=== PATIENT | male | born 1960 | race Caucasian/White ===

== ENCOUNTER 2022-07-09 00:37 | Inpatient (IN) | payer BC, SELFPAY ==
[2022-07-09] VITALS (37 sets, daily range): BP systolic 112–191; BP diastolic 55–90; PULSE 69–96; RESP 12–20; TEMP 36.4–37.2; O2SAT 97–100; BMI 28.5; BMI 27.2
--- NOTE | 2022-07-09 00:38 | CT_ITS ---
EXAM: CTA Head and Neck W/ Contrast Injection (and W/O Contrast Images if performed) HISTORY: Neuro deficit, acute, stroke suspected TECHNIQUE: CTA Head and Neck W/ Contrast Injection (and W/O Contrast Images if performed) Postcontrast axial images were obtained of the brain and neck. NASCET criteria using the distal ICAs for comparison were used for evaluation of stenoses. 3D reconstructions were reviewed. A radiation dose optimization technique was used for this scan. COMPARISON: None. LIMITATIONS: None. CAROTID ARTERIES: Severe 3 mm stenosis in the cavernous segment of the right internal carotid artery due to noncalcified plaque. ANTERIOR CEREBRAL ARTERIES: Hypoplastic right a 1 segment. MIDDLE CEREBRAL ARTERIES: Normal. POSTERIOR CEREBRAL ARTERIES: Normal. BASILAR ARTERY: Normal. VERTEBRAL ARTERIES: Severe focal stenosis in the proximal left V4 segment due to calcified and noncalcified plaque. VENOUS STRUCTURES: Normal. OTHER: None. AORTIC ARCH: Normal. CAROTID ARTERIES: Mild calcifications without flow-limiting stenosis. VERTEBRAL ARTERIES: Normal. OTHER ARTERIES: Normal. VENOUS STRUCTURES: Normal. BONES/SOFT TISSUES: Degenerative changes visualized spine. No acute osseous abnormality. Nonspecific straightening of the normal cervical lordosis.. OTHER: Calcified granuloma in the right upper lobe. CT/STROKE CTA Head AND Neck W/Con IMPRESSION: 1. Severe focal stenosis in the right internal carotid artery. 2. Severe stenosis in the proximal left V4 segment. 3. Hypoplastic right A1 segment. Findings discussed with Dr. Daniel Craft via phone at 10:13 PM PST on 07/08/2022. N.B. : The above Results were Read Back by Archie Garcia MD to Dr. Daniel Craft DO, and understanding confirmed on 07/09/2022 01:14:16 (ET). Electronically Signed: Archie Garcia MD at 1:15 EST ,
--- NOTE | 2022-07-09 00:38 | CT_ITS ---
EXAM: CT brain without contrast HISTORY: Neuro deficit, acute, stroke suspected TECHNIQUE: CT Head Stroke Protocol W/O Contrast Injection A radiation dose optimization technique was used for this scan. COMPARISON: None. LIMITATIONS: None. BRAIN: Normal flower/white matter differentiation. VENTRICLES: No hydrocephalus. Bilateral periventricular hypoattenuation, nonspecific however likely represents chronic microvascular ischemic changes. EXTRA-AXIAL SPACES: No hemorrhages, fluid collections, or masses. CALVARIUM/SKULL BASE: Normal. FACE/SINUSES: Visualized portions normal. SOFT TISSUES: Normal. OTHER: Vascular calcifications. CT/STROKE Brain/Head without Cont IMPRESSION: No intracranial hemorrhage or acute territorial infarction. Senescent changes. Findings discussed with Dr. Daniel Craft via phone at 9:56 PM PST on 07/08/2022. N.B. : The above Results were Read Back by Archie Garcia MD to Dr. Daniel Craft, DO, and understanding confirmed on 07/09/2022 00:57:59 (ET). Electronically Signed: Archie Garcia MD at 1:00 EST ,
[2022-07-09 01:02] LABS: Absolute Lymphocyte Count 1.95 X10^3/uL (0.83-4.51); Basophil# 0.05 X10^3/uL; Basophil% 0.7 % (0-1); Eosinophil# 0.19 X10^3/uL; Eosinophils% 2.8 % (0-5); Hematocrit 46.9 % (40-54); Lymphocyte # 1.95 X10^3/ul (0.83-4.51); Lymphocyte % 29.2 % (19-41); Mean Corpuscular Hgb 29.6 pg (27.0-32.0); Mean Corpuscular Volume 92.7 fL (80-94); Mean Platelet Vol. 10.4 fl (6.2-12.0); Monocyte# 0.44 X10^3/uL; Monocyte% 6.6 % (0-10); NRBC Flagged by Analyzer 0 % (0-5); Neutrophil # 4.02 X10^3/uL (2.7-7.7); Neutrophil % 60.4 % (47-70); Platelet Count 254 K/mm3 (150-450); RBC Distribution Width SD 44.2 fl (35.1-43.9); Red Blood Count 5.06 M/mm3 (4.6-6.2); White Blood Count 6.7 K/mm3 (4.4-11.0)
[2022-07-09] MEDS: 0.9% Normal Saline 1,000 ML 100 ML IV ×2 (01:13→06:32)
[2022-07-09 01:15] LABS: Anion Gap 9 (5-15); BUN 18 mg/dL (7-18); BUN/Creat Ratio 17.8 RATIO (10-20); Calcium,Total 8.8 mg/dL (8.5-10.1); Chloride 106 mmol/L (98-107); Creatinine, Serum 1.01 mg/dL (0.70-1.30); EST Glomerular Filtration Rate 80 mL/min (>60); Est Glom Filt Rate - Afr Amer 96 mL/min (>60); Glucose 304 mg/dL (74-106); Potassium 3.8 mmol/L (3.5-5.1); Sodium Level 137 mmol/L (136-145)
[2022-07-09 01:16] LABS: Prothrombin Time (Protime)PT. 13.1 SECONDS (11.7-14.9)
--- NOTE | 2022-07-09 01:25 | PCM.HP.STD ---
HPI - General General Date of Admission: 07/09/22 Date of Service: 07/09/22 Chief Complaint: L sided weakness, facial droop, slurred speech. HPI Narrative The patient is a 62 y/o M w/ PMHx: Former cigarette tobacco usage-->Chew tobacco ongoing, Former EtOH abuse, HTN, Diabetes mellitus type II, Overweight, Hx R eye unclear type of bleeding in unclear location s/p serial injections w/ last performed 06/25/22 with confirmed resolution with planned upcoming Surgery for scarring per their description who presents to the [facility] ED on 07/09/22 with history of currently visiting sleeping in a hotel with his spouse with onset just after LKW 00:00 left sided weakness with slurred speech, L sided facial droop prompting immediate EMS call and transition to the ED. Patient reports taking a baby aspirin daily. In the ED initial NIH stroke scale 15 with most recent repeat prior to admission 12. Patient is from out of town and was visiting his eldest son who lives in [place] with on evening prior to his presentation his granddaughter's 12th birthday green party. Work-up in the ED included T97.5, heart rate 96, BP 186/83, respiratory rate 20, 99% on room air, CT of the head with no acute intracranial hemorrhage or acute territorial infarction with senescent changes, CTA head and neck with severe focal stenosis in the right ICA, severe stenosis in the proximal left V4 segment, hypoplastic right A1 segment CBC with WC 6.7, hemoglobin 15, platelet 254 without marked shift, unremarkable coags, BMP with glucose 304 otherwise not marked appearing, EKG with sinus rhythm with no acute evidence of ischemia. In the ED patient administered tenecteplase. In the ED stroke alert called and neurology evaluated the patient with recommendation of tenecteplase administration with post tPA recommendations of every 15 minute vital signs/neurochecks/bleeding checks with comment to refer to tPA order set. [facility] Medical History (Updated 07/09/22 @ 03:[address] Anna Ledesma MD) Chewing tobacco use Former cigarette smoker History of alcohol abuse History of vitreous hemorrhage of right eye Hypertension Insulin dependent diabetes mellitus Overweight Home Medications aspirin 81 mg tablet 81 mg PO DAILY 07/09/22 [History Last Taken Unknown] empagliflozin 25 mg tablet (Jardiance) 25 mg PO DAILY 07/09/22 [History Last Taken Unknown] insulin detemir U-100 100 unit/mL (3 mL) subcutaneous pen (Levemir FlexPen) 35 unit subcut BID 07/09/22 [History Last Taken Unknown] lisinopril 40 mg tablet 20 mg PO DAILY 07/09/22 [History Last Taken Unknown] Allergy/AdvReac Type Severity Reaction Status Date / Time No Known Allergies Allergy Verified 07/09/22 00:56 Family History (Updated 07/09/22 @ 03:[address] Anna Ledesma MD) Mother Brain tumor Dx age 43. Father Heart disease Hypertension CAD (coronary artery disease) Diabetes Brother CVA (cerebral vascular accident) CVA in his 60s. Surgical History Hx of appendectomy Social History (Updated 07/09/22 @ 03:[address] Anna Ledesma MD) household members: spouse Smoking Status: Former smoker quit date: 04/30/00 pack-years: 38 Smokeless tobacco user: chewing tobacco and other alcohol intake: current alcohol intake frequency: holidays/special occasions only details: Hx heavy EtOH abuse (64 ounces beer/day) but stopped heavy intake 2 yrs ago substance use type: does not use ROS ROS Narrative Admission Review of Systems: CONSTITUTIONAL: No weight loss, fever, chills, + weakness or fatigue. HEENT: + L facial droop. Eyes: No visual loss, blurred vision, double vision or yellow sclerae. Ears, Nose, Throat: No hearing loss, sneezing, congestion, runny nose or sore throat. SKIN: No rash or itching, lesions, wounds. CARDIOVASCULAR: No chest pain, chest pressure or chest discomfort, palpitations, edema, orthopnea, syncopal events. RESPIRATORY: No shortness of breath, cough or sputum, wheezing, hemoptysis. GASTROINTESTINAL: No anorexia, nausea, vomiting or diarrhea, abdominal pain, melena, BRBPR. GENITOURINARY: No dysuria, frequency, urgency or retention. NEUROLOGICAL: + Left-sided hemiplegia, facial droop, 3, mild left-sided sensation alteration, no headache, dizziness, syncope, change in bowel or bladder control, seizure. MUSCULOSKELETAL: No muscle, back pain, joint pain or stiffness. HEMATOLOGIC: No anemia, bleeding or bruising. LYMPHATICS: No enlarged nodes. No history of splenectomy. PSYCHIATRIC: No history of depression or anxiety. ENDOCRINOLOGIC: No reports of sweating, cold or heat intolerance. No polyuria or polydipsia. ALLERGIES: No history of asthma, hives, eczema or rhinitis. Vital Signs Vital Signs Vital Signs: 07/09/22 00:43 07/09/22 01:03 07/09/22 00:37 Temperature 97.5 F L Temperature Source Temporal Pulse Rate 96 94 Respiratory Rate 20 H Blood Pressure 186/83 H 191/84 H Blood Pressure Mean 117 119 Blood Pressure Source Blood Pressure Position Blood Pressure Location Pulse Ox 99 97 Oxygen Delivery Method Room Air Room Air Room Air 07/09/22 01:09 07/09/22 00:56 07/09/22 01:11 Temperature Temperature Source Pulse Rate 92 90 Respiratory Rate 18 16 Blood Pressure 178/84 H 166/85 H 170/88 H Blood Pressure Mean 112 115 Blood Pressure Source Monitor Monitor Blood Pressure Position Semi-Fowlers Semi-Fowlers Blood Pressure Location Right Arm Right Arm Pulse Ox 99 98 Oxygen Delivery Method Room Air Room Air 07/09/22 01:26 07/09/22 01:41 07/09/22 01:51 Temperature 98.3 F Temperature Source Oral Pulse Rate 86 85 84 Respiratory Rate 16 15 14 Blood Pressure 160/74 H 172/73 H 172/73 H Blood Pressure Mean 102 106 106 Blood Pressure Source Monitor Monitor Blood Pressure Position Semi-Fowlers Semi-Fowlers Blood Pressure Location Right Arm Right Arm Pulse Ox 99 98 98 Oxygen Delivery Method Room Air Room Air Room Air 07/09/22 01:59 Temperature Temperature Source Pulse Rate 86 Respiratory Rate 17 Blood Pressure 165/70 H Blood Pressure Mean 101 Blood Pressure Source Monitor Blood Pressure Position Semi-Fowlers Blood Pressure Location Right Arm Pulse Ox 97 Oxygen Delivery Method Room Air Weight Weight: 181 lb 14.102 oz Body Mass Index (BMI) 28.5 Physical Exam Narrative Physical Examination: General: Awake, alert, oriented x 3 and cooperative, seated upright in the ED bed, fatigued, ongoing mild dysarthria secondary to left-sided facial droop. Skin: Normal color, normal turgor, no icterus, no cyanosis. HEENT: AT/NC, EOMI, PERRLA, mildly dry MM, left-sided facial droop evident, no carotid bruits or JVD noted. Lungs: CTA bilaterally, moderate effort, mild decrease BL bases, no rales, ronchi or wheezing. Heart: Currently regular rate and rhythm; no gallop, rub audible. Abdomen: Soft, overweight, NTTP, ND, normal BS, no HSM. Extremities: No cyanosis, clubbing, or edema. Neurological: Patient awake, alert, oriented as noted, cognitive function intact; pupils equally reactive to light and accommodation, cranial nerves grossly normal except left-sided facial deficit with mild sensation alteration, left eye shah of vision improved from initial complaints with initial complete hemianopia and are currently intact, left-sided complete hemiplegia present, left-sided mild sensation alteration, mild persistent dysarthria, able to perform right upper and lower extremity finger-nose and [id number], equivocal Babinski. Psychiatric: Affect appears fatigued, no acute evidence of depressive or anxiety feelings. Results Lab / Micro Data Result Diagrams: 07/09/22 00:55 03 00:55 Labs: Laboratory Results - last 24 hr 07/09/22 00:55: WBC 6.7, RBC 5.06, Hgb 15.0, Hct 46.9, MCV 92.7, MCH 29.6, MCHC 32.0, RDW Std Deviation 44.2 H, RDW Coeff of Machelle 13.0, Plt Count 254, MPV 10.4, Immature Gran % (Auto) 0.300, Neut % (Auto) 60.4, Lymph % (Auto) 29.2, Steele % (Auto) 6.6, Eos % (Auto) 2.8, Baso % (Auto) 0.7, Absolute Neuts (auto) 4.0, Absolute Lymphs (auto) 1.95, Nucleated RBC % 0 07/09/22 00:55: PT 13.1, INR 1.0, APTT 25.0 07/09/22 00:55: Sodium 137, Potassium 3.8, Chloride 106, Carbon Dioxide 22.0, Anion Gap 9, BUN 18, Creatinine 1.01, Estim Creat Clear Calc 70.90, Est GFR (MDRD) Af Amer 96, Est GFR (MDRD) Non-Af 80, BUN/Creatinine Ratio 17.8, Glucose 304 H, Calcium 8.8 07/09/22 00:55: Magnesium 2.[address] 07/09/22 00:38 IMPRESSION: No intracranial hemorrhage or acute territorial infarction. Senescent changes. Findings discussed with Dr. Daniel Craft via phone at 9:56 PM PST on 07/08/2022. N.B. : The above Results were Read Back by Archie Garcia MD to Dr. Daniel Craft DO, and understanding confirmed on 07/09/2022 00:57:59 (ET). Electronically Signed: Archie Garcia MD at 1:00 EST , ADDENDUM: 07/09/22 0107 IMPRESSION: No intracranial hemorrhage or acute territorial infarction. Senescent changes. Findings discussed with Dr. Daniel Craft via phone at 9:56 PM PST on 07/08/2022. N.B. : The above Results were Read Back by Archie Garcia MD to Dr. Daniel Craft DO, and understanding confirmed on 07/09/2022 00:57:59 (ET). Electronically Signed: Archie Garcia MD at 1:00 EST Reading Location ID and State: [id number] / [employer] , Service support , Head/Neck CTA 07/09/22 00:38 IMPRESSION: 1. Severe focal stenosis in the right internal carotid artery. 2. Severe stenosis in the proximal left V4 segment. 3. Hypoplastic right A1 segment. Findings discussed with Dr. Daniel Craft via phone at 10:13 PM PST on 07/08/2022. N.B. : The above Results were Read Back by Archie Garcia MD to Dr. Daniel Craft DO, and understanding confirmed on 07/09/2022 01:14:16 (ET). Electronically Signed: Archie Garcia MD at 1:15 EST Reading Location ID and State: [id number] / [employer] , Service support , ADDENDUM: 07/09/22 0122 IMPRESSION: 1. Severe focal stenosis in the right internal carotid artery. 2. Severe stenosis in the proximal left V4 segment. 3. Hypoplastic right A1 segment. Findings discussed with Dr. Daniel Craft via phone at 10:13 PM PST on 07/08/2022. N.B. : The above Results were Read Back by Archie Garcia MD to Dr. Daniel Craft , DO, and understanding confirmed on 07/09/2022 01:14:16 (ET). Electronically Signed: Archie Garcia MD at 1:15 EST , Assessment & Plan Assessment/Plan (1) Acute cerebrovascular accident (CVA): PLAN: Plan The patient is a 62 y/o M w/ PMHx: Former cigarette tobacco usage-->Chew tobacco ongoing, Former EtOH abuse, HTN, Diabetes mellitus type II, Overweight, Hx R eye unclear type of bleeding in unclear location s/p serial injections w/ last performed 06/25/22 with confirmed resolution with planned upcoming Surgery for scarring per their description who presents to the [facility] ED on 07/09/22 with history of currently visiting sleeping in a hotel with his spouse with onset just after LKW 00:00 left sided weakness with slurred speech, L sided facial droop prompting immediate EMS call and transition to the ED. #1. Left-sided hemiplegia, facial droop, facial droop with slurred speech secondary to acute stroke status post tenecteplase administration with noted severe focal stenosis right ICA, severe stenosis proximal left V4 segment, hypoplastic right A1 segment: Will admit to the ICU status post tenecteplase administration, continue chief deputy clerk/bailiff consultation, plan repeat CT head in 24 hours following tenecteplase administration and if no acute evidence of bleeding reinitiate antiplatelet therapy immediately, will request neurology consultation, will obtain MRI Brain, ECHO, PT/OT/Speech/Nutrition evaluation per protocol. Will allow permissive HTN with parent agents per stroke protocol, add high-dose statin w/ AM FLP, fall precautions, TSH/Mag/FLP/HgbA1c pending, will obtain carotid ultrasound and request vascular surgery evaluation to assure aggressive intervention follow-up. #2. Diabetes mellitus type II: Hold oral home regimen, continue home insulin regimen, ADA diet if cleared for oral intake, accu checks w/ ISS once patient is appropriately out status post tenecteplase administration, nutrition consulted for education and teaching. #3. Hypertension: Given presentation maintain on permissive hypertension with as needed agents per stroke protocol. #4. History of right eye bleeding, unclear specific type status post injections: Patient has noted with serial injections specifically ongoing over the last 3 months with last injection 06/25/2022 with resolution confirmed per ophthalmology per their report, planned upcoming future surgery secondary to what is described as potentially scar tissue causing a small thin line across his field of vision. #5. Overweight: Weight loss and lifestyle changes encouraged. #6. Former cigarette tobacco usage transition to chew tobacco: Strongly encouraged cessation of tobacco products, cessation counseling, NR if necessary. #7. Former heavy alcohol abuse: Patient with at least 64 ounces of beer daily however he stopped drinking heavily approximately 2 years prior to current presentation, now will have single drink on rare occasion, discussed benefits of transitioning to complete sobriety. #8. DVT prophylaxis: SCDs. #9. CODE status: Patient HCPOA and living will are not in place. Discussed CODE status at length including difference between FULL code, DNR-CCA and DNR-CC status. Following discussions about the differences in these status, requested Full Code status at this time. Advanced Care Planning Face to Face Time: 16 minutes. Admission Evaluation Time spent evaluating chart, patient history, patient evaluation, care planning and discussion with specialists: 75 minutes. Charges/Coding Visit Charges Inpatient E&M: 22080 Init Hosp L3 Procedures Hospitalists Procedures: 76454 Advncd Care Plan 30 Min
--- NOTE | 2022-07-09 01:42 | EX.ED.DYSGE1 ---
HPI History of Present Illness Chief Complaint: Stroke Alert Narrative Narrative: Patient is a 62-year-old male with past medical history of insulin-dependent diabetes and hypertension. This evening he and his for sitting around talking and all of a sudden he began to slur his speech and had a facial droop. recognized this as signs of possible stroke and called EMS. Patient states that he was feeling normal up to the sudden onset of symptoms. He denies any chest pain shortness of breath or palpitations. He denies any recent surgery or trauma or history of blood thinner use. However with left-sided weakness and facial droop and concern for acute stroke he was brought in for evaluation. EMS states when they arrived patient was awake and alert with the deficits seen upon arrival. They state that his last known well was midnight. They report blood sugar upon arrival was slightly elevated at 254 consistent with history of diabetes [facility] Medical History (Updated 07/09/22 @ 01:[address] Daniel Craft, DO) Diabetes Hypertension Home Medications aspirin 81 mg tablet 81 mg PO DAILY 07/09/22 [History Last Taken Unknown] empagliflozin 25 mg tablet (Jardiance) 25 mg PO DAILY 07/09/22 [History Last Taken Unknown] insulin detemir U-100 100 unit/mL (3 mL) subcutaneous pen (Levemir FlexPen) 35 unit subcut BID 07/09/22 [History Last Taken Unknown] lisinopril 40 mg tablet 20 mg PO DAILY 07/09/22 [History Last Taken Unknown] Allergy/AdvReac Type Severity Reaction Status Date / Time No Known Allergies Allergy Verified 07/09/22 00:56 Surgical History (Updated 07/09/22 @ 00:58 by Geovanna Coleman) Hx of appendectomy Social History Smoking Status: Never smoker [facility] ED Constitutional Constitutional ED: Denies chills or fever(s) Eyes Eyes: Reports change in vision ENT ENT ED: Denies sore throat Cardiovascular Cardiovascular: Denies chest pain, palpitations or racing heartbeat Respiratory/Chest Respiratory/Chest: Denies cough or dyspnea Gastrointestinal Gastrointestinal: Denies abdominal pain, diarrhea, nausea or vomiting Genitourinary Genitourinary ED: Denies dysuria Musculoskeletal Musculoskeletal: Denies myalgias Integumentary Denies rash Neurologic Neurologic: Reports paresthesias and weakness; Denies headache(s) Hematologic/Lymphatic Hematologic/Lymphatic: Denies easy bleeding or easy bruising EXAM Physical Exam Const Vital Signs: 07/09/22 00:43 07/09/22 01:03 07/09/22 00:37 Temperature 97.5 F L Temperature Source Temporal Pulse Rate 96 94 Respiratory Rate 20 H Blood Pressure 186/83 H 191/84 H Blood Pressure Mean 117 119 Blood Pressure Source Blood Pressure Position Blood Pressure Location Pulse Ox 99 97 Oxygen Delivery Method Room Air Room Air Room Air 07/09/22 01:09 07/09/22 00:56 07/09/22 01:11 Temperature Temperature Source Pulse Rate 92 90 Respiratory Rate 18 16 Blood Pressure 178/84 H 166/85 H 170/88 H Blood Pressure Mean 112 115 Blood Pressure Source Monitor Monitor Blood Pressure Position Semi-Fowlers Semi-Fowlers Blood Pressure Location Right Arm Right Arm Pulse Ox 99 98 Oxygen Delivery Method Room Air Room Air 07/09/22 01:26 Temperature Temperature Source Pulse Rate 86 Respiratory Rate 16 Blood Pressure 160/74 H Blood Pressure Mean 102 Blood Pressure Source Monitor Blood Pressure Position Semi-Fowlers Blood Pressure Location Right Arm Pulse Ox 99 Oxygen Delivery Method Room Air Positive well nourished and well developed General Appearance ED: well developed HEENT Reports moist mucous membranes Eyes PERRL and EOMs intact bilaterally Neck supple and no JVD Chest Wall palpation of chest normal Resp normal respiratory effort and clear to auscultation bilaterally Cardio regular rate and regular rhythm Rate: other Other Details: Radial pulses are plus 2 out of 4 bilaterally are equal and symmetric GI normal to inspection, nondistended, normoactive bowel sounds, non-tender, non-distended and no masses GI Narrative: No voluntary guarding or rigidity no pulsatile mass Auscultation: normoactive bowel sounds Palpation: soft Extremity normal to inspection Extremity Narrative: No bony deformity or joint effusion noted Neuro oriented x3 Neuro Narrative: Patient is awake and alert but received an NIH stroke scale score of 15. He received this because he scores 2 points for complete hemianopia, 3 points for complete facial paralysis, 4 points for no movement of the left arm and 4 points for no movement of the left leg, he receives 1 point for mild sensory deprivation in the left side of body and 1 point for mild dysarthria Sensorium / Orientation: alert Psych mental status grossly normal Skin no rashes or lesions noted MDM MDM MDM Narrative Medical decision making narrative: Patient presented to the ER approximately 30 minutes after his last known well. His physical exam is consistent with an acute stroke as he received an NIH stroke scale score of 15. A stroke alert was activated and patient was taken to radiology for CT and CTA. The CT revealed no hemorrhagic changes and the CTA revealed stenosis of the right ICA and the left V4 segment. The telemetry neurologist also evaluated the patient and they agree that based on his large NIH stroke scale score and the fact he falls within the tenecteplase window that the medication be given. The contraindications were discussed as well as possible side effects and both patient and family still agreed to receive the medication. The neurologist states that based on the stenosis noted on the CTA that it would still be prudent to keep the patient at this facility as they would not stent either the V4 segment or the ICA emergently. Secondary to this medicine was contacted and does agree to accept the patient to the ICU for further care of his acute stroke History & Record Review Discussion w/independent historian: EMS personnel, Patient and Family Lab Data Attestation: I reviewed the patient's lab results. Labs: Laboratory Results - last 24 hr 07/09/22 07/09/22 07/09/22 00:55 00:55 00:55 WBC 6.7 RBC 5.06 Hgb 15.0 Hct 46.9 MCV 92.7 MCH 29.6 MCHC 32.0 RDW Std Deviation 44.2 H RDW Coeff of Machelle 13.0 Plt Count 254 MPV 10.4 Immature Gran % (Auto) 0.300 Neut % (Auto) 60.4 Lymph % (Auto) 29.2 Branch % (Auto) 6.6 Eos % (Auto) 2.8 Baso % (Auto) 0.7 Absolute Neuts (auto) 4.0 Absolute Lymphs (auto) 1.95 Nucleated RBC % 0 PT 13.1 INR 1.0 APTT 25.0 Sodium 137 Potassium 3.8 Chloride 106 Carbon Dioxide 22.0 Anion Gap 9 BUN 18 Creatinine 1.01 Estim Creat Clear Calc 70.90 Est GFR (MDRD) Af Amer 96 Est GFR (MDRD) Non-Af 80 BUN/Creatinine Ratio 17.8 Glucose 304 H Calcium 8.8 Radiography Diagnostic Testing: Clinical Impression(s) from Imaging Studies Brain CT 07/09/22 00:38 IMPRESSION: No intracranial hemorrhage or acute territorial infarction. Senescent changes. Findings discussed with Dr. Daniel Craft via phone at 9:56 PM PST on 07/08/2022. N.B. : The above Results were Read Back by Archie Garcia MD to Dr. Daniel Craft DO, and understanding confirmed on 07/09/2022 00:57:59 (ET). Electronically Signed: Archie Garcia MD at 1:00 EST , ADDENDUM: 07/09/22 0107 IMPRESSION: No intracranial hemorrhage or acute territorial infarction. Senescent changes. Findings discussed with Dr. Daniel Craft via phone at 9:56 PM PST on 07/08/2022. N.B. : The above Results were Read Back by Archie Garcia MD to Dr. Daniel Craft DO, and understanding confirmed on 07/09/2022 00:57:59 (ET). Electronically Signed: Archie Garcia MD at 1:00 EST , Head/Neck CTA 07/09/22 00:38 IMPRESSION: 1. Severe focal stenosis in the right internal carotid artery. 2. Severe stenosis in the proximal left V4 segment. 3. Hypoplastic right A1 segment. Findings discussed with Dr. Daniel Craft via phone at 10:13 PM PST on 07/08/2022. N.B. : The above Results were Read Back by Archie Garcia MD to Dr. Daniel Craft DO, and understanding confirmed on 07/09/2022 01:14:16 (ET). Electronically Signed: Archie Garcia MD at 1:15 EST , ADDENDUM: 07/09/22 0122 IMPRESSION: 1. Severe focal stenosis in the right internal carotid artery. 2. Severe stenosis in the proximal left V4 segment. 3. Hypoplastic right A1 segment. Findings discussed with Dr. Daniel Craft via phone at 10:13 PM PST on 07/08/2022. N.B. : The above Results were Read Back by Archie Garcia MD to Dr. Daniel Craft , DO, and understanding confirmed on 07/09/2022 01:14:16 (ET). Electronically Signed: Archie Garcia MD at 1:15 EST , Management Discussion w/another healthcare provider: Hospitalist, Material Flow Engineer and Radiologist Critical Care Time Critical Care Time: Yes Critical care time (excluding procedures): - (Please note critical care time of 31 minutes) Discharge Plan Triage Chief Complaint: Stroke Alert ED Provider: Daniel Craft Dx/Rx/DC Orders Clinical Impression: Acute cerebrovascular accident (CVA), Insulin dependent diabetes mellitus, Hypertension Prescriptions: No Action aspirin 81 mg Tablet 81 mg PO DAILY lisinopril 40 mg Tablet 20 mg PO DAILY Levemir FlexPen 100 unit/mL (3 mL) Insulin Pen 35 unit SUBCUT BID Jardiance 25 mg Tablet 25 mg PO DAILY Primary Care Provider: Care Physician,No Primary Referrals: Care Physician,No Primary [Primary Care Provider] - Disposition Disposition: Acute Care [facility]
--- NOTE | 2022-07-09 01:55 | ECHOD_ITS ---
Reason For Study: TIA/DVA Procedure This was a 2D Doppler, Color Flow transthoracic echocardiogram. The study was technically difficult. Exam performed supine, as patient still under sedation for MRI. Exam performed portable in ICU/CCU. Left Ventricle Normal LV size. Left ventricular systolic function is normal. The estimated ejection fraction is 60 %. Stage 1 diastolic dysfunction. No regional wall motion abnormalities noted. Right Ventricle Normal RV size. Normal systolic function. Atria Normal left atrium. Normal right atrium. Bubble contrast study negative for right to left interatrial shunt. Mitral Valve Normal mitral valve. Tricuspid Valve Normal tricuspid valve. Mild tricuspid valve insufficiency. Pulmonary artery systolic pressure is 34 mmHg. Aortic Valve Normal aortic valve. Trisinus/trileaflet aortic valve. Pulmonic Valve Normal pulmonic valve. Great Vessels Normal aortic root. The pulmonary artery is normal size. Normal inferior vena cava. Pericardium/Pleural No pericardial effusion. Medication Performed a rapid injection of agitated mix of 9 cc saline and 1cc air to assess for atrial septal defect. MMode/2D Measurements & Calculations LVIDd: 4.4 cm IVSd: 1.0 cm Ao root diam: 3.4 cm LVIDs: 2.7 cm LVPWd: 0.99 cm RVDd: 3.1 cm FS: 39.5 % LAV(MOD-bp): 46.4 ml LA A4 area: 18.1 cm2 LA dimension(2D): 3.5 cm LAV(MOD-bp) Indexed: 24.3 ml/m2 LAV(MOD-sp2): 45.1 ml LAV(MOD-sp4): 45.6 ml RA A4 area: 12.8 cm2 Time Measurements MV dec time: 0.24 sec Doppler Measurements & Calculations MV E max abilio: 95.8 cm/sec Lat Peak E' Abilio: 10.6 cm/sec Med Peak E' Abilio: 8.9 cm/sec MV A max abilio: 119.8 cm/sec E/E' lat: 9.0 E/E' med: 10.7 MV E/A: 0.80 MV dec slope: 418.6 cm/sec2 Ao V2 max: 157.3 cm/sec LV V1 max: 118.1 cm/sec Ao max P.9 mmHg LV V1 max P.6 mmHg Ao V2 mean: 101.5 cm/sec LV V1 mean P.8 mmHg Ao mean P.8 mmHg LV V1 mean: 79.6 cm/sec Ao V2 VTI: 34.0 cm LV V1 VTI: 24.4 cm AV (velocity ratio): 0.72 PA V2 max: 113.9 cm/sec TR max abilio: 276.0 cm/sec TR max P.5 mmHg ECHO/Echo Complete Interpretation Summary Normal LV size. Left ventricular systolic function is normal. The estimated ejection fraction is 60 %. Stage 1 diastolic dysfunction. Pulmonary artery systolic pressure is 34 mmHg. Bubble contrast study negative for right to left interatrial shunt. Ordering Physician: Anna Ledesma Referring Physician: RICARDO PCP Performed By: Cathie Jay RDCS, RVT
--- NOTE | 2022-07-09 01:55 | CDU_ITS ---
Reason For Study: CVA Rt. Velocities/BP Lt. Velocities/BP Prox CCA 71.8/11.3 cm/sec. Prox CCA 130.2/17.0 cm/sec. Mid CCA 69.6/14.6 cm/sec. Mid CCA 101.0/20.6 cm/sec. Dist CCA 59.7/12.4 cm/sec. Dist CCA 101.0/24.3 cm/sec. Prox ICA 59.7/8.0 cm/sec. Prox ICA 88.2/15.2 cm/sec. Mid ICA 76.2/20.1 cm/sec. Mid ICA 83.8/20.6 cm/sec. Dist ICA 75.4/18.8 cm/sec. Dist ICA 117.4/24.3 cm/sec. Rt. ICA/CCA = 1.1. Lt. ICA/CCA = 1.2. Prox ECA 321.4/43.1 cm/sec. Prox ECA 148.5/13.3 cm/sec. Rt. Vert. 82.8/21.2 cm/sec. Lt. Vert. 50.0/10.7 cm/sec. Right Extracranial There is homogeneous, smooth atherosclerotic plaque noted in the right common carotid artery. There is heterogeneous, irregular atherosclerotic plaque noted in the right internal carotid artery. The atherosclerotic plaque causes acoustic shadowing. There is heterogeneous, smooth atherosclerotic plaque noted in the right external carotid artery. Antegrade flow is noted in the right vertebral artery. Left Extracranial There is homogeneous, smooth atherosclerotic plaque noted in the left common carotid artery. There is heterogeneous, irregular atherosclerotic plaque noted in the left internal carotid artery. There is heterogeneous, irregular atherosclerotic plaque noted in the left external carotid artery. Antegrade flow is noted in the left vertebral artery. Procedure Carotid Duplex 56819. This is a Carotid Duplex examination using B-mode, color flow and specral Doppler. The exam was diagnostic. The study was technically difficult. Exam performed portable in ICU/CCU. VL/Carotid Duplex Ultrasound Interpretation Summary Mild (<50%) stenosis right extracranial internal carotid. Mild (<50%) stenosis left extracranial internal carotid. Patent and antegrade vertebrals bilaterally. Ordering Physician: Anna Ledesma Referring Physician: N/Maricarmen Performed By: Isaac Rodriguez RVT
--- NOTE | 2022-07-09 05:48 | EX.PCM.CONCC ---
Assessment & Plan Assessment/Plan (1) Acute cerebrovascular accident (CVA): PLAN: Plan RECOMMENDATIONS: 1. Continue routine ICU monitoring per tenecteplase protocol. 2. Follow-up head imaging 24 hours post tenecteplase administration. 3. PT/OT evaluations once cleared from head imaging. 4. Continue basal sliding scale insulin coverage. 5. Vascular surgery follow-up. IMPRESSIONS: 1. Acute CVA status post tenecteplase The patient continues to have dysarthric speech, left-sided facial droop and left hemiplegia. Severe focal stenosis of the right ICA was identified. The patient will undergo follow-up head imaging at 24 hours post tenecteplase administration. Once cleared on follow-up head imaging, PT/OT evaluations can be obtained. Recommend follow-up neurology consultation along with echocardiogram. The patient would likely benefit from vascular surgery follow-up as well. 2. History of diabetes mellitus/hypertension/smokeless tobacco dependency Care, management, recovery and prognosis. Continue basal and sliding scale insulin coverage. This note was generated with [employer] dictation software. It may contain incorrect words, spelling, and punctuation that were not noted in checking the note before signing. HPI Consult Data Date of Consult: 07/09/22 HPI Narrative Reason for Consultation: CVA status post tenecteplase HPI Narrative: The patient is a 62-year-old male, with a history as outlined below, who presented to the emergency department via EMS on July 09 with dysarthria, left-sided weakness and facial droop. The patient does have a history of diabetes mellitus, smokeless tobacco dependency and hypertension. On presentation to the emergency department, the patient was noted to be hypertensive with a blood pressure of 191/84 mmHg. Initial laboratory evaluation revealed no evidence of a leukocytosis. Coagulation profile was within normal limits. Chemistry profile was unrevealing. CT head revealed no acute intracranial abnormality. CTA head and neck demonstrated severe focal stenosis of the right internal carotid artery along with severe stenosis in the proximal left V4 segment. The patient was seen in consultation by neurology and felt to be a candidate for tenecteplase. Post tenecteplase, the patient was admitted to the medical intensive care unit per protocol. [facility] Medical History (Updated 07/09/22 @ 03:[address] Anna Ledesma MD) Chewing tobacco use Former cigarette smoker History of alcohol abuse History of vitreous hemorrhage of right eye Hypertension Insulin dependent diabetes mellitus Overweight Home Medications aspirin 81 mg tablet 81 mg PO DAILY 07/09/22 [History Last Taken Unknown] empagliflozin 25 mg tablet (Jardiance) 25 mg PO DAILY 07/09/22 [History Last Taken Unknown] insulin detemir U-100 100 unit/mL (3 mL) subcutaneous pen (Levemir FlexPen) 35 unit subcut BID 07/09/22 [History Last Taken Unknown] lisinopril 40 mg tablet 20 mg PO DAILY 07/09/22 [History Last Taken Unknown] Allergy/AdvReac Type Severity Reaction Status Date / Time No Known Allergies Allergy Verified 07/09/22 00:56 Family History (Updated 07/09/22 @ 03:[address] Anna Ledesma MD) Mother Brain tumor Dx age 43. Father Heart disease Hypertension CAD (coronary artery disease) Diabetes Brother CVA (cerebral vascular accident) CVA in his 60s. Surgical History Hx of appendectomy Social History (Updated 07/09/22 @ 03:[address] Anna Ledesma MD) household members: spouse Smoking Status: Former smoker quit date: 04/30/00 pack-years: 38 Smokeless tobacco user: chewing tobacco and other alcohol intake: current alcohol intake frequency: holidays/special occasions only details: Hx heavy EtOH abuse (64 ounces beer/day) but stopped heavy intake 2 yrs ago substance use type: does not use ROS ROS Narrative 10 systems reviewed with pertinent positives as noted in the HPI above. Physical Exam Const alert and no apparent distress Constitutional Narrative: is present at the bedside. General Appearance: cooperative HEENT normocephalic and head/scalp atraumatic Eyes PERRL, EOMs intact bilaterally and conjunctivae normal Neck supple General: trachea midline Chest inspection of chest normal Resp normal respiratory effort Auscultation: Negative for rales, rhonchi or wheezes Cardio regular rate and regular rhythm GI normal to inspection, nondistended, normoactive bowel sounds Extremity no clubbing, cyanosis or edema Skin no rashes or lesions noted Neuro Neuro Narrative: Dysarthric speech persists along with left facial droop and dense left-sided hemiplegia. Psych cooperative and affect normal Lab / Micro Data Result Diagrams: 07/09/22 06:10 07/09/22 00:55 Labs: Laboratory Results - last 24 hr 07/09/22 00:55: WBC 6.7, RBC 5.06, Hgb 15.0, Hct 46.9, MCV 92.7, MCH 29.6, MCHC 32.0, RDW Std Deviation 44.2 H, RDW Coeff of Machelle 13.0, Plt Count 254, MPV 10.4, Immature Gran % (Auto) 0.300, Neut % (Auto) 60.4, Lymph % (Auto) 29.2, Garrett % (Auto) 6.6, Eos % (Auto) 2.8, Baso % (Auto) 0.7, Absolute Neuts (auto) 4.0, Absolute Lymphs (auto) 1.95, Nucleated RBC % 0 07/09/22 00:55: PT 13.1, INR 1.0, APTT 25.0 07/09/22 00:55: Sodium 137, Potassium 3.8, Chloride 106, Carbon Dioxide 22.0, Anion Gap 9, BUN 18, Creatinine 1.01, Estim Creat Clear Calc 70.90, Est GFR (MDRD) Af Amer 96, Est GFR (MDRD) Non-Af 80, BUN/Creatinine Ratio 17.8, Glucose 304 H, Calcium 8.8 07/09/22 00:55: Magnesium 2.[address] 07/09/22 00:38 IMPRESSION: No intracranial hemorrhage or acute territorial infarction. Senescent changes. Findings discussed with Dr. Daniel Craft via phone at 9:56 PM PST on 07/08/2022. N.B. : The above Results were Read Back by Archie Garcia MD to Dr. Daniel Craft DO, and understanding confirmed on 07/09/2022 00:57:59 (ET). Electronically Signed: Archie Garcia MD at 1:00 EST , ADDENDUM: 07/09/22106 IMPRESSION: No intracranial hemorrhage or acute territorial infarction. Senescent changes. Findings discussed with Dr. Daniel Craft via phone at 9:56 PM PST on 07/08/2022. N.B. : The above Results were Read Back by Archie Garcia MD to Dr. Daniel Craft DO, and understanding confirmed on 07/09/2022 00:57:59 (ET). Electronically Signed: Archie Garcia MD at 1:00 EST , Head/Neck CTA 07/09/22 00:38 IMPRESSION: 1. Severe focal stenosis in the right internal carotid artery. 2. Severe stenosis in the proximal left V4 segment. 3. Hypoplastic right A1 segment. Findings discussed with Dr. Daniel Craft via phone at 10:13 PM PST on 07/08/2022. N.B. : The above Results were Read Back by Archie Garcia MD to Dr. Daniel Craft DO, and understanding confirmed on 07/09/2022 01:14:16 (ET). Electronically Signed: Archie Garcia MD at 1:15 EST , ADDENDUM: 07/09/22 0122 IMPRESSION: 1. Severe focal stenosis in the right internal carotid artery. 2. Severe stenosis in the proximal left V4 segment. 3. Hypoplastic right A1 segment. Findings discussed with Dr. Daniel Craft via phone at 10:13 PM PST on 07/08/2022. N.B. : The above Results were Read Back by Archie Garcia MD to Dr. Daniel Craft DO, and understanding confirmed on 07/09/2022 01:14:16 (ET). Electronically Signed: Archie Garcia MD at 1:15 EST , Charges/Coding Visit Charges Inpatient E&M: 24924 Init Hosp L3
--- NOTE | 2022-07-09 05:54 | TELEMED_ITS ---
[facility] Telemed has confirmed receipt of a request for visit. This document confirms receipt of the order initiating the consult. To find the results of the consultation, please view the patient's reports for the scanned Telemed Consult.
[2022-07-09 06:19] LABS: Absolute Lymphocyte Count 1.64 X10^3/uL (0.83-4.51); Absolute Neutrophil Count 5.9 X10^3/uL (2.0-7.7); Basophil# 0.05 X10^3/uL; Basophil% 0.6 % (0-1); Eosinophil# 0.15 X10^3/uL; Eosinophils% 1.8 % (0-5); Hematocrit 45.5 % (40-54); Hemoglobin 14.8 g/dL (13.0-16.5); Lymphocyte # 1.64 X10^3/ul (0.83-4.51); Lymphocyte % 19.8 % (19-41); Mean Corp Hgb Conc 32.5 g/dL (32-36); Mean Corpuscular Hgb 29.7 pg (27.0-32.0); Mean Corpuscular Volume 91.2 fL (80-94); Mean Platelet Vol. 10.2 fl (6.2-12.0); NRBC Flagged by Analyzer 0 % (0-5); Neutrophil # 5.93 X10^3/uL (2.7-7.7); Neutrophil % 71.4 % (47-70); Platelet Count 284 K/mm3 (150-450); RBC Distribution Width SD 43.7 fl (35.1-43.9); Red Blood Count 4.99 M/mm3 (4.6-6.2); White Blood Count 8.3 K/mm3 (4.4-11.0)
[2022-07-09 06:40] LABS: ALB/GLOB Ratio 1.2 RATIO (0.9-2.4); AST(SGOT) 11 U/L (15-37); Alanine Aminotransfer ALT/SGPT 22 U/L (16-61); Albumin, Serum 3.3 g/dL (3.2-5.0); Alkaline Phosphatase 86 U/L (45-117); Anion Gap 7 (5-15); BUN 13 mg/dL (7-18); BUN/Creat Ratio 17.2 RATIO (10-20); Calcium,Total 8.1 mg/dL (8.5-10.1); Chloride 112 mmol/L (98-107); Creatinine, Serum 0.76 mg/dL (0.70-1.30); EST Glomerular Filtration Rate 111 mL/min (>60); Est Glom Filt Rate - Afr Amer 134 mL/min (>60); Estimated Creatinine Clearance 94.22 ml/min; Globulin 2.8 g/dL (2.2-4.2); Glucose 159 mg/dL (74-106); Potassium 3.7 mmol/L (3.5-5.1); Protein, Total 6.1 g/dL (6.4-8.2); Sodium Level 142 mmol/L (136-145); Thyroid Stim Hormone (TSH) 1.86 uIU/mL (0.358-3.74)
--- NOTE | 2022-07-09 07:23 | PCM.HOSP.N ---
Hospitalist Note Patient is a 62-year-old gentleman with multiple comorbidities including diabetes mellitus type 2, essential hypertension who is apparently visiting from [place] developed L sided weakness, facial droop, slurred speech. Presented to the emergency department and assessment of acute CVA was made patient did receive tenecteplase and subsequently admitted to the intensive care unit for subsequent care Patient has been seen and examined. Still has significant left-sided deficit. Initial imaging studies as well as repeat imaging studies reviewed. Initial assessment including history and physical diagnostic data consultation notes reviewed will follow
[2022-07-09 07:32] LABS: Hemoglobin A1c 8.8 % (3.8-5.6)
--- NOTE | 2022-07-09 07:39 | CT_ITS ---
INDICATION: increasing NIH -- teneceteplase given EXAMINATION: CT BRAIN - CT Head or Brain W/O Contrast Injection TECHNIQUE: Multiple axial images were obtained of the head without intravenous contrast. A radiation dose optimization technique was used for this scan. IV Contrast dosage and agent: None. COMPARISON: July 09, 2022 FINDINGS: BRAIN PARENCHYMA: No intra- or extra-axial hemorrhage. No evidence of acute infarct. No intracranial mass or mass effect. There is preservation of the flower/white matter interface. Posterior fossa structures are unremarkable. CSF SPACES: Appropriate for age. No hydrocephalus. Basal cisterns are patent. CALVARIUM, SKULL BASE, PARANASAL SINUSES AND MASTOID AIR CELLS: Clear. No discrete lytic or blastic abnormalities. ORBITS: Both globes, extraocular muscles, optic nerves and retrobulbar fat appear unremarkable. CT/Brain/Head without Contrast IMPRESSION: No acute intracranial process. Electronically Signed: Clarice Yang MD at 8:08 EDT ,
--- NOTE | 2022-07-09 08:32 | RAD_ITS ---
INDICATION: Neuro deficit, acute, stroke suspected EXAMINATION/TECHNIQUE: X-RAY - XR Chest 1 View COMPARISON: None. FINDINGS: LINES/DEVICES: None. LUNGS: No consolidation, edema or effusion. No pneumothorax. MEDIASTINUM AND CARDIOVASCULAR STRUCTURES: Cardiac silhouette not enlarged. Central airways and mediastinal contour are unremarkable. BONES AND SOFT TISSUES: Unremarkable. RAD/Chest 1 View IMPRESSION: No radiographic evidence of acute cardiopulmonary disease. Electronically Signed: Clarice Yang MD at 8:56 EDT ,
[2022-07-09 08:56] LABS: Bedside Glucose 108 mg/dL (74-106)
[2022-07-09] MEDS: 0.9% Saline Lock 10 ML Syringe IV (09:35)
[2022-07-09 10:20] LABS: Bedside Glucose 115 mg/dL (74-106)
--- NOTE | 2022-07-09 10:31 | CON.PCM.SX_ITS ---
Assessment & Plan Assessment/Plan (1) Right cavernous carotid stenosis: PLAN: -stroke with worsening NIH, no improvement after tenecteplase -cervical/surgically treated portion of carotid without stenosis -cavernous portion not typically treated given high risks, but would recommend input from Neurointerventional at some point HPI Consult Data Date of Consult: 07/09/22 HPI Narrative HPI Narrative: HUGH VALENCIA, is a 62 M who presents with garbled speech, left facial droop, left hemiparesis beginning just after midnight last night. No prior similar events or history of TIA/CVA. Was given tenecteplase and admitted to ICU. CTA head/neck revealed right ICA high grade stenosis in the cavernous portion with no significant cervical ICA stenosis. His NIH scores have been gradually getting worse since admission with no abrupt changes. Has had recent right eye issues with intraocular hemorrhage/edema treated with injections; resolved but with need for eventual surgery. Majority of history from who is an ED nurse in [facility]; they were here visiting family. [facility] Medical History Chewing tobacco use Former cigarette smoker History of alcohol abuse History of vitreous hemorrhage of right eye Hypertension Insulin dependent diabetes mellitus Overweight Home Medications aspirin 81 mg tablet 81 mg PO DAILY 07/09/22 [History Last Taken Unknown] empagliflozin 25 mg tablet (Jardiance) 25 mg PO DAILY 07/09/22 [History Last Taken Unknown] insulin detemir U-100 100 unit/mL (3 mL) subcutaneous pen (Levemir FlexPen) 35 unit subcut BID 07/09/22 [History Last Taken Unknown] lisinopril 40 mg tablet 20 mg PO DAILY 07/09/22 [History Last Taken Unknown] Allergy/AdvReac Type Severity Reaction Status Date / Time No Known Allergies Allergy Verified 07/09/22 00:56 Family History Mother Brain tumor Dx age 43. Father Heart disease Hypertension CAD (coronary artery disease) Diabetes Brother CVA (cerebral vascular accident) CVA in his 60s. Surgical History Hx of appendectomy Social History household members: spouse Smoking Status: Former smoker quit date: 04/30/00 pack-years: 38 Smokeless tobacco user: chewing tobacco and other alcohol intake: current alcohol intake frequency: holidays/special occasions only details: Hx heavy EtOH abuse (64 ounces beer/day) but stopped heavy intake 2 yrs ago substance use type: does not use ROS Review of Systems ROS Unobtainable: due to mental status Physical Exam Const alert, oriented x3, no apparent distress and healthy appearing General Appearance: cooperative; Negative for combative or lethargic Orientation / Consciousness: awake Exam Limitations: no limitations HEENT Head and Scalp: normocephalic and atraumatic Eyes General Eye: normal appearance of both eyes Neck General: trachea midline Resp normal respiratory effort Effort and Inspection: Negative for labored, stridor or audible wheezes Cardio regular rate and regular rhythm Peripheral Pulses: brachial pulses present and radial pulses present Extremity normal capillary refill and no clubbing, cyanosis or edema Skin no rashes or lesions noted and no wounds Neuro oriented x3 Neuro Narrative: Left facial droop LUE/LLE flaccid paralysis throughout with diminished sensation Speech: Negative for speech normal Psych thought process normal, cooperative, affect normal and activity/motor behavior normal; Negative for speech normal Lab / Micro Data Result Diagrams: 07/09/22 06:10 07/09/22 06:10 Labs: Laboratory Results - last 24 hr 07/09/22 00:55: WBC 6.7, RBC 5.06, Hgb 15.0, Hct 46.9, MCV 92.7, MCH 29.6, MCHC 32.0, RDW Std Deviation 44.2 H, RDW Coeff of Machelle 13.0, Plt Count 254, MPV 10.4, Immature Gran % (Auto) 0.300, Neut % (Auto) 60.4, Lymph % (Auto) 29.2, [place] % (Auto) 6.6, Eos % (Auto) 2.8, Baso % (Auto) 0.7, Absolute Neuts (auto) 4.0, Absolute Lymphs (auto) 1.95, Nucleated RBC % 0 07/09/22 00:55: PT 13.1, INR 1.0, APTT 25.0 07/09/22 00:55: Sodium 137, Potassium 3.8, Chloride 106, Carbon Dioxide 22.0, Anion Gap 9, BUN 18, Creatinine 1.01, Estim Creat Clear Calc 70.90, Est GFR (MDRD) Af Amer 96, Est GFR (MDRD) Non-Af 80, BUN/Creatinine Ratio 17.8, Glucose 304 H, Calcium 8.8 07/09/22 00:55: Magnesium 2.0 07/09/22 06:10: WBC 8.3, RBC 4.99, Hgb 14.8, Hct 45.5, MCV 91.2, MCH 29.7, MCHC 32.5, RDW Std Deviation 43.7, RDW Coeff of Machelle 13.0, Plt Count 284, MPV 10.2, Immature Gran % (Auto) 0.400, Neut % (Auto) 71.4 H, Lymph % (Auto) 19.8, [place] % (Auto) 6.0, Eos % (Auto) 1.8, Baso % (Auto) 0.6, Absolute Neuts (auto) 5.9, Absolute Lymphs (auto) 1.64, Nucleated RBC % 0 07/09/22 06:10: Sodium 142, Potassium 3.7, Chloride 112 H, Carbon Dioxide 23.0, Anion Gap 7, BUN 13, Creatinine 0.76, Estim Creat Clear Calc 94.22, Est GFR (MDRD) Af Amer 134, Est GFR (MDRD) Non-Af 111, BUN/Creatinine Ratio 17.2, Glucose 159 H, Calcium 8.1 L, Total Bilirubin 0.30, AST 11 L, ALT 22, Alkaline Phosphatase 86, Total Protein 6.1 L, Albumin 3.3, Globulin 2.8, Albumin/Globulin Ratio 1.2, TSH 1.86 07/09/22 06:10: Hemoglobin A1c 8.8 H 07/09/22 08:35: POC Glucose 108 H 07/09/22 10:02: POC Glucose 115 H Radiology Impression Brain CT 07/09/22 00:38 IMPRESSION: No intracranial hemorrhage or acute territorial infarction. Senescent changes. Findings discussed with Dr. Daniel Craft via phone at 9:56 PM PST on 07/08/2022. N.B. : The above Results were Read Back by Archie Garcia MD to Dr. Daniel Craft DO, and understanding confirmed on 07/09/2022 00:57:59 (ET). Electronically Signed: Archie Garcia MD at 1:00 EST , ADDENDUM: 07/09/22 0107 IMPRESSION: No intracranial hemorrhage or acute territorial infarction. Senescent changes. Findings discussed with Dr. Daniel Craft via phone at 9:56 PM PST on 07/08/2022. N.B. : The above Results were Read Back by Archie Garcia MD to Dr. Daniel Craft DO, and understanding confirmed on 07/09/2022 00:57:59 (ET). Electronically Signed: Archie Garcia MD at 1:00 EST , Head/Neck CTA 07/09/22 00:38 IMPRESSION: 1. Severe focal stenosis in the right internal carotid artery. 2. Severe stenosis in the proximal left V4 segment. 3. Hypoplastic right A1 segment. Findings discussed with Dr. Daniel Craft via phone at 10:13 PM PST on 07/08/2022. N.B. : The above Results were Read Back by Archie Garcia MD to Dr. Daniel Craft DO, and understanding confirmed on 07/09/2022 01:14:16 (ET). Electronically Signed: Archie Garcia MD at 1:15 EST , ADDENDUM: 07/09/22 0122 IMPRESSION: 1. Severe focal stenosis in the right internal carotid artery. 2. Severe stenosis in the proximal left V4 segment. 3. Hypoplastic right A1 segment. Findings discussed with Dr. Daniel Craft via phone at 10:13 PM PST on 07/08/2022. N.B. : The above Results were Read Back by Archie Garcia MD to Dr. Daniel Craft DO, and understanding confirmed on 07/09/2022 01:14:16 (ET). Electronically Signed: Archie Garcia MD at 1:15 EST , Brain CT 07/09/22 07:39 IMPRESSION: No acute intracranial process. Electronically Signed: Clarice Yang MD at 8:08 EDT , Chest X-Ray 07/09/22 08:32 IMPRESSION: No radiographic evidence of acute cardiopulmonary disease. Electronically Signed: Clarice Yang MD at 8:56 EDT , Charges/Coding Visit Charges Inpatient E&M: 36651 Init Hosp L2
[2022-07-09 16:40] LABS: Bedside Glucose 74 mg/dL (74-106)
[2022-07-09] MEDS: KCL 20MEQ in D5.45NS 20 MEQ/1,000 ML IV.SOLN. 100 MEQ IV (18:17)
[2022-07-09 23:35] LABS: Bedside Glucose 127 mg/dL (74-106)
[2022-07-10] VITALS (17 sets, daily range): BP systolic 126–155; BP diastolic 59–74; PULSE 72–91; RESP 12–25; TEMP 36.4–37; O2SAT 97–99; BMI 27.2; BMI 27.4
--- NOTE | 2022-07-10 01:23 | MRI_ITS ---
HISTORY: CVA -- MRI 24 hours after IV thrombolytic administration. TECHNIQUE: Multiplanar and multisequence MR images of the brain were obtained without contrast. 284 images. COMPARISON: CT earlier same day. FINDINGS: BRAIN PARENCHYMA: Moderate zone of restricted diffusion in the right periventricular region and basal ganglia with corresponding edema. Chronic small vessel ischemic gliosis noted. No acute intracranial hemorrhage identified. CSF SPACES: Mild mass effect with partial effacement of the right lateral ventricle. Otherwise mild generalized volume loss.No extra-axial fluid collection. VASCULAR SYSTEM: Major intracranial flow voids are maintained. PARANASAL SINUSES AND MASTOID AIR CELLS: No significant air fluid levels. ORBITS: Symmetric contents. MRI/Brain without Contrast IMPRESSION: Acute infarct in the right basal ganglia, corresponding to the CT findings. Chronic involutional and white matter changes. Electronically Signed: Audra Marquez MD at 10:32 EDT ,
--- NOTE | 2022-07-10 01:24 | CT_ITS ---
EXAM: CT HEAD WITHOUT INTRAVENOUS CONTRAST CLINICAL INDICATION: s/p TPA evaluation CT TECHNIQUE: Multiple axial images were obtained of the head without intravenous contrast. This CT exam was performed using one or more of the following dose reduction techniques: automated exposure control, adjustment of the mA and/or kV according to patient size, and/or use of iterative reconstruction technique. This report was created using thesixtyone report generation technology. RADIATION DOSE: CTDIvol = 44.99 mGy, DLP = 846.73 mGy-cm COMPARISON: July 09, 2022 at 7:53 AM FINDINGS: BRAIN AND EXTRA-AXIAL SPACES: There is a well-circumscribed zone of low-attenuation in the right caudate body and adjacent internal capsule and basal ganglia consistent with acute ischemic infarct of roughly 4.3 cm x 2 cm. Mild chronic-appearing deep periventricular white matter changes. No intracranial hemorrhage. No intracranial mass or mass effect. Posterior fossa structures are unremarkable. No hydrocephalus. Basal cisterns are patent. BONES/JOINTS: Unremarkable. No discrete lytic or blastic abnormalities. SINUSES: Unremarkable as visualized. Clear. MASTOID AIR CELLS: Unremarkable. Clear. ORBITS: Visualized globes, extraocular muscles, optic nerves and retrobulbar fat appear unremarkable. CT/STROKE Brain/Head without Cont IMPRESSION: Late-acute ischemic infarct in the right deep structures now clearly visible. No hemorrhage or midline shift. Electronically Signed: Corry Yadav MD at 2:55 EDT ,
[2022-07-10 05:41] LABS: Cholesterol 136 mg/dL (200); High Density Lipoprotein 34 mg/dL; Triglycerides 104 mg/dL; Very Low Density Lipoprotein 21 mg/dL (5-40)
--- NOTE | 2022-07-10 07:04 | PN.HOSP_ITS ---
Reason for Visit Reason for Visit: Diagnoses Cerebral infarction, unspecified (07/09/22) Occlusion and stenosis of right carotid artery (07/09/22) Subjective Subjective still with left sided weakness, though he said it is slightly better today. Objective Data Objective Data Vital Signs: Vital Signs Temp Pulse Resp BP Pulse Ox O2 Del Method 37.0 C 76 18 142/70 H 99 Room Air 07/10/22 04:02 07/10/22 06:06 07/10/22 06:06 07/10/22 06:06 07/10/22 06:06 07/10/22 06:06 Oxygen Delivery Method Room Air Weight: 79.3 kg Body Mass Index (BMI) 27.4 Intake & Output: Intake and Output for Last 24 Hours 07/08/22 07/09/22 07/10/22 22:59 23:59 23:59 Intake Total Output Total 750 / 750 Balance -750 / -750 Lab / Micro Data Result Diagrams: 07/09/22 06:10 07/09/22 06:10 Labs: Laboratory Results - last 24 hr 07/09/22 06:10: Hemoglobin A1c 8.8 H 07/09/22 08:35: POC Glucose 108 H 07/09/22 10:02: POC Glucose 115 H 07/09/22 16:23: POC Glucose 74 07/09/22 23:17: POC Glucose 127 H 07/10/22 05:08: Triglycerides 104, Cholesterol 136, LDL Cholesterol 81, VLDL Cholesterol 21, HDL Cholesterol 34 L Radiography Diagnostic Testing: Radiology Impression Brain CT 07/09/22 07:39 IMPRESSION: No acute intracranial process. Electronically Signed: Clarice Yang MD at 8:08 EDT , Chest X-Ray 07/09/22 08:32 IMPRESSION: No radiographic evidence of acute cardiopulmonary disease. Electronically Signed: Clarice Yang MD at 8:56 EDT , Brain CT 07/10/22 01:24 IMPRESSION: Late-acute ischemic infarct in the right deep structures now clearly visible. No hemorrhage or midline shift. Electronically Signed: Corry Yadav MD at 2:55 EDT , Physical Exam Narrative - Physical Exam General: Alert, Oriented x3, Cooperative HEENT: Atraumatic, eyes deviated right. no icterus, left facial droop Oral: Moist Mucosa, No Gingival or Mucosal Lesions/ Ulcerations Neck: Supple, No JVD, Negative Carotid Bruits Lungs: Clear to auscultation, Normal air movement Cardiovascular: Regular rate, Normal S1, Normal S2, No murmurs Abdomen: Bowel Sounds Present, Soft, Non Tender, Non-Distended, No Hepato- splenomegaly Extremities: No clubbing, No cyanosis, No edema, Capillary Refill Less than 3 Seconds Skin: No rashes, No breakdown Musculoskeletal: No Tenderness to Palpation of Joints or Extremities Neurological: MS 5/5 on right 0/5 on left, though is able to move his fingers and wrist and plantar flex his toes. Psych/Mental Status: Normal Affect, Appropriate Assessment & Plan Assessment/Plan (1) Acute cerebrovascular accident (CVA): PLAN: Left-sided hemiplegia, facial droop, facial droop with slurred speech secondary to acute stroke status post tenecteplase administration with noted severe focal stenosis right ICA, severe stenosis proximal left V4 segment, hypop lastic right A1 segment: Will admit to the ICU status post tenecteplase administration, continue in tensivist consultation, plan repeat CT head in 24 hours following tenecteplase administration and if no acute evidence of bleeding reinitiate antiplatelet therapy MRI Brain, ECHO, PT/OT/Speech/Nutrition evaluation per protocol. Will allow permissive HTN with parent agents per stroke protocol, add high-dose statin w/ AM FLP, fall precautions, TSH/Mag/FLP/HgbA1c pending, will obtain carotid ultrasound and request vascular surgery evaluation to assure aggressive intervention follow-up. Head CT this am shows late-acte ischemic infarct in the right deep structures. No hemorrhage or midline shift. Seen by neurology on the . Reconsult. DC D5W ASA 300 rectal until able to take PO (2) Right cavernous carotid stenosis: PLAN: Seen by vascular surgery: cavernous portion not typically treated given high risks, but would recommend input from Neurointerventional at some point (3) Dysphagia: PLAN: s/p CVA ST Cannot rule out need for PEG PLAN: Plan The patient is a 62 y/o M w/ PMHx: Former cigarette tobacco usage-->Chew tobacco ongoing, Former EtOH abuse, HTN, Diabetes mellitus type II, Overweight, Hx R eye unclear type of bleeding in unclear location s/p serial injections w/ last perfo rmed 06/25/22 with confirmed resolution with planned upcoming Surgery for scarring per their description who presents to the [facility] ED on 07/09/22 with history of currently visiting sleeping in a hotel with his spouse with onset just after LKW 00:00 left sided weakness with slurred speech, L sided facial droop prompting immediate EMS call and transition to the ED. Chronic conditions: * Diabetes mellitus type II: Hold oral home regimen, continue home insulin regimen, ADA diet if cleared for oral intake, accu checks w/ ISS once patient is appropriately out status post tenecteplase administration, nutrition consulted for education and teaching. * Hypertension: Given presentation maintain on permissive hypertension with as needed agents per stroke protocol. * History of right eye bleeding, unclear specific type status post injections: Patient has noted with serial injections specifically ongoing over the last 3 months with last injection 06/25/2022 with resolution confirmed per ophthalmology per their report, planned upcoming future surgery secondary to what is described as potentially scar tissue causing a small thin line across his field of vision. * overweight: Weight loss and lifestyle changes encouraged. * Former cigarette tobacco usage transition to chew tobacco: Strongly encouraged cessation of tobacco products, cessation counseling, NR if necessary. * Former heavy alcohol abuse: Patient with at least 64 ounces of beer daily however he stopped drinking heavily approximately 2 years prior to current presentation, now will have single drink on rare occasion, discussed benefits of transitioning to complete sobriety. DVT prophylaxis: SCDs. CODE status: Patient HCPOA and living will are not in place. Discussed CODE status at length including difference between FULL code, DNR-CCA and DNR-CC status. Following discussions about the differences in these status, requested Full Code status at this time. Advanced Care Planning Face to Face Time: 16 minutes. Disposition: to rehab when medically stable. Transfer to PCU. Charges/Coding Visit Charges Inpatient E&M: 72583 [facility] Hosp L3
--- NOTE | 2022-07-10 07:10 | PN.CC_ITS ---
Assessment & Plan Assessment/Plan (1) Acute cerebrovascular accident (CVA): PLAN: Plan RECOMMENDATIONS: 1. Proceed with MRI as scheduled 2. ST/PT/OT evaluations 3. Continue aggressive blood sugar management 4. Potential neuro intervention as an outpatient 5. Okay to leave the intensive care unit from my perspective. We will sign off from a critical care perspective IMPRESSIONS: 1. Acute CVA status post tenecteplase The patient continues to have dysarthric speech, left-sided facial droop and left hemiplegia. Severe focal stenosis of the right ICA was identified. Follow-up CT does show an evolving stroke, but MRI has been scheduled for confirmation. Patient will need to be evaluated by ST/PT/OT later today. Recommend follow-up neurology consultation along with echocardiogram. Vascular surgery is recommending neuro interventional evaluation as an outpatient. Okay to leave the intensive care unit from my perspective 2. History of diabetes mellitus/hypertension/smokeless tobacco dependency Care, management, recovery and prognosis. Continue basal and sliding scale insulin coverage. This note was generated with [employer] dictation software. It may contain incorrect words, spelling, and punctuation that were not noted in checking the note before signing. Subjective Subjective Patient did well overnight. Patient's NIH has not significantly changed and remains at 15. Patient is asking for water, but otherwise has no complaints. Patient did have a CT scan overnight that did not show any hemorrhagic complications, but does have an evolving internal capsule lesion. MRI is scheduled for this morning. Patient has not required any significant intervention for blood pressure issues. Objective Data Objective Data Vital Signs: Vital Signs Temp Pulse Resp BP Pulse Ox O2 Del Method 37.0 C 76 18 142/70 H 99 Room Air 07/10/22 04:02 07/10/22 06:06 07/10/22 06:06 07/10/22 06:06 07/10/22 06:06 07/10/22 06:06 Oxygen Delivery Method Room Air Weight: 79.3 kg Body Mass Index (BMI) 27.4 Intake & Output: Intake and Output for Last 24 Hours 07/08/22 07/09/22 07/10/22 22:59 23:59 23:59 Intake Total Output Total 750 / 750 Balance -750 / -750 Lab / Micro Data Attestation: I reviewed the patient's lab results. Result Diagrams: 07/09/22 06:10 07/09/22 06:10 Labs: Laboratory Results - last 24 hr 07/09/22 06:10: Hemoglobin A1c 8.8 H 07/09/22 08:35: POC Glucose 108 H 07/09/22 10:02: POC Glucose 115 H 07/09/22 16:23: POC Glucose 74 07/09/22 23:17: POC Glucose 127 H 07/10/22 05:08: Triglycerides 104, Cholesterol 136, LDL Cholesterol 81, VLDL Cholesterol 21, HDL Cholesterol 34 L Radiography Diagnostic Testing: Radiology Impression Brain CT 07/09/22 07:39 IMPRESSION: No acute intracranial process. Electronically Signed: Clarice Yang MD at 8:08 EDT , Chest X-Ray 07/09/22 08:32 IMPRESSION: No radiographic evidence of acute cardiopulmonary disease. Electronically Signed: Clarice Yang MD at 8:56 EDT , Brain CT 07/10/22 01:24 IMPRESSION: Late-acute ischemic infarct in the right deep structures now clearly visible. No hemorrhage or midline shift. Electronically Signed: Corry Yadav MD at 2:55 EDT , Physical Exam Const alert and no apparent distress General Appearance: cooperative and well developed HEENT normocephalic and head/scalp atraumatic HEENT Narrative: Left ptosis noted Eyes PERRL, EOMs intact bilaterally and conjunctivae normal Neck supple General: trachea midline Chest inspection of chest normal Resp normal respiratory effort and no use of accessory muscles Effort and Inspection: Negative for tachypneic Auscultation: Negative for rales, rhonchi or wheezes Cardio regular rate, regular rhythm, S1 normal heart sound, S2 normal heart sound, no murmurs, no rub and no gallops GI normal to inspection, nondistended, normoactive bowel sounds Extremity no clubbing, cyanosis or edema Skin no rashes or lesions noted Neuro Neuro Narrative: Dysarthric speech persists along with left facial droop and dense left-sided hemiplegia. Psych cooperative and affect normal Charges/Coding Visit Charges Inpatient E&M: 64316 Subs Hosp L2
[2022-07-10] MEDS: KCL 20MEQ in D5.45NS 20 MEQ/1,000 ML IV.SOLN. 100 MEQ IV (07:19)
[2022-07-10 08:50] LABS: Bedside Glucose 150 mg/dL (74-106)
[2022-07-10 13:00] LABS: Bedside Glucose 116 mg/dL (74-106)
--- NOTE | 2022-07-10 14:04 | SP.MBSS_ITS ---
Modified Barium Swallow - Patient Information Study Date: 07/10/22 Study Time: 13:00 Direct Billable Minutes: 76 Total Minutes procedure & reportin Diagnosis: CVA (I63.9), Dysphagia (R13.10) Referring Physician: Bernard Quezada Reason for Referral: Objectively assess swallow function, assess risk for aspiration, and determine recommendations for least restrictive diet textures and compensatory strategies to improve safety of swallow. Medical History: Ayaan Jasmine is a 62 year old male with a history of tobacco usage-->Chew tobacco ongoing, Former EtOH abuse, HTN, and Diabetes mellitus type II. Patient presented to the [facility] ED on 07/09/22 with left sided weakness with slurred speech, L sided facial droop prompting immediate EMS call and transition to the ED. In the ED initial NIH stroke scale 15 with most recent repeat prior to admission 12. Work-up in the ED included CT of the head with no acute intracranial hemorrhage or acute territorial infarction with senescent changes, CTA head and neck with severe focal stenosis in the right ICA, severe stenosis in the proximal left V4 segment, EKG with sinus rhythm with no acute evidence of ischemia, and chest x-ray with no radiographic evidence of acute cardiopulmonary disease. In the ED patient administered tenecteplase. In the ED stroke alert called and neurology evaluated the patient with recommendation of tenecteplase administration with post tPA recommendations of every 15 minute vital signs/neurochecks/bleeding checks with comment to refer to tPA order set. Patient referred to speech as part of a CVA work-up. Brain MRI revealed infarct in R basal ganglia. During BSE with SAND CASTER APPRENTICE and SAND CASTER APPRENTICE student, patient presented with coughing following several thin liquid trials, pocketing with regular textured cookie. Pt was recommended NPO with ice chips and plans for MBSS prior to diet advancement. Current Diet Ordered: NPO with ice chips Dentition: Missing Teeth Respiratory Status: Oxygenating on Room Air - Penetration-Aspiration Scale Penetration-Aspiration Scale: OBJECTIVE ASSESSMENT OF SWALLOW FUNCTION (QUANTITATIVE ? PER TRIAL): PENETRATION / ASPIRATION SCALE (WHITLEY): 1 = does not enter airway 2 = enters airway/above vocal folds/ejected 3 = enters airway/above vocal folds/not ejected 4 = enters airway/contacts vocal folds/ejected 5 = enters airway/contacts vocal folds/not ejected 6 = enters airway/below vocal folds/ejected 7 = enters airway/below vocal folds/not ejected despite effort 8 = enters airway/below vocal folds/no effort VIDEOFLOROSCOPIC SCALE SCORE (WHITLEY): Grade I = aspiration of material that has penetrated into the laryngeal vestibule, intact cough reflex Grade II = aspiration < 10 % of the bolus, intact cough reflex Grade III = aspiration of < 10 % of the bolus, reduced cough reflex or aspiration of > 10 % of the bolus, intact cough reflex Grade IV = aspiration of > 10 % of the bolus, reduced cough reflex - Penetration-Aspiration Scale Score Thin Liquid via teaspoon Result: 3= enters airways/above vocal folds/not ejected Thin Liquid via teaspoon Trial 2 Result: 3= enters airways/above vocal folds/not ejected Thin Liquid via sequential sips from cup Result: 3= enters airways/above vocal folds/not ejected - SAND CASTER APPRENTICE student cued pt for one single sip, pt proceeded with two small sips [place] Thick Liquid via small single sip from cup Result: 1= does not enter airway Pudding via teaspoon with esophageal screen Result: 1= does not enter airway 1/2 Cookie Result: 1= does not enter airway - SAND CASTER APPRENTICE student manually cleared pocketing in L buccal cavity Thin Liquid via sequential sips from straw Result: 3= enters airways/above vocal folds/not ejected Thin Liquid via small single sip from cup Left head turn Result: 1= does not enter airway Thin Liquid via small single sip from cup Left head turn Trial 2 Result: 3= enters airways/above vocal folds/not ejected [place] Thick Liquid via small single sip from cup Trial 2 Result: 2= enter airway/above vocal folds/ejected Thin Liquid via small single sip from cup Effortful swallow Result: 3= enters airways/above vocal folds/not ejected - Oral Phase Labial Seal: Escape progressing to mid-chin Tongue Control During Bolus Hold: Posterior escape of greater than half of bolus Bolus Preparation/Mastication: Disorganized chewing/mashing with solid pieces of bolus unchewed Bolus Transport/Lingual Motion: Repetitive/disorganized tongue motion - little tongue motion for A-P transport Oral Residue: Majority of bolus remaining - Pharyngeal Phase Initiation of Pharyngeal Swallow: Bolus head in pyriforms Soft Palate Elevation: Trace column of contrast/air between soft palate and pharyngeal wall Laryngeal Elevation: Partial superior movement thyroid cart/partial apprx aryt- epig petiole Anterior Hyoid Excursion: Partial anterior movement Epiglottic Movement: Complete inversion Laryngeal Vestibule Closure at Height of Swallow: Incomplete; narrow column of air/contrast in laryngeal vestibule Pharyngeal Stripping Wave: Present - diminished Pharyngoesophageal Segment Opening: Parital distension and partial duration; parital obstruction of flow Tongue Base Retraction: Narrow column of contrast between tongue base & post. pharyngeal wall Pharyngeal Residue: Collection of residue within or on pharyngeal structures - Esophageal Phase Esophageal Clearance: Complete clearance - Treatment Strategies Effects of treatment strategies attemped:: L head rotation = somewhat effective. Effortful swallow = little to no impact. Cough and re-swallow = not effective. Decreased bolus size = somewhat effective. - Diagnosis/Impression Diagnosis: Moderate oropharyngeal phase dysphagia (R13.12) Impression: The oral phase is primarily marked by... -Decreased bolus control with >1/2 of the bolus spilling posteriorly to the pyriforms prior to swallow onset observed with thin and nectar thick liquids especially. -Minimal tongue motion for A-P transport, disorganized tongue motion. Deficits in A-P transport most notable with cookie. SAND CASTER APPRENTICE student manually cleared majority of cookie trial from L buccal with spoon. -Moderate-max oral residues - most notable with cookie and large sequential straw sips. The pharyngeal phase is primarily marked by... -Mildly decreased airway closure during the swallow due to partial anterior hyoid excursion and decreased laryngeal elevation. -Mildly decreased tongue base retraction, mildly decreased UES opening/duration, and mildly pharyngeal stripping wave with resulting mild-moderate pharyngeal residues after the swallow. -No aspiration observed during the swallow. Consistent laryngeal penetration of thin liquids (despite use of strategies) above the vocal folds, which did not reliably eject placing patient at increased risk for aspiration. Cued cough was not effective at clearing penetrated contrast from the laryngeal vestibule. Trace laryngeal penetration of nectar thick liquids via cup that did fully eject during the swallow. - Recommendations Diet: Puree Textures, [place] Jara-thick Liquids Compensatory Strategies: Small Bites, Small Sips, No Straws, Slow Rate, Feed only when alert, Alternate bites/solids and sips/liquids, Sitting upright, Remain sitting upright for 30 minutes after PO intake Supervision: 1:1 Close Supervision Recommend Repeat Modified Barium Swallow: TBD Need for Skilled Speech Therapy Services: Yes Comment: Will recommend the patient for continued speech therapy to address moderate deficits in oropharyngeal swallow function. Will recommend the patient for oropharyngeal strengthening to improve lingual control and coordination, laryngeal elevation, and hyoid excursion (lingual resistance exercises, lingual coordination exercises, CTAR, effortful breath hold and swallow). The patient would benefit from thorough education regarding diet recommendations and recommended compensatory strategies. Would consider the patient for diet advancement of solid textures as deemed clinically appropriate by treating SAND CASTER APPRENTICE. Would also recommend trials of thin liquids via small cup sips (consider use of L head rotation) with SAND CASTER APPRENTICE to consider advancement of liquids at bedside. Education Completed: 1. Described result of evaluation., 2. Pt understands evaluation & agrees with goals and treatment plan., 7. Pt requires further education on strategies & risks. - Status Active ST Patient: Active - Contact Information [facility] Speech Therapy:: Ashanti Sanford M.A. CCC-SAND CASTER APPRENTICE Speech-Language Pathologist [facility] [address] [place] [address] [phone] 07/10/22 14:14
--- NOTE | 2022-07-10 15:20 | CASEMGMT ---
RN?CM?DROP SHIPMENT CLERK?CM?to room to meet with patient and for initial transition planning/care coordination?assessment.?RN?CM?introduced self and role at [facility].? They voice understanding and consent to?assessment?at this time.? Pt in bed w/HOB elevated. @ bedside and assisting pt w/dinner. Pt is awake/alert. The following information mostly obtained from pt's . Care providers, pharmacy, and demographics verified/updated at this time. PCP: Dr Washburn @ [facility] in [place], [place] (PH: [phone]) Specialists: management professionals Preferred Pharmacy: [facility] Retail Insurance: [place] Prescription Benefit:?Yes Living Will/HPOA:?Pt does not currently have LW/HCPOA LNOK: , Cristy. 3 sons Living Arrangements: Lives w/, son, and [id number]. Pt independent @ baseline. He is retired, but still works. Transportation:?Pt and both drive. DME: Has a functioning glucometer w/supplies. Uses no DME to ambulate. HHC/SNF: No hx of either. requesting for pt to go to [facility] RU @ discharge. VM left for SOM Burrows. ATILIO/SOM to follow for any further discharge planning/needs.? voices no further concerns/needs at this time.? PLAN:??[facility] ANGELIQUE MCGARRY?RN?CM
[2022-07-10 19:41] LABS: Bedside Glucose 199 mg/dL (74-106)
[2022-07-10] MEDS: Insulin Lispro 100 UNIT/ML INSULN.PEN SC (21:54)
[2022-07-10 22:10] LABS: Bedside Glucose 206 mg/dL (74-106)
[2022-07-11 00:28] VITALS: BMI 27.4
[2022-07-11 05:00] VITALS: BP 136/63; PULSE 70; RESP 14; TEMP 36.5; O2SAT 96
[2022-07-11 05:08] LABS: Absolute Neutrophil Count 4.7 X10^3/uL (2.0-7.7); Basophil# 0.04 X10^3/uL; Basophil% 0.6 % (0-1); Eosinophil# 0.16 X10^3/uL; Eosinophils% 2.3 % (0-5); Hematocrit 45.5 % (40-54); Hemoglobin 14.5 g/dL (13.0-16.5); Lymphocyte % 20.2 % (19-41); Mean Corp Hgb Conc 31.9 g/dL (32-36); Mean Corpuscular Hgb 29.5 pg (27.0-32.0); Mean Corpuscular Volume 92.5 fL (80-94); Mean Platelet Vol. 10.3 fl (6.2-12.0); Monocyte# 0.54 X10^3/uL; Monocyte% 7.8 % (0-10); NRBC Flagged by Analyzer 0 % (0-5); Neutrophil # 4.74 X10^3/uL (2.7-7.7); Neutrophil % 68.4 % (47-70); Platelet Count 250 K/mm3 (150-450); RBC Distribution Width SD 43.7 fl (35.1-43.9); Red Blood Count 4.92 M/mm3 (4.6-6.2); White Blood Count 6.9 K/mm3 (4.4-11.0)
[2022-07-11 05:14] VITALS: BMI 27.3
[2022-07-11 05:33] LABS: AST(SGOT) 13 U/L (15-37); Alanine Aminotransfer ALT/SGPT 20 U/L (16-61); Albumin, Serum 3.2 g/dL (3.2-5.0); Alkaline Phosphatase 99 U/L (45-117); Anion Gap 10 (5-15); BUN 13 mg/dL (7-18); BUN/Creat Ratio 17.7 RATIO (10-20); Calcium,Total 8.9 mg/dL (8.5-10.1); Chloride 109 mmol/L (98-107); Creatinine, Serum 0.74 mg/dL (0.70-1.30); EST Glomerular Filtration Rate 115 mL/min (>60); Est Glom Filt Rate - Afr Amer 139 mL/min (>60); Estimated Creatinine Clearance 96.77 ml/min; Globulin 3.3 g/dL (2.2-4.2); Glucose 185 mg/dL (74-106); Potassium 4.2 mmol/L (3.5-5.1); Protein, Total 6.5 g/dL (6.4-8.2); Sodium Level 141 mmol/L (136-145)
--- NOTE | 2022-07-11 07:11 | PN.HOSP_ITS ---
Reason for Visit Reason for Visit: Diagnoses Cerebral infarction, unspecified (07/09/22) Occlusion and stenosis of right carotid artery (07/09/22) Dysphagia, unspecified (07/09/22) Subjective Subjective Still with profound deficit on his left. Objective Data Objective Data Vital Signs: Vital Signs Temp Pulse Resp BP Pulse Ox O2 Del Method 36.5 C L 70 14 136/63 H 96 Room Air 07/11/22 05:00 07/11/22 05:00 07/11/22 05:00 07/11/22 05:00 07/11/22 05:00 07/11/22 05:00 Oxygen Delivery Method Room Air Weight: 79.1 kg Body Mass Index (BMI) 27.3 Intake & Output: Intake and Output for Last 24 Hours 07/09/22 07/10/22 07/11/22 23:59 23:59 23:59 Intake Total 1800.00 / 1800.00 Output Total 1925 / 2250 325 / 325 Balance -125.00 / -450.00 -325 / -325 Lab / Micro Data Result Diagrams: 07/11/22 05:00 07/11/22 05:00 Labs: Laboratory Results - last 24 hr 07/10/22 08:18: POC Glucose 150 H 07/10/22 12:41: POC Glucose 116 H 07/10/22 17:55: POC Glucose 199 H 07/10/22 21:47: POC Glucose 206 H 07/11/22 05:00: WBC 6.9, RBC 4.92, Hgb 14.5, Hct 45.5, MCV 92.5, MCH 29.5, MCHC 31.9 L, RDW Std Deviation 43.7, RDW Coeff of Machelle 13.0, Plt Count 250, MPV 10.3, Immature Gran % (Auto) 0.700, Neut % (Auto) 68.4, Lymph % (Auto) 20.2, Fannin % (Auto) 7.8, Eos % (Auto) 2.3, Baso % (Auto) 0.6, Absolute Neuts (auto) 4.7, Absolute Lymphs (auto) 1.40, Nucleated RBC % 0 07/11/22 05:00: Sodium 141, Potassium 4.2, Chloride 109 H, Carbon Dioxide 22.0, Anion Gap 10, BUN 13, Creatinine 0.74, Estim Creat Clear Calc 96.77, Est GFR (MDRD) Af Amer 139, Est GFR (MDRD) Non-Af 115, BUN/Creatinine Ratio 17.7, Glucose 185 H, Calcium 8.9, Total Bilirubin 0.70, AST 13 L, ALT 20, Alkaline Phosphatase 99, Total Protein 6.5, Albumin 3.2, Globulin 3.3, Albumin/Globulin Ratio 1.0 Radiography Diagnostic Testing: Radiology Impression Carotid Duplex 07/09/22 01:55 Interpretation Summary Mild (<50%) stenosis right extracranial internal carotid. Mild (<50%) stenosis left extracranial internal carotid. Patent and antegrade vertebrals bilaterally. Ordering Physician: Anna Ledesma Referring Physician: N/A Performed By: Isaac Rodriguez, RVT Echocardiogram 07/09/22 01:55 Interpretation Summary Normal LV size. Left ventricular systolic function is normal. The estimated ejection fraction is 60 %. Stage 1 diastolic dysfunction. Pulmonary artery systolic pressure is 34 mmHg. Bubble contrast study negative for right to left interatrial shunt. Ordering Physician: Anna Ledesma Referring Physician: NO PCP Performed By: Cathie Jay RDCS, RVT Brain MRI 07/10/22 01:23 IMPRESSION: Acute infarct in the right basal ganglia, corresponding to the CT findings. Chronic involutional and white matter changes. Electronically Signed: Audra Marquez MD at 10:32 EDT , Physical Exam Const alert and no apparent distress Eyes EOMs intact bilaterally Eyes Narrative: Now able to look left laterally. Resp normal respiratory effort, no retractions, no use of accessory muscles and clear to auscultation bilaterally Cardio regular rate, regular rhythm, S1 normal heart sound and S2 normal heart sound GI normal to inspection, nondistended, normoactive bowel sounds, soft to palpation, non-tender and non-distended Extremity normal to inspection Neuro no sensory deficits noted Neuro Narrative: Profound left-sided weakness. Able to move his toes but that is about the extent of movement. Psych affect normal Assessment & Plan Assessment/Plan (1) Acute cerebrovascular accident (CVA): PLAN: Left-sided hemiplegia, facial droop, facial droop with slurred speech secondary to acute stroke status post tenecteplase administration with noted severe focal stenosis right ICA, severe stenosis proximal left V4 segment, hy poplastic right A1 segment: Seen by neurology on the and reevaluated on . Data: * MRI brain: acute infarct right BG. * echo: EF 60%, PASP 34mmHg. No interatrial shunt * carotid duplex mild bilateral stenosis. Treatement: * change ASA to oral * HIS Follow up: * neurology * event monitor (2) Right cavernous carotid stenosis: PLAN: Seen by vascular surgery: cavernous portion not typically treated given high risks, but would recommend input from Neurointerventional at some point (3) Dysphagia: PLAN: s/p CVA ST had MBS: direct supervision when fully alert. small sips. PLAN: Plan The patient is a 62 y/o M w/ PMHx: Former cigarette tobacco usage-->Chew tobacco ongoing, Former EtOH abuse, HTN, Diabetes mellitus type II, Overweight, Hx R eye unclear type of bleeding in unclear location s/p serial injections w/ last performed 06/25/22 with confirmed resolution with planned upcoming Surgery for scarring per their description who presents to the [facility] ED on 07/09/22 with history of currently visiting sleeping in a hotel with his spouse with onset just after LKW 00:00 left sided weakness with slurred speech, L sided facial droop prompting immediate EMS call and transition to the ED. Chronic conditions: * Diabetes mellitus type II: Hold oral home regimen, continue home insulin regimen, ADA diet if cleared for oral intake, accu checks w/ ISS once patient is appropriately out status post tenecteplase administration, nutrition consulted for education and teaching. * Hypertension: Given presentation maintain on permissive hypertension with as needed agents per stroke protocol. * History of right eye bleeding, unclear specific type status post injections: Patient has noted with serial injections specifically ongoing over the last 3 months with last injection 06/25/2022 with resolution confirmed per ophthalmology per their report, planned upcoming future surgery secondary to what is described as potentially scar tissue causing a small thin line across his field of vision. * overweight: Weight loss and lifestyle changes encouraged. * Former cigarette tobacco usage transition to chew tobacco: Strongly encouraged cessation of tobacco products, cessation counseling, NR if necessary. * Former heavy alcohol abuse: Patient with at least 64 ounces of beer daily however he stopped drinking heavily approximately 2 years prior to current presentation, now will have single drink on rare occasion, discussed benefits of transitioning to complete sobriety. DVT prophylaxis: SCDs. CODE status: Patient HCPOA and living will are not in place. Discussed CODE status at length including difference between FULL code, DNR-CCA and DNR-CC status. Following discussions about the differences in these status, requested Full Code status at this time. Advanced Care Planning Face to Face Time: 16 minutes. Disposition: medically stable for rehab. Charges/Coding Visit Charges Inpatient E&M: 82942 Subs Hosp L2
[2022-07-11] MEDS: Aspirin 81 MG TAB.CHEW PO (08:16)
[2022-07-11] MEDS: Insulin Lispro 100 UNIT/ML INSULN.PEN SC ×3 (08:16→16:28)
[2022-07-11 08:25] VITALS: BP 137/62; PULSE 77; RESP 16; TEMP 36.3; O2SAT 97
[2022-07-11 08:51] LABS: Bedside Glucose 175 mg/dL (74-106)
--- NOTE | 2022-07-11 08:53 | CASEMGMT ---
Social Work Reviewed RN CM notes, patient requesting Inpatient Rehab unit at [facility] Telephone call to Inpatient Rehab [facility] admissions, Fransisca. No answer. Voicemail left on confidential voicemail with referral information. This director social requested return phone call on if patient is able to be accepted. PLAN: Inpatient Rehab Unit, [facility] - pending acceptance. Social Work to continue to follow. Bry BLAKE, SHRUTHI
[2022-07-11 09:30] VITALS: O2SAT 97
--- NOTE | 2022-07-11 09:48 | CASEMGMT ---
Social Work Telephone call from Inpatient Rehab Unit admissions, Fransisca. Fransisca states to have an open bed and will plan to have Dr. Brooks review and get back to social work specialist on if patient is formally accepted. Social Work to continue to follow. Bry BLAKE, SHRUTHI
--- NOTE | 2022-07-11 09:53 | CASEMGMT ---
Social Work This geriatric social work professor met with patient and patient spouse, Cristy in room. Introduced self and geriatric social work professor role. This geriatric social work professor communicating to have made referral to the Inpatient Rehab Unit at [facility], Cristy and patient confirm this as the plan. This geriatric social work professor going over acceptances process for the Inpatient Rehab Unit as well as insurance pre-cert process with no guarantee that insurance will approve, Cristy and patient voice understanding. Patient currently eating breakfast, social work to follow up on PHQ-9 assessment. This geriatric social work professor reached out to Dr. Quezada, Dr. Quezada reports that patient is medically cleared and pre-cert can be started whenever patient is accepted to the Rehab Unit. Message sent to Fransisca in admissions on Rehab Unit via Back[employer] communicating that pre-cert can be started as soon as patient is formally accepted. PLAN: Inpatient Rehab Unit, pending medical manager accepting and pre-cert being obtained. Social Work to continue to follow. Bry BLAKE, SHRUTHI
--- NOTE | 2022-07-11 10:43 | CASEMGMT ---
Social Work See attached PHQ-9 assessment for complete details. Patient with 7/27 score (Mild Depression). Patient tearful at times during assessment, this social media executive normalizing patient emotions and tearful responses after having a stroke. Patient pleasant to speak with and able to engage in conversation. Patient is retired but was working prior to stroke. Patient lives in [place] and is in [place] visit family. Patient has stroke the morning that patient and patient spouse where planning to return to [place]. Active support provided for both patient and patient spouse. Social Work to continue to follow as needed. Bry Kim MSW, SHRUTHI
[2022-07-11] MEDS: Insulin Glargine-YFGN 100 UNIT/ML Pen 35 UNIT SC (12:09)
[2022-07-11 12:30] LABS: Bedside Glucose 248 mg/dL (74-106)
--- NOTE | 2022-07-11 13:08 | CASEMGMT ---
Social Work Telephone call from Inpatient Rehab Unit, Fransisca. Fransisca reports that patient has been accepted by Dr. Brooks. Fransisca plans to start pre-cert soon. This dialysis social worker updated patient and patient family on above information. Medical team updated as well. PLAN: Inpatient Rehab Unit, pending pre-cert. Bry BLAKE, SHRUTHI
[2022-07-11 14:14] VITALS: BP 178/73; PULSE 82; RESP 16; TEMP 36.3; O2SAT 95
[2022-07-11 15:01] VITALS: O2SAT 94
[2022-07-11 15:05] VITALS: BMI 27.3
[2022-07-11 16:50] LABS: Bedside Glucose 195 mg/dL (74-106)
[2022-07-11] MEDS: Acetaminophen 325 MG Tablet 650 MG PO (18:57)
--- NOTE | 2022-07-11 19:07 | CT_ITS ---
INDICATION: Confusion. EXAMINATION: CT Head or Brain W/O Contrast Injection TECHNIQUE: Multiple axial images were obtained of the head without intravenous contrast. A radiation dose optimization technique was used for this scan. IV Contrast dosage and agent: None. COMPARISON: July [address] brain exams. FINDINGS: Again seen is cytotoxic edema, more conspicuous on the current exam, with loss of flower-white matter differentiation involving the right caudate head, basal ganglia and internal capsule, without evidence of hemorrhagic transformation. Mild local mass effect upon the frontal horn of the lateral ventricle. No midline shift. No hydrocephalus. Basal cisterns remain patent. No new infarct or new findings. Remainder unchanged. CT/Brain/Head without Contrast IMPRESSION: Evolving acute to subacute infarct without hemorrhagic transformation. Electronically Signed: Boris Huber MD at 19:47 EDT ,
[2022-07-11 20:15] VITALS: BP 117/55; PULSE 72; RESP 15; TEMP 37.1; O2SAT 96
[2022-07-11] MEDS: Atorvastatin Calcium 80 MG Tablet PO (21:25)
[2022-07-11 23:11] LABS: Bedside Glucose 137 mg/dL (74-106)
[2022-07-12 02:00] VITALS: BP 111/63; PULSE 66; RESP 12; TEMP 36.3; O2SAT 95
[2022-07-12 04:47] VITALS: BMI 27.3
--- NOTE | 2022-07-12 07:00 | PN.HOSP_ITS ---
Reason for Visit Reason for Visit: Diagnoses Cerebral infarction, unspecified (07/09/22) Occlusion and stenosis of right carotid artery (07/09/22) Dysphagia, unspecified (07/09/22) Subjective Subjective Last night, was complaining of headache. Is also noted that the patient was more confused. Per the patient's spouse, headaches were atypical for this patient. Headache now resolved Objective Data Objective Data Vital Signs: Vital Signs Temp Pulse Resp BP Pulse Ox O2 Del Method 36.3 C L 66 12 111/63 95 Room Air 07/12/22 02:00 07/12/22 02:00 07/12/22 02:00 07/12/22 02:00 07/12/22 02:00 07/12/22 02:00 Oxygen Delivery Method Room Air Weight: 79.1 kg Body Mass Index (BMI) 27.3 Intake & Output: Intake and Output for Last 24 Hours 07/10/22 07/11/22 07/12/22 23:59 23:59 23:59 Intake Total 1800.00 / 1800.00 420 / 470 50 / 50 Output Total 1925 / 2250 1125 / 1325 200 / 200 Balance -125.00 / -450.00 -705 / -855 -150 / -150 Lab / Micro Data Result Diagrams: 07/11/22 05:00 07/11/22 05:00 Labs: Laboratory Results - last 24 hr 07/11/22 08:14: POC Glucose 175 H 07/11/22 12:08: POC Glucose 248 H 07/11/22 16:26: POC Glucose 195 H 07/11/22 22:48: POC Glucose 137 H Radiography Diagnostic Testing: Radiology Impression Brain CT 07/11/22 19:07 IMPRESSION: Evolving acute to subacute infarct without hemorrhagic transformation. Electronically Signed: Boris Huber MD at 19:47 EDT , Physical Exam Const alert and no apparent distress HEENT head/scalp atraumatic and moist oral mucous membranes HEENT Narrative: Left facial droop Eyes EOMs intact bilaterally Resp normal respiratory effort, no retractions, no use of accessory muscles and clear to auscultation bilaterally Cardio regular rate, regular rhythm, S1 normal heart sound and S2 normal heart sound GI normal to inspection, nondistended, normoactive bowel sounds, soft to palpation and non-tender Extremity normal to inspection Neuro no sensory deficits noted Neuro Narrative: Able to slightly wiggle his left toes. Strength is 0 out of 5 in left upper and left lower extremities. Assessment & Plan Assessment/Plan (1) Acute cerebrovascular accident (CVA): PLAN: Left-sided hemiplegia, facial droop, facial droop with slurred speech secondary to acute stroke status post tenecteplase administration with noted severe focal stenosis right ICA, severe stenosis proximal left V4 segment, hypoplastic right A1 segment: Seen by neurology on the and reevaluated on . Data: * MRI brain: acute infarct right BG. * echo: EF 60%, PASP 34mmHg. No interatrial shunt * carotid duplex mild bilateral stenosis. * Repeat head CT on the showed cytotoxic edema, more conspicuous on the current exam, with loss of flower-white matter differentiation involving the right caudate head, basal ganglia and internal capsule, without evidence of hemorrhagic transformation. Mild local mass effect upon the frontal horn of the lateral ventricles. No midline shift, no hydrocephalus. No new stroke Treatement: * change ASA to oral * HIS Follow up: * neurology * event monitor (2) Right cavernous carotid stenosis: PLAN: Seen by vascular surgery: cavernous portion not typically treated given high risks, but would recommend input from Neurointerventional at some point (3) Dysphagia: PLAN: s/p CVA ST had MBS: direct supervision when fully alert. small sips. PLAN: Plan The patient is a 62 y/o M w/ PMHx: Former cigarette tobacco usage-->Chew tobacco ongoing, Former EtOH abuse, HTN, Diabetes mellitus type II, Overweight, Hx R eye unclear type of bleeding in unclear location s/p serial injections w/ last performed 06/25/22 with confirmed resolution with planned upcoming Surgery for scarring per their description who presents to the [facility] ED on 07/09/22 with history of currently visiting sleeping in a hotel with his spouse with onset just after LKW 00:00 left sided weakness with slurred speech, L sided facial droop prompting immediate EMS call and transition to the ED. Chronic conditions: * Diabetes mellitus type II: Hold oral home regimen, continue home insulin regimen, ADA diet if cleared for oral intake, accu checks w/ ISS once patient is appropriately out status post tenecteplase administration, nutrition consulted for education and teaching. * Hypertension: Given presentation maintain on permissive hypertension with as needed agents per stroke protocol. * History of right eye bleeding, unclear specific type status post injections: Patient has noted with serial injections specifically ongoing over the last 3 months with last injection 06/25/2022 with resolution confirmed per ophthalmology per their report, planned upcoming future surgery secondary to what is described as potentially scar tissue causing a small thin line across his field of vision. * overweight: Weight loss and lifestyle changes encouraged. * Former cigarette tobacco usage transition to chew tobacco: Strongly encouraged cessation of tobacco products, cessation counseling, NR if necessary. * Former heavy alcohol abuse: Patient with at least 64 ounces of beer daily however he stopped drinking heavily approximately 2 years prior to current presentation, now will have single drink on rare occasion, discussed benefits of transitioning to complete sobriety. DVT prophylaxis: SCDs. CODE status: Patient HCPOA and living will are not in place. Discussed CODE status at length including difference between FULL code, DNR-CCA and DNR-CC status. Following discussions about the differences in these status, requested Full Code status at this time. Advanced Care Planning Face to Face Time: 16 min utes. Disposition: to acute rehab today.
[2022-07-12 07:30] LABS: Bedside Glucose 136 mg/dL (74-106)
--- NOTE | 2022-07-12 07:37 | CASEMGMT ---
Patient has been approved for [facility] Inpatient Rehab Unit. Lisa BOGGS
[2022-07-12 08:00] VITALS: BP 139/69; PULSE 77; RESP 13; TEMP 36.2; O2SAT 96
[2022-07-12] MEDS: Insulin Glargine-YFGN 100 UNIT/ML Pen 35 UNIT SC (09:25)
[2022-07-12] MEDS: Aspirin 81 MG TAB.CHEW PO (09:25)
--- NOTE | 2022-07-12 10:18 | CASEMGMT ---
SOM notified physician, RN, patient, and his that patient was approved and patient will go to Inpatient Rehab today. Patient's asked for living will for patient and a release of records. SW provided a release of records, patient signed and his filled out the information for patient's doctor in [place]. SW called medical records and asked if SW needs to send the form to medical records or leave in his chart. SW was informed to leave it in patient's chart as nothing can be done with it until patient is discharged. SW placed the form in patient's chart. SW then spoke with patient and his about the Healthcare Living Will. SW let them know SW only has the [place] document. They wanted to complete documents anyway just in case something happened while patient is in [place]. SW explained document to patient and he was in agreement. SW completed document with patient. Copies were made and original given to patient and copy placed in patient's chart. Plan: d/c to [facility] Inpatient Rehab Unit. Lisa BOGGS
--- NOTE | 2022-07-12 10:49 | PCM.DC ---
Discharge Instructions Diet Discharge Diet: 2000 Calorie Control Diet and - (Soft and bite sized. [place] thickened liquids.Direct Supervision, Food/drink only when fully alert, No straws, Small sips) Activity Discharge Activity: Return to Normal Activity and Use Walker Follow Up Care Test Results: Test results from this visit will be discussed in further detail at your follow-up appointment, if applicable. Discharge Plan Admission Admit Date/Time: 07/09/22 01:20 Primary Reason for Your Visit: Stroke Attending Provider: Bernard Quezada Primary Care Provider: [facility] ,Out of Consulting Providers: Anna Ledesma ; Piter Blakely ; Bernard Rg Discharge Orders/Prescriptions Prescriptions: New atorvastatin 80 mg Tablet 80 mg PO QHS Qty: 0 0RF insulin glargine-yfgn 100 unit/mL (3 mL) Insulin Pen 35 unit subcut DAILY Qty: 0 0RF insulin lispro [Humalog KwikPen Insulin] 100 unit/mL Insulin Pen See Protocol subcut ACHS Qty: 0 0RF Protocol: 3. Sliding Scale Insulin Med Dosing Condition: 150-189 mg/dl = 1 unit Condition: 190-229 mg/dl = 2 units Condition: 230-269 mg/dl = 3 units Condition: 270-309 mg/dl = 4 units Condition: 310-349 mg/dl = 5 units Condition: 350-399 mg/dl = 6 units Condition: 400-449 mg/dl = 7 units Condition: Greater than 449 call physician Protocol Text: - Use for Total Daily Dose of Insulin 37-55 units - Obsese, infected, or steroid patients MEDIUM DOSING ALGORITHIM sennosides-docusate sodium [Stool Softener-Stimulant Laxat] 8.6-50 mg Tablet 2 tab PO BID PRN PRN (Reason: Constipation) Qty: 0 0RF nicotine 21 mg/24 hr Patch 24 Hour 21 mg transdermal DAILY Qty: 0 0RF Continued aspirin 81 mg Tablet 81 mg PO DAILY lisinopril 40 mg Tablet 20 mg PO DAILY Jardiance 25 mg Tablet 25 mg PO DAILY Discontinued Levemir FlexPen 100 unit/mL (3 mL) Insulin Pen 35 unit SUBCUT BID Referrals / Follow Up: [facility] [Provider Group] - Within 1 Month Care Physician,No Primary [Non-Staff] - [facility] Doctor,Out of [Primary Care Provider] - Disposition Disposition (needs filled in before D/C Order can be placed): [facility]
--- NOTE | 2022-07-12 10:57 | PCM.DC.SUM ---
Providers Date of Admission: 07/09/22 Primary Care Physician: Out of Town Doctor Consultations 07/09/22 01:55 Consult: Vascular Surgery Routine Consulting Provider: Bernard Rg Reason for Consult: CVA s/p tenecteplase, R severe carotid stenosis EMERGENT Consult: No MD Notified: Yes Date Notified: 07/09/22 Time Notified: 01:29 Method of Notification: Text Reason For Visit: CVA S/P TENECTEPLASE Diagnosis Discharge Diagnosis (1) Acute cerebrovascular accident (CVA): Status: Acute Code(s): I63.9 - Cerebral infarction, unspecified Plan: Left-sided hemiplegia, facial droop, facial droop with slurred speech secondary to acute stroke status post tenecteplase administration with noted severe focal stenosis right ICA, severe stenosis proximal left V4 segment, hypoplastic right A1 segment: Seen by neurology on the and reevaluated on . Data: MRI brain: acute infarct right BG. echo: EF 60%, PASP 34mmHg. No interatrial shunt carotid duplex mild bilateral stenosis. Repeat head CT on the showed cytotoxic edema, more conspicuous on the current exam, with loss of flower-white matter differentiation involving the right caudate head, basal ganglia and internal capsule, without evidence of hemorrhagic transformation. Mild local mass effect upon the frontal horn of the lateral ventricles. No midline shift, no hydrocephalus. No new stroke Treatement: change ASA to oral HIS Follow up: neurology event monitor (2) Right cavernous carotid stenosis: Status: Acute Code(s): I65.21 - Occlusion and stenosis of right carotid artery Plan: Seen by vascular surgery: cavernous portion not typically treated given high risks, but would recommend input from Neurointerventional at some point (3) Dysphagia: Status: Acute Code(s): R13.10 - Dysphagia, unspecified Plan: s/p CVA ST had MBS: direct supervision when fully alert. small sips. Plan The patient is a 62 y/o M w/ PMHx: Former cigarette tobacco usage-->Chew tobacco ongoing, Former EtOH abuse, HTN, Diabetes mellitus type II, Overweight, Hx R eye unclear type of bleeding in unclear location s/p serial injections w/ last performed 06/25/22 with confirmed resolution with planned upcoming Surgery for scarring per their description who presents to the [facility] ED on 07/09/22 with history of currently visiting sleeping in a hotel with his spouse with onset just after LKW 00:00 left sided weakness with slurred speech, L sided facial droop prompting immediate EMS call and transition to the ED. Chronic conditions: Diabetes mellitus type II: Hold oral home regimen, continue home insulin regimen, ADA diet if cleared for oral intake, accu checks w/ ISS once patient is appropriately out status post tenecteplase administration, nutrition consulted for education and teaching. Hypertension: Given presentation maintain on permissive hypertension with as needed agents per stroke protocol. History of right eye bleeding, unclear specific type status post injections: Patient has noted with serial injections specifically ongoing over the last 3 months with last injection 06/25/2022 with resolution confirmed per ophthalmology per their report, planned upcoming future surgery secondary to what is described as potentially scar tissue causing a small thin line across his field of vision. overweight: Weight loss and lifestyle changes encouraged. Former cigarette tobacco usage transition to chew tobacco: Strongly encouraged cessation of tobacco products, cessation counseling, NR if necessary. Former heavy alcohol abuse: Patient with at least 64 ounces of beer daily however he stopped drinking heavily approximately 2 years prior to current presentation, now will have single drink on rare occasion, discussed benefits of transitioning to complete sobriety. DVT prophylaxis: SCDs. CODE status: Patient HCPOA and living will are not in place. Discussed CODE status at length including difference between FULL code, DNR-CCA and DNR-CC status. Following discussions about the differences in these status, requested Full Code status at this time. Advanced Care Planning Face to Face Time: 16 minutes. Disposition: to acute rehab today. Medications at Discharge Home Medications aspirin 81 mg tablet 81 mg PO DAILY 07/09/22 empagliflozin 25 mg tablet (Jardiance) 25 mg PO DAILY 07/09/22 lisinopril 40 mg tablet 20 mg PO DAILY 07/09/22 atorvastatin 80 mg tablet 80 mg PO QHS #0 tabs 07/12/22 insulin glargine-yfgn 100 unit/mL (3 mL) subcutaneous pen 35 unit (0.35 mL) subcut DAILY #0 mL 07/12/22 insulin lispro 100 unit/mL subcutaneous pen (Humalog KwikPen (U-100) Insulin) See Protocol subcut ACHS #0 mL 07/12/22 nicotine 21 mg/24 hr daily transdermal patch 21 mg transdermal DAILY #0 ea 07/12/22 sennosides 8.6 mg-docusate sodium 50 mg tablet (Stool Softener-Stimulant Laxative) 2 tab PO BID PRN PRN Constipation #0 tabs 07/12/22 Hospital Course Operations None Procedures 2-D Echocardiogram Summary of Care Provided Minutes Spent on Discharge: 32 Hospital Course: Presented on the with cute onset of slurred speech, left facial droop and left-sided hemiparesis.. Patient underwent a CTA and was noted that patient had a severe focal stenosis of the right internal carotid and severe stenosis of the proximal left V4 segment. Teleneurology was notified and did not feel it was necessary to transfer the patient for the carotid stenosis. Subsequently, patient did have an ultrasound that showed less than 50% stenosis of the right extracranial internal carotid artery. Patient was seen by Dr. Rg of vascular surgery and commented that patient had right cavernous carotid stenosis that was typically not treated but recommended patient follow-up with neuro interventional list as outpatient. Patient did receive tenecteplase in the emergency room. Despite this, patient's symptoms did not improve other than his slurred speech did improve. Patient did have some left hemianopsia but that did improve as well but still with profound left-sided hemiparesis. Patient was seen by neurology and just recommended continue with aspirin and outpatient Holter monitor. Patient is also been started on atorvastatin. Plan is for the patient be discharged to acute rehab in stable condition. Complicating his picture is the patient is from [place] and was just staying here temporarily. This will complicate his eventual disposition back to home. Ideally, the patient would be more functional prior to initiating return home or a facility back in [place]. Case management to further assist in this matters. Weight / BMI Weight Weight: 79.1 kg Body Mass Index (BMI) 27.3 ABG / Lab / Microbiology Data Result Diagrams: 07/11/22 05:00 07/11/22 05:00 Laboratory: Laboratory Results - last 24 hr 07/11/22 12:08: POC Glucose 248 H 07/11/22 16:26: POC Glucose 195 H 07/11/22 22:48: POC Glucose 137 H 07/12/22 07:08: POC Glucose 136 H Radiography Diagnostic Testing: Radiology Impression Brain CT 07/11/22 19:07 IMPRESSION: Evolving acute to subacute infarct without hemorrhagic transformation. Electronically Signed: Boris Huber MD at 19:47 EDT , D/C Instructions Discharge Diet: 2000 Calorie Control Diet and - (Soft and bite sized. [place] thickened liquids.Direct Supervision, Food/drink only when fully alert, No straws, Small sips) Meaningful Use Info Meaningful Use Diagnoses (Choose all that apply): Ischemic CVA CVA Therapy Assessed for PT,OT and/or ST?: Yes Ischemic Stroke Antithrombotic order at d/c?: Yes Dx of Atrial fib/flutter?: No Anticoagulant at discharge?: No Reason anticoagulant not ordered: Treatment not Indicated Statins at discharge?: Yes Primary Dx Acute Ischemic CVA?: Yes IV thrombolytic ordered during stay?: Yes Discharge Plan Admission Admit Date/Time: 07/09/22 01:20 Primary Reason for Your Visit: Stroke Attending Provider: Bernard Quezada Primary Care Provider: [facility] Doctor,Out of Consulting Providers: Anna Ledesma ; Piter Blakely ; Bernard Rg Discharge Orders/Prescriptions Prescriptions: New atorvastatin 80 mg Tablet 80 mg PO QHS Qty: 0 0RF insulin glargine-yfgn 100 unit/mL (3 mL) Insulin Pen 35 unit subcut DAILY Qty: 0 0RF insulin lispro [Humalog KwikPen Insulin] 100 unit/mL Insulin Pen See Protocol subcut ACHS Qty: 0 0RF Protocol: 3. Sliding Scale Insulin Med Dosing Condition: 150-189 mg/dl = 1 unit Condition: 190-229 mg/dl = 2 units Condition: 230-269 mg/dl = 3 units Condition: 270-309 mg/dl = 4 units Condition: 310-349 mg/dl = 5 units Condition: 350-399 mg/dl = 6 units Condition: 400-449 mg/dl = 7 units Condition: Greater than 449 call physician Protocol Text: - Use for Total Daily Dose of Insulin 37-55 units - Obsese, infected, or steroid patients MEDIUM DOSING ALGORITHIM sennosides-docusate sodium [Stool Softener-Stimulant Laxat] 8.6-50 mg Tablet 2 tab PO BID PRN PRN (Reason: Constipation) Qty: 0 0RF nicotine 21 mg/24 hr Patch 24 Hour 21 mg transdermal DAILY Qty: 0 0RF Continued aspirin 81 mg Tablet 81 mg PO DAILY lisinopril 40 mg Tablet 20 mg PO DAILY Jardiance 25 mg Tablet 25 mg PO DAILY Discontinued Levemir FlexPen 100 unit/mL (3 mL) Insulin Pen 35 unit SUBCUT BID Other Ambulatory Orders: 30 Day Event Recorder Preventi (Urgent) Timeframe: 1 Day Facility: [facility] - Location: Cardiovascular Services Ordered By: Dr. Bernard Quezada Referrals / Follow Up: [facility] [Provider Group] - Within 1 Month Care Physician,No Primary [Non-Staff] - [facility] Doctor,Out of [Primary Care Provider] - Disposition Disposition (needs filled in before D/C Order can be placed): Acute Care Hospital [facility] Charges/Coding Visit Charges Inpatient E&M: 72886 Disch Hosp >30min
--- NOTE | 2022-07-12 11:58 | NURSING ---
Report given to inpatient rehabilitation program coordinator
[2022-07-12 12:20] LABS: Bedside Glucose 170 mg/dL (74-106)
== END 2022-07-12 12:10 | DRG 62 ==
LOC: ED 01:45 → ICU 03:34
PROVIDERS: Internal Medicine; Admitting Provider Family Medicine; Emergency Provider Emergency Medicine
DX: I63.511 Cerebral infarction due to unspecified occlusion or stenosis of right middle cerebral artery (principal); G81.04 Flaccid hemiplegia affecting left nondominant side; Z79.4 Long term (current) use of insulin; E11.65 Type 2 diabetes mellitus with hyperglycemia; I10 Essential (primary) hypertension; H53.47 Heteronymous bilateral field defects; I65.23 Occlusion and stenosis of bilateral carotid arteries; F17.220 Nicotine dependence, chewing tobacco, uncomplicated; F10.11 Alcohol abuse, in remission; R13.19 Other dysphagia; R47.1 Dysarthria and anarthria; R29.715 NIHSS score 15; R47.81 Slurred speech; R29.810 Facial weakness; E66.3 Overweight; Z68.28 Body mass index [BMI] 28.0-28.9, adult; Z79.82 Long term (current) use of aspirin; Z79.899 Other long term (current) drug therapy
CPT/HCPCS: 51702; 70450; 70496; 70498; 70551; 71045; 74230; 80048; 80053; 80061; 82962; 83036; 83735; 84443; 85025; 85610; 85730; 92523; 92526; 92610; 92611; 93005; 93306; 93880; 94668; 94762; 97110; 97112; 97162; 97167; 97530; 97535; 99252; 99285; J3101; J7030; Q9967; A4216; G0463

== ENCOUNTER 2022-07-12 12:30 | Inpatient (IN) | payer BC, SELFPAY ==
[2022-07-12 13:41] VITALS: BP 138/72; PULSE 78; RESP 18; TEMP 37.1; O2SAT 98
[2022-07-12 14:14] VITALS: BMI 27.3
[2022-07-12 14:15] VITALS: BMI 27.3
[2022-07-12 16:40] VITALS: BMI 27.3
[2022-07-12 16:48] VITALS: O2SAT 97
[2022-07-12 16:56] LABS: Bedside Glucose 196 mg/dL (74-106)
[2022-07-12] MEDS: Insulin Lispro 100 UNIT/ML INSULN.PEN SC ×2 (17:39→21:32)
[2022-07-12 20:00] VITALS: BP 131/71; PULSE 74; RESP 18; TEMP 36.8; O2SAT 96
[2022-07-12] MEDS: Atorvastatin Calcium 80 MG Tablet PO (21:32)
[2022-07-12] MEDS: Senna/Docusate Sodium 1 Tablet 2 TABLET PO (21:32)
[2022-07-12 22:20] LABS: Bedside Glucose 221 mg/dL (74-106)
--- NOTE | 2022-07-13 02:56 | NURSING ---
Pt attempted x2 to void, unable to. Bladder scanned for 490ml, straight cathed per order using sterile technique 550ml clear taylor urine returned. Pt tolerated well, expressed relief.
[2022-07-13 05:51] LABS: Absolute Lymphocyte Count 1.79 X10^3/uL (0.83-4.51); Absolute Neutrophil Count 3.8 X10^3/uL (2.0-7.7); Basophil# 0.05 X10^3/uL; Basophil% 0.8 % (0-1); Eosinophil# 0.18 X10^3/uL; Eosinophils% 2.9 % (0-5); Hematocrit 46.7 % (40-54); Hemoglobin 15.1 g/dL (13.0-16.5); Lymphocyte # 1.79 X10^3/ul (0.83-4.51); Lymphocyte % 28.5 % (19-41); Mean Corp Hgb Conc 32.3 g/dL (32-36); Mean Corpuscular Hgb 29.5 pg (27.0-32.0); Mean Corpuscular Volume 91.2 fL (80-94); Mean Platelet Vol. 10.2 fl (6.2-12.0); Monocyte% 7.9 % (0-10); NRBC Flagged by Analyzer 0 % (0-5); Neutrophil # 3.75 X10^3/uL (2.7-7.7); Neutrophil % 59.6 % (47-70); Platelet Count 281 K/mm3 (150-450); RBC Distribution Width CV 12.7 % (11.6-14.6); RBC Distribution Width SD 42.3 fl (35.1-43.9); Red Blood Count 5.12 M/mm3 (4.6-6.2); White Blood Count 6.3 K/mm3 (4.4-11.0)
[2022-07-13 06:22] LABS: ALB/GLOB Ratio 0.9 RATIO (0.9-2.4); AST(SGOT) 16 U/L (15-37); Alanine Aminotransfer ALT/SGPT 23 U/L (16-61); Albumin, Serum 3.1 g/dL (3.2-5.0); Alkaline Phosphatase 91 U/L (45-117); Anion Gap 8 (5-15); BUN 16 mg/dL (7-18); Calcium,Total 8.7 mg/dL (8.5-10.1); Chloride 107 mmol/L (98-107); Creatinine, Serum 0.84 mg/dL (0.70-1.30); EST Glomerular Filtration Rate 98 mL/min (>60); Est Glom Filt Rate - Afr Amer 119 mL/min (>60); Estimated Creatinine Clearance 85.25 ml/min; Globulin 3.4 g/dL (2.2-4.2); Glucose 146 mg/dL (74-106); Magnesium 1.9 mg/dL (1.6-2.6); Phosphorus 3.6 mg/dL (2.5-4.9); Potassium 3.6 mmol/L (3.5-5.1); Protein, Total 6.5 g/dL (6.4-8.2); Sodium Level 141 mmol/L (136-145)
[2022-07-13 07:01] LABS: Bedside Glucose 155 mg/dL (74-106)
[2022-07-13] MEDS: Insulin Lispro 100 UNIT/ML INSULN.PEN SC (08:18)
[2022-07-13] MEDS: Insulin Glargine-YFGN 100 UNIT/ML Pen 35 UNIT SC (08:18)
[2022-07-13] MEDS: Senna/Docusate Sodium 1 Tablet 2 TABLET PO ×2 (08:19→22:02)
[2022-07-13] MEDS: Lisinopril 20 MG Tablet PO (08:19)
[2022-07-13] MEDS: Empagliflozin 25 MG Tablet PO (08:19)
[2022-07-13 09:17] VITALS: BP 123/72; PULSE 68; RESP 16; TEMP 36.5; O2SAT 96
[2022-07-13 09:18] VITALS: BMI 27.3
--- NOTE | 2022-07-13 10:33 | EX.PCM.HP.RE ---
HPI - General General Date of Admission: 07/12/22 Date of Service: 07/13/22 Chief Complaint: Debility due to stroke. HPI Narrative HUGH VALENCIA, is a 62 YO M with a PMH of DM II, depression, tobacco dependence in remission (quit April 2000, but, he is on a nicotine patch? ), alcohol abuse in remission (drinks only on holidays and special occasions for the past 2 years), HTN, Diabetic retinopathy with vitreous hemorrhage (resolved) and current use of chewing tobacco who presented to the ED at [facility] on 07/09/22 with left-sided weakness, facial droop and slurred speech. NIH SS score was 15 at presentation to the emergency department. Stat noncontrast CT brain showed senescent changes only. CTA of the head and neck showed severe focal stenosis in the right internal carotid artery, severe stenosis in the proximal left V4 segment and a hypoplastic right A1 segment. [facility] teleneurology was consulted and recommended TNK which was given in the emergency department. Patient was then transferred to the intensive care unit for monitoring. An echocardiogram was obtained and showed normal left ventricular function with an ejection fraction of 60%. He had stage I diastolic dysfunction and the pulmonary artery pressure was mildly increased at 34. The bubble contrast study was negative for right to left shunt. Hemiplegia increased following TNK and he became lethargic. Noncontrast CT brain obtained 24 hours after TNKase administration showed late?acute ischemic infarct in the right deep structures to be clearly visible. There was no hemorrhage or midline shift. Vascular surgery was consulted for R carotid stenosis in a pt with no improvement following TNK. He had no significant stenosis in the cervical portion of the R ICA, only stenosis in the cavernous portion of the artery and this is not typically treated surgically due to high risk of complications. Carotid duplex showed less than 50% stenosis in the cervical portion of the left and right internal carotid arteries. Teleneurology consult was obtained on 07/10/22. NIH score was 12 at the time of the neurology consult. A cerebral MRI and continued aspirin 81 mg daily was recommended. Hugh was seen by PT/OT/ST and acute inpt rehab was recommended at [facility]. He was transferred to the acute inpt rehab unit at [facility] on 07/12/22 for 3 hours of therapy daily to restore function at or near to his prior level of function. HGBA1C was 8.8. Total cholesterol is 136 with triglycerides of 104. The LDL was 81 and the HDL is low at 34. TSH was normal. Hugh tells me that he was diagnosed with diabetes mellitus in 2000 and that his blood sugars have not been well controlled over the years. He denies a history of diabetic retinopathy. He also denies a history of macular degeneration. 1. Is the patient currently on an ANTITHROMBOTIC medication: Yes ANTICOAGULANT no 2. Does the patient have known AF/AFLUTTER: No 3. Is the patient on a STATIN: Yes 4. Is the patient on VTE PROPHYLAXIS: Yes. PHARMACOLOGIC intervention type: No He has a history of vitreous hemorrhage and anticoagulants are contraindicated. MECHANICAL intervention type: SCDs and JARET hose 5. GLYCEMIC control medications: Jardiance, glargine insulin and a sliding scale. 6. Stroke BLOOD PRESSURE goals: Less than 130/80 7. Stroke IVF/NUTRITION: None at this time. 8. TEMPERATURE control: Acetaminophen as needed 9. Does the patient need THERAPY: Yes Afebrile VSS -blood pressure is within goal. Maintaining appropriate oxygen saturation on RA Oral intake -intake at breakfast was 50 to 74%. PVR X 1 is 200. Blood sugar record was reviewed. Blood sugar at at bedtime was 221 and the fasting this morning is 155. He received glargine and 2 units of lispro at bedtime. Discussed with nursing - no problems that need addressed. Slept well last night. He had a bladder scan this morning because he had not urinated and it was 490 so he was straight cath'd Reviewed the PT/OT/ST notes Medication list reviewed. Has been on Lexapro in the past for depression but has not taken this medication in 2 to 3 years. All lab from this morning was personally reviewed. Sodium is 141 and the potassium is 3.6. BUN is 16 with a creatinine of 0.84. Phosphorus and magnesium are normal. LFTs are within normal limits. CBC is unremarkable. [facility] Medical History (Updated 07/14/22 @ 13:[address] Joelle Brooks DO) BPH (benign prostatic hyperplasia) Chewing tobacco use Diabetes mellitus, type 2 Former cigarette smoker History of alcohol abuse History of depression History of vitreous hemorrhage of right eye Hypertension Overweight Home Medications aspirin 81 mg tablet 81 mg PO DAILY Check with primary doctor 07/09/22 [History Last Taken Unknown] empagliflozin 25 mg tablet (Jardiance) 25 mg PO DAILY Check with primary doctor 07/09/22 [History Last Taken Unknown] lisinopril 40 mg tablet 20 mg PO DAILY Check with primary doctor 07/09/22 [History Last Taken Unknown] atorvastatin 80 mg tablet 80 mg PO QHS cholesterol 07/12/22 [History Last Taken Unknown] insulin glargine-yfgn 100 unit/mL (3 mL) subcutaneous pen 35 unit subcut DAILY DM 07/12/22 [History Last Taken 07/12/22 10:00] insulin lispro 100 unit/mL subcutaneous pen (Humalog KwikPen (U-100) Insulin) See Protocol subcut ACHS DM 07/12/22 [History Last Taken Unknown] nicotine 21 mg/24 hr daily transdermal patch 21 mg transdermal DAILY Check with primary doctor 07/12/22 [History Last Taken Unknown] Allergy/AdvReac Type Severity Reaction Status Date / Time No Known Allergies Allergy Verified 07/09/22 00:56 Family History (Updated 07/13/22 @ 15:[address] Joelle Brooks DO) Mother Brain tumor Dx age 43. Father Heart disease Hypertension CAD (coronary artery disease) Diabetes Brother CVA (cerebral vascular accident) CVA in his 60s. Brother CAD (coronary artery disease) Surgical History (Updated 07/13/22 @ 15:[address] Joelle Brooks DO) History of bladder repair surgery Hx of appendectomy Social History (Updated 07/13/22 @ 15:[address] Joelle Brooks DO) adopted: No household members: spouse housing: house number of children: 4 current occupational status: employed current occupation: Drills holes into [employer] sexually active: Yes do you think of yourself as: straight/heterosexual current gender identity: male Smoking Status: Former smoker quit date: 04/30/00 pack-years: 38 Smokeless tobacco user: chewing tobacco counseling given: provider counseling and counseling >3 minutes alcohol intake: current alcohol intake frequency: holidays/special occasions only details: Hx heavy EtOH abuse (64 ounces beer/day) but stopped heavy intake 2 yrs ago substance use type: does not use Addt'l Information Additional Findings: Had a stress test many years ago that was negative. He has had a sleep study in the past and was told he does not have sleep apnea Was on Lexapro for depression in the past but, has not been taking for the past 2-3 years. Feeling depressed now and has been tearful. ROS Constitutional Constitutional: Reports fatigue and weakness; Denies anorexia, change in weight, chills, fever(s) or night sweats Eyes Eyes: Denies blurry vision, change in vision, discharge from eye(s), double vision, eye pain, itchy eyes or loss of vision ENT HEENT: Reports dysphagia; Denies abnormal hearing, headache(s), hearing loss, nasal congestion or sore throat Cardiovascular Cardiovascular: Reports edema and other Details: He walks at work most of the day and at the end of the day he has some distal LE swelling that resolves overnight with elevation of his legs in bed. ; Denies chest pain, dyspnea on exertion, lightheadedness, orthopnea, palpitations, paroxysmal nocturnal dyspnea or syncope Respiratory/Chest Respiratory/Chest: Denies cough, dyspnea, shortness of breath at rest, shortness of breath with exertion or wheezing Gastrointestinal Gastrointestinal: Denies abdominal pain, constipation, diarrhea, dyspepsia, hematemesis, hematochezia, nausea or vomiting Genitourinary Genitourinary: Reports nocturia, urinary frequency, urinary hesitancy and other Details: Also has dribbling. Does not remember ever having a PSA ; Denies dysuria, hematuria, urinary incontinence or urinary urgency Musculoskeletal Musculoskeletal: Denies back pain, joint pain, joint swelling or neck pain Integumentary Integumentary: Reports dry skin; Denies jaundice, pruritus, rash or wounds Neurologic Neurologic: Reports abnormal gait, focal weakness, paresthesias, sensory deficit and other Details: Dysarthria, no aphasia, weakness on the left side ; Denies confusion, disequilibrium, dizziness, headache(s), seizures or tremor(s) Psychiatric Psychiatric: Reports depression; Denies anxiety, homicidal ideation or suicidal ideation Endocrine Endocrinology: Denies change in body appearance, polydipsia or polyuria Hematologic/Lymphatic Hematologic/Lymphatic: Denies easy bleeding, easy bruising or lymphadenopathy Allergic/Immunologic Allergic/Immunologic: Denies rhinitis, eczemia or asthma Vital Signs Vital Signs Vital Signs: 07/12/22 13:41 07/12/22 16:48 07/12/22 20:00 Temperature 98.7 F 98.2 F Temperature Source Oral Temporal Pulse Rate 78 74 Respiratory Rate 18 18 Respiratory Effort Respiratory Depth Respiratory Pattern Blood Pressure 138/72 H 131/71 H Blood Pressure Mean 94 91 Blood Pressure Source Monitor Monitor Blood Pressure Position Semi-Fowlers Semi-Fowlers Blood Pressure Location Right Arm Right Arm Pulse Ox 98 97 96 Oxygen Delivery Method Room Air Room Air Room Air 07/12/22 20:00 07/13/22 09:17 Temperature 97.7 F L Temperature Source Temporal Pulse Rate 68 Respiratory Rate 16 Respiratory Effort Normal Non-Labored Respiratory Depth Normal Respiratory Pattern Normal Blood Pressure 123/72 H Blood Pressure Mean 89 Blood Pressure Source Monitor Blood Pressure Position Semi-Fowlers Blood Pressure Location Right Arm Pulse Ox 96 96 Oxygen Delivery Method Room Air Room Air Weight Weight: 174 lb 6.17 oz Body Mass Index (BMI) 27.3 Indicators for Scoring Admitted with or Primary Diagnosis of CVA/Stroke: Yes Hx of CVA/Stroke: Yes Modified [place] Score MRS Score at time of Evaluation: 5-Severe disability NIHSS NIHSS 1a. Level of Consciousness: Alert; keenly responsive 1b. LOC Questions: Answers BOTH questions correctly. 1c. LOC Commands: Performs both tasks correctly. 2. Best Gaze: Normal 3. Visual: No visual loss 4. Facial Palsy: Partial paralysis (total or near-total paralysis of lower face) 5a. Left Arm: No movement 5b. Right Arm: No drift; arm holds 90 (or 45) degrees for full 10 seconds 6a. Left Leg: No effort against gravity; leg falls to bed immediately (able to wiggle his toes) 6b. Right Leg: No drift; leg holds 30-degree position for full 5 seconds 7. Limb Ataxia: Absent 8. Sensory: [id number] sensory loss; (Left face, left arm. Intact sensation to the LLE. ) 9. Best Language: No aphasia; normal 10. Dysarthria: [id number] dysarthria; 11. Extinction and Inattention: No abnormality Total: 11 Stroke Questions Stroke Team Activated: No (He is now in a acute rehab unit. ) Physical Exam Const alert, oriented x3 and no apparent distress Constitutional Narrative: Flat affect. Tearful at times. Appropriate. Looks tired. General Appearance: cooperative and well developed Orientation / Consciousness: Negative for confused HEENT normocephalic and head/scalp atraumatic HEENT Narrative: Tongue protrudes to the L Mouth: dry mucous membranes Eyes Eyes Narrative: Both pupils are responsive to light, Both pupils are round but, the R pupil is a little smaller than the L. EOMI. no scleral icterus, no discharge from the eyes, no mattering of the eyelids. Neck supple and no carotid bruits Neck Narrative: Brisk carotid upstroke with good pulse volume General: trachea midline; Negative for lymphadenopathy Resp normal respiratory effort, normal air movement and clear to auscultation bilaterally Effort and Inspection: Negative for tachypneic or labored Cardio regular rate, regular rhythm, S1 normal heart sound, S2 normal heart sound, no murmurs, no rub and no gallops GI normal to inspection, nondistended, normoactive bowel sounds, soft to palpation and non-tender GI Narrative: No hepatosplenomegaly, no masses, no suprapubic tenderness and no guarding with palpation Extremity no calf tenderness Extremity Narrative: Pulses are 2-3+ throughout General Extremity: Negative for cyanosis or edema Skin no wounds and no jaundice General Skin Exam: Negative for no breakdown Rashes: no rashes Neuro Neuro Narrative: Marked left facial droop with decreased sensation in all branches of the left facial nerve. No visual loss. Extraocular muscles are intact. Left upper extremity is flaccid. He cannot raise his left leg but he is able to wiggle his toes and he did feel a sharp sensation to pinprick in the left lower extremity. Has sensation in the Left face and LUE but, it is dull to pinprick. No ataxia and no neglect. Coordination / Balance: [id number]-[id number] test normal and dbcb-qy-[id number] test normal Speech: speech abnormal Details: Positive for slurred; Negative for complete aphasia Psych thought process normal, cooperative and denies suicidal ideation Appearance: appropriate Mood & Affect: depressed and flat affect Results Lab / Micro Data Result Diagrams: 07/13/22 05:35 07/13/22 05:35 Labs: Laboratory Results - last 24 hr 07/12/22 16:34: POC Glucose 196 H 07/12/22 21:31: POC Glucose 221 H 07/13/22 05:35: WBC 6.3, RBC 5.12, Hgb 15.1, Hct 46.7, MCV 91.2, MCH 29.5, MCHC 32.3, RDW Std Deviation 42.3, RDW Coeff of Machelle 12.7, Plt Count 281, MPV 10.2, Immature Gran % (Auto) 0.300, Neut % (Auto) 59.6, Lymph % (Auto) 28.5, Patrick % (Auto) 7.9, Eos % (Auto) 2.9, Baso % (Auto) 0.8, Absolute Neuts (auto) 3.8, Absolute Lymphs (auto) 1.79, Nucleated RBC % 0 07/13/22 05:35: Sodium 141, Potassium 3.6, Chloride 107, Carbon Dioxide 26.0, Anion Gap 8, BUN 16, Creatinine 0.84, Estim Creat Clear Calc 85.25, Est GFR (MDRD) Af Amer 119, Est GFR (MDRD) Non-Af 98, BUN/Creatinine Ratio 19.0, Glucose 146 H, Calcium 8.7, Phosphorus 3.6, Magnesium 1.9, Total Bilirubin 0.60, AST 16, ALT 23, Alkaline Phosphatase 91, Total Protein 6.5, Albumin 3.1 L, Globulin 3.4, Albumin/Globulin Ratio 0.9 07/13/22 06:38: POC Glucose 155 H Assessment & Plan Assessment/Plan (1) Debility: (2) Acute cerebrovascular accident (CVA): (3) Right cavernous carotid stenosis: (4) Dysphagia: (5) Dysarthria: (6) Hemiplegia affecting left nondominant side: (7) Urine retention: (8) BPH (benign prostatic hyperplasia): (9) Diabetes mellitus, type 2: (10) Dyslipidemia associated with type 2 diabetes mellitus: (11) Hypertension: (12) History of depression: PLAN: Has been on Lexapro in the past for depression but has not taken it in the past 2 to 3 years. (13) Nicotine dependence: PLAN: Chewing tobacco. Continue NicoDerm patch PLAN: Plan PLAN PT for gait stability OT for ADL's ST for evaluation Analgesics as needed Bowel protocol Fall precautions Assess for Anxiety/Depression GI prophylaxis -not necessary at this time. Patient has no history of peptic ulcer disease and denies nausea/vomiting/epigastric pain. His hemoglobin is within normal limits. DVT prophylaxis with SCDs and JARET hose. Follow up with PCP and neurology following DC from Rehab - Will be returning home to [facility] lab including CMP, CBC, Mag and Phos were personally reviewed. 1. Add Flomax to the current drug regimen for suspected BPH. 2. If he continues to retain may need to insert a Beavers for a few days until the Flomax kicks in and then do a voiding trial. 3. Start sertraline 100 mg p.o. daily for recurrent depression 4. Continue sliding scale insulin and glargine for the present time. 1. Is the patient currently on an ANTITHROMBOTIC medication: Yes ANTICOAGULANT no, not indicated 2. Does the patient have known AF/AFLUTTER: No 3. Is the patient on a STATIN: Yes, atorvastatin 80 mg nightly 4. Is the patient on VTE PROPHYLAXIS: . PHARMACOLOGIC intervention type: No. pharmacologic prophylaxis is being held due to the large size of the stroke. Will start on Sunday because it will have been 1 week since the stroke. MECHANICAL intervention type: JARET arguello and Costa. 5. GLYCEMIC control medications: All blood sugars less than 180 and hemoglobin A1c going forward less than 7 6. Stroke BLOOD PRESSURE goals: Blood pressure less than 130/80 7. Stroke IVF/NUTRITION: IV fluids as needed to maintain hydration 8. TEMPERATURE control: As needed Tylenol for fever greater than 100 ?F. STROKE TREATMENT GOALS: a. BP < 130/80 b. LDL < 70 c. HGBA1C < 7% d. No smoking and no other nicotine products e. Take all ordered medication f. Lose weight BMI < 25 9. Does the patient need THERAPY: Yes Charges/Coding Visit Charges Inpatient E&M: 80057 Init Hosp L3
--- NOTE | 2022-07-13 11:23 | REHABEVAL_ITS ---
Admission Information Primary Diagnosis:: Debility post ischemic CVA. Status Changes from Prescreening?: No changes Identified Actual Problem List:: Pain, ALteration in Cmfrt, Cognitve Impr/Memory Loss, Depression, Alteration in Sleep, Mobility Impaired, Self Care Deficit, Diabetes, Hyperglycemia, Fluid Change-Dehydration and Alteration-Leisure Activ. Potential Problem List:: DVT, Bleeding, Infection, UTI, Aspiration, Falls, Skin Integrity and Depression Risk of Complications DVT: JARET Hose and Sequential Compression Device Bleeding: Monitor Lab Values, Nursing to Teach Precautions for anti-coagulation therapy., Wound, if applicable, to be assessed every shift. and Stroke patients assessed for lethargy or change in status. Infection: Clinical Staff to Monitor for S/S of infection: and S/S of infection include fever, redness, warmth, etc. Urinary Tract Infection: Monitor for frequency, burning, discomfort, or incontinence. and Nursing will obtain urine sample for urinalysis and C&S when ordered. Aspiration: Clinical staff will monitor for coughing, drooling, congestion., Speech will evaluate swallowing and dsyphasia. and Nursing will monitor patient swallowing during meals. Falls: Patient will be evaluated for Fall Precautions and Patient will be placed on Fall Precautions as indicated per protocol. Skin Breakdown: Nursing will assess skin daily using assessment tool. and Nursing will place on Skin Breakdown Precautions as indicated. Pain: Clinical staff will assess patient's pain level per protocol., Medications will be given, if needed, and the pain level reassessed. and Other methods: Massage, distraction, decrease stimulus, etc. used PRN. Plan of Care Patient requires physician specializing in physical medicine and rehab oversight to provide close medical supervision of rehab issues including: Pain Management, Sleep Problems, Bowel and Bladder, Medical and co-morbidity Management, DVT prophylaxis, Rehabilitation Leadership and Coordination of treatment team Patient needs Physical Therapy: For a minimum of 1 hour and At least 5 out of 7 days Patient needs Physical Therapy to improve:: Mobility, Strengthening, Transfers, Stretching, ROM, Endurance, Stairs, Gait and Balance Patient needs Occupational Therapy: For a minimum of 1 hour and At least 5 out of 7 days Patient needs Occupational Therapy to improve ADL's incl.: Eating, Grooming, Bathing, Dressing, Toileting, Toilet transfers, Community Reintegration, Higher functioning activities, Household tasks, Adaptive Equipment, Splinting and Other activities as determined Patient requires speech therapy: For a minimum of 1 hour and At least 5 out of 7 days Patient requires speech therapy for: Swallowing, Cognition, Language Skills and Compensatory Strategies Patient requires 24/ Rehabilitation Nursing for: Pain Issues, Identifying and preventing risk factors, Monitoring and reporting current medical conditions, Assisting with ambulation, transfer, and all ADL's, Teaching patients about disease process and medications, Family teaching, Providing safe environment, Bowel and Bladder Issues, Skin integrity and Medication Management Patient needs Senior Grant Writer/ Case Management for: Discharge Planning, Arranging Home Equipment or Services and Family Interventions Patient needs Dietary and Nutrition Services for: Adequate Nutrition, Nutritional Supplements and Nutritional Education Goals Patient will remain: free from falls Patient will perform bed mobility at: MOD I level of assist. Patient will complete transfers from bed to chair at: - (Min assist) Patient will ambulate: 100 feet (With least restrictive device at contact-guard assist on various surfaces) Patient will complete upper body dressing at: - (Minimal assistance) Patient will complete lower body dressing at: - (Min assist with adaptive equipment as needed) Patient will complete toileting at: - (Min assist) Patient will perform bathing at: - (Minimal assistance) Patient will complete grooming at: MOD I level of assist. Patient will complete home management skills at: MOD I level of assist. Patient will achieve: - (2 steps with 1 handrail at contact-guard assist to allow access to his home entrance.) Patient will have pain level of: of 3 or less Patient's skin will: remain intact Patient will receive: adequate nutrition. Discharge Planning Pt Prognosis for Sig. Practical Improv. w/in Reasonable Time: Good Estimated Length of stay (days): 28 Anticipated D/C Destination: Home w/ family or friends (Lives in [place] with his . ) Was Preadmission Assessment Accurate?: Yes
[2022-07-13 12:10] LABS: Bedside Glucose 141 mg/dL (74-106)
[2022-07-13 16:01] LABS: PSA,Total - Annual Screen 0.37 ng/mL (0.00-4.00)
[2022-07-13] MEDS: Tamsulosin HCl 0.4 MG Capsule PO (16:44)
[2022-07-13 17:15] LABS: Bedside Glucose 108 mg/dL (74-106)
[2022-07-13 17:36] VITALS: O2SAT 93
[2022-07-13 20:00] VITALS: BP 140/65; PULSE 88; RESP 18; TEMP 36.8; O2SAT 97
[2022-07-13 21:45] VITALS: O2SAT 97
[2022-07-13] MEDS: Atorvastatin Calcium 80 MG Tablet PO (22:02)
[2022-07-13 22:35] LABS: Bedside Glucose 132 mg/dL (74-106)
--- NOTE | 2022-07-14 03:21 | NURSING ---
Pt attempted to void, was unable to, bladder scanned for 525ml, this would be straight cath #4, bradshaw placed using sterile technique, with clear taylor urine returned. Pt tolerated well.
[2022-07-14 06:55] LABS: Bedside Glucose 123 mg/dL (74-106)
[2022-07-14 07:06] VITALS: BP 118/66; PULSE 72; RESP 18; TEMP 36.4; O2SAT 97
[2022-07-14 07:18] VITALS: O2SAT 97
[2022-07-14] MEDS: Insulin Glargine-YFGN 100 UNIT/ML Pen 35 UNIT SC (07:57)
[2022-07-14] MEDS: Empagliflozin 25 MG Tablet PO (07:57)
[2022-07-14] MEDS: Lisinopril 20 MG Tablet PO (07:58)
[2022-07-14] MEDS: Senna/Docusate Sodium 1 Tablet 2 TABLET PO ×2 (07:58→21:40)
[2022-07-14 09:28] VITALS: BMI 27.3
[2022-07-14] MEDS: Sertraline 100 MG Tablet PO (10:41)
[2022-07-14] MEDS: Insulin Lispro 100 UNIT/ML INSULN.PEN SC ×2 (12:22→17:22)
[2022-07-14 12:31] LABS: Bedside Glucose 158 mg/dL (74-106)
--- NOTE | 2022-07-14 13:55 | PCM.PROGNOTE ---
Subjective Subjective Afebrile VSS Maintaining appropriate oxygen saturation on RA Oral intake is erratic. He had 50 to 74% of his breakfast this morning but then refused lunch. Discussed with nursing -he continues to retain urine. Flomax was started yesterday. Beavers catheter was inserted this morning. Reviewed the PT/OT/ST notes Medication list reviewed. Blood sugar record was reviewed. Blood sugars for the past 24 hours have all been less than 160 with no hypoglycemia. He tells me that he is depressed. He denies AL and also denies lightheadedness, chest pain, shortness of breath, cough, nausea/vomiting/abdominal pain, dysuria, calf pain and swelling of his legs today. PSA yesterday was normal at 0.37. Objective Data Objective Data Vital Signs: Vital Signs Temp Pulse Resp BP Pulse Ox O2 Del Method 97.5 F L 72 18 118/66 97 Room Air 07/14/22 07:06 07/14/22 07:06 07/14/22 07:06 07/14/22 07:06 07/14/22 07:18 07/14/22 07:18 Oxygen Delivery Method Room Air Weight: 174 lb 6.17 oz Body Mass Index (BMI) 27.3 Intake & Output: Intake and Output for Last 24 Hours 07/12/22 07/13/22 07/14/22 23:59 23:59 23:59 Intake Total 420 / 420 420 / 420 Output Total 400 / 400 1495 / 1495 1070 / 1070 Balance -400 / -400 -1075 / -1075 -650 / -650 Lab / Micro Data Result Diagrams: 07/13/22 05:35 07/13/22 05:35 Labs: Laboratory Results - last 24 hr 07/13/22 05:35: PSA Screen 0.37 07/13/22 16:41: POC Glucose 108 H 07/13/22 21:50: POC Glucose 132 H 07/14/22 06:33: POC Glucose 123 H 07/14/22 12:07: POC Glucose 158 H Physical Exam Const Constitutional Narrative: Flat affect, cooperative, pleasant. Orientation / Consciousness: Negative for confused or lethargic HEENT Mouth: dry mucous membranes Resp clear to auscultation bilaterally Effort and Inspection: Negative for tachypneic or labored Auscultation: diminished lung sounds Cardio regular rate, regular rhythm, no murmurs, no rub and no gallops GI normal to inspection, nondistended, normoactive bowel sounds, soft to palpation and non-tender Extremity no calf tenderness General Extremity: Negative for edema Skin no wounds General Skin Exam: Negative for no breakdown Rashes: no rashes Assessment & Plan Assessment/Plan (1) Debility: (2) Acute cerebrovascular accident (CVA): (3) Right cavernous carotid stenosis: (4) Dysphagia: (5) Dysarthria: (6) Hemiplegia affecting left nondominant side: (7) Urine retention: (8) BPH (benign prostatic hyperplasia): (9) Diabetes mellitus, type 2: (10) Dyslipidemia associated with type 2 diabetes mellitus: (11) Hypertension: (12) History of depression: PLAN: Has been on Lexapro in the past for depression but has not taken it in the past 2 to 3 years. (13) Nicotine dependence: PLAN: Chewing tobacco. Continue NicoDerm patch PLAN: Plan 1. Continue therapy 2. Continue to monitor blood sugars AC at at bedtime. Do not cover the at bedtime sugar. 3. Encouraged him to increase his fluid intake. Output is exceeding input, possibly secondary to postobstructive diuresis since the Beavers was inserted. 4. Send a UA today.
[2022-07-14] MEDS: 0.9% Saline Lock 10 ML Syringe IV ×2 (15:03→21:45)
[2022-07-14] MEDS: Acetaminophen 325 MG Tablet 650 MG PO (16:12)
[2022-07-14] MEDS: Tamsulosin HCl 0.4 MG Capsule PO (17:24)
[2022-07-14 17:40] LABS: Bedside Glucose 170 mg/dL (74-106)
[2022-07-14 17:41] LABS: Bacteria 0 SEEN /hpf (None Seen); Mucous, Urine 0 SEEN /hpf (<or=2+); Red Blood Cells-Urine 0 SEEN /hpf (0-5); Squamous Epithelial Cells - UA 0 SEEN /hpf (0-5)
[2022-07-14 17:52] LABS: Color, Urine Yellow (Yellow); Glucose, Dipstick 1000 mg/dl (Normal); Leukocyte Esterase-Dipstick 500 /ul (Negative); Nitrite-Dipstick Negative (Negative); Occult Blood-Urine 50 /ul (Negative); Protein-Dipstick 15 mg/dl (Negative); Urine Bilirubin Dipstick Negative (Negative); Urine Clarity Clear (Clear); Urine Urobilinogen Normal (Normal)
[2022-07-14 18:39] LABS: Ketone-Dipstick 150 mg/dl (Negative); White Blood Cells 5-10 SEEN /hpf (0-5)
[2022-07-14 19:33] VITALS: BP 145/72; PULSE 88; RESP 15; TEMP 36.9; O2SAT 95
[2022-07-14 21:20] VITALS: O2SAT 95
[2022-07-14] MEDS: Atorvastatin Calcium 80 MG Tablet PO (21:39)
[2022-07-14] MEDS: Mirtazapine 15 MG Tablet PO (21:40)
[2022-07-14 22:10] LABS: Bedside Glucose 130 mg/dL (74-106)
[2022-07-15 06:31] LABS: Bedside Glucose 96 mg/dL (74-106)
[2022-07-15 08:10] VITALS: BP 133/57; PULSE 82; RESP 16; TEMP 36.4; O2SAT 94
[2022-07-15] MEDS: Aspirin 81 MG TAB.CHEW PO (08:23)
[2022-07-15] MEDS: Lisinopril 20 MG Tablet PO (08:23)
[2022-07-15] MEDS: Empagliflozin 25 MG Tablet PO (08:23)
[2022-07-15] MEDS: Senna/Docusate Sodium 1 Tablet 2 TABLET PO (08:23)
[2022-07-15] MEDS: Insulin Glargine-YFGN 100 UNIT/ML Pen 35 UNIT SC (08:30)
--- NOTE | 2022-07-15 10:08 | PCM.PN.BLA ---
Progress Note Afebrile VSS Maintaining appropriate oxygen saturation on RA Oral intake is variable. Urine output is still exceeding fluid intake. Blood sugar record was reviewed. Blood sugars are under good control with no hypoglycemia. We will continue sliding insulin scale 3 times daily AC. Discussed with nursing - no problems mentioned. Reviewed the PT/OT/ST notes Medication list reviewed. Ayaan denies nausea, lightheadedness, cephalgia, suprapubic pain, calf pain, abdominal pain. UA yesterday came back with 5-10 white blood cells but was nitrite negative and had no bacteria. Preliminary culture result today is no growth. He had high ketones in his urine and the acetone was small. He has had no blood sugars greater than 200 in the past 2 days. Discussed with nursing. Urine appears very concentrated. Lab ordered from today was personally reviewed. Serum bicarb is low at 20 and the BUN/CREAT ratio is elevated at 29. Impressions: 1. S/P CVA - Will continue therapy 2. Metabolic acidosis. Etiology? dehydration? due to SGLT2i? Will hydrate and recheck the BMP in the AM. Visit Charges Inpatient E&M: 29220 Subs Hosp L1
[2022-07-15 10:16] LABS: Absolute Lymphocyte Count 1.23 X10^3/uL (0.83-4.51); Absolute Neutrophil Count 6.6 X10^3/uL (2.0-7.7); Basophil# 0.04 X10^3/uL; Basophil% 0.5 % (0-1); Eosinophil# 0.06 X10^3/uL; Eosinophils% 0.7 % (0-5); Hematocrit 50.1 % (40-54); Hemoglobin 15.8 g/dL (13.0-16.5); Lymphocyte # 1.23 X10^3/ul (0.83-4.51); Lymphocyte % 14.7 % (19-41); Mean Corp Hgb Conc 31.5 g/dL (32-36); Mean Corpuscular Hgb 29.2 pg (27.0-32.0); Mean Corpuscular Volume 92.4 fL (80-94); Mean Platelet Vol. 10.4 fl (6.2-12.0); Monocyte# 0.44 X10^3/uL; Monocyte% 5.3 % (0-10); NRBC Flagged by Analyzer 0 % (0-5); Neutrophil # 6.58 X10^3/uL (2.7-7.7); Neutrophil % 78.4 % (47-70); Platelet Count 295 K/mm3 (150-450); RBC Distribution Width CV 12.8 % (11.6-14.6); RBC Distribution Width SD 43.1 fl (35.1-43.9); Red Blood Count 5.42 M/mm3 (4.6-6.2); White Blood Count 8.4 K/mm3 (4.4-11.0)
[2022-07-15 10:31] LABS: Anion Gap 13 (5-15); BUN 25 mg/dL (7-18); BUN/Creat Ratio 29.4 RATIO (10-20); Calcium,Total 8.8 mg/dL (8.5-10.1); Chloride 106 mmol/L (98-107); Creatinine, Serum 0.85 mg/dL (0.70-1.30); EST Glomerular Filtration Rate 97 mL/min (>60); Est Glom Filt Rate - Afr Amer 118 mL/min (>60); Estimated Creatinine Clearance 84.25 ml/min; Glucose 129 mg/dL (74-106); Potassium 4.7 mmol/L (3.5-5.1); Sodium Level 139 mmol/L (136-145)
[2022-07-15 11:09] VITALS: BMI 27.3
[2022-07-15 11:35] LABS: Bedside Glucose 109 mg/dL (74-106)
[2022-07-15] MEDS: 0.9% Saline Lock 10 ML Syringe IV (13:24)
[2022-07-15] MEDS: 0.9% Normal Saline 1,000 ML 500 ML IV (14:16)
[2022-07-15] MEDS: 0.9% Normal Saline 1,000 ML 100 ML IV (16:24)
[2022-07-15 16:41] LABS: Bedside Glucose 120 mg/dL (74-106)
[2022-07-15] MEDS: Tamsulosin HCl 0.4 MG Capsule PO (17:07)
[2022-07-15] MEDS: Mirtazapine 15 MG Tablet PO (20:48)
[2022-07-15] MEDS: Atorvastatin Calcium 80 MG Tablet PO (20:48)
[2022-07-15 21:00] VITALS: BMI 27.3
[2022-07-15 21:25] LABS: Bedside Glucose 131 mg/dL (74-106)
[2022-07-15 21:31] VITALS: BP 128/53; PULSE 86; RESP 16; TEMP 36.6; O2SAT 97
[2022-07-15] MEDS: Menthol/Lanolin/Calamine/Znox 113 GM Tube 1 APPLIC TOPICAL (22:04)
[2022-07-16] MEDS: 0.9% Normal Saline 1,000 ML 100 ML IV ×3 (02:17→21:34)
[2022-07-16 06:45] LABS: Bedside Glucose 71 mg/dL (74-106)
[2022-07-16 07:16] LABS: Anion Gap 9 (5-15); BUN 21 mg/dL (7-18); BUN/Creat Ratio 28.3 RATIO (10-20); Calcium,Total 8.6 mg/dL (8.5-10.1); Chloride 111 mmol/L (98-107); Creatinine, Serum 0.74 mg/dL (0.70-1.30); EST Glomerular Filtration Rate 114 mL/min (>60); Est Glom Filt Rate - Afr Amer 138 mL/min (>60); Estimated Creatinine Clearance 96.77 ml/min; Glucose 85 mg/dL (74-106); Potassium 3.9 mmol/L (3.5-5.1); Sodium Level 143 mmol/L (136-145)
[2022-07-16 07:59] VITALS: BP 139/69; PULSE 80; RESP 14; TEMP 36.7; O2SAT 98
[2022-07-16] MEDS: Aspirin 81 MG TAB.CHEW PO (08:22)
[2022-07-16] MEDS: Insulin Glargine-YFGN 100 UNIT/ML Pen 35 UNIT SC (08:22)
[2022-07-16] MEDS: Lisinopril 20 MG Tablet PO (08:22)
[2022-07-16] MEDS: Empagliflozin 25 MG Tablet PO (08:23)
[2022-07-16] MEDS: Menthol/Lanolin/Calamine/Znox 113 GM Tube 1 APPLIC TOPICAL ×2 (08:24→20:30)
[2022-07-16 08:41] LABS: Bedside Glucose 162 mg/dL (74-106)
[2022-07-16 11:50] LABS: Bedside Glucose 98 mg/dL (74-106)
--- NOTE | 2022-07-16 14:00 | NURSING ---
Patient more alert today. and patient aware of overnight pulse ox test ordered. Patient is cooperative/alert during therapy or activity with staff but upon wakening from nap he is groggy and sleepy. x2 assist for transfer. Left UE and LE remains flaccid. Alert and oriented x3 but needs cues and reorientation because he can be confused at times but easily reoriented.
[2022-07-16 16:16] VITALS: BMI 27.3
[2022-07-16 16:36] LABS: Bedside Glucose 107 mg/dL (74-106)
[2022-07-16] MEDS: Tamsulosin HCl 0.4 MG Capsule PO (17:08)
[2022-07-16 19:20] VITALS: BP 141/69; PULSE 82; RESP 16; TEMP 36.6; O2SAT 96
[2022-07-16 19:51] VITALS: PULSE 83; O2SAT 96
[2022-07-16] MEDS: Atorvastatin Calcium 80 MG Tablet PO (20:30)
[2022-07-16] MEDS: Mirtazapine 15 MG Tablet PO (20:30)
[2022-07-16 21:30] VITALS: BMI 27.3
[2022-07-16 21:40] LABS: Bedside Glucose 75 mg/dL (74-106)
[2022-07-17 06:31] LABS: Bedside Glucose 61 mg/dL (74-106)
[2022-07-17 06:31] LABS: Bedside Glucose 68 mg/dL (74-106)
[2022-07-17 06:56] LABS: Bedside Glucose 153 mg/dL (74-106)
[2022-07-17 07:28] VITALS: BP 146/62; PULSE 89; RESP 14; TEMP 36.8; O2SAT 95
[2022-07-17] MEDS: 0.9% Normal Saline 1,000 ML 100 ML IV ×2 (08:47→20:25)
[2022-07-17] MEDS: Lisinopril 20 MG Tablet PO (08:49)
[2022-07-17] MEDS: Empagliflozin 25 MG Tablet PO (08:49)
[2022-07-17] MEDS: Menthol/Lanolin/Calamine/Znox 113 GM Tube 1 APPLIC TOPICAL ×2 (08:49→20:50)
[2022-07-17] MEDS: Aspirin 81 MG TAB.CHEW PO (08:49)
[2022-07-17] MEDS: Insulin Glargine-YFGN 100 UNIT/ML Pen 35 UNIT SC (08:53)
[2022-07-17 09:20] LABS: Bedside Glucose 149 mg/dL (74-106)
[2022-07-17 10:37] LABS: Anion Gap 6 (5-15); BUN 14 mg/dL (7-18); BUN/Creat Ratio 19.2 RATIO (10-20); Calcium,Total 8.5 mg/dL (8.5-10.1); Chloride 111 mmol/L (98-107); Creatinine, Serum 0.73 mg/dL (0.70-1.30); EST Glomerular Filtration Rate 115 mL/min (>60); Est Glom Filt Rate - Afr Amer 140 mL/min (>60); Estimated Creatinine Clearance 98.09 ml/min; Glucose 132 mg/dL (74-106); Potassium 4.1 mmol/L (3.5-5.1); Sodium Level 139 mmol/L (136-145)
--- NOTE | 2022-07-17 11:48 | PCM.PROGNOTE ---
Subjective Subjective Ayaan was seen on team rounds today. His Cristy was present in the room. Afebrile VSS Maintaining appropriate oxygen saturation on RA Oral intake is improving. He is now taking 50 to 74% of the majority of his meals. He does not like to eat lunch so he often refuses. He took 1640 PO yesterday for the first time so fluid intake is improving also. The blood sugar record was reviewed. Fasting blood sugar was low this AM in the 60's and his lunch blood sugar is 88. Has not received any SSI for the past 3 days. He is currently taking 35 units of glargine at 10 AM daily and 25 mg of Jardiance. The metabolic acidosis may be due ketoacidosis due to Jardiance. Discussed with nursing - no problems that need addressed Reviewed the PT/OT/ST notes Medication list reviewed. IV fluids were started yesterday for an increase in BUN and also for mild metabolic acidosis. He admits to feeling very depressed. He is often tearful. Not interacting very much with staff. Denies chest pain, shortness of breath, cough, palpitations, lightheadedness, nausea/vomiting/abdominal pain, suprapubic pain and calf tenderness. Tearful on rounds. Objective Data Objective Data Vital Signs: Vital Signs Temp Pulse Resp BP Pulse Ox O2 Del Method O2 Flow Rate 98.2 F 89 14 146/62 H 95 Room Air 0 07/17/22 07:28 07/17/22 07:28 07/17/22 07:28 07/17/22 07:28 07/17/22 07:28 07/17/22 07:28 07/16/22 19:51 FiO2 21 07/16/22 19:51 Oxygen Flow Rate (L/min) 0 Oxygen Delivery Method Room Air Weight: 174 lb 6.17 oz Body Mass Index (BMI) 27.3 Intake & Output: Intake and Output for Last 24 Hours 07/15/22 07/16/22 07/17/22 23:59 23:59 23:59 Intake Total 2039 / 2039 4556.66 / 4556.66 1480 / 1480 Output Total 2150 / 2150 2175 / 2175 500 / 500 Balance -110 / -110 2381.66 / 2381.66 980 / 980 Lab / Micro Data Result Diagrams: 07/15/22 10:09 07/21/22 05:31 Labs: Laboratory Results - last 24 hr 07/16/22 11:30: POC Glucose 98 07/16/22 16:08: POC Glucose 107 H 07/16/22 21:18: POC Glucose 75 07/17/22 05:50: POC Glucose 61 L 07/17/22 06:12: POC Glucose 68 L 07/17/22 06:34: POC Glucose 153 H 07/17/22 08:47: POC Glucose 149 H 07/17/22 10:10: Sodium 139, Potassium 4.1, Chloride 111 H, Carbon Dioxide 22.0, Anion Gap 6, BUN 14, Creatinine 0.73, Estim Creat Clear Calc 98.09, Est GFR (MDRD) Af Amer 140, Est GFR (MDRD) Non-Af 115, BUN/Creatinine Ratio 19.2, Glucose 132 H, Calcium 8.5, Albumin 3.0 L Micro: Microbiology 07/14/22 17:34 Urine Catheter - Beavers Urine Culture - Final Culture exhibits no growth. Physical Exam Const alert Constitutional Narrative: Doesn't talk much. He is cooperating with therapy. HEENT HEENT Narrative: marked facial droop Mouth: dry mucous membranes Resp clear to auscultation bilaterally Effort and Inspection: Negative for tachypneic or labored Cardio Cardio Narrative: irreg irreg with no gallop and no rub. Denies palpitations and lightheadedness. GI normal to inspection, nondistended, normoactive bowel sounds, soft to palpation and non-tender GI Narrative: No guarding with palpation Extremity no calf tenderness General Extremity: Negative for edema Skin General Skin Exam: no breakdown Rashes: no rashes Neuro Neuro Narrative: Flaccid on the left side. Marked facial droop and dysarthria. No aphasia. Psych Appearance: appropriate Mood & Affect: depressed and flat affect Thought Content: No suicidality Assessment & Plan Assessment/Plan (1) Debility: (2) Acute cerebrovascular accident (CVA): (3) Right cavernous carotid stenosis: (4) Dysphagia: (5) Dysarthria: (6) Hemiplegia affecting left nondominant side: (7) Urine retention: (8) BPH (benign prostatic hyperplasia): (9) Diabetes mellitus, type 2: (10) Dyslipidemia associated with type 2 diabetes mellitus: (11) Hypertension: (12) History of depression: (13) Nicotine dependence: (14) Ketoacidosis: PLAN: Plan 1. Continue therapy 2. He already received 25 mg of Jardiance today so we will continue IV fluids. Serum bicarb is 22 today and it was 23 yesterday. We will decrease the dose of Jardiance to 10 mg daily, discussed with endocrinology. He did not have an elevated AG and was not tachypneic but, the acetone was increased. 3. continue IV fluids today and recheck a BMP Sunday. 4. He is still quite tearful and depressed. Will increase Remeron to 30 mg p.o. nightly. He has had no adverse effects. 5. I reviewed the overnight trending pulse ox and he had 1 desaturation event where the pulse ox was 83% for a minute and a half. This occurred at 5:24 in the AM. Will discuss with pulmonary medicine whether he should have a formal sleep study. Charges/Coding Visit Charges Inpatient E&M: 72295 Subs Hosp L2
[2022-07-17 11:50] LABS: Bedside Glucose 88 mg/dL (74-106)
--- NOTE | 2022-07-17 12:50 | CASEMGMT ---
Social Work IDT met with patient and for Team meeting. Discussed patient's progress in PT/OT/ST/SN. Educated to [facility] insurance with [employer] 07/19 and continued stay is not guaranteed with each review. Pt's goal is to return home. Pt lives in [place] with . and pt are in town visiting family. Pt plans to return directly to son's home in [place], then home to [place]. Pt was Loren prior and recommending continued stay until closer to [place]. Offered family therapy training. Briefly educated to skilled SNF stay prior to home. Monitoring mood. Offered ongoing support with mood. Will ReTeam weekly. SW to continue to follow for DC planning and emotional support. Ida Haynes, RELAY TELEGRAPHER INSOLE TAPE STITCHER [employer]
[2022-07-17 15:52] VITALS: BMI 27.3
[2022-07-17 16:56] LABS: Bedside Glucose 92 mg/dL (74-106)
[2022-07-17] MEDS: Tamsulosin HCl 0.4 MG Capsule PO (18:46)
[2022-07-17 19:22] VITALS: BP 159/72; PULSE 72; RESP 16; TEMP 36.6; O2SAT 97
[2022-07-17] MEDS: Atorvastatin Calcium 80 MG Tablet PO (20:49)
[2022-07-17] MEDS: Mirtazapine 15 MG Tablet PO (20:50)
[2022-07-17 21:56] LABS: Bedside Glucose 140 mg/dL (74-106)
--- NOTE | 2022-07-18 03:08 | NURSING ---
Reviewed and agree with Fredrick CRAFT, documentation and assessment charting.
[2022-07-18] MEDS: 0.9% Normal Saline 1,000 ML 100 ML IV ×2 (06:57→18:59)
[2022-07-18 07:05] LABS: Bedside Glucose 79 mg/dL (74-106)
[2022-07-18] MEDS: Empagliflozin 25 MG Tablet PO (08:09)
[2022-07-18] MEDS: Lisinopril 20 MG Tablet PO (08:10)
[2022-07-18] MEDS: Insulin Glargine-YFGN 100 UNIT/ML Pen 35 UNIT SC (08:10)
[2022-07-18] MEDS: Menthol/Lanolin/Calamine/Znox 113 GM Tube 1 APPLIC TOPICAL ×2 (08:10→21:53)
[2022-07-18] MEDS: Aspirin 81 MG TAB.CHEW PO (08:10)
[2022-07-18 09:04] VITALS: BP 119/61; PULSE 67; RESP 16; TEMP 36.2; O2SAT 96
[2022-07-18 09:08] VITALS: BMI 27.3
--- NOTE | 2022-07-18 09:30 | PN_ITS ---
Subjective Subjective Afebrile VSS-heart rate is well controlled. Systolic blood pressure was elevated yesterday but the blood pressure this morning is well within goal. Maintaining appropriate oxygen saturation on RA Oral intake is better but, not erratic still. The blood sugar record was reviewed. Blood sugars are well controlled and there was no hypoglycemia in the past 24 hours however the fasting blood sugar today was lower at 79. He is to receive a decreased dose of glargine and a decreased dose of Jardiance today. Discussed with nursing - no problems that need addressed Reviewed the PT/OT/ST notes Medication list reviewed. Denies shortness of breath, palpitations, chest pain, lightheadedness, abdominal pain, nausea/vomiting, suprapubic pain and calf pain. Objective Data Objective Data Vital Signs: Vital Signs Temp Pulse Resp BP Pulse Ox O2 Del Method O2 Flow Rate 97.2 F L 67 16 119/61 96 Room Air 0 07/18/22 09:04 07/18/22 09:04 07/18/22 09:04 07/18/22 09:04 07/18/22 09:04 07/18/22 09:04 07/16/22 19:51 FiO2 07/16/22 19:51 Oxygen Flow Rate (L/min) 0 Oxygen Delivery Method Room Air Weight: 174 lb 6.17 oz Body Mass Index (BMI) 27.3 Intake & Output: Intake and Output for Last 24 Hours 07/16/22 07/17/22 07/18/22 23:59 23:59 23:59 Intake Total 4556.66 / 4556.66 3535 / 3535 1200 / 1200 Output Total 2175 / 2175 3050 / 3050 450 / 450 Balance 2381.66 / 2381.66 485 / 485 750 / 750 Lab / Micro Data Result Diagrams: 07/15/22 10:09 07/21/22 05:31 Labs: Laboratory Results - last 24 hr 07/17/22 10:10: Sodium 139, Potassium 4.1, Chloride 111 H, Carbon Dioxide 22.0, Anion Gap 6, BUN 14, Creatinine 0.73, Estim Creat Clear Calc 98.09, Est GFR (MDRD) Af Amer 140, Est GFR (MDRD) Non-Af 115, BUN/Creatinine Ratio 19.2, Gluco se 132 H, Calcium 8.5, Albumin 3.0 L 07/17/22 11:22: POC Glucose 88 07/17/22 16:28: POC Glucose 92 07/17/22 20:57: POC Glucose 140 H 07/18/22 06:45: POC Glucose 79 Micro: Microbiology 07/14/22 17:34 Urine Catheter - Beavers Urine Culture - Final Culture exhibits no growth. Physical Exam Const alert Constitutional Narrative: Affect is still very flat and he is tearful at times. General Appearance: cooperative HEENT moist oral mucous membranes Neck supple Resp clear to auscultation bilaterally Effort and Inspection: Negative for tachypneic Cardio no gallops Cardio Narrative: Remains in atrial fibrillation with adequate rate control. Denies palpitations. GI normal to inspection, nondistended, normoactive bowel sounds, soft to palpation and non-tender GI Narrative: No guarding with palpation Extremity no calf tenderness Extremity Narrative: Left upper extremity is in a sling now and remains flaccid. General Extremity: Negative for edema Skin General Skin Exam: no breakdown Rashes: no rashes Assessment & Plan Assessment/Plan (1) Debility: (2) Acute cerebrovascular accident (CVA): (3) Right cavernous carotid stenosis: (4) Dysphagia: (5) Dysarthria: (6) Hemiplegia affecting left nondominant side: (7) Urine retention: (8) BPH (benign prostatic hyperplasia): (9) Diabetes mellitus, type 2: (10) Dyslipidemia associated with type 2 diabetes mellitus: (11) Hypertension: (12) History of depression: (13) Nicotine dependence: (14) Ketoacidosis: PLAN: Plan 1. Continue therapy 2. Recheck a BMP on Sunday. DC IVF's. 3. Remeron has been increased to 30 mg nightly for depression related to the stroke 4. Voiding trial today Charges/Coding Visit Charges Inpatient E&M: 04223 Subs Hosp L2
[2022-07-18 12:20] LABS: Bedside Glucose 90 mg/dL (74-106)
[2022-07-18 16:21] LABS: Bedside Glucose 103 mg/dL (74-106)
--- NOTE | 2022-07-18 16:24 | CASEMGMT ---
Social Work Completed HCPOA with pt, who named , Cristy, as POA. Original and copy provided to . Copy placed on chart with LW. inquired about SNF list. SW provided printed list with in-network and desired area with quality and resource data to through [facility] Guide. [facility]. SW to make referrals via [facility]. Ida Haynes, IMAGER CAT SCAN TECHNOLOGIST
[2022-07-18] MEDS: Tamsulosin HCl 0.4 MG Capsule PO (17:12)
[2022-07-18 19:32] VITALS: BP 151/67; PULSE 77; RESP 16; TEMP 36.9; O2SAT 99
[2022-07-18] MEDS: Mirtazapine 30 MG Tablet PO (21:53)
[2022-07-18] MEDS: Atorvastatin Calcium 80 MG Tablet PO (21:53)
[2022-07-18 22:20] LABS: Bedside Glucose 192 mg/dL (74-106)
[2022-07-19] MEDS: 0.9% Normal Saline 1,000 ML 100 ML IV (04:50)
[2022-07-19 06:41] LABS: Bedside Glucose 104 mg/dL (74-106)
[2022-07-19 06:46] VITALS: BMI 26.4
[2022-07-19 07:29] VITALS: BP 140/68; PULSE 69; RESP 16; TEMP 36.1; O2SAT 98
[2022-07-19] MEDS: Insulin Glargine-YFGN 100 UNIT/ML Pen 35 UNIT SC (09:04)
[2022-07-19] MEDS: Empagliflozin 25 MG Tablet PO (10:03)
[2022-07-19] MEDS: Lisinopril 20 MG Tablet PO (10:03)
[2022-07-19] MEDS: Aspirin 81 MG TAB.CHEW PO (10:03)
[2022-07-19] MEDS: Menthol/Lanolin/Calamine/Znox 113 GM Tube 1 APPLIC TOPICAL ×2 (10:08→21:08)
[2022-07-19 12:05] LABS: Bedside Glucose 146 mg/dL (74-106)
[2022-07-19 13:37] VITALS: BMI 26.4
[2022-07-19] MEDS: Tamsulosin HCl 0.4 MG Capsule PO (15:55)
[2022-07-19] MEDS: Insulin Lispro 100 UNIT/ML INSULN.PEN SC (15:59)
[2022-07-19 16:26] LABS: Bedside Glucose 175 mg/dL (74-106)
[2022-07-19 19:14] VITALS: BP 139/72; PULSE 78; RESP 17; TEMP 36.6; O2SAT 98
[2022-07-19] MEDS: Mirtazapine 30 MG Tablet PO (21:08)
[2022-07-19] MEDS: Atorvastatin Calcium 80 MG Tablet PO (21:08)
[2022-07-19] MEDS: 0.9% Saline Lock 10 ML Syringe IV (21:09)
[2022-07-19 21:30] LABS: Bedside Glucose 172 mg/dL (74-106)
[2022-07-19 22:00] VITALS: O2SAT 99
[2022-07-20 06:45] LABS: Bedside Glucose 98 mg/dL (74-106)
[2022-07-20 07:24] VITALS: BP 122/67; PULSE 72; RESP 15; TEMP 36.1; O2SAT 98
[2022-07-20] MEDS: Aspirin 81 MG TAB.CHEW PO (07:31)
[2022-07-20] MEDS: Insulin Glargine-YFGN 100 UNIT/ML Pen 35 UNIT SC (10:28)
[2022-07-20] MEDS: Empagliflozin 25 MG Tablet PO (10:28)
[2022-07-20] MEDS: Lisinopril 20 MG Tablet PO (10:29)
[2022-07-20] MEDS: Finasteride 5 MG Tablet PO (10:29)
[2022-07-20] MEDS: Menthol/Lanolin/Calamine/Znox 113 GM Tube 1 APPLIC TOPICAL ×2 (10:37→22:00)
[2022-07-20 11:20] LABS: Bedside Glucose 157 mg/dL (74-106)
--- NOTE | 2022-07-20 11:54 | PN_ITS ---
Subjective Subjective Afebrile VSS-blood pressure is coming under better control and his blood pressure this morning was 122/67. Maintaining appropriate oxygen saturation on RA Oral intake is improving. Beavers was reinserted yesterday for urine retention and he was started on Proscar 5 mg in addition to the Flomax. Discussed with nursing - no problems that need addressed. Sleeping well. Reviewed the PT/OT/ST notes Medication list reviewed. Proscar was added to his drug regimen yesterday for urine retention. IV fluids were discontinued yesterday. Ayaan denies lightheadedness, vertigo, CP, SOB at rest, SOB with exertion, cough, nausea, vomiting, abd pain, diarrhea, constipation, dysuria, calf pain and ankle swelling. He has some soreness at the insertion site of the Beavers. The urine in the Beavers bag and tubing is clear with no hematuria. Objective Data Objective Data Vital Signs: Vital Signs Temp Pulse Resp BP Pulse Ox O2 Del Method O2 Flow Rate 96.9 F L 72 15 122/67 H 98 Room Air 0 07/20/22 07:24 07/20/22 07:24 07/20/22 07:24 07/20/22 07:24 07/20/22 07:24 07/20/22 07:24 07/16/22 19:51 FiO2 21 07/16/22 19:51 Oxygen Flow Rate (L/min) 0 Oxygen Delivery Method Room Air Weight: 168 lb 6.931 oz Body Mass Index (BMI) 26.4 Intake & Output: Intake and Output for Last 24 Hours 07/18/22 07/19/22 07/20/22 23:59 23:59 23:59 Intake Total 3065 / 3065 2785.00 / 2785.00 240 / 240 Output Total 2350 / 2350 2910 / 3860 1700 / 1700 Balance 715 / 715 -125.00 / -1075.00 -1460 / -1460 Lab / Micro Data Result Diagrams: 07/15/22 10:09 07/21/22 05:31 Labs: Laboratory Results - last 24 hr 07/19/22 11:42: POC Glucose 146 H 07/19/22 15:58: POC Glucose 175 H 07/19/22 20:58: POC Glucose 172 H 07/20/22 06:20: POC Glucose 98 07/20/22 10:58: POC Glucose 157 H Micro: Microbiology 07/14/22 17:34 Urine Catheter - Beavers Urine Culture - Final Culture exhibits no growth. Physical Exam Const alert Constitutional Narrative: Flat affect. Now occasionally smiling though. Never refuses therapy. General Appearance: cooperative Orientation / Consciousness: Negative for confused or lethargic HEENT normocephalic, head/scalp atraumatic and moist oral mucous membranes Eyes Eyes Narrative: Both pupils are responsive to light, Both pupils are round but, the R pupil is a little smaller than the L. EOMI. no scleral icterus, no discharge from the eyes, no mattering of the eyelids. Neck supple and no carotid bruits Neck Narrative: Brisk carotid upstroke with good pulse volume General: trachea midline; Negative for lymphadenopathy Resp clear to auscultation bilaterally Effort and Inspection: Negative for tachypneic or labored Auscultation: diminished lung sounds Cardio no gallops Cardio Narrative: Irreg irreg - the pulse on the overnight trending pulse ox shows no significant tachycardia and no bradycardia. GI normal to inspection, nondistended, normoactive bowel sounds, soft to palpation and non-tender GI Narrative: No guarding with palpation Extremity no calf tenderness Extremity Narrative: Left upper extremity is in a sling now and remains flaccid. General Extremity: Negative for edema Skin no wounds and no jaundice General Skin Exam: no breakdown Rashes: no rashes Neuro Neuro Narrative: Modified [place] score is still 5 but he is making progress. Still with left-sided neglect and left upper extremity remains flaccid. The left lower extremity is very weak. Requiring only minimal assistance to go from sitting to standing now but still max assist with stand pivot. Bed mobility is improving..... He is able to roll to his left side using the bed rail but requires assistance with rolling right. He is max assist of 1 to stand and pivot from the wheelchair to the bed and from the bed to the wheelchair using a hemiwalker. Coordination / Balance: [id number] test normal and [id number] test normal Speech: speech abnormal Details: Positive for slurred; Negative for complete aphasia Psych thought process normal, cooperative and denies suicidal ideation Appearance: appropriate Mood & Affect: depressed and flat affect Thought Content: No suicidality Assessment & Plan Assessment/Plan (1) Debility: (2) Acute cerebrovascular accident (CVA): (3) Right cavernous carotid stenosis: (4) Dysphagia: (5) Dysarthria: (6) Hemiplegia affecting left nondominant side: (7) Urine retention: (8) BPH (benign prostatic hyperplasia): (9) Diabetes mellitus, type 2: (10) Dyslipidemia associated with type 2 diabetes mellitus: (11) Hypertension: (12) History of depression: (13) Nicotine dependence: (14) Ketoacidosis: PLAN: Plan 1. Continue therapy 2. Repeat BMP in the a.m. 3. With the increase in the Remeron his appetite is increasing and the blood sugars during the day yesterday while all less than 180 are higher than they have been. 4. Jardiance decreased to 10 mg daily. 5. Proscar added to the drug regimen yesterday. Will repeat a voiding trial in 4-5 days. 6. Appetite is better and he is sleeping through the night.......continue the Remeron at 30 mg daily. 7. Decrease Nicoderm to 14 mg in 1 week. Charges/Coding Visit Charges Inpatient E&M: 74721 Subs Hosp L2
[2022-07-20] MEDS: Insulin Lispro 100 UNIT/ML INSULN.PEN SC (11:59)
[2022-07-20 13:37] VITALS: BMI 26.4
[2022-07-20] MEDS: Tamsulosin HCl 0.4 MG Capsule PO (16:48)
[2022-07-20 16:50] LABS: Bedside Glucose 194 mg/dL (74-106)
[2022-07-20 19:45] VITALS: BP 137/71; PULSE 84; RESP 18; TEMP 36.9; O2SAT 94
[2022-07-20 21:35] VITALS: PULSE 84; RESP 18; O2SAT 94; BMI 26.4
[2022-07-20 21:35] LABS: Bedside Glucose 232 mg/dL (74-106)
[2022-07-20] MEDS: Mirtazapine 30 MG Tablet PO (21:43)
[2022-07-20] MEDS: Senna/Docusate Sodium 1 Tablet 2 TABLET PO (21:43)
[2022-07-20] MEDS: Atorvastatin Calcium 80 MG Tablet PO (21:43)
[2022-07-20] MEDS: Miconazole Nitrate Cream 1 APPLIC TOPICAL (21:58)
[2022-07-20] MEDS: Clotrimazole 10 MG Troche MUCOUS MEM (21:59)
--- NOTE | 2022-07-21 02:04 | NURSING ---
Reviewed and agree with Lary CRAFT, documentation and assessment charting
[2022-07-21] MEDS: Acetaminophen 325 MG Tablet 650 MG PO (05:14)
[2022-07-21] MEDS: Clotrimazole 10 MG Troche MUCOUS MEM ×5 (05:15→21:08)
[2022-07-21] MEDS: 0.9% Saline Lock 10 ML Syringe IV ×2 (05:17→14:53)
[2022-07-21 06:17] LABS: Anion Gap 7 (5-15); BUN 15 mg/dL (7-18); BUN/Creat Ratio 18.4 RATIO (10-20); Calcium,Total 9.1 mg/dL (8.5-10.1); Chloride 108 mmol/L (98-107); Creatinine, Serum 0.82 mg/dL (0.70-1.30); EST Glomerular Filtration Rate 102 mL/min (>60); Est Glom Filt Rate - Afr Amer 123 mL/min (>60); Estimated Creatinine Clearance 87.33 ml/min; Glucose 119 mg/dL (74-106); Potassium 3.8 mmol/L (3.5-5.1); Sodium Level 142 mmol/L (136-145)
[2022-07-21] MEDS: Magnesium Hydroxide 30 ML UDC PO (06:35)
[2022-07-21 07:05] LABS: Bedside Glucose 140 mg/dL (74-106)
[2022-07-21 07:31] VITALS: BP 121/70; PULSE 83; RESP 16; TEMP 36.4; O2SAT 100
[2022-07-21] MEDS: Finasteride 5 MG Tablet PO (10:02)
[2022-07-21] MEDS: Aspirin 81 MG TAB.CHEW PO (10:02)
[2022-07-21] MEDS: Empagliflozin 10 MG Tablet PO (10:02)
[2022-07-21] MEDS: Lisinopril 20 MG Tablet PO (10:02)
[2022-07-21] MEDS: Miconazole Nitrate Cream 1 APPLIC TOPICAL ×2 (10:04→21:07)
[2022-07-21] MEDS: Menthol/Lanolin/Calamine/Znox 113 GM Tube 1 APPLIC TOPICAL ×2 (10:04→21:07)
--- NOTE | 2022-07-21 12:18 | PCM.PROGNOTE ---
Subjective Subjective Afebrile VSS-blood pressures are now well controlled and his blood pressure this morning was 121/70. Maintaining appropriate oxygen saturation on RA Oral intake is much better. Still not so good with lunch but he has never been a lunch eater. He does well with breakfast and supper. He ate nearly 100% of his breakfast today. Blood sugar record was reviewed. Blood sugar at supper was 194 yesterday and the at bedtime blood sugar was 232. Fasting blood sugar is 140 today. His brought him some mike pie today and he ate it for supper and this is the likely reason for the spike in the HS sugar. DM was not well controlled as an OP with a HGBA1C of 8.8......thus the chato Beavers remains in for urine retention, failed voiding trial on Flomax 0.4 mg daily. Discussed with nursing - no problems that need addressed Reviewed the PT/OT/ST notes - He ambulate 18' on the wall rail today with max assist of 1 and a WC follow. Medication list reviewed. BMP was personally reviewed. Sodium is normal at 142 and the potassium is 3.8 today. Serum bicarb is 27 on 10 mg of Jardiance daily. Creatinine is stable at 0.82 and the estimated creatinine clearance is 87.33. Calcium is within normal limits. Not on pharmacologic DVT prophylaxis due to recent vitreous hemorrhage. Ayaan denies lightheadedness, vertigo, cephalgia, shortness of breath, chest pain, palpitations, nausea/vomiting/abdominal pain, suprapubic pain and calf tenderness. Objective Data Objective Data Vital Signs: Vital Signs Temp Pulse Resp BP Pulse Ox O2 Del Method O2 Flow Rate 97.6 F L 83 16 121/70 H 100 Room Air 0 07/21/22 07:31 07/21/22 07:31 07/21/22 07:31 07/21/22 07:31 07/21/22 07:31 07/21/22 07:31 07/16/22 19:51 FiO2 21 07/16/22 19:51 Oxygen Flow Rate (L/min) 0 Oxygen Delivery Method Room Air Weight: 168 lb 6.931 oz Body Mass Index (BMI) 26.4 Intake & Output: Intake and Output for Last 24 Hours 07/19/22 07/20/22 07/21/22 23:59 23:59 23:59 Intake Total 2785.00 / 2785.00 1370 / 1370 60 / 60 Output Total 2910 / 3860 3000 / 3750 1575 / 1575 Balance -125.00 / -1075.00 -1630 / -2380 -1515 / -1515 Lab / Micro Data Result Diagrams: 07/15/22 10:09 07/21/22 05:31 Labs: Laboratory Results - last 24 hr 07/20/22 16:24: POC Glucose 194 H 07/20/22 21:16: POC Glucose 232 H 07/21/22 05:31: Sodium 142, Potassium 3.8, Chloride 108 H, Carbon Dioxide 27.0, Anion Gap 7, BUN 15, Creatinine 0.82, Estim Creat Clear Calc 87.33, Est GFR (MDRD) Af Amer 123, Est GFR (MDRD) Non-Af 102, BUN/Creatinine Ratio 18.4, Glucose 119 H, Calcium 9.1 07/21/22 06:39: POC Glucose 140 H Micro: Microbiology 07/14/22 17:34 Urine Catheter - Beavers Urine Culture - Final Culture exhibits no growth. Physical Exam Const alert General Appearance: cooperative HEENT HEENT Narrative: The tongue is coated with a patchy brown exudate. Resp clear to auscultation bilaterally Cardio Cardio Narrative: Remains in atrial fibrillation-rate is well controlled. GI normal to inspection, nondistended, normoactive bowel sounds, soft to palpation and non-tender no CVA tenderness Narrative: The tip of the penis at the site of the Beavers insertion is reddened and there is some small clumps of white exudate when the foreskin is retracted......he is circumcised. He is now on Mycelex for thrush and monistat cream for fungal balanitis. He denies pain if the glans today. Bladder / Kidney Exam: catheter in place Extremity Negative for no calf tenderness General Extremity: Negative for edema Skin General Skin Exam: no breakdown Rashes: no rashes Assessment & Plan Assessment/Plan (1) Debility: (2) Acute cerebrovascular accident (CVA): (3) Right cavernous carotid stenosis: (4) Dysphagia: (5) Dysarthria: (6) Hemiplegia affecting left nondominant side: (7) Urine retention: (8) BPH (benign prostatic hyperplasia): (9) Diabetes mellitus, type 2: (10) Dyslipidemia associated with type 2 diabetes mellitus: (11) Hypertension: (12) History of depression: (13) Nicotine dependence: (14) Ketoacidosis: PLAN: Resolved with decreasing Jardiance from 25 mg daily to 10 mg daily (15) Thrush: PLAN: Started on Mycelex on 07/20/2022. We will continue for 10 days. (16) Candidal balanitis: PLAN: Continue Monistat cream PLAN: Plan 1. Continue therapy 2. Increase the a.m. glargine to 42 units. Add Glucophage 500 mg daily at supper. Continue to monitor the blood sugars before meals and at bedtime. 3. Add a sliding insulin scale 4. Reiterated to Ayaan that with the recent stroke it would benefit him to keep the BS's tightly controlled and this will not happen if he is not compliant with the diet. We once again reviewed RF's for stroke and the goals for tx to prevent future strokes and other cardiovascular events. 5. Voiding trial on Sunday Charges/Coding Visit Charges Inpatient E&M: 76900 Subs Hosp L2
[2022-07-21] MEDS: Insulin Glargine-YFGN 100 UNIT/ML Pen 42 UNIT SC (12:34)
[2022-07-21 12:35] LABS: Bedside Glucose 254 mg/dL (74-106)
[2022-07-21 13:23] VITALS: BMI 26.4
[2022-07-21 17:35] LABS: Bedside Glucose 171 mg/dL (74-106)
[2022-07-21] MEDS: Insulin Lispro 100 UNIT/ML INSULN.PEN SC (17:38)
[2022-07-21] MEDS: Tamsulosin HCl 0.4 MG Capsule PO (17:39)
[2022-07-21] MEDS: metFORMIN HCl 500 MG Tablet PO (17:43)
[2022-07-21 20:35] VITALS: BP 132/65; PULSE 84; RESP 16; TEMP 37.1; O2SAT 97; BMI 26.4
[2022-07-21] MEDS: Mirtazapine 30 MG Tablet PO (21:08)
[2022-07-21] MEDS: Atorvastatin Calcium 80 MG Tablet PO (21:08)
[2022-07-21 21:51] LABS: Bedside Glucose 207 mg/dL (74-106)
[2022-07-22] MEDS: Clotrimazole 10 MG Troche MUCOUS MEM ×5 (05:55→21:55)
[2022-07-22 07:21] LABS: Bedside Glucose 106 mg/dL (74-106)
[2022-07-22 07:55] VITALS: BP 142/68; PULSE 75; RESP 16; TEMP 36.7; O2SAT 98
[2022-07-22] MEDS: Miconazole Nitrate Cream 1 APPLIC TOPICAL ×2 (08:37→22:14)
[2022-07-22] MEDS: Lisinopril 20 MG Tablet PO (08:37)
[2022-07-22] MEDS: Finasteride 5 MG Tablet PO (08:37)
[2022-07-22] MEDS: Aspirin 81 MG TAB.CHEW PO (08:37)
[2022-07-22] MEDS: Menthol/Lanolin/Calamine/Znox 113 GM Tube 1 APPLIC TOPICAL ×2 (08:38→21:55)
[2022-07-22] MEDS: Empagliflozin 10 MG Tablet PO (08:39)
[2022-07-22 11:55] LABS: Bedside Glucose 205 mg/dL (74-106)
[2022-07-22] MEDS: Insulin Lispro 100 UNIT/ML INSULN.PEN SC ×2 (12:07→17:16)
[2022-07-22] MEDS: Insulin Glargine-YFGN 100 UNIT/ML Pen 42 UNIT SC (12:08)
[2022-07-22] MEDS: 0.9% Saline Lock 10 ML Syringe IV (12:09)
[2022-07-22 13:19] VITALS: BMI 26.4
[2022-07-22 17:10] LABS: Bedside Glucose 190 mg/dL (74-106)
[2022-07-22] MEDS: Tamsulosin HCl 0.4 MG Capsule PO (18:41)
[2022-07-22] MEDS: Atorvastatin Calcium 80 MG Tablet PO (21:55)
[2022-07-22] MEDS: Mirtazapine 30 MG Tablet PO (21:55)
[2022-07-22 22:00] VITALS: BP 123/74; PULSE 89; RESP 18; TEMP 36.7; O2SAT 95; BMI 26.4
[2022-07-22 22:40] LABS: Bedside Glucose 205 mg/dL (74-106)
[2022-07-23] MEDS: Clotrimazole 10 MG Troche MUCOUS MEM ×5 (06:18→21:24)
[2022-07-23] MEDS: Acetaminophen 325 MG Tablet 650 MG PO (06:24)
[2022-07-23 06:55] LABS: Bedside Glucose 109 mg/dL (74-106)
[2022-07-23 07:31] VITALS: BP 126/70; PULSE 85; RESP 16; TEMP 36.8; O2SAT 95
[2022-07-23] MEDS: Finasteride 5 MG Tablet PO (07:56)
[2022-07-23] MEDS: Aspirin 81 MG TAB.CHEW PO (07:56)
[2022-07-23] MEDS: Menthol/Lanolin/Calamine/Znox 113 GM Tube 1 APPLIC TOPICAL ×2 (07:56→21:24)
[2022-07-23] MEDS: Miconazole Nitrate Cream 1 APPLIC TOPICAL ×2 (07:56→21:23)
[2022-07-23] MEDS: Lisinopril 20 MG Tablet PO (07:56)
[2022-07-23] MEDS: Empagliflozin 10 MG Tablet PO (07:57)
[2022-07-23] MEDS: 0.9% Saline Lock 10 ML Syringe IV (09:18)
--- NOTE | 2022-07-23 09:27 | PCM.PN.BLA ---
Progress Note AF BP is now well controlled. BS record was reviewed. BS high at noon, supper and HS yesterday. Will increase Metformin to 500 mg BID and continue to monitor the B's AC and HS. Ideally want the fasting less than 130 and the post prandials < 180. Not wuite there yet. Voiding trial in the AM. Decrease the Nicoderm to 14 mg tomorrow. Continue threapy.
[2022-07-23 09:54] VITALS: BMI 26.4
[2022-07-23] MEDS: Insulin Glargine-YFGN 100 UNIT/ML Pen 42 UNIT SC (11:54)
[2022-07-23] MEDS: Insulin Lispro 100 UNIT/ML INSULN.PEN SC (11:54)
[2022-07-23 12:10] LABS: Bedside Glucose 165 mg/dL (74-106)
[2022-07-23] MEDS: Glimepiride 1 MG Tablet PO (13:22)
[2022-07-23] MEDS: Tamsulosin HCl 0.4 MG Capsule PO (16:56)
[2022-07-23 17:21] LABS: Bedside Glucose 122 mg/dL (74-106)
[2022-07-23] MEDS: Atorvastatin Calcium 80 MG Tablet PO (21:22)
[2022-07-23] MEDS: Mirtazapine 30 MG Tablet PO (21:23)
[2022-07-23 21:30] VITALS: BP 148/70; PULSE 88; RESP 17; TEMP 36.2; O2SAT 96; O2SAT 97; BMI 26.4
[2022-07-23 22:21] LABS: Bedside Glucose 120 mg/dL (74-106)
[2022-07-24] MEDS: Clotrimazole 10 MG Troche MUCOUS MEM ×5 (06:38→21:44)
[2022-07-24 07:10] LABS: Bedside Glucose 93 mg/dL (74-106)
[2022-07-24 07:17] VITALS: BP 122/72; PULSE 80; RESP 16; TEMP 36.4; O2SAT 98
[2022-07-24] MEDS: Empagliflozin 10 MG Tablet PO (08:13)
[2022-07-24] MEDS: Menthol/Lanolin/Calamine/Znox 113 GM Tube 1 APPLIC TOPICAL ×2 (08:14→21:25)
[2022-07-24] MEDS: Lisinopril 20 MG Tablet PO (08:14)
[2022-07-24] MEDS: Aspirin 81 MG TAB.CHEW PO (08:14)
[2022-07-24] MEDS: Finasteride 5 MG Tablet PO (08:14)
[2022-07-24] MEDS: Miconazole Nitrate Cream 1 APPLIC TOPICAL ×2 (08:16→21:24)
--- NOTE | 2022-07-24 09:35 | PN_ITS ---
Subjective Subjective Ayaan was seen on team rounds today. Afebrile VSS -heart rate is well controlled. Systolic blood pressure in the a.m. is mildly elevated and was 148 today. The diastolics are within normal limits. He is currently taking lisinopril 20 mg daily for hypertension. Maintaining appropriate oxygen saturation on RA Oral fluid intake is erratic. He only took in 1020 yesterday and put out 1175. He is consistently in negative fluid balance. He only ate 25 to 49% of his breakfast this morning. He ate 50 to 74% of his supper last night and ate 75- 100% of his lunch. Beavers was discontinued this AM at 0630. Has not voided yet. The blood sugar record was reviewed. He was started on Amaryl 1 mg over the weekend. His refused for him to have Glucophage. All BS's for the past 24H have been a65 or less with no hypoglycemia. The last bowel movement was 07/21/2022 and he has been incontinent of stool. Discussed with nursing - no problems that need addressed Reviewed the PT/OT/ST notes Medication list reviewed. Has been on Remeron 30 mg for 1 week now and 15 mg prior to that. He continues to be tearful and feel depressed. He denies anxiety. Appetite is hit and miss......just does not feel hungry sometimes. He denies headache, chest pain, shortness of breath, cough, nausea/vomiting/abdominal pain, lightheadedness. He tells me his eyes were burning last night and he has had a runny nose. He has history of allergies and takes [id number] antihistamines. The pain in his penis at the tip around the Beavers catheter has resolved. Objective Data Objective Data Vital Signs: Vital Signs Temp Pulse Resp BP Pulse Ox O2 Del Method O2 Flow Rate 97.5 F L 88 17 148/70 H 96 Room Air 0 07/24/22 07:17 07/23/22 21:30 07/23/22 21:30 07/23/22 21:30 07/23/22 21:30 07/24/22 07:17 07/16/22 19:51 FiO2 21 07/16/22 19:51 Oxygen Flow Rate (L/min) 0 Oxygen Delivery Method Room Air Weight: 168 lb 6.931 oz Body Mass Index (BMI) 26.4 Intake & Output: Intake and Output for Last 24 Hours 07/22/22 07/23/22 07/24/22 23:59 23:59 23:59 Intake Total 970 / 970 1020 / 1020 200 / 200 Output Total 1375 / 1375 1175 / 1175 300 / 300 Balance -405 / -405 -155 / -155 -100 / -100 Lab / Micro Data Result Diagrams: 07/15/22 10:09 07/21/22 05:31 Labs: Laboratory Results - last 24 hr 07/23/22 11:43: POC Glucose 165 H 07/23/22 16:44: POC Glucose 122 H 07/23/22 21:32: POC Glucose 120 H 07/24/22 06:34: POC Glucose 93 Micro: Microbiology 07/14/22 17:34 Urine Catheter - Beavers Urine Culture - Final Culture exhibits no growth. Physical Exam Const alert, oriented x3 and no apparent distress Constitutional Narrative: Lying in bed at the time of my exam. Not tearful. Appears comfortable. General Appearance: cooperative HEENT HEENT Narrative: Thrush is still present but, it is improving with treatment. Mouth: dry mucous membranes Eyes PERRL and EOMs intact bilaterally Neck no JVD General: trachea midline; Negative for lymphadenopathy Resp clear to auscultation bilaterally Cardio regular rate, regular rhythm and no gallops Cardio Narrative: No ectopy GI normal to inspection, nondistended, normoactive bowel sounds, soft to palpation and non-tender GI Narrative: Bladder is not distended and he feels no urge to urinate with pressure in the suprapubic area. Skin General Skin Exam: no breakdown Rashes: no rashes Neuro Neuro Narrative: Left upper extremity is still flaccid. Has some tone in the biceps. He is not able to lift the left leg off the bed but, he can extend the leg and he also can wiggle his toes and has some dorsiflexion of the toes. Also has a little plantar flexion. Still with L side neglect. Psych cooperative and denies suicidal ideation Appearance: appropriate Attitude: No agitated Activity / Motor Behavior: Negative for restless Mood & Affect: depressed and flat affect Assessment & Plan Assessment/Plan (1) Debility: (2) Diabetes mellitus, type 2: (3) Hemiplegia affecting left nondominant side: (4) Acute cerebrovascular accident (CVA): PLAN: Plan 1. Continue therapy 2. Add Wellbutrin XL 150 mg daily to his current drug regimen. I discussed possible side effects with Ayaan including headache, dry mouth, constipation, increased BP and anxiety and he is agreeable to a trial to help with lingering depression. It potentially can decrease appetite but, his appetite is decreased due to depression and if it helps the depression it may improve his appetite. 3. Add 2.5 mg of Norvasc at at bedtime 4. Voiding trial today 5. Start Atrovent nasal spray 2 sprays each nostril twice daily. Artificial tears for burning of his eyes. The conjunctiva is clear with no injection and there is no eye discharge or mattering of the eyelids. The eyes do not burn today. 6. Encouraged him to increase his fluid intake. He has not had AF since he has been in rehab......prior PN's will be amended. Charges/Coding Visit Charges Inpatient E&M: 68122 Subs Hosp L2
[2022-07-24 09:46] VITALS: BP 125/75; BP 134/70; BP 143/79; PULSE 105; PULSE 111; PULSE 120
[2022-07-24 11:16] VITALS: BMI 25.8
[2022-07-24 11:31] LABS: Bedside Glucose 168 mg/dL (74-106)
[2022-07-24] MEDS: Insulin Glargine-YFGN 100 UNIT/ML Pen 42 UNIT SC (12:02)
[2022-07-24] MEDS: buPROPion (XL) 150 MG TABLET.XL PO (12:02)
[2022-07-24] MEDS: Insulin Lispro 100 UNIT/ML INSULN.PEN SC ×2 (12:02→16:40)
[2022-07-24] MEDS: Glimepiride 1 MG Tablet PO (12:03)
--- NOTE | 2022-07-24 12:41 | CASEMGMT ---
Addendum entered by Ida Haynes 07/25/22 15:58: [facility] clinically [facility] pt - both are verifying insurance. Will continue to follow. Original Note: Social Work IDT met with patient and for Team meeting. Discussed patient's progress in PT/OT/ST/SN. Educated to [employer] insurance with [employer] 07/26 and continued stay is not guaranteed with each review. SW to make referrals to [facility] and [facility] in preparation if insurance issues DC date. However, stated she spoke to a rep from insurance today and that rep stated insurance does not want pt to move from a high level of care to a lower level fo care, and to let insurance know how much longer pt needs. Will ReTeam weekly. SW to continue to follow. Referrals placed via [facility]. HAYDEN Persaud
[2022-07-24] MEDS: Mag Hydrox/Al Hydrox/Simeth 30 ML UDC 15 ML PO ×2 (16:30→21:02)
[2022-07-24 17:00] VITALS: BMI 25.8
[2022-07-24] MEDS: Tamsulosin HCl 0.4 MG Capsule PO (17:38)
[2022-07-24 19:37] VITALS: BP 131/74; PULSE 84; RESP 18; TEMP 36.5; O2SAT 96
[2022-07-24] MEDS: 0.9% Saline Lock 10 ML Syringe IV (20:50)
[2022-07-24] MEDS: 0.9% Normal Saline 1,000 ML 250 ML IV (20:54)
[2022-07-24] MEDS: Mirtazapine 30 MG Tablet PO (21:23)
[2022-07-24] MEDS: Atorvastatin Calcium 80 MG Tablet PO (21:23)
[2022-07-24] MEDS: Ipratropium Bromide 0.06% NASAL SPRAY 2 SPRAY NASAL (21:23)
[2022-07-24] MEDS: amLODIPine 2.5 MG Tablet PO (21:23)
[2022-07-25 00:20] LABS: Bedside Glucose 127 mg/dL (74-106)
[2022-07-25] MEDS: 0.9% Normal Saline 1,000 ML 100 ML IV ×3 (01:37→17:29)
--- NOTE | 2022-07-25 03:41 | NURSING ---
Reviewed and agree with Fredrick CRAFT, documentation and assessment charting.
[2022-07-25] MEDS: Clotrimazole 10 MG Troche MUCOUS MEM ×4 (06:49→22:29)
[2022-07-25 07:26] LABS: Bedside Glucose 96 mg/dL (74-106)
[2022-07-25 08:38] LABS: Bedside Glucose 170 mg/dL (74-106)
[2022-07-25] MEDS: Aspirin 81 MG TAB.CHEW PO (08:54)
[2022-07-25] MEDS: Mag Hydrox/Al Hydrox/Simeth 30 ML UDC 15 ML PO (08:54)
[2022-07-25] MEDS: Magnesium Hydroxide 30 ML UDC PO (08:55)
[2022-07-25] MEDS: Ipratropium Bromide 0.06% NASAL SPRAY 2 SPRAY NASAL ×2 (08:55→22:28)
[2022-07-25] MEDS: Miconazole Nitrate Cream 1 APPLIC TOPICAL ×2 (08:56→22:27)
[2022-07-25 09:56] VITALS: BP 147/66; PULSE 105; RESP 16; TEMP 36.7; O2SAT 97
[2022-07-25] MEDS: Lisinopril 20 MG Tablet PO (10:54)
[2022-07-25] MEDS: buPROPion (XL) 150 MG TABLET.XL PO (10:54)
[2022-07-25] MEDS: Finasteride 5 MG Tablet PO (10:54)
[2022-07-25] MEDS: Empagliflozin 10 MG Tablet PO (10:54)
[2022-07-25] MEDS: Menthol/Lanolin/Calamine/Znox 113 GM Tube 1 APPLIC TOPICAL ×2 (11:00→22:28)
--- NOTE | 2022-07-25 11:17 | PCM.PROGNOTE ---
Subjective Subjective Afebrile VSS - HR is 105 today. He has been nauseated and having heartburn and he did have an emesis. He has not had a BM in 5 days. His does not want him to have stool softeners everyday. He does not drink enough and eating has been irregular......This all contributes to constipation. Maintaining appropriate oxygen saturation on RA Oral intake is erratic. Oral fluid intake was 1750. Fluid balance since the IV was started is 1902. Post void residuals since the Beavers was reviewed have been 258, 80 and 200. Discussed with nursing - Apparently he is having white DC from the penis. Reviewed the PT/OT/ST notes Medication list reviewed. BMP today shows a sodium of 137, potassium of 4.0, serum bicarb of 25, BUN of 26 and a creatinine of 1.01. There is a small amount of acetone in the blood and large amount of ketones in the urine. UA also shows 5-10 WBC's and 2+ bacteria in the urine. He has an occasional cough. He is having CP across the anterior chest and attributes this to indigestion. He is nauseated and has had emesis today. Denies SOB. He has hiccups that are intermittent and started last night. Denies CP. C/O burning with urination. Beavers remains out. No abd pain. Objective Data Objective Data Vital Signs: Vital Signs Temp Pulse Resp BP Pulse Ox O2 Del Method O2 Flow Rate 98.1 F 105 H 16 147/66 H 97 Room Air 0 07/25/22 09:56 07/25/22 09:56 07/25/22 09:56 07/25/22 09:56 07/25/22 09:56 07/25/22 09:56 07/16/22 19:51 FiO2 21 07/16/22 19:51 Oxygen Flow Rate (L/min) 0 Oxygen Delivery Method Room Air Weight: 164 lb 14.492 oz Body Mass Index (BMI) 25.8 Intake & Output: Intake and Output for Last 24 Hours 07/23/22 07/24/22 07/25/22 23:59 23:59 23:59 Intake Total 1020 / 1020 1750 / 1750 1851.67 / 1851.67 Output Total 1175 / 1175 1575 / 1575 125 / 125 Balance -155 / -155 175 / 175 1726.67 / 1726.67 Lab / Micro Data Result Diagrams: 07/15/22 10:09 07/25/22 13:12 Labs: Laboratory Results - last 24 hr 07/24/22 11:10: POC Glucose 168 H 07/24/22 16:38: POC Glucose 170 H 07/24/22 21:48: POC Glucose 127 H 07/25/22 06:52: POC Glucose 96 Micro: Microbiology 07/14/22 17:34 Urine Catheter - Beavers Urine Culture - Final Culture exhibits no growth. Physical Exam Const alert Constitutional Narrative: Hiccups resolved after he had his EKG. I spoke to Cristy and she tells me that He always gets hiccups when he has reflux. She does not know if he has a hiatal hernia. He does drink a lot of caffeinated drinks and he chews tobacco. He looks uncomfortable and is having a hard time speaking due to frequent hiccups. General Appearance: cooperative HEENT HEENT Narrative: The thrush is much improved today. Neck No nodes General: trachea midline Resp normal respiratory effort and clear to auscultation bilaterally Effort and Inspection: Negative for tachypneic or labored Cardio regular rhythm Cardio Narrative: Mildly increased heart rate at 110 to 115 bpm. No murmurs, no gallop, no rub. Rate: tachycardic GI GI Narrative: The abdomen is soft, nondistended and nontender to palpation. Normal bowel sounds are heard in all quadrants. Extremity no calf tenderness General Extremity: Negative for edema Skin General Skin Exam: no breakdown Rashes: no rashes Neuro Neuro Narrative: No change in his neuro exam since Sunday. Denies cephalgia. Psych cooperative and denies suicidal ideation Psych Narrative: Depressed and tearful. Assessment & Plan Assessment/Plan (1) Debility: (2) Diabetes mellitus, type 2: (3) Hemiplegia affecting left nondominant side: (4) Acute cerebrovascular accident (CVA): (5) Chest pain: (6) Singultus: (7) Nausea and vomiting: (8) UTI (urinary tract infection): (9) Discharge from penis: (10) Ketoacidosis: (11) GERD (gastroesophageal reflux disease): PLAN: Plan 1. Continue therapy 2. GC/chlamydia 3. Culture of DC from the penis 4. UA today 5. Post void residuals twice daily for the next 3 days. 6. Give one dose of IV Protonix now and then start 40 mg daily PO tomorrow. 7. Reinstitute daily stool softeners. Give laxative today. 8. Recheck a BMP, CBC and orthostatic BP's in the AM. 9. EKG stat to r/o IWMI 10. CXR and KUB 11. Start Rocephin empirically for UTI....if the CXR shows a PNA will change to Zosyn or Unasyn for suspected aspiration related to dysphagia. I spoke with Cristy today and she is very upset about some of the things that happened in the ED. Will discuss with stroke presentation team member about what is protocol for THK administration in this hospital. The first EKG showed a lot of artifact due to hiccups. He his in a sinus tach. I do not see any ST elevation. Will repeat when the hiccups resolve. CXR per my review shows no infiltrate or effusion. The R hemidiaphragm is elevated. KUB shows a lot of stool in the descending and sigmoid colon with a normal gas pattern. Charges/Coding Visit Charges Inpatient E&M: 63832 Subs Hosp L3
[2022-07-25] MEDS: Glimepiride 1 MG Tablet PO (12:18)
[2022-07-25] MEDS: Insulin Glargine-YFGN 100 UNIT/ML Pen 42 UNIT SC (12:19)
[2022-07-25 12:20] LABS: Bedside Glucose 104 mg/dL (74-106)
[2022-07-25 12:23] LABS: Mucous, Urine 0 SEEN /hpf (<or=2+); Red Blood Cells-Urine 0 SEEN /hpf (0-5); Squamous Epithelial Cells - UA 0 SEEN /hpf (0-5)
[2022-07-25 12:34] LABS: Glucose, Dipstick 1000 mg/dl (Normal); Leukocyte Esterase-Dipstick 25 /ul (Negative); Nitrite-Dipstick Positive (Negative); Occult Blood-Urine 50 /ul (Negative); Protein-Dipstick 30 mg/dl (Negative); Urine Bilirubin Dipstick Negative (Negative); Urine Urobilinogen Normal (Normal)
[2022-07-25 12:39] LABS: Color, Urine Yellow (Yellow); Urine Clarity Clear (Clear)
[2022-07-25 12:40] LABS: Ketone-Dipstick 150 mg/dl (Negative)
[2022-07-25 13:00] LABS: Bacteria 2+ /hpf (None Seen); White Blood Cells 5-10 SEEN /hpf (0-5)
[2022-07-25 13:34] LABS: Anion Gap 8 (5-15); BUN 26 mg/dL (7-18); BUN/Creat Ratio 25.7 RATIO (10-20); Calcium,Total 8.8 mg/dL (8.5-10.1); Chloride 104 mmol/L (98-107); Creatinine, Serum 1.01 mg/dL (0.70-1.30); EST Glomerular Filtration Rate 80 mL/min (>60); Est Glom Filt Rate - Afr Amer 96 mL/min (>60); Glucose 125 mg/dL (74-106); Sodium Level 137 mmol/L (136-145)
[2022-07-25] MEDS: 0.9% Normal Saline 1,000 ML 500 ML IV (14:43)
[2022-07-25 15:02] VITALS: BMI 25.8
--- NOTE | 2022-07-25 15:12 | EKG12_ITS ---
Test Reason : REPEAT Blood Pressure : / mmHG Vent. Rate : 115 BPM Atrial Rate : 115 BPM P-R Int : 156 ms QRS Dur : 064 ms QT Int : 314 ms P-R-T Axes : 073 068 053 degrees QTc Int : 434 ms Sinus tachycardia with frequent Premature ventricular complexes ST & T wave abnormality, consider anterior ischemia Abnormal ECG When compared with ECG of 25-JUL-2022 15:39, MANUAL COMPARISON REQUIRED, DATA IS UNCONFIRMED Confirmed by INES LARA, KERI ([id number]), newspaper copy editor WILFRID LEAHY ([id number]) on 07/27/2022 9:20:34 AM Referred By: JOSHUA Confirmed By:KERI CHACON MD
--- NOTE | 2022-07-25 15:39 | EKG12_ITS ---
Test Reason : CP Blood Pressure : / mmHG Vent. Rate : 113 BPM Atrial Rate : 113 BPM P-R Int : 152 ms QRS Dur : 080 ms QT Int : 338 ms P-R-T Axes : 004 -01 006 degrees QTc Int : 463 ms Sinus tachycardia with occasional and consecutive Premature ventricular complexes ST & T wave abnormality, consider inferior ischemia Abnormal ECG Confirmed by INES LARA, KERI ([id number]), senior editor WILFRID LEAHY ([id number]) on 07/27/2022 9:24:11 AM Referred By: JOSHUA Confirmed By:KERI CHACON MD
[2022-07-25] MEDS: Metoclopramide 10 MG/2 ML Vial 5 MG IV (15:40)
[2022-07-25] MEDS: 0.9% Saline Lock 10 ML Syringe IV (15:40)
--- NOTE | 2022-07-25 15:55 | RAD_ITS ---
INDICATION: SOB and cough EXAMINATION/TECHNIQUE: X-RAY - XR Chest 1 View COMPARISON: July 09, 2022. FINDINGS: LINES/DEVICES: None. LUNGS: No consolidation, edema or effusion. No pneumothorax. MEDIASTINUM AND CARDIOVASCULAR STRUCTURES: Cardiac silhouette not enlarged. Central airways and mediastinal contour are unremarkable. BONES AND SOFT TISSUES: Unremarkable. RAD/Chest 1 View (Portable) IMPRESSION: No radiographic evidence of acute cardiopulmonary disease. Electronically Signed: Brock Vail DO at 23:27 EDT ,
--- NOTE | 2022-07-25 15:55 | RAD_ITS ---
STUDY: X-RAY - ABDOMEN/PELVIS REASON FOR EXAM: Male, 62 years old. constipation/hiccups/Heart burn TECHNIQUE: Frontal views COMPARISON: None. FINDINGS: Normal visualized lung bases. There is an unremarkable bowel gas pattern. Mild fecal retention in the descending colon. There is no demonstrated free abdominal air. The visualized liver, spleen and kidneys are grossly normal in size and morphology. Normal soft tissue structures. Normal visualized osseous structures. RAD/Abdomen Single View IMPRESSION: Mild fecal retention. Electronically Signed: Brock Vail DO at 23:29 EDT Reading Location ID and State: [facility] / [place] Tel [phone], Service support ,
[2022-07-25 17:10] LABS: Bedside Glucose 100 mg/dL (74-106)
[2022-07-25 17:49] LABS: Troponin-I HS 6 pg/mL (3.0-78.0)
[2022-07-25 19:58] LABS: Anion Gap 6 (5-15); BUN 23 mg/dL (7-18); BUN/Creat Ratio 28.6 RATIO (10-20); Calcium,Total 8.3 mg/dL (8.5-10.1); Chloride 107 mmol/L (98-107); EST Glomerular Filtration Rate 103 mL/min (>60); Est Glom Filt Rate - Afr Amer 125 mL/min (>60); Estimated Creatinine Clearance 89.51 ml/min; Glucose 98 mg/dL (74-106); Potassium 3.9 mmol/L (3.5-5.1); Sodium Level 137 mmol/L (136-145); Troponin-I HS 6 pg/mL (3.0-78.0)
[2022-07-25] MEDS: Tamsulosin HCl 0.4 MG Capsule PO (20:26)
[2022-07-25 21:00] VITALS: BP 144/70; PULSE 110; RESP 22; TEMP 39.6; O2SAT 93
[2022-07-25] MEDS: Dextrose 50%-Water 25 GM/50 ML DISP.SYRIN IV (21:19)
--- NOTE | 2022-07-25 21:20 | PCM.PN.BLA ---
Progress Note Called by Dr. Audra Brooks that patient may be in DKA. Patient acetone level at 1312 was small and at 1900 his acetone level was moderate. Reportedly patient has been having nausea and vomiting. Discussion was for possible admission to the acute care unit for better management of DKA. Reportedly blood glucose is 83. Of note patient has received an amp of D50 and 3 units of lispro. Discussed with nursing staff. The patient not currently having nausea and vomiting. Nurse reported patient's temperature is 103.1 ?F. Patient was examined at bedside. Patient is alert and oriented. Heart sounds S1-S2 present. Patient can raise right upper extremity and right lower extremity with strength 5 out of 5. Abdomen with bowel sounds present soft nontender nondistended. Patient unable to raise left upper extremity. Patient minimally raised left lower extremity. Ketosis Bicarb level of 24, normal. No anion gap. Doubt DKA. Consideration was made for euglycemic DKA especially as patient is on empagliflozin but again patient's has normal bicarbonate and there is no gap. We will discontinue empagliflozin. Most likely Starvation ketosis. Echocardiogram on 07/09/2022 showed stage I diastolic function and EF of 60%. Check stat BMP and ABG. Patient has been receiving normal saline infusion ordered today and will be getting D5W infusion. Blood glucoses every 2 hours already ordered by primary.. Nurses to inform hospitalist of blood glucose reading check every 2 hours.. Check BMP on 07/26/2022 at 2 AM. After normal saline bolus has been completed we will check BMP and make further determination. Urinalysis on 07/25/2022 showed urine ketones of 150. Also urinalysis on 07/14/2022 showed urine ketones of 150. High-grade fever Nurse reported a temperature of 103.1 weakness which has increased from previous reading. Change antibiotics from ceftriaxone to Zosyn. Blood culture has been obtained. Check lactic acid. Rapid COVID and influenza ordered. Chest x-ray and KUB earlier in the day reviewed. KUB showed constipation. Chest x-ray appears unremarkable. Constipation Soapsuds enema ordered.
[2022-07-25] MEDS: Insulin Lispro 100 UNIT/ML INSULN.PEN SC (21:22)
[2022-07-25 21:30] VITALS: PULSE 110; RESP 22; O2SAT 93
[2022-07-25 21:35] VITALS: TEMP 37.6
[2022-07-25 22:00] VITALS: BP 131/61; PULSE 108; RESP 22; TEMP 38.2; O2SAT 97
[2022-07-25 22:09] LABS: Anion Gap 6 (5-15); BUN 20 mg/dL (7-18); Calcium,Total 7.7 mg/dL (8.5-10.1); Chloride 107 mmol/L (98-107); EST Glomerular Filtration Rate 104 mL/min (>60); Est Glom Filt Rate - Afr Amer 126 mL/min (>60); Estimated Creatinine Clearance 89.51 ml/min; Glucose 218 mg/dL (74-106); Potassium 3.9 mmol/L (3.5-5.1); Sodium Level 136 mmol/L (136-145); Troponin-I HS 7 pg/mL (3.0-78.0)
--- NOTE | 2022-07-25 22:13 | DS.PCM_ITS ---
Providers Date of Admission: 07/12/22 Date of Discharge: 07/25/22 Primary Care Physician: Pt lives in [place]. Reason For Visit: CVA Diagnosis Discharge Diagnosis (1) Debility: Status: Acute Code(s): R53.81 - Other malaise (2) Acute cerebrovascular accident (CVA): Status: Acute Code(s): I63.9 - Cerebral infarction, unspecified (3) Hemiplegia affecting left nondominant side: Status: Acute Code(s): G81.94 - Hemiplegia, unspecified affecting left nondominant side (4) Fecal incontinence: Status: Acute Code(s): R15.9 - Full incontinence of feces (5) Dysarthria: Status: Acute Code(s): R47.1 - Dysarthria and anarthria (6) Dysphagia: Status: Acute Code(s): R13.10 - Dysphagia, unspecified (7) Urine retention: Status: Acute Code(s): R33.9 - Retention of urine, unspecified (8) Diabetes mellitus, type 2: Status: Acute Code(s): E11.9 - Type 2 diabetes mellitus without complications (9) DKA (diabetic ketoacidoses): Status: Acute Code(s): E11.10 - Type 2 diabetes mellitus with ketoacidosis without coma (10) Nausea and vomiting: Status: Acute Code(s): R11.2 - Nausea with vomiting, unspecified (11) UTI (urinary tract infection): Status: Acute Code(s): N39.0 - Urinary tract infection, site not specified (12) Discharge from penis: Status: Acute Code(s): R36.9 - Urethral discharge, unspecified (13) Chest pain: Status: Acute Code(s): R07.9 - Chest pain, unspecified (14) Singultus: Status: Acute Code(s): R06.6 - Hiccough (15) GERD (gastroesophageal reflux disease): Status: Acute Code(s): K21.9 - Gastro-esophageal reflux disease without esophagitis (16) Thrush: Status: Acute Code(s): B37.0 - Candidal stomatitis (17) History of depression: Status: Acute Code(s): Z86.59 - Personal history of other mental and behavioral disorders (18) Dyslipidemia associated with type 2 diabetes mellitus: Status: Acute Code(s): E11.69 - Type 2 diabetes mellitus with other specified complication; E78.5 - Hyperlipidemia, unspecified (19) BPH (benign prostatic hyperplasia): Status: Acute Code(s): N40.0 - Benign prostatic hyperplasia without lower urinary tract symptoms (20) Nicotine dependence: Status: Acute Code(s): F17.200 - Nicotine dependence, unspecified, uncomplicated Plan Transfer to acute side of the hospital for DKA. AG is normal and the serum bicarb is normal but has dropped from 25 to 23 since this afternoon. acetone has increased from small to moderate since this afternoon. He is euglycemic at present but, he received 42 units of Lantus this AM and he has not eaten today. He is febrile and tachycardic and he has a UTI (catheter related). He is also on a GLT2 inhibitor. I suspect the ketosis today is precipitated by the UTI. Troponins are negative X 3. D/W the night hospitalist, Dr. Torres Medications at Discharge Home Medications aspirin 81 mg tablet 81 mg PO DAILY Check with primary doctor 07/09/22 empagliflozin 25 mg tablet (Jardiance) 25 mg PO DAILY Check with primary doctor 07/09/22 lisinopril 40 mg tablet 20 mg PO DAILY Check with primary doctor 07/09/22 atorvastatin 80 mg tablet 80 mg PO QHS cholesterol 07/12/22 insulin glargine-yfgn 100 unit/mL (3 mL) subcutaneous pen 35 unit subcut DAILY DM 07/12/22 insulin lispro 100 unit/mL subcutaneous pen (Humalog KwikPen (U-100) Insulin) S ee Protocol subcut ACHS DM 07/12/22 nicotine 21 mg/24 hr daily transdermal patch 21 mg transdermal DAILY Check with primary doctor 07/12/22 Hospital Course Operations None Procedures - (Modified barium swallow ) Summary of Care Provided Minutes Spent on Discharge: 40 Hospital Course: HUGH VALENCIA, is a 62 YO M with a PMH of DM II, depression, tobacco dependence in remission (quit smoking in April of 2000 but, he chews tobacco), alcohol abuse in remission (drinks only on holidays and special occasions for the past 2 years), HTN, Diabetic retinopathy with vitreous hemorrhage (resolved) and current use of chewing tobacco who presented to the ED at [facility] on 07/09/22 with left-sided weakness, facial droop and slurred speech.? NIHSS score was 15 at presentation to the emergency department.? Stat noncontrast CT brain showed s enescent changes only.? CTA of the head and neck showed severe focal stenosis in the right internal carotid artery, severe stenosis in the proximal left V4 segment and a hypoplastic right A1 segment.? [facility] teleneurology was consulted and recommended TNK which was given in the emergency department.? Patient was then transferred to the intensive care unit for monitoring.? An echocardiogram was obtained and showed normal left ventricular function with an ejection fraction of 60%.? He had stage I diastolic dysfunction and the pulmonary artery pressure was mildly increased at 34.? The bubble contrast study was negative for right to left shunt.? Hemiplegia increased following TNK and he became lethargic.? Noncontrast CT brain obtained 24 hours after TNKase administration showed late?acute ischemic infarct in the right deep structures to be clearly visible.? There was no hemorrhage or midline shift.?MRI report confirmed the findings of the CTB done 24H after TNK. Vascular surgery was consulted for R carotid stenosis in a pt with no improvement following TNK.? He had no significant stenosis in the cervical portion of the R ICA, only stenosis in the cavernous portion of the artery and this is not typically treated surgically due to high risk of complications.? Carotid duplex showed less than 50% stenosis in the cervical portion of the left and right internal carotid arteries.? Teleneurology consult was obtained on 07/10/22.? NIH score was 12 at the time of the neurology consult.? Continued therapy with aspirin 81 mg daily was recommended.? Hugh was seen by PT/OT/ST and acute inpt rehab was recommended at [place].? He was transferred to the acute inpt rehab unit at [facility] on 07/12/22 for 3 hours of therapy daily to restore function at or near to his prior level of function.? Shortly after admission to rehab he developed metabolic acidosis with and elevated AG and a small amount of acetone in the blood. Acidosis resolved with aggressive hydration and holding Jardiance and later restarting at 10 mg rather than 25 mg. The Serum bicarbs have been normal since then. In the evening of 07/24/22 he c/o heartburn (which he gets frequently) and he was given Mylanta. He had nausea and 2 episodes of emesis through the night. He also has had intermittent singultus. EKG on 07/25/22 was not a good study but, there was no ST elevation and the rhythm was ST. KUB showed stool in the descending and sigmoid colon and a normal gas pattern per my review. CXR showed no infiltrates, PV congestion or effusions. Serial troponins were WNL. UA had 5- 10 white blood cells and 2+ bacteria. It was nitrite positive and the Beavers catheter had just been discontinued on 07/24/2022. He was placed on Flomax and Proscar at admission to rehab for urinary retention. Also found in the urine or 150 ketones and urine glucose of 1000. Discharge from the penis was sent for Gram stain, C&S. The Gram stain showed 2+ white blood cells, 2+ gram-positive cocci and 2+ gram-negative rods. Serum acetone in the afternoon was a small amount. IV fluids were discontinued and he received another 1 L bolus. A repeat BMP at 7 PM showed a serum bicarb of 24 with an anion gap of 6. The BUN was 23 and the creatinine was 0.8. Sodium was 137. Acetone was also repeated at 7 PM and had increased from small to moderate. He received 2 gm of Rocephin for the UTI. Repeat BMP at 930 again showed a normal serum sodium at 136. The serum bicarb was down to 23 and the anion gap was still within normal limits. Creatinine was stable. Lactic acid at 930 was normal at 1.0. He has not eaten anything today and he received 42 units of Lantus this AM. He has not been hypoglycemic but the BS's have been on the low side. The case was discussed with Dr. Mcqueen. Even though the AG is normal and the serum bicarb is still within NL at 23 I am concerned about the serum acetone increasing despite fluids and antibiotics. I [place] he needed to be transferred to the acute side of the hospital for continued hydration, insulin to turn off the ketosis and dextrose so we could give insulin without making him hypoglycemic. Dr. Mcqueen agreed to accept Hugh onto the hospital service. We will of course take him back to rehab when the ketosis has resolved. Physical Exam Const alert and oriented x3 Constitutional Narrative: He is flushed and has a fever at the time of transfer. Tylenol was given. He has had no further emesis since this morning. He still has some nausea. He was given protonix today and he is no longer c/o heartburn. He received 5 mg of Reglan and he has not had further hiccups. He is feeling cold despite have a fever. General Appearance: cooperative HEENT moist oral mucous membranes HEENT Narrative: Thrush is much improved on Mycelex. He denies painful swallowing. Eyes PERRL and EOMs intact bilaterally Eyes Narrative: No visual loss. Neck no JVD and No nodes Resp normal respiratory effort and clear to auscultation bilaterally Effort and Inspection: Negative for tachypneic or labored Cardio regular rhythm, no murmurs, no rub and no gallops Rate: tachycardic GI GI Narrative: The abdomen is soft, nondistended, nontender to palpation and has normal bowel sounds. He is once again retaining urine. He was able to go only a small amount and the postvoid residual was 528. Dr. Mcqueen ordered a Beavers catheter and I ordered a Uro-Jet for insertion. Inspection: Negative for abdominal distention Extremity no calf tenderness General Extremity: Negative for edema Skin Skin Narrative: He has a stage 1 pressure ulcer on the buttock and nursing is going to apply a mepilex. His face is flushed and he is hot to the touch. Temp is elevated. Rashes: no rashes Neuro Neuro Narrative: Left facial droop. PERRL, EOMI, no visual neglect. Flaccid LUE. He has some movement of the LLE. He is now able to extend his knee and wiggle his toes and he is also able to dorsiflex his toe. He LLE was flaccid at admission to rehab. He has Left side neglect. He has mild to moderate sensory loss of the left face and left arm. No aphasia. No ataxia. Psych Psych Narrative: Depressed and tearful at times. He is on Remeron 30 mg and also was started on Wellbutrin XL 150 mg on 07/24/22. Appearance: appropriate Attitude: No agitated Mood & Affect: depressed and flat affect Thought Content: No suicidality Weight / BMI Weight Weight: 164 lb 14.492 oz Body Mass Index (BMI) 25.8 ABG / Lab / Microbiology Data Result Diagrams: 07/15/22 10:09 07/25/22 21:36 Laboratory: Laboratory Results - last 24 hr 07/24/22 16:38: POC Glucose 170 H 07/24/22 21:48: POC Glucose 127 H 07/25/22 06:52: POC Glucose 96 07/25/22 11:21: POC Glucose 104 07/25/22 11:45: Urine Color Yellow, Urine Clarity Clear, Urine pH 5.0, Ur Specific [place] 1.020, Urine Protein 30 H, Urine Glucose (UA) 1000 H, Urine Ketones 150 A*, Urine Occult Blood 50 H, Urine Nitrite Positive H, Urine Bilirubin Negative, Urine Urobilinogen Normal, Ur Leukocyte Esterase 25 H, Urine RBC 0 SEEN, Urine WBC 5-10 SEEN, Ur Squamous Epith Cells 0 SEEN, Urine Bacteria 2+, Urine Mucus 0 SEEN 07/25/22 13:12: Sodium 137, Potassium 4.0, Chloride 104, Carbon Dioxide 25.0, Anion Gap 8, BUN 26 H, Creatinine 1.01, Estim Creat Clear Calc 70.90, Est GFR (MDRD) Af Amer 96, Est GFR (MDRD) Non-Af 80, BUN/Creatinine Ratio 25.7 H, Glucose 125 H, Calcium 8.8 07/25/22 13:12: Acetone Level SMALL H 07/25/22 16:40: POC Glucose 100 07/25/22 17:16: Troponin I High Sens 6 07/25/22 19:00: Sodium 137, Potassium 3.9, Chloride 107, Carbon Dioxide 24.0, Anion Gap 6, BUN 23 H, Creatinine 0.80, Estim Creat Clear Calc 89.51, Est GFR (MDRD) Af Amer 125, Est GFR (MDRD) Non-Af 103, BUN/Creatinine Ratio 28.6 H, Glucose 98, Calcium 8.3 L, Troponin I High Sens 6 07/25/22 19:00: Acetone Level MODERATE H 07/25/22 21:36: Sodium 136, Potassium 3.9, Chloride 107, Carbon Dioxide 23.0, Anion Gap 6, BUN 20 H, Creatinine 0.80, Estim Creat Clear Calc 89.51, Est GFR (MDRD) Af Amer 126, Est GFR (MDRD) Non-Af 104, BUN/Creatinine Ratio 25.0 H, Glucose 218 H, Calcium 7.7 L, Troponin I High Sens 7 07/25/22 21:36: Lactic Acid 1.0 Microbiology: Microbiology 07/25/22 11:45 Discharge - Penile Gram Stain - Final 07/14/22 17:34 Urine Catheter - Beavers Urine Culture - Final Culture exhibits no growth. Meaningful Use Info Meaningful Use Diagnoses (Choose all that apply): Ischemic CVA CVA Therapy Assessed for PT,OT and/or ST?: Yes Ischemic Stroke Antithrombotic order at d/c?: Yes Dx of Atrial fib/flutter?: No Anticoagulant at discharge?: No Reason anticoagulant not ordered: Treatment not Indicated Statins at discharge?: Yes Primary Dx Acute Ischemic CVA?: Yes IV thrombolytic ordered during stay?: No Reason IV thrombolytic not ordered: Treatment not Indicated (He had TNK prior to admission to acute rehab. ) Discharge Plan Admission Admit Date/Time: 07/12/22 12:30 Attending Provider: Joelle Brooks Discharge Orders/Prescriptions Prescriptions: No Action aspirin 81 mg Tablet 81 mg PO DAILY lisinopril 40 mg Tablet 20 mg PO DAILY Jardiance 25 mg Tablet 25 mg PO DAILY atorvastatin 80 mg tablet 80 mg PO QHS nicotine 21 mg/24 hr patch 24 hour 21 mg transdermal DAILY insulin lispro [Humalog KwikPen Insulin] 100 unit/mL insulin pen See Protocol subcut [facility] Protocol: 3. Sliding Scale Insulin Med Dosing Condition: 150-189 mg/dl = 1 unit Condition: 190-229 mg/dl = 2 units Condition: 230-269 mg/dl = 3 units Condition: 270-309 mg/dl = 4 units Condition: 310-349 mg/dl = 5 units Condition: 350-399 mg/dl = 6 units Condition: 400-449 mg/dl = 7 units Condition: Greater than 449 call physician Protocol Text: - Use for Total Daily Dose of Insulin 37-55 units - Obsese, infected, or steroid patients MEDIUM DOSING ALGORITHIM insulin glargine-yfgn 100 unit/mL (3 mL) insulin pen 35 unit subcut DAILY Disposition Disposition (needs filled in before D/C Order can be placed): Acute Care Hospital Charges/Coding Visit Charges Inpatient E&M: 14767 Disch Hosp >30min
[2022-07-25] MEDS: Atorvastatin Calcium 80 MG Tablet PO (22:29)
[2022-07-25] MEDS: Senna/Docusate Sodium 1 Tablet 2 TABLET PO (22:29)
[2022-07-25] MEDS: Mirtazapine 30 MG Tablet PO (22:30)
[2022-07-25] MEDS: amLODIPine 2.5 MG Tablet PO (22:30)
[2022-07-25] MEDS: Lidocaine Jelly 2% 20 ML Syringe (URO-JET) 1 APPLIC TOPICAL (23:00)
--- NOTE | 2022-07-25 23:03 | PCM.HP.STD ---
HPI - General General Date of Admission: 07/12/22 Date of Service: 07/25/22 Chief Complaint: Ketosis HPI Narrative HUGH VALENCIA, is a 62 M with a significant history of CVA who was at the rehab units of [facility] being transferred to [facility] because of ketosis. Also patient was found to have a fever and urinary retention. His urinalysis was abnormal. Because of concern for diabetic ketoacidosis rehab attending doctor reportedly discussed case with instructor nurse Dr. Mitchell and the concern that patient may be diabetic ketoacidosis so patient to be transferred to the acute care for further management. [facility] Medical History BPH (benign prostatic hyperplasia) Chewing tobacco use Diabetes mellitus, type 2 Former cigarette smoker GERD (gastroesophageal reflux disease) History of alcohol abuse History of depression History of vitreous hemorrhage of right eye Hypertension Hypertension Overweight Home Medications aspirin 81 mg tablet 81 mg PO DAILY Check with primary doctor 07/09/22 [History Last Taken Unknown] empagliflozin 25 mg tablet (Jardiance) 25 mg PO DAILY Check with primary doctor 07/09/22 [History Last Taken Unknown] lisinopril 40 mg tablet 20 mg PO DAILY Check with primary doctor 07/09/22 [History Last Taken Unknown] atorvastatin 80 mg tablet 80 mg PO QHS cholesterol 07/12/22 [History Last Taken Unknown] insulin glargine-yfgn 100 unit/mL (3 mL) subcutaneous pen 35 unit subcut DAILY DM 07/12/22 [History Last Taken 07/12/22 10:00] insulin lispro 100 unit/mL subcutaneous pen (Humalog KwikPen (U-100) Insulin) See Protocol subcut ACHS DM 07/12/22 [History Last Taken Unknown] nicotine 21 mg/24 hr daily transdermal patch 21 mg transdermal DAILY Check with primary doctor 07/12/22 [History Last Taken Unknown] Allergy/AdvReac Type Severity Reaction Status Date / Time No Known Allergies Allergy Verified 07/09/22 00:56 Family History Mother Brain tumor Dx age 43. Father Heart disease Hypertension CAD (coronary artery disease) Diabetes Brother CVA (cerebral vascular accident) CVA in his 60s. Brother CAD (coronary artery disease) Surgical History History of bladder repair surgery Hx of appendectomy Social History adopted: No household members: spouse housing: house number of children: 4 current occupational status: employed current occupation: Drills holes into rock sexually active: Yes do you think of yourself as: straight/heterosexual current gender identity: male Smoking Status: Former smoker quit date: 04/30/00 pack-years: 38 Smokeless tobacco user: chewing tobacco counseling given: provider counseling and counseling >3 minutes alcohol intake: current alcohol intake frequency: holidays/special occasions only details: Hx heavy EtOH abuse (64 ounces beer/day) but stopped heavy intake 2 yrs ago substance use type: does not use ROS ROS Narrative Pertinent positives and pertinent negatives as noted in HPI. All other systems were reviewed and are negative Vital Signs Vital Signs Vital Signs: 07/25/22 09:56 07/25/22 22:00 Temperature 98.1 F 100.8 F H Temperature Source Temporal Temporal Pulse Rate 105 H 108 H Respiratory Rate 16 22 H Blood Pressure 147/66 H 131/61 H Blood Pressure Mean 93 84 Blood Pressure Source Monitor Monitor Blood Pressure Position Semi-Fowlers Semi-Fowlers Blood Pressure Location Right Arm Right Arm Pulse Ox 97 97 Oxygen Delivery Method Room Air Room Air Weight Weight: 74.8 kg Body Mass Index (BMI) 25.8 Physical Exam Narrative Physical exam: General: Well-nourished, well-developed. Head: Normocephalic, atraumatic, no tenderness Eyes: Vision is grossly intact. EOMI ENT, no trauma, no rhinorrhea Neck: Nontender, No thyromegaly. CVS: Regular rate and rhythm. S1-S2 present. No murmur, gallop or rub. Respiratory : clear to auscultation bilaterally, chest wall nontender Abdomen: Soft, nontender, nondistended, normal bowel sounds, no masses : Deferred Back: Nontender, no CVA tenderness, no midline spinal tenderness, deformities, step-offs Extremities: Patient can raise right upper extremity and right lower extremity with strength 5 out of 5, no trauma Skin: Normal color, no trauma, abrasions Neuro: Alert, oriented, cranial nerves II through XII grossly intact. Psychiatry: Normal mood. Normal affect. Not depressed. Not anxious. Results Lab / Micro Data Result Diagrams: 07/15/22 10:09 07/25/22 21:36 Labs: Laboratory Results - last 24 hr 07/24/22 16:38: POC Glucose 170 H 07/24/22 21:48: POC Glucose 127 H 07/25/22 06:52: POC Glucose 96 07/25/22 11:21: POC Glucose 104 07/25/22 11:45: Urine Color Yellow, Urine Clarity Clear, Urine pH 5.0, Ur Specific [place] 1.020, Urine Protein 30 H, Urine Glucose (UA) 1000 H, Urine Ketones 150 A*, Urine Occult Blood 50 H, Urine Nitrite Positive H, Urine Bilirubin Negative, Urine Urobilinogen Normal, Ur Leukocyte Esterase 25 H, Urine RBC 0 SEEN, Urine WBC 5-10 SEEN, Ur Squamous Epith Cells 0 SEEN, Urine Bacteria 2+, Urine Mucus 0 SEEN 07/25/22 13:12: Sodium 137, Potassium 4.0, Chloride 104, Carbon Dioxide 25.0, Anion Gap 8, BUN 26 H, Creatinine 1.01, Estim Creat Clear Calc 70.90, Est GFR (MDRD) Af Amer 96, Est GFR (MDRD) Non-Af 80, BUN/Creatinine Ratio 25.7 H, Glucose 125 H, Calcium 8.8 07/25/22 13:12: Acetone Level SMALL H 07/25/22 16:40: POC Glucose 100 07/25/22 17:16: Troponin I High Sens 6 07/25/22 19:00: Sodium 137, Potassium 3.9, Chloride 107, Carbon Dioxide 24.0, Anion Gap 6, BUN 23 H, Creatinine 0.80, Estim Creat Clear Calc 89.51, Est GFR (MDRD) Af Amer 125, Est GFR (MDRD) Non-Af 103, BUN/Creatinine Ratio 28.6 H, Glucose 98, Calcium 8.3 L, Troponin I High Sens 6 07/25/22 19:00: Acetone Level MODERATE H 07/25/22 21:36: Sodium 136, Potassium 3.9, Chloride 107, Carbon Dioxide 23.0, Anion Gap 6, BUN 20 H, Creatinine 0.80, Estim Creat Clear Calc 89.51, Est GFR (MDRD) Af Amer 126, Est GFR (MDRD) Non-Af 104, BUN/Creatinine Ratio 25.0 H, Glucose 218 H, Calcium 7.7 L, Troponin I High Sens 7 07/25/22 21:36: Lactic Acid 1.0 Micro: Microbiology 07/25/22 11:45 Discharge - Penile Gram Stain - Final Assessment & Plan Assessment/Plan (1) Ketosis: PLAN: Plan Ketosis Bicarb level of 24, normal.? No anion gap. Doubt DKA. Consideration was made for euglycemic DKA especially as patient is on empagliflozin but again patient's has normal bicarbonate and there is no gap.? We will discontinue empagliflozin. Most likely Starvation ketosis. Echocardiogram on 07/09/2022 showed stage I diastolic function and EF of 60%. Check stat BMP and ABG. Patient has been receiving normal saline infusion ordered today and will be getting D5W infusion.? Blood glucoses every 2 hours already ordered by primary..? Nurses to inform hospitalist of blood glucose reading check every 2 hours.. Check BMP on 07/26/2022 at 2 AM. After normal saline bolus has been completed we will check? BMP and make further determination. Urinalysis on 07/25/2022 showed urine ketones of 150.? Also urinalysis on 07/14/2022 showed urine ketones of 150. High-grade fever Nurse reported a temperature of 103.1 weakness which has increased from previous reading.? Change antibiotics from ceftriaxone to Zosyn.? Blood culture has been obtained. Check lactic acid. Rapid COVID and influenza ordered. Chest x-ray and KUB earlier in the day reviewed.? KUB showed constipation.? Chest x-ray appears unremarkable. Constipation Soapsuds enema ordered.
[2022-07-26 00:06] LABS: Bedside Glucose 83 mg/dL (74-106)
[2022-07-26 00:06] LABS: Bedside Glucose 132 mg/dL (74-106)
[2022-07-26 01:05] LABS: Bedside Glucose 101 mg/dL (74-106)
--- NOTE | 2022-07-26 01:48 | NURSING ---
0 staff into assess pt at this time and sse to be given, pt unable to hold water enema not effective. hospitalist up to see pt and new orders received . vs retaken and bp was 144/70 ap was 110, resp 22, and temp was 103.3 temporally, temp retaken orally and was 99.7. rn made aware 2144 spouse and doctor mellissa here for pt and new orders received from doctor zaldivar, bradshaw is to be placed after bladder scan showed >528cc 2244 blood sugar was recheck and was 132 and doctor zen made aware. oral care given. 0 bradshaw placed and a return of 600cc of light yellow urine was noted 2329 pt d/c'd to PCU per services of doctor willett
[2022-07-26 12:16] LABS: Bedside Glucose 170 mg/dL (74-106)
[2022-07-26 15:06] LABS: Chlamydia Trachomatis by PCR Negative (Negative); Neisserai gonorrhoeae by PCR Negative (Negative)
[2022-07-26 15:07] LABS: Probe Check PASS; Sample Adequacy Control PASS; Specimen Processing Control PASS
[2022-07-28 15:16] VITALS: BMI 25.8
[2022-07-28 16:35] LABS: Bedside Glucose 234 mg/dL (74-106)
[2022-07-28] MEDS: levoFLOXacin 500 MG Tablet PO (18:08)
[2022-07-28] MEDS: Insulin Lispro 100 UNIT/ML INSULN.PEN SC (18:10)
[2022-07-28 19:31] VITALS: BP 126/80; PULSE 71; RESP 18; TEMP 37.2; O2SAT 97
[2022-07-28] MEDS: Menthol/Lanolin/Calamine/Znox 113 GM Tube 1 APPLIC TOPICAL (21:08)
[2022-07-28] MEDS: Phenazopyridine 95 MG Tablet 190 MG PO (21:09)
[2022-07-28] MEDS: Mirtazapine 30 MG Tablet PO (21:09)
[2022-07-28] MEDS: Insulin Glargine-YFGN 100 UNIT/ML Pen 10 UNIT SC (21:10)
[2022-07-28 21:35] LABS: Bedside Glucose 236 mg/dL (74-106)
[2022-07-29] MEDS: Enoxaparin 40 MG/0.4 ML Syringe SC (05:27)
[2022-07-29] MEDS: Phenazopyridine 95 MG Tablet 190 MG PO ×3 (05:40→21:05)
[2022-07-29] MEDS: Menthol/Lanolin/Calamine/Znox 113 GM Tube 1 APPLIC TOPICAL ×2 (05:40→21:05)
[2022-07-29 06:56] LABS: Bedside Glucose 183 mg/dL (74-106)
[2022-07-29 07:17] LABS: Hematocrit 47.6 % (40-54); Mean Corp Hgb Conc 31.5 g/dL (32-36); Mean Corpuscular Volume 92.1 fL (80-94); Mean Platelet Vol. 10.4 fl (6.2-12.0); Platelet Count 395 K/mm3 (150-450); RBC Distribution Width CV 12.5 % (11.6-14.6); RBC Distribution Width SD 42.3 fl (35.1-43.9); Red Blood Count 5.17 M/mm3 (4.6-6.2)
[2022-07-29 07:43] LABS: ALB/GLOB Ratio 0.6 RATIO (0.9-2.4); AST(SGOT) 34 U/L (15-37); Alanine Aminotransfer ALT/SGPT 47 U/L (16-61); Albumin, Serum 2.8 g/dL (3.2-5.0); Alkaline Phosphatase 130 U/L (45-117); Anion Gap 7 (5-15); BUN 11 mg/dL (7-18); BUN/Creat Ratio 14.9 RATIO (10-20); Calcium,Total 9.4 mg/dL (8.5-10.1); Chloride 108 mmol/L (98-107); Creatinine, Serum 0.74 mg/dL (0.70-1.30); EST Glomerular Filtration Rate 114 mL/min (>60); Est Glom Filt Rate - Afr Amer 138 mL/min (>60); Estimated Creatinine Clearance 100.14 ml/min; Globulin 4.4 g/dL (2.2-4.2); Glucose 173 mg/dL (74-106); Magnesium 2.5 mg/dL (1.6-2.6); Protein, Total 7.2 g/dL (6.4-8.2); Sodium Level 138 mmol/L (136-145)
[2022-07-29] MEDS: Insulin Lispro 100 UNIT/ML INSULN.PEN SC ×3 (07:49→16:49)
[2022-07-29] MEDS: Glucerna Shake 120 ML LIQUID PO ×2 (07:50→12:01)
[2022-07-29] MEDS: Aspirin 81 MG TAB.CHEW PO (07:50)
[2022-07-29 08:04] VITALS: BP 119/76; PULSE 90; RESP 16; TEMP 36.7; O2SAT 96
[2022-07-29] MEDS: Insulin Glargine-YFGN 100 UNIT/ML Pen 10 UNIT SC ×2 (09:49→21:05)
[2022-07-29] MEDS: levoFLOXacin 500 MG Tablet PO (09:50)
[2022-07-29] MEDS: Miconazole Nitrate Cream 1 APPLIC TOPICAL ×2 (09:50→21:07)
[2022-07-29] MEDS: amLODIPine 5 MG Tablet PO (09:51)
[2022-07-29] MEDS: Clopidogrel Bisulfate 75 MG Tablet PO (09:51)
[2022-07-29] MEDS: Pantoprazole Sodium 40 MG Tablet PO (09:51)
[2022-07-29] MEDS: Lisinopril 20 MG Tablet PO (09:52)
[2022-07-29] MEDS: buPROPion (XL) 150 MG TABLET.XL PO (09:52)
[2022-07-29] MEDS: 0.9% Saline Lock 10 ML Syringe IV (09:52)
[2022-07-29 11:07] VITALS: BMI 25.8
[2022-07-29 12:35] LABS: Bedside Glucose 235 mg/dL (74-106)
[2022-07-29 14:50] VITALS: BMI 22.9
[2022-07-29 17:26] LABS: Bedside Glucose 280 mg/dL (74-106)
[2022-07-29 19:00] VITALS: BP 112/68; PULSE 91; RESP 17; TEMP 37.1; O2SAT 97
[2022-07-29] MEDS: Mirtazapine 30 MG Tablet PO (21:07)
[2022-07-29 21:16] LABS: Bedside Glucose 317 mg/dL (74-106)
[2022-07-30] MEDS: Phenazopyridine 95 MG Tablet 190 MG PO ×3 (05:51→21:14)
[2022-07-30] MEDS: Enoxaparin 40 MG/0.4 ML Syringe SC (05:51)
[2022-07-30] MEDS: Menthol/Lanolin/Calamine/Znox 113 GM Tube 1 APPLIC TOPICAL ×2 (05:51→21:15)
[2022-07-30 06:56] LABS: Bedside Glucose 243 mg/dL (74-106)
[2022-07-30 07:37] VITALS: BP 121/66; PULSE 79; RESP 16; TEMP 36.2; O2SAT 95
[2022-07-30] MEDS: Insulin Lispro 100 UNIT/ML INSULN.PEN SC ×3 (08:13→17:21)
[2022-07-30] MEDS: Aspirin 81 MG TAB.CHEW PO (08:14)
[2022-07-30] MEDS: Insulin Glargine-YFGN 100 UNIT/ML Pen 10 UNIT SC ×2 (09:53→21:15)
[2022-07-30] MEDS: Miconazole Nitrate Cream 1 APPLIC TOPICAL ×2 (09:54→21:15)
[2022-07-30] MEDS: levoFLOXacin 500 MG Tablet PO (09:54)
[2022-07-30] MEDS: amLODIPine 5 MG Tablet PO (09:55)
[2022-07-30] MEDS: Clopidogrel Bisulfate 75 MG Tablet PO (09:55)
[2022-07-30] MEDS: buPROPion (XL) 150 MG TABLET.XL PO (09:55)
[2022-07-30] MEDS: Pantoprazole Sodium 40 MG Tablet PO (09:55)
[2022-07-30] MEDS: Lisinopril 20 MG Tablet PO (09:55)
[2022-07-30 12:25] LABS: Bedside Glucose 340 mg/dL (74-106)
[2022-07-30 13:33] VITALS: BMI 22.9
[2022-07-30 16:40] LABS: Bedside Glucose 248 mg/dL (74-106)
[2022-07-30 19:30] VITALS: BP 140/65; PULSE 86; RESP 18; TEMP 36.4; O2SAT 96
[2022-07-30] MEDS: Mirtazapine 30 MG Tablet PO (21:14)
[2022-07-30 21:55] LABS: Bedside Glucose 367 mg/dL (74-106)
[2022-07-31 06:00] VITALS: BMI 23.6
[2022-07-31] MEDS: Phenazopyridine 95 MG Tablet 190 MG PO ×2 (06:15→14:14)
[2022-07-31] MEDS: Enoxaparin 40 MG/0.4 ML Syringe SC (06:15)
[2022-07-31] MEDS: Menthol/Lanolin/Calamine/Znox 113 GM Tube 1 APPLIC TOPICAL ×2 (06:15→21:10)
[2022-07-31 06:51] LABS: Bedside Glucose 265 mg/dL (74-106)
[2022-07-31 07:39] VITALS: BP 139/75; PULSE 78; RESP 16; TEMP 36.3; O2SAT 97
[2022-07-31] MEDS: Insulin Lispro 100 UNIT/ML INSULN.PEN SC ×6 (07:44→21:16)
[2022-07-31] MEDS: Clopidogrel Bisulfate 75 MG Tablet PO (07:44)
[2022-07-31] MEDS: Lisinopril 20 MG Tablet PO (07:44)
[2022-07-31] MEDS: Pantoprazole Sodium 40 MG Tablet PO (07:44)
[2022-07-31] MEDS: buPROPion (XL) 150 MG TABLET.XL PO (07:44)
[2022-07-31] MEDS: amLODIPine 5 MG Tablet PO (07:44)
[2022-07-31] MEDS: Aspirin 81 MG TAB.CHEW PO (07:44)
[2022-07-31] MEDS: levoFLOXacin 500 MG Tablet PO (07:44)
[2022-07-31] MEDS: Insulin Glargine-YFGN 100 UNIT/ML Pen 10 UNIT SC (07:45)
[2022-07-31] MEDS: Miconazole Nitrate Cream 1 APPLIC TOPICAL ×2 (07:53→21:10)
--- NOTE | 2022-07-31 10:21 | PCM.PROGNOTE ---
Subjective Subjective Ayaan was seen on team rounds today. His Cristy was present in the room. Day # 3/7 of [facility] Afebrile VSS-blood pressure is within goal for the most part. Occasional systolic between 130 and 140 Maintaining appropriate oxygen saturation on RA Oral intake is much better. He ate 75 to 100% of his last for meals. Urine output exceeds intake likely due to polyuria related to hyperglycemia. Weight decreased approximately 19 pounds since admission. Blood sugar record was reviewed. Discussed with nursing - he has soreness at the tip of his penis where the Beavers inserts. Reviewed the PT/OT/ST notes Medication list reviewed. Ayaan tells me that he can't stop crying. He is sleeping well at night and appetite is much better. Ayaan denies cephalgia, cough, shortness of breath, chest pain, heartburn, nausea/vomiting, abdominal pain, calf tenderness and lightheadedness. Objective Data Objective Data Vital Signs: Vital Signs Temp Pulse Resp BP Pulse Ox O2 Del Method O2 Flow Rate 97.3 F L 78 16 139/75 H 97 Room Air 0 07/31/22 07:39 07/31/22 07:39 07/31/22 07:39 07/31/22 07:39 07/31/22 07:39 07/31/22 07:39 07/16/22 19:51 FiO2 21 07/16/22 19:51 Oxygen Flow Rate (L/min) 0 Oxygen Delivery Method Room Air Weight: 151 lb Body Mass Index (BMI) 22.9 Intake & Output: Intake and Output for Last 24 Hours 07/29/22 07/30/22 07/31/22 23:59 23:59 23:59 Intake Total 880 / 880 1050 / 1050 530 / 530 Output Total 1400 / 1400 1550 / 1550 450 / 450 Balance -520 / -520 -500 / -500 80 / 80 Medical Nutrition Assessment Dietitian: Malnutrition Criteria Met Start: 07/28/22 15:57 Freq: Status: Active Protocol: Document 07/30/22 13:10 RMA (Rec: 07/30/22 13:10 RMA [id number]) Nutrition Malnutrition Evidence of Malnutrition Exists Yes Malnutrition (severe): Acute Illness/Injury Evidenced By Suboptimal Energy Intake ( Severe),Weight Loss (Severe) Clinical Problem Acute Disease or Injury Related Malnutrition Etiology Severe pro-kieran malnutrition in the context of acute disease related to inadequate oral intake Signs/Symptoms as evidenced by ~10% wt loss x 10 days and PO meeting less than 50% estimated nutrition needs Status Active Problem Recommendation Dietitian Recommendations/Changes Will adjust diet to 2000 calorie/consistent carbohydrate; Cardiac diet with texture/consistency per SEED CLEANING MANAGER. Chocolate Magic Cup BID with lunch and dinner meals. Will d/c glucerna shake with medpass, pt refusing. Will try chocolate ensure compact w/ breakfast for tolerance. May need to consider enteral nutrition support if PO remains inadequate and weight continues to decline. Lab / Micro Data Result Diagrams: 08/21/22 05:16 08/21/22 05:16 Labs: Laboratory Results - last 24 hr 07/30/22 11:59: POC Glucose 340 H 07/30/22 16:14: POC Glucose 248 H 07/30/22 21:12: POC Glucose 367 H 07/31/22 06:28: POC Glucose 265 H Micro: Microbiology 07/25/22 21:32 Blood Culture (Wb) - Right Hand Blood Culture - Final No growth in 5 days. 07/25/22 21:36 Blood Culture (Wb) - Anticubital Right Blood Culture - Final No growth in 5 days. 07/25/22 11:45 Discharge - Penile Gram Stain - Final 07/25/22 11:45 Discharge - Penile Wound Culture - Final Klebsiella oxytoca Pseudomonas aeruginosa 07/25/22 11:45 Urine, Catheterized Urine Culture - Final Pseudomonas aeruginosa Klebsiella oxytoca 07/14/22 17:34 Urine Catheter - Beavers Urine Culture - Final Culture exhibits no growth. Physical Exam Const alert and oriented x3 Constitutional Narrative: Tearful when he is talking with me. It is obvious he is lost approximately 20 pounds since admission. General Appearance: cooperative HEENT normocephalic Mouth: dry mucous membranes Neck supple and no JVD Resp normal respiratory effort, normal air movement and clear to auscultation bilaterally Resp Narrative: No cough. Effort and Inspection: Negative for tachypneic or labored Cardio regular rate, regular rhythm and no gallops GI normal to inspection, nondistended, normoactive bowel sounds, soft to palpation and non-tender GI Narrative: No guarding with palpation Extremity no calf tenderness General Extremity: Negative for edema Skin Rashes: no rashes Assessment & Plan Assessment/Plan (1) Debility: (2) Acute cerebrovascular accident (CVA): (3) Hemiplegia affecting left nondominant side: (4) Fecal incontinence: PLAN: resolved (5) Dysarthria: (6) Dysphagia: (7) Urine retention: (8) Diabetes mellitus, type 2: PLAN: BS's are not controlled so will adjust the insulin. with the recent stroke I want the BS's well controlled. Today his appetite is good but, it varies a lot. His is bringing him foods that he likes which aren't always the healthiest but, at least he is eating now. Will schedule mealtime insulin and continued the SSI until the BS's are well controlled. (9) DKA (diabetic ketoacidoses): PLAN: resolved (10) Nausea and vomiting: PLAN: resolved (11) UTI (urinary tract infection): (12) Discharge from penis: PLAN: Resolved (13) Chest pain: PLAN: Resolved (14) Singultus: PLAN: Resolved (15) GERD (gastroesophageal reflux disease): PLAN: Better with Pantoprazole. Denies heartburn today. (16) Thrush: PLAN: Much improved. (17) History of depression: (18) Dyslipidemia associated with type 2 diabetes mellitus: (19) BPH (benign prostatic hyperplasia): (20) Nicotine dependence: (21) Ketosis: PLAN: resolved (22) Severe protein-calorie malnutrition: PLAN: Dietary is providing supplements. is bringing him food......although it is not the healthiest he is at least eating so will continue with the SSI. May consider trying Amaryl again in the future is he continues to consistently eat well. PLAN: Plan 1. Continue therapy 2. Change the glargine to 35 units every morning and none at at bedtime. [place] 5 units of lispro scheduled for each meal and continue sliding insulin scale. We will continue to adjust insulin until the blood sugars are consistently all under 180. Prefer the fasting under 130 and the 2-hour postprandial under 180. 3. BMP, mag and phos now. 4. encouraged increased fluid intake. 5. The oracle bpm developer has diagnosed Ayaan with severe protein calorie malnutrition related to poor intake from severe depression, infection and ketoacidosis. Charges/Coding Visit Charges Inpatient E&M: 16188 Subs Hosp L2
[2022-07-31] MEDS: Insulin Glargine-YFGN 100 UNIT/ML Pen 20 UNIT SC (11:08)
[2022-07-31 11:21] LABS: Bedside Glucose 399 mg/dL (74-106)
[2022-07-31 12:42] LABS: Anion Gap 5 (5-15); BUN 17 mg/dL (7-18); BUN/Creat Ratio 15.7 RATIO (10-20); Calcium,Total 9.6 mg/dL (8.5-10.1); Chloride 107 mmol/L (98-107); Creatinine, Serum 1.08 mg/dL (0.70-1.30); EST Glomerular Filtration Rate 74 mL/min (>60); Est Glom Filt Rate - Afr Amer 89 mL/min (>60); Estimated Creatinine Clearance 68.61 ml/min; Glucose 327 mg/dL (74-106); Potassium 4.2 mmol/L (3.5-5.1); Sodium Level 137 mmol/L (136-145)
[2022-07-31 12:47] VITALS: BMI 23.6
[2022-07-31 16:55] LABS: Bedside Glucose 246 mg/dL (74-106)
--- NOTE | 2022-07-31 17:03 | CASEMGMT ---
Social Work IDT met with patient and spouse for Team meeting. Discussed pt's progress in PT/OT/ST/SN. SW educated pt and that NRD is 4/7 and continued stay is not guaranteed. Pt's goal is to return home with spouse, however realistic that SNF may be required prior to return home. Pt to continue with treatment plan at this time and will ReTeam next week. MALCOM Green
[2022-07-31 19:20] VITALS: BP 133/72; PULSE 80; RESP 16; TEMP 36.7; O2SAT 95
[2022-07-31 21:00] VITALS: PULSE 80; RESP 16; O2SAT 95; BMI 23.6
[2022-07-31] MEDS: Mirtazapine 30 MG Tablet PO (21:08)
[2022-07-31] MEDS: Dronabinol 2.5 MG Capsule PO (21:08)
[2022-07-31 21:55] LABS: Bedside Glucose 209 mg/dL (74-106)
--- NOTE | 2022-08-01 01:54 | NURSING ---
Reviewed and agree with Lary CRAFT's documentation and assessment charting.
[2022-08-01] MEDS: Acetaminophen 500 MG Tablet 1000 MG PO (05:13)
[2022-08-01] MEDS: Enoxaparin 40 MG/0.4 ML Syringe SC (05:13)
[2022-08-01] MEDS: Menthol/Lanolin/Calamine/Znox 113 GM Tube 1 APPLIC TOPICAL ×2 (05:14→21:20)
[2022-08-01 07:01] LABS: Bedside Glucose 264 mg/dL (74-106)
[2022-08-01 07:25] VITALS: BP 131/67; PULSE 74; RESP 16; TEMP 36.2; O2SAT 97
[2022-08-01] MEDS: amLODIPine 5 MG Tablet PO (08:02)
[2022-08-01] MEDS: buPROPion (XL) 300 MG TABLET.XL PO (08:02)
[2022-08-01] MEDS: Aspirin 81 MG TAB.CHEW PO (08:02)
[2022-08-01] MEDS: levoFLOXacin 500 MG Tablet PO (08:02)
[2022-08-01] MEDS: Insulin Glargine-YFGN 100 UNIT/ML Pen 35 UNIT SC (08:02)
[2022-08-01] MEDS: Pantoprazole Sodium 40 MG Tablet PO (08:02)
[2022-08-01] MEDS: Lisinopril 20 MG Tablet PO (08:02)
[2022-08-01] MEDS: Clopidogrel Bisulfate 75 MG Tablet PO (08:02)
[2022-08-01] MEDS: Insulin Lispro 100 UNIT/ML INSULN.PEN SC ×7 (08:03→21:09)
[2022-08-01] MEDS: Miconazole Nitrate Cream 1 APPLIC TOPICAL ×2 (08:18→21:02)
[2022-08-01 12:06] LABS: Bedside Glucose 269 mg/dL (74-106)
[2022-08-01 13:47] VITALS: BMI 23.6
--- NOTE | 2022-08-01 16:15 | RAD_ITS ---
EXAM: XR SACRUM AND COCCYX, 2 OR MORE VIEWS CLINICAL INDICATION: pain with an opening in the skin over the sacrum TECHNIQUE: Frontal and lateral views of the sacrum and coccyx. This report was created using [employer] report [employer] technology. COMPARISON: None. FINDINGS: LIMITATIONS: The hips and pelvis are rotated on the lateral view of the lumbosacral region. Also there is rotation to the left on the frontal view including the lumbosacral region there is prominent rectal gas Limited visualization of the coccyx frontal view. SACRUM/COCCYX: See above. VERTEBRAE: Mild spondylosis anteriorly at lower lumbar levels. DISC SPACES: No acute findings. No significant disc space narrowing no posterior gas in the skin over the sacrum on the lateral view. SOFT TISSUES: Unremarkable. No soft tissue swelling or gas. GASTROINTESTINAL TRACT: Moderate stool in the ascending and descending colon. RAD/Sacrum-Coccyx min 2 Views IMPRESSION: 1. No soft tissue ulcer or gas is evident. No visible rachel bone destruction. 2. Moderate gas in the rectum. Moderate stool in the incompletely included right and left colon. Electronically Signed: Corry Yadav MD at 18:20 EDT ,
[2022-08-01 17:05] LABS: Bedside Glucose 193 mg/dL (74-106)
[2022-08-01] MEDS: Lidocaine Jelly 2% 20 ML Syringe (URO-JET) 1 APPLIC TOPICAL (17:08)
[2022-08-01] MEDS: Dronabinol 2.5 MG Capsule PO (21:00)
[2022-08-01] MEDS: Mirtazapine 30 MG Tablet PO (21:00)
[2022-08-01] MEDS: Senna/Docusate Sodium 1 Tablet PO (21:05)
[2022-08-01] MEDS: Insulin Glargine-YFGN 100 UNIT/ML Pen 8 UNIT SC (21:08)
[2022-08-01 21:36] LABS: Bedside Glucose 158 mg/dL (74-106)
[2022-08-01 22:00] VITALS: BP 97/55; PULSE 82; RESP 16; TEMP 36.7; O2SAT 94
[2022-08-01 22:54] VITALS: BMI 23.6
--- NOTE | 2022-08-02 02:03 | NURSING ---
Reviewed and agree with Hansel CRAFT, documentation and assessment charting.
[2022-08-02] MEDS: Enoxaparin 40 MG/0.4 ML Syringe SC (05:35)
[2022-08-02] MEDS: Menthol/Lanolin/Calamine/Znox 113 GM Tube 1 APPLIC TOPICAL ×2 (05:42→20:41)
[2022-08-02 06:45] LABS: Bedside Glucose 131 mg/dL (74-106)
[2022-08-02 07:59] VITALS: BP 112/62; PULSE 77; RESP 16; TEMP 36.6; O2SAT 94
[2022-08-02] MEDS: amLODIPine 5 MG Tablet PO (08:14)
[2022-08-02] MEDS: buPROPion (XL) 300 MG TABLET.XL PO (08:14)
[2022-08-02] MEDS: Lisinopril 20 MG Tablet PO (08:14)
[2022-08-02] MEDS: Pantoprazole Sodium 40 MG Tablet PO (08:15)
[2022-08-02] MEDS: levoFLOXacin 500 MG Tablet PO (08:15)
[2022-08-02] MEDS: Aspirin 81 MG TAB.CHEW PO (08:15)
[2022-08-02] MEDS: Clopidogrel Bisulfate 75 MG Tablet PO (08:15)
[2022-08-02] MEDS: Insulin Glargine-YFGN 100 UNIT/ML Pen 35 UNIT SC (08:16)
[2022-08-02] MEDS: Miconazole Nitrate Cream 1 APPLIC TOPICAL ×2 (08:17→20:41)
[2022-08-02 10:00] VITALS: BMI 23.8
[2022-08-02 11:40] LABS: Bedside Glucose 215 mg/dL (74-106)
[2022-08-02] MEDS: Insulin Lispro 100 UNIT/ML INSULN.PEN SC ×2 (11:48→16:38)
--- NOTE | 2022-08-02 11:57 | PN_ITS ---
Subjective Subjective Afebrile VSS-blood pressure this morning and last night is on the low side. Maintaining appropriate oxygen saturation on RA Oral intake fluid intake was 900 cc yesterday. This AM he is not eating again. He refused breakfast because he stated he was not hungry but I saw him while he was eating his lunch and he is hungry now and is eating. Urine OP over the past 24H is 750cc's He had to be straight cath'd twice. Blood sugar record was reviewed. Discussed with nursing - Nursing reports he is not eating again. Nights has reported for the past 2 days that he has had crackles and wheezing but yesterday he had coarse rhonchi localized posteriorly to the right upper lobe and this resolved completely after few deep breaths and a cough. Reviewed the PT/OT/ST notes Medication list reviewed. Ayaan agrees that the depression is better. He is eating, making good eye contact and is very cooperative with therapy. He has sudden outbursts of crying and can not control this. He can see that he is improving with therapy and is very motivated. Ayaan denies chest pain, shortness of breath, nausea/vomiting/abdominal pain, hiccups, heartburn, calf pain and lightheadedness. He has an occasional cough and this is unchanged over the past few days. I reviewed the radiology report of the x-rays of sacrum and coccyx. He has mild spondylosis in the lower lumbar spine anteriorly. There also appears to be some calcification of the aorta. Objective Data Objective Data Vital Signs: Vital Signs Temp Pulse Resp BP Pulse Ox O2 Del Method O2 Flow Rate 97.8 F 77 16 112/62 94 Room Air 0 08/02/22 07:59 08/02/22 07:59 08/02/22 07:59 08/02/22 07:59 08/02/22 07:59 08/02/22 10:00 07/16/22 19:51 FiO2 21 07/16/22 19:51 Oxygen Flow Rate (L/min) 0 Oxygen Delivery Method Room Air Weight: 155 lb 6.814 oz Body Mass Index (BMI) 23.6 Intake & Output: Intake and Output for Last 24 Hours 07/31/22 08/01/22 08/02/22 23:59 23:59 23:59 Intake Total 1430 / 1430 900 / 900 200 / 200 Output Total 1575 / 1575 750 / 750 700 / 700 Balance -145 / -145 150 / 150 -500 / -500 Medical Nutrition Assessment Dietitian: Malnutrition Criteria Met Start: 07/28/22 15:57 Freq: Status: Active Protocol: Document 07/30/22 13:10 RMA (Rec: 07/30/22 13:10 RMA [id number]) Nutrition Malnutrition Evidence of Malnutrition Exists Yes Malnutrition (severe): Acute Illness/Injury Evidenced By Suboptimal Energy Intake ( Severe),Weight Loss (Severe) Clinical Problem Acute Disease or Injury Related Malnutrition Etiology Severe pro-kieran malnutrition in the context of acute disease related to inadequate oral intake Signs/Symptoms as evidenced by ~10% wt loss x 10 days and PO meeting less than 50% estimated nutrition needs Status Active Problem Recommendation Dietitian Recommendations/Changes Will adjust diet to 2000 calorie/consistent carbohydrate; Cardiac diet with texture/consistency per DEFENCE FORCE SENIOR OFFICER. Chocolate Magic Cup BID with lunch and dinner meals. Will d/c glucerna shake with medpass, pt refusing. Will try chocolate ensure compact w/ breakfast for tolerance. May need to consider enteral nutrition support if PO remains inadequate and weight continues to decline. Lab / Micro Data Result Diagrams: 07/29/22 06:15 07/31/22 12:14 Labs: Laboratory Results - last 24 hr 08/01/22 11:46: POC Glucose 269 H 08/01/22 16:40: POC Glucose 193 H 08/01/22 21:07: POC Glucose 158 H 08/02/22 05:35: POC Glucose 131 H 08/02/22 11:18: POC Glucose 215 H Micro: Microbiology 07/25/22 21:32 Blood Culture (Wb) - Right Hand Blood Culture - Final No growth in 5 days. 07/25/22 21:36 Blood Culture (Wb) - Anticubital Right Blood Culture - Final No growth in 5 days. 07/25/22 11:45 Discharge - Penile Gram Stain - Final 07/25/22 11:45 Discharge - Penile Wound Culture - Final Klebsiella oxytoca Pseudomonas aeruginosa 07/25/22 11:45 Urine, Catheterized Urine Culture - Final Pseudomonas aeruginosa Klebsiella oxytoca 07/14/22 17:34 Urine Catheter - Beavers Urine Culture - Final Culture exhibits no growth. Radiography Diagnostic Testing: Radiology Impression Sacrum and Coccyx X-Ray 04/04/23 16:15 IMPRESSION: 1. No soft tissue ulcer or gas is evident. No visible rachel bone destruction. 2. Moderate gas in the rectum. Moderate stool in the incompletely included right and left colon. Electronically Signed: Corry Yadav MD at 18:20 EDT , Physical Exam Const alert and no apparent distress Constitutional Narrative: He is sitting in the recliner at the bedside eating his lunch. He makes good eye contact with me. He tells me he does not feel depressed. He suddenly started crying when I was speaking to him and he does not know why he is crying. It abruptly stopped. He is cooperative and very motivated to do his therapy. Resp normal air movement and clear to auscultation bilaterally Effort and Inspection: Negative for tachypneic or labored Cardio regular rate, regular rhythm and no gallops GI normal to inspection, nondistended, normoactive bowel sounds, soft to palpation and non-tender Extremity no calf tenderness General Extremity: Negative for edema Assessment & Plan Assessment/Plan (1) Debility: (2) Acute cerebrovascular accident (CVA): (3) Hemiplegia affecting left nondominant side: (4) Fecal incontinence: (5) Dysarthria: (6) Dysphagia: (7) Urine retention: (8) Diabetes mellitus, type 2: (9) DKA (diabetic ketoacidoses): (10) Nausea and vomiting: (11) UTI (urinary tract infection): (12) Discharge from penis: (13) Chest pain: (14) Singultus: (15) GERD (gastroesophageal reflux disease): (16) Thrush: (17) History of depression: (18) Dyslipidemia associated with type 2 diabetes mellitus: (19) BPH (benign prostatic hyperplasia): (20) Nicotine dependence: (21) Ketosis: (22) Severe protein-calorie malnutrition: (23) Pseudobulbar affect: (24) Spondylosis: PLAN: Plan 1. Continue therapy 2. Discontinue Wellbutrin due to decreased appetite and trouble sleeping last night. 3. He has pain in his back only when lying flat on his back. He has no pain when sitting up in a chair. 4. the inpt pharmacy does not have Nuedexta but, the retail pharmacy can order it and possibly have it tomorrow. I talked with both Ayaan and Cristy and they are on board with trialing this medication. I ordered it through the retail pharmacy and they will let me know when they get it in. TCA's are an option but, he already has urine retention and I do not want to make it worse with a TCA. 5. DC Marinol - it is not needed for appetite and despite Marinol he is still have crying outbursts. 6. 5 mg of Oxycodone at HS to help with the back pain when he is lying flat. Charges/Coding Visit Charges Inpatient E&M: 51135 Subs Hosp L2
[2022-08-02 14:35] VITALS: BMI 23.8
[2022-08-02 16:31] LABS: Bedside Glucose 279 mg/dL (74-106)
[2022-08-02 20:00] VITALS: BP 133/68; PULSE 90; RESP 16; TEMP 37.2; O2SAT 96
[2022-08-02] MEDS: Mirtazapine 30 MG Tablet PO (20:47)
[2022-08-02] MEDS: oxyCODONE 5 MG Tablet PO (20:47)
--- NOTE | 2022-08-02 20:49 | NURSING ---
Meds given early per pt request.
[2022-08-02] MEDS: Insulin Glargine-YFGN 100 UNIT/ML Pen 8 UNIT SC (20:59)
[2022-08-02 21:26] LABS: Bedside Glucose 239 mg/dL (74-106)
[2022-08-02] MEDS: Lidocaine Jelly 2% 20 ML Syringe (URO-JET) 1 APPLIC TOPICAL (23:55)
[2022-08-03] MEDS: Menthol/Lanolin/Calamine/Znox 113 GM Tube 1 APPLIC TOPICAL ×2 (05:42→21:42)
[2022-08-03] MEDS: Enoxaparin 40 MG/0.4 ML Syringe SC (05:42)
[2022-08-03] MEDS: Lidocaine Jelly 2% 20 ML Syringe (URO-JET) 1 APPLIC TOPICAL (05:43)
[2022-08-03 06:56] LABS: Bedside Glucose 115 mg/dL (74-106)
[2022-08-03 07:17] VITALS: BP 117/62; PULSE 74; RESP 14; TEMP 36.2; O2SAT 95
[2022-08-03] MEDS: Insulin Glargine-YFGN 100 UNIT/ML Pen 35 UNIT SC (08:08)
[2022-08-03] MEDS: Aspirin 81 MG TAB.CHEW PO (08:10)
[2022-08-03] MEDS: levoFLOXacin 500 MG Tablet PO (08:10)
[2022-08-03] MEDS: Lisinopril 20 MG Tablet PO (08:10)
[2022-08-03] MEDS: amLODIPine 5 MG Tablet PO (08:10)
[2022-08-03] MEDS: Pantoprazole Sodium 40 MG Tablet PO (08:10)
[2022-08-03] MEDS: Clopidogrel Bisulfate 75 MG Tablet PO (08:10)
[2022-08-03] MEDS: buPROPion (XL) 300 MG TABLET.XL PO (08:10)
[2022-08-03] MEDS: Miconazole Nitrate Cream 1 APPLIC TOPICAL (08:10)
[2022-08-03 09:42] VITALS: BMI 23.8
--- NOTE | 2022-08-03 11:35 | PN_ITS ---
Subjective Subjective Afebrile VSS Maintaining appropriate oxygen saturation on RA Oral fluid intake is approximately 1,000 cc/day. He had 1500 out in the past 24H. He had 25 to 49% of his breakfast this morning but ate 75-100% of his d inner last night. He had almost 50 % of lunch yesterday. The blood sugar record was reviewed. Fasting blood sugars are good but the blood sugars at lunch, supper and at bedtime are all high. Weight has stabilized. Still with urine retention. Does not have the urge to void and has been straig ht cath every 6 hours. There was a lot of irritation of the urethra from the Beavers and we are hoping to get this healed with not having a catheter in 24 hours a day Discussed with nursing - no problems that need addressed Reviewed the PT/OT/ST notes Medication list reviewed. Ayaan continues to complain of pain over his sacrum when he is lying flat in bed which she likes to do. I explained to him that the area over the sacrum on the midline appears as though it may be a pilonidal cyst and he related that his brother has had surgeries for pilonidal cysts in the past. Ayaan denies chest pain, heartburn, nausea/vomiting, vertigo, lightheadedness, cephalgia, dysuria and calf tenderness. The glans penis at the tip is less swollen but there is still some swelling there and a little redness. There is no longer any purulent discharge from the urethra. Objective Data Objective Data Vital Signs: Vital Signs Temp Pulse Resp BP Pulse Ox O2 Del Method O2 Flow Rate 97.2 F L 74 14 117/62 95 Room Air 0 08/03/22 07:17 08/03/22 07:17 08/03/22 07:17 08/03/22 07:17 08/03/22 07:17 08/02/22 20:40 07/16/22 19:51 FiO2 21 07/16/22 19:51 Oxygen Flow Rate (L/min) 0 Oxygen Delivery Method Room Air Weight: 155 lb 6.814 oz Body Mass Index (BMI) 23.8 Intake & Output: Intake and Output for Last 24 Hours 08/01/22 08/02/22 08/03/22 23:59 23:59 23:59 Intake Total 900 / 900 1040 / 1040 320 / 320 Output Total 750 / 750 1700 / 1700 500 / 500 Balance 150 / 150 -660 / -660 -180 / -180 Medical Nutrition Assessment Dietitian: Malnutrition Criteria Met Start: 07/28/22 15:57 Freq: Status: Active Protocol: Document 07/30/22 13:10 RMA (Rec: 07/30/22 13:10 RMA [id number]) Nutrition Malnutrition Evidence of Malnutrition Exists Yes Malnutrition (severe): Acute Illness/Injury Evidenced By Suboptimal Energy Intake ( Severe),Weight Loss (Severe) Clinical Problem Acute Disease or Injury Related Malnutrition Etiology Severe pro-kieran malnutrition in the context of acute disease related to inadequate oral intake Signs/Symptoms as evidenced by ~10% wt loss x 10 days and PO meeting less than 50% estimated nutrition needs Status Active Problem Recommendation Dietitian Recommendations/Changes Will adjust diet to 2000 calorie/consistent carbohydrate; Cardiac diet with texture/consistency per PRIMARY HEALTH CARE NURSE. Chocolate Magic Cup BID with lunch and dinner meals. Will d/c glucerna shake with medpass, pt refusing. Will try chocolate ensure compact w/ breakfast for tolerance. May need to consider enteral nutrition support if PO remains inadequate and weight continues to decline. Lab / Micro Data Result Diagrams: 07/29/22 06:15 07/31/22 12:14 Labs: Laboratory Results - last 24 hr 08/02/22 11:18: POC Glucose 215 H 08/02/22 16:09: POC Glucose 279 H 08/02/22 20:56: POC Glucose 239 H 08/03/22 06:37: POC Glucose 115 H Micro: Microbiology 07/25/22 21:32 Blood Culture (Wb) - Right Hand Blood Culture - Final No growth in 5 days. 07/25/22 21:36 Blood Culture (Wb) - Anticubital Right Blood Culture - Final No growth in 5 days. 07/25/22 11:45 Discharge - Penile Gram Stain - Final 07/25/22 11:45 Discharge - Penile Wound Culture - Final Klebsiella oxytoca Pseudomonas aeruginosa 07/25/22 11:45 Urine, Catheterized Urine Culture - Final Pseudomonas aeruginosa Klebsiella oxytoca 07/14/22 17:34 Urine Catheter - Beavers Urine Culture - Final Culture exhibits no growth. Physical Exam Const alert, oriented x3 and no apparent distress Constitutional Narrative: He is sitting in the recliner at the bedside eating his lunch. He makes good eye contact with me. He tells me he does not feel depressed. He suddenly started crying when I was speaking to him and he does not know why he is crying. It abruptly stopped. He is cooperative and very motivated to do his therapy. General Appearance: cooperative HEENT normocephalic Neck supple and no JVD Resp clear to auscultation bilaterally Resp Narrative: No cough. Effort and Inspection: Negative for tachypneic or labored Cardio regular rate, regular rhythm and no gallops Cardio Narrative: No ectopy GI normal to inspection, nondistended, normoactive bowel sounds, soft to palpation and non-tender GI Narrative: No suprapubic tenderness Extremity no calf tenderness Extremity Narrative: Seeing some atrophy in gastrocnemius muscles now. General Extremity: Negative for edema Skin Rashes: no rashes Wound Narrative: There is a small pin hole opening on the midline over the sacrum which is very tender to touch. There is no discharge from this wound and there is no erythema in the area but it is very sensitive to even light palpation. No obvious problems on x-ray of the sacrum and coccyx but it was not the best study due to overlying gas and stool. Psych Psych Narrative: He no longer seems depressed but cries spontaneously. He cannot tell me why he is crying. 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 He denies feeling depressed any longer. I suspect the decrease in appetite recently is secondary to Wellbutrin which has now been discontinued. Appearance: appropriate Activity / Motor Behavior: Negative for restless Thought Content: No suicidality and No homicidality Assessment & Plan Assessment/Plan (1) Debility: (2) Acute cerebrovascular accident (CVA): (3) Hemiplegia affecting left nondominant side: (4) Fecal incontinence: (5) Dysarthria: (6) Dysphagia: (7) Urine retention: (8) Diabetes mellitus, type 2: (9) UTI (urinary tract infection): (10) GERD (gastroesophageal reflux disease): (11) History of depression: (12) Dyslipidemia associated with type 2 diabetes mellitus: (13) BPH (benign prostatic hyperplasia): (14) Nicotine dependence: (15) Severe protein-calorie malnutrition: (16) Pseudobulbar affect: (17) Spondylosis: (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 Continue therapy 2. The Nuedexta is in at the retail pharmacy and will notify Cristy to pick it up so we can start it tomorrow. 3. We will add scheduled mealtime insulin to control the postprandial blood sugars. Continue sliding scale. 4. BMP and CBC in the AM. Also check an ESR and CRP 5. Antibiotics will finish in the AM. Will send a urine for UA and culture on Sunday. 6. Restart Flomax and Proscar....they were discontinued on the acute side and I did not catch this when I removed the orders. 7. Check orthostatic VS on Sunday AM. 8. CT scan of the sacrum with IV contrast Charges/Coding Visit Charges Inpatient E&M: 18863 Subs Hosp L2
[2022-08-03] MEDS: Senna/Docusate Sodium 1 Tablet PO (11:56)
[2022-08-03] MEDS: Insulin Lispro 100 UNIT/ML INSULN.PEN SC ×3 (11:59→16:45)
[2022-08-03 12:50] LABS: Bedside Glucose 258 mg/dL (74-106)
[2022-08-03] MEDS: Tamsulosin HCl 0.4 MG Capsule PO (16:44)
[2022-08-03 16:50] LABS: Bedside Glucose 223 mg/dL (74-106)
--- NOTE | 2022-08-03 18:04 | CT_ITS ---
STUDY: CT PELVIS WITH CONTRAST REASON FOR EXAM: Male, 62 years old. Pilonidal cyst -- suspect possible abscess over the sacrum RADIATION DOSAGE (If Supplied By Facility): CTDIvol = ( 26.23 ) mGy, DLP = ( 920.26 ) mGycm TECHNIQUE: Transaxial imaging of the pelvis was performed without oral contrast. IV 100mL Isovue-370 was administered intravenously. Multiplanar coronal and sagittal images were reformatted. Individualized dose optimization techniques were used for this CT. COMPARISON: None. FINDINGS: There is a heterogeneous nodular enlarged prostate impressing upon the urinary bladder. Normal visualized small intestine. There are multiple colonic diverticula of the sigmoid colon consistent with chronic diverticulosis. There is no pelvic fluid. There is no pelvic lymphadenopathy or mass lesion. There is atherosclerotic calcification of the pelvic arteries. Normal abdominal wall. There is posterior skin thickening. There is no focal fluid collection seen. There are degenerative changes of the visualized lower lumbar spine. CT/Pelvis WITH IV Contrast IMPRESSION: Posterior skin thickening. No abscess or fluid collection seen. Colonic diverticulosis. No obstruction or abscess seen. Electronically Signed: Juan M Kevin MD at 19:03 EDT ,
[2022-08-03] MEDS: oxyCODONE 5 MG Tablet PO ×2 (19:00→21:36)
[2022-08-03] MEDS: Insulin Glargine-YFGN 100 UNIT/ML Pen 8 UNIT SC (21:37)
[2022-08-03] MEDS: Mirtazapine 30 MG Tablet PO (21:37)
[2022-08-03 21:46] LABS: Bedside Glucose 200 mg/dL (74-106)
[2022-08-03 21:47] VITALS: BP 124/69; PULSE 91; RESP 18; TEMP 36.7; O2SAT 96
[2022-08-04] MEDS: Menthol/Lanolin/Calamine/Znox 113 GM Tube 1 APPLIC TOPICAL ×2 (05:43→21:41)
[2022-08-04] MEDS: Enoxaparin 40 MG/0.4 ML Syringe SC (05:43)
[2022-08-04] MEDS: Lidocaine Jelly 2% 20 ML Syringe (URO-JET) 1 APPLIC TOPICAL (05:48)
[2022-08-04 06:00] VITALS: BMI 23.8
[2022-08-04 06:30] LABS: Bedside Glucose 114 mg/dL (74-106)
[2022-08-04 07:30] VITALS: BP 125/62; PULSE 81; RESP 16; TEMP 36; O2SAT 97
[2022-08-04] MEDS: Pantoprazole Sodium 40 MG Tablet PO (07:51)
[2022-08-04] MEDS: Insulin Glargine-YFGN 100 UNIT/ML Pen 35 UNIT SC (07:51)
[2022-08-04] MEDS: Aspirin 81 MG TAB.CHEW PO (07:51)
[2022-08-04] MEDS: levoFLOXacin 500 MG Tablet PO (07:51)
[2022-08-04] MEDS: DEXTROMETHORPHAN HBR/QUINIDINE 1 EACH CAPSULE PO (07:51)
[2022-08-04] MEDS: Insulin Lispro 100 UNIT/ML INSULN.PEN SC ×5 (07:51→17:33)
[2022-08-04] MEDS: Finasteride 5 MG Tablet PO (07:51)
[2022-08-04] MEDS: Lisinopril 20 MG Tablet PO (07:51)
[2022-08-04] MEDS: amLODIPine 5 MG Tablet PO (07:51)
[2022-08-04] MEDS: Clopidogrel Bisulfate 75 MG Tablet PO (07:51)
[2022-08-04 07:59] LABS: Hematocrit 45.7 % (40-54); Hemoglobin 14.5 g/dL (13.0-16.5); Mean Corp Hgb Conc 31.7 g/dL (32-36); Mean Corpuscular Hgb 29.2 pg (27.0-32.0); Platelet Count 312 K/mm3 (150-450); RBC Distribution Width CV 12.6 % (11.6-14.6); Red Blood Count 4.97 M/mm3 (4.6-6.2); White Blood Count 6.9 K/mm3 (4.4-11.0)
[2022-08-04 08:25] LABS: Anion Gap 8 (5-15); BUN 15 mg/dL (7-18); BUN/Creat Ratio 19.7 RATIO (10-20); CRP 8.88 mg/L (0.0-3.0); Calcium,Total 8.7 mg/dL (8.5-10.1); Chloride 106 mmol/L (98-107); Creatinine, Serum 0.76 mg/dL (0.70-1.30); EST Glomerular Filtration Rate 110 mL/min (>60); Erythrocyte Sedimentation Rate 43 mm/hr (0-20); Est Glom Filt Rate - Afr Amer 133 mL/min (>60); Glucose 142 mg/dL (74-106); Potassium 3.7 mmol/L (3.5-5.1); Sodium Level 140 mmol/L (136-145)
[2022-08-04 09:40] VITALS: BMI 23.8
[2022-08-04 11:16] LABS: Bedside Glucose 167 mg/dL (74-106)
--- NOTE | 2022-08-04 12:20 | PN_ITS ---
Subjective Subjective Afebrile VSS-blood pressure is stable and within goal. Maintaining appropriate oxygen saturation on RA Oral intake is getting better. The blood sugar record was reviewed. Blood sugars were elevated after the fasting blood sugar yesterday and patient was started on scheduled lispro with meals. His at bedtime blood sugar was 200 and he received 8 units of glargine. The fasting blood sugar today is 114 and his lunch blood sugar is 167. He ate 50 to 74% of his breakfast today and had pizza for dinner last night which he ate. We are allowing him to liberalize his diet somewhat due to malnutrition and poor intake. Will continue scheduled insulin for now AND a sliding scale. I suspect the postprandial blood sugars will be better today due to the scheduled insulin at mealtime. Discussed with nursing - no problems that need addressed Reviewed the PT/OT/ST notes Medication list reviewed. He was started on Flomax yesterday afternoon and started on Proscar this AM. Nuedexta also starts this AM. He took 1 as needed oxycodone yesterday at 7 PM. All lab from this morning was personally reviewed. White blood count is 6.9 and hemoglobin and platelets are within normal limits and stable. ESR is elevated at 43 and the C-reactive protein is mildly elevated at 8.88. BMP shows a normal sodium of 140 and a potassium of 3.7. The BUN is 15 and the creatinine is 0.76 which is down from 1.08 on 07/31/2022. He has better fluid intake now. Calcium is within normal limits. I reviewed the CT scan of the sacrum and there is no focal fluid collection or pelvic adenopathy. There is no mass lesion. He has calcification of the abdominal aorta and pelvic arteries. There are degenerative changes of the visualized lower lumbar spine. There is a heterogeneous nodular enlarged prostate impressing upon the urinary bladder. Ayaan denies heartburn, chest pain, hiccups, sore throat, nausea/vomiting, ab dominal pain, suprapubic pain, calf tenderness and lightheadedness. Objective Data Objective Data Vital Signs: Vital Signs Temp Pulse Resp BP Pulse Ox O2 Del Method O2 Flow Rate 96.8 F L 81 16 125/62 H 97 Room Air 0 08/04/22 07:30 08/04/22 07:30 08/04/22 07:30 08/04/22 07:30 08/04/22 07:30 08/04/22 07:30 07/16/22 19:51 FiO2 21 07/16/22 19:51 Oxygen Flow Rate (L/min) 0 Oxygen Delivery Method Room Air Weight: 155 lb 6.814 oz Body Mass Index (BMI) 23.8 Intake & Output: Intake and Output for Last 24 Hours 08/02/22 08/03/22 08/04/22 23:59 23:59 23:59 Intake Total 1040 / 1040 1160 / 1460 300 / 300 Output Total 1700 / 1700 1050 / 1300 650 / 650 Balance -660 / -660 110 / 160 -350 / -350 Medical Nutrition Assessment Dietitian: Malnutrition Criteria Met Start: 07/28/22 15:57 Freq: Status: Active Protocol: Document 07/30/22 13:10 RMA (Rec: 07/30/22 13:10 RMA [id number]) Nutrition Malnutrition Evidence of Malnutrition Exists Yes Malnutrition (severe): Acute Illness/Injury Evidenced By Suboptimal Energy Intake ( Severe),Weight Loss (Severe) Clinical Problem Acute Disease or Injury Related Malnutrition Etiology Severe pro-kieran malnutrition in the context of acute disease related to inadequate oral intake Signs/Symptoms as evidenced by ~10% wt loss x 10 days and PO meeting less than 50% estimated nutrition needs Status Active Problem Recommendation Dietitian Recommendations/Changes Will adjust diet to 2000 calorie/consistent carbohydrate; Cardiac diet with texture/consistency per DIRECTOR OF VETERANS AFFAIRS. Chocolate Magic Cup BID with lunch and dinner meals. Will d/c glucerna shake with medpass, pt refusing. Will try chocolate ensure compact w/ breakfast for tolerance. May need to consider enteral nutrition support if PO remains inadequate and weight continues to decline. Lab / Micro Data Result Diagrams: 08/04/22 07:45 08/04/22 07:45 Labs: Laboratory Results - last 24 hr 08/03/22 11:58: POC Glucose 258 H 08/03/22 16:32: POC Glucose 223 H 08/03/22 21:23: POC Glucose 200 H 08/04/22 06:08: POC Glucose 114 H 08/04/22 07:45: WBC 6.9, RBC 4.97, Hgb 14.5, Hct 45.7, MCV 92.0, MCH 29.2, MCHC 31.7 L, RDW Std Deviation 43.0, RDW Coeff of Machelle 12.6, Plt Count 312, MPV 10.0, ESR 43 H 08/04/22 07:45: Sodium 140, Potassium 3.7, Chloride 106, Carbon Dioxide 26.0, Anion Gap 8, BUN 15, Creatinine 0.76, Estim Creat Clear Calc 97.50, Est GFR (MDRD) Af Amer 133, Est GFR (MDRD) Non-Af 110, BUN/Creatinine Ratio 19.7, Glucose 142 H, Calcium 8.7, C-React Prot Ext Range 8.88 H 08/04/22 10:53: POC Glucose 167 H Micro: Microbiology 07/25/22 21:32 Blood Culture (Wb) - Right Hand Blood Culture - Final No growth in 5 days. 07/25/22 21:36 Blood Culture (Wb) - Anticubital Right Blood Culture - Final No growth in 5 days. 07/25/22 11:45 Discharge - Penile Gram Stain - Final 07/25/22 11:45 Discharge - Penile Wound Culture - Final Klebsiella oxytoca Pseudomonas aeruginosa 07/25/22 11:45 Urine, Catheterized Urine Culture - Final Pseudomonas aeruginosa Klebsiella oxytoca 07/14/22 17:34 Urine Catheter - Beavers Urine Culture - Final Culture exhibits no growth. Radiography Diagnostic Testing: Radiology Impression Pelvis CT 08/03/22 18:04 IMPRESSION: Posterior skin thickening. No abscess or fluid collection seen. Colonic diverticulosis. No obstruction or abscess seen. Electronically Signed: Juan M Kevin MD at 19:03 EDT Reading Location ID and State: [address] [place] [address] , Service support , Physical Exam Const alert and no apparent distress General Appearance: cooperative Resp normal respiratory effort, normal air movement and clear to auscultation bilater ally Resp Narrative: No cough. Cardio regular rate, regular rhythm and no gallops Cardio Narrative: No ectopy GI normal to inspection, nondistended, normoactive bowel sounds, soft to palpation and non-tender GI Narrative: No suprapubic tenderness Extremity no calf tenderness Extremity Narrative: Seeing some atrophy in gastrocnemius muscles now. General Extremity: Negative for edema Skin Rashes: no rashes Assessment & Plan Assessment/Plan (1) Debility: (2) Acute cerebrovascular accident (CVA): (3) Hemiplegia affecting left nondominant side: (4) Fecal incontinence: (5) Dysarthria: (6) Dysphagia: (7) Urine retention: (8) Diabetes mellitus, type 2: (9) UTI (urinary tract infection): (10) GERD (gastroesophageal reflux disease): (11) History of depression: (12) Dyslipidemia associated with type 2 diabetes mellitus: (13) BPH (benign prostatic hyperplasia): (14) Nicotine dependence: (15) Severe protein-calorie malnutrition: (16) Pseudobulbar affect: (17) Spondylosis: (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 Continue therapy 2. Nuedexta was started today for suspected pseudobulbar affect 3. Continue Remeron for depression which is currently controlled. 4. Adjust insulin regimen as indicated but plan on continuing glargine twice daily and scheduled insulin at mealtime with a sliding scale. His intake is sometimes erratic and would like to avoid any hypoglycemia while keeping all blood sugars under 200. 5. UA and urine culture on Sunday. If there is still bacteriuria/pyuria will continue Levaquin for treatment for suspected prostatitis. 6. Orthostatic vital signs on Sunday a.m. 7. Hopeful that he will gain urinary continence now that Flomax and Proscar have been restarted. We will continue straight caths 4 times daily for now. Charges/Coding Visit Charges Inpatient E&M: 46849 Subs Hosp L2
[2022-08-04 17:26] LABS: Bedside Glucose 158 mg/dL (74-106)
[2022-08-04] MEDS: 0.9% Saline Lock 10 ML Syringe IV ×3 (17:34→21:43)
[2022-08-04] MEDS: Tamsulosin HCl 0.4 MG Capsule PO (17:34)
[2022-08-04 20:12] VITALS: BP 107/55; PULSE 87; RESP 18; TEMP 36.7; O2SAT 94
[2022-08-04] MEDS: oxyCODONE 5 MG Tablet PO (21:41)
[2022-08-04] MEDS: Mirtazapine 30 MG Tablet PO (21:41)
[2022-08-04] MEDS: Insulin Glargine-YFGN 100 UNIT/ML Pen 8 UNIT SC (21:43)
[2022-08-04 21:50] LABS: Bedside Glucose 212 mg/dL (74-106)
[2022-08-05] MEDS: Menthol/Lanolin/Calamine/Znox 113 GM Tube 1 APPLIC TOPICAL ×2 (05:56→22:02)
[2022-08-05] MEDS: Enoxaparin 40 MG/0.4 ML Syringe SC (05:57)
[2022-08-05] MEDS: Lidocaine Jelly 2% 20 ML Syringe (URO-JET) 1 APPLIC TOPICAL (05:57)
[2022-08-05 07:05] LABS: Bedside Glucose 99 mg/dL (74-106)
[2022-08-05 07:31] VITALS: BP 112/64; PULSE 72; RESP 16; TEMP 35.9; O2SAT 95
[2022-08-05] MEDS: Pantoprazole Sodium 40 MG Tablet PO (08:04)
[2022-08-05] MEDS: amLODIPine 5 MG Tablet PO (08:04)
[2022-08-05] MEDS: Aspirin 81 MG TAB.CHEW PO (08:04)
[2022-08-05] MEDS: Lisinopril 20 MG Tablet PO (08:04)
[2022-08-05] MEDS: oxyCODONE 5 MG Tablet PO ×2 (08:04→21:57)
[2022-08-05] MEDS: Clopidogrel Bisulfate 75 MG Tablet PO (08:04)
[2022-08-05] MEDS: DEXTROMETHORPHAN HBR/QUINIDINE 1 EACH CAPSULE PO (08:05)
[2022-08-05] MEDS: Insulin Lispro 100 UNIT/ML INSULN.PEN SC ×3 (08:07→16:39)
[2022-08-05] MEDS: Finasteride 5 MG Tablet PO (08:08)
[2022-08-05] MEDS: Insulin Glargine-YFGN 100 UNIT/ML Pen 35 UNIT SC (09:43)
[2022-08-05 10:06] LABS: Bedside Glucose 180 mg/dL (74-106)
[2022-08-05 11:21] LABS: Bedside Glucose 144 mg/dL (74-106)
[2022-08-05 11:59] VITALS: BMI 23.8
[2022-08-05] MEDS: Tamsulosin HCl 0.4 MG Capsule PO (16:36)
[2022-08-05] MEDS: Insulin Lispro 100 UNIT/ML INSULN.PEN 7 UNIT SC (16:38)
[2022-08-05 17:01] LABS: Bedside Glucose 213 mg/dL (74-106)
[2022-08-05 19:46] VITALS: BP 126/65; PULSE 72; RESP 18; TEMP 36.7; O2SAT 97
[2022-08-05 21:25] LABS: Bedside Glucose 203 mg/dL (74-106)
[2022-08-05] MEDS: Insulin Glargine-YFGN 100 UNIT/ML Pen 8 UNIT SC (21:50)
[2022-08-05] MEDS: Mirtazapine 30 MG Tablet PO (21:51)
[2022-08-05 22:00] VITALS: PULSE 72; RESP 15
[2022-08-05] MEDS: 0.9% Saline Lock 10 ML Syringe IV (22:04)
[2022-08-05 22:43] VITALS: BMI 23.8
[2022-08-06] MEDS: Lidocaine Jelly 2% 20 ML Syringe (URO-JET) 1 APPLIC TOPICAL ×2 (00:05→06:13)
[2022-08-06] MEDS: Enoxaparin 40 MG/0.4 ML Syringe SC (05:33)
[2022-08-06] MEDS: Menthol/Lanolin/Calamine/Znox 113 GM Tube 1 APPLIC TOPICAL ×2 (05:33→21:57)
[2022-08-06] MEDS: Senna/Docusate Sodium 1 Tablet PO ×2 (06:12→13:39)
[2022-08-06 06:55] LABS: Bedside Glucose 87 mg/dL (74-106)
[2022-08-06 07:42] VITALS: BP 107/55; PULSE 80; RESP 15; TEMP 36.1; O2SAT 93
[2022-08-06] MEDS: amLODIPine 5 MG Tablet PO (08:11)
[2022-08-06] MEDS: Aspirin 81 MG TAB.CHEW PO (08:11)
[2022-08-06] MEDS: Finasteride 5 MG Tablet PO (08:11)
[2022-08-06] MEDS: oxyCODONE 5 MG Tablet PO ×2 (08:12→21:52)
[2022-08-06] MEDS: Pantoprazole Sodium 40 MG Tablet PO (08:12)
[2022-08-06] MEDS: Lisinopril 20 MG Tablet PO (08:12)
[2022-08-06] MEDS: Clopidogrel Bisulfate 75 MG Tablet PO (08:12)
[2022-08-06] MEDS: DEXTROMETHORPHAN HBR/QUINIDINE 1 EACH CAPSULE PO (08:13)
[2022-08-06] MEDS: Insulin Lispro 100 UNIT/ML INSULN.PEN SC ×4 (08:14→16:34)
[2022-08-06] MEDS: Insulin Glargine-YFGN 100 UNIT/ML Pen 35 UNIT SC (11:05)
[2022-08-06 11:20] LABS: Bedside Glucose 173 mg/dL (74-106)
[2022-08-06] MEDS: 0.9% Saline Lock 10 ML Syringe IV ×2 (13:33→21:57)
[2022-08-06 13:35] VITALS: BMI 23.8
[2022-08-06] MEDS: Insulin Lispro 100 UNIT/ML INSULN.PEN 8 UNIT SC (16:33)
[2022-08-06 16:34] LABS: Bacteria 0 SEEN /hpf (None Seen); Mucous, Urine 0 SEEN /hpf (<or=2+)
[2022-08-06] MEDS: Tamsulosin HCl 0.4 MG Capsule PO (16:34)
[2022-08-06 16:38] LABS: Color, Urine Yellow (Yellow); Glucose, Dipstick 1000 mg/dl (Normal); Ketone-Dipstick Negative (Negative); Leukocyte Esterase-Dipstick Negative /ul (Negative); Nitrite-Dipstick Negative (Negative); Occult Blood-Urine Negative /ul (Negative); Protein-Dipstick 30 mg/dl (Negative); Urine Bilirubin Dipstick Negative (Negative); Urine Clarity Sl. Cloudy (Clear); Urine Urobilinogen Normal (Normal)
[2022-08-06 16:41] LABS: Bedside Glucose 263 mg/dL (74-106)
[2022-08-06 16:44] LABS: Amorphous Sediment 1+ URATE; Red Blood Cells-Urine 0 SEEN /hpf (0-5); Squamous Epithelial Cells - UA 0-5 SEEN /hpf (0-5); White Blood Cells 0-5 SEEN /hpf (0-5)
[2022-08-06 19:28] VITALS: BP 131/74; PULSE 81; RESP 16; TEMP 36.6; O2SAT 98
[2022-08-06 21:46] LABS: Bedside Glucose 200 mg/dL (74-106)
[2022-08-06] MEDS: Mirtazapine 30 MG Tablet PO (21:47)
[2022-08-06] MEDS: Insulin Glargine-YFGN 100 UNIT/ML Pen 8 UNIT SC (21:48)
[2022-08-06 22:00] VITALS: PULSE 81; RESP 16
[2022-08-06 22:34] VITALS: BMI 23.8
[2022-08-07] MEDS: Lidocaine Jelly 2% 20 ML Syringe (URO-JET) 1 APPLIC TOPICAL ×2 (00:05→05:10)
[2022-08-07 06:00] VITALS: BMI 24.1
[2022-08-07] MEDS: Enoxaparin 40 MG/0.4 ML Syringe SC (06:09)
[2022-08-07] MEDS: Menthol/Lanolin/Calamine/Znox 113 GM Tube 1 APPLIC TOPICAL ×2 (06:09→21:13)
[2022-08-07 06:30] VITALS: BP 102/75; BP 134/69; BP 149/79; PULSE 71; PULSE 75; PULSE 87
[2022-08-07 07:07] VITALS: BP 137/62; PULSE 70; RESP 16; TEMP 36.4; O2SAT 94
[2022-08-07 07:15] LABS: Bedside Glucose 103 mg/dL (74-106)
[2022-08-07] MEDS: Insulin Lispro 100 UNIT/ML INSULN.PEN SC ×4 (07:56→17:25)
[2022-08-07] MEDS: Senna/Docusate Sodium 1 Tablet PO (07:57)
[2022-08-07] MEDS: Clopidogrel Bisulfate 75 MG Tablet PO (07:57)
[2022-08-07] MEDS: oxyCODONE 5 MG Tablet PO ×2 (07:57→21:11)
[2022-08-07] MEDS: amLODIPine 5 MG Tablet PO (07:57)
[2022-08-07] MEDS: Aspirin 81 MG TAB.CHEW PO (07:57)
[2022-08-07] MEDS: Lisinopril 20 MG Tablet PO (07:57)
[2022-08-07] MEDS: Pantoprazole Sodium 40 MG Tablet PO (07:57)
[2022-08-07] MEDS: Finasteride 5 MG Tablet PO (07:58)
[2022-08-07] MEDS: DEXTROMETHORPHAN HBR/QUINIDINE 1 EACH CAPSULE PO (08:00)
[2022-08-07 10:13] VITALS: BMI 23.8
[2022-08-07] MEDS: Insulin Glargine-YFGN 100 UNIT/ML Pen 35 UNIT SC (11:06)
[2022-08-07 11:55] LABS: Bedside Glucose 160 mg/dL (74-106)
--- NOTE | 2022-08-07 11:59 | PN_ITS ---
Subjective Subjective Ayaan was seen on team rounds today. Cristy was present in the room for rounds. Afebrile VSS-blood pressure is well controlled and within goal. Maintaining appropriate oxygen saturation on RA Oral fluid intake has improved over the weekend. His weight today is 157.2 pounds and is slowly increasing. We have been routinely doing a straight cath every 6 hours. Will change that to PRN BS > 350 with no voiding. The blood sugar record was reviewed. Fasting blood sugar this morning was 103 and the at bedtime sugar was 200. He was 263 at supper yesterday. He is 160 at lunch today. Discussed with nursing - no problems that need addressed. He cried only 1 time yesterday and that is when he was talking on the phone to his brother. Reviewed the PT/OT/ST notes-he is making good progress in all disciplines. Medication list reviewed. UA shows negative ketones, 0 RBCs, 0-5 WBCs and 0-5 squamous epithelial cells. There are 1+ urate crystals and no bacteria seen. Urine culture is pending. Ayaan tells me he is eating well and sleeping well now. He continues to perseverate on crying but his episodes are much less per my observation and nursing. He denies chest pain, shortness of breath, cough, lightheadedness, nausea/vomiting/abdominal pain, dysuria and calf tenderness. Objective Data Objective Data Vital Signs: Vital Signs Temp Pulse Resp BP Pulse Ox O2 Del Method O2 Flow Rate 97.5 F L 70 16 137/62 H 94 Room Air 0 08/07/22 07:07 08/07/22 07:07 08/07/22 07:07 08/07/22 07:07 08/07/22 07:07 08/07/22 07:07 07/16/22 19:51 FiO2 21 07/16/22 19:51 Oxygen Flow Rate (L/min) 0 Oxygen Delivery Method Room Air Weight: 157 lb 3.033 oz Body Mass Index (BMI) 23.8 Intake & Output: Intake and Output for Last 24 Hours 08/05/22 08/06/22 08/07/22 23:59 23:59 23:59 Intake Total 1370 / 1610 1680 / 1780 160 / 160 Output Total 1050 / 1470 1740 / 2140 675 / 675 Balance 320 / 140 -60 / -360 -515 / -515 Medical Nutrition Assessment Dietitian: Malnutrition Criteria Met Start: 07/28/22 15:57 Freq: Status: Active Protocol: Document 07/30/22 13:10 RMA (Rec: 07/30/22 13:10 RMA [id number]) Nutrition Malnutrition Evidence of Malnutrition Exists Yes Malnutrition (severe): Acute Illness/Injury Evidenced By Suboptimal Energy Intake ( Severe),Weight Loss (Severe) Clinical Problem Acute Disease or Injury Related Malnutrition Etiology Severe pro-kieran malnutrition in the context of acute disease related to inadequate oral intake Signs/Symptoms as evidenced by ~10% wt loss x 10 days and PO meeting less than 50% estimated nutrition needs Status Active Problem Recommendation Dietitian Recommendations/Changes Will adjust diet to 2000 calorie/consistent carbohydrate; Cardiac diet with texture/consistency per MANAGER SWITCH. Chocolate Magic Cup BID with lunch and dinner meals. Will d/c glucerna shake with medpass, pt refusing. Will try chocolate ensure compact w/ breakfast for tolerance. May need to consider enteral nutrition support if PO remains inadequate and weight continues to decline. Lab / Micro Data Result Diagrams: 08/04/22 07:45 08/04/22 07:45 Labs: Laboratory Results - last 24 hr 08/06/22 16:03: POC Glucose 263 H 08/06/22 16:20: Urine Color Yellow, Urine Clarity Sl. Cloudy, Urine pH 6.0, Ur Specific [place] 1.020, Urine Protein 30 H, Urine Glucose (UA) 1000 H, Urine Ketones Negative, Urine Occult Blood Negative, Urine Nitrite Negative, Urine Bilirubin Negative, Urine Urobilinogen Normal, Ur Leukocyte Esterase Negative, Urine RBC 0 SEEN, Urine WBC 0-5 SEEN, Ur Squamous Epith Cells 0-5 SEEN, Amorphous Sediment 1+ URATE, Urine Bacteria 0 SEEN, Urine Mucus 0 SEEN 08/06/22 21:19: POC Glucose 200 H 08/07/22 06:17: POC Glucose 103 08/07/22 11:05: POC Glucose 160 H Micro: Microbiology 07/25/22 21:32 Blood Culture (Wb) - Right Hand Blood Culture - Final No growth in 5 days. 07/25/22 21:36 Blood Culture (Wb) - Anticubital Right Blood Culture - Final No growth in 5 days. 07/25/22 11:45 Discharge - Penile Gram Stain - Final 07/25/22 11:45 Discharge - Penile Wound Culture - Final Klebsiella oxytoca Pseudomonas aeruginosa 07/25/22 11:45 Urine, Catheterized Urine Culture - Final Pseudomonas aeruginosa Klebsiella oxytoca 07/14/22 17:34 Urine Catheter - Beavers Urine Culture - Final Culture exhibits no growth. Physical Exam Const alert, oriented x3 and no apparent distress Constitutional Narrative: Cries easily when I talk about his son bringing Easter dinner for him.....Cristy tells us that this would have made him cry even prior to the stroke. Making good eye contact with whomever is speaking. HEENT moist oral mucous membranes Resp clear to auscultation bilaterally Cardio regular rate, regular rhythm and no gallops GI normal to inspection, nondistended, normoactive bowel sounds, soft to palpation and non-tender GI Narrative: Still having occasional hiccups but, no CP and no heartburn and no N/V Extremity no calf tenderness General Extremity: Negative for edema Skin General Skin Exam: no breakdown Rashes: no rashes Wound Narrative: Did not c/o of pain in the backside today. Assessment & Plan Assessment/Plan (1) Debility: (2) Acute cerebrovascular accident (CVA): (3) Hemiplegia affecting left nondominant side: (4) Fecal incontinence: (5) Dysarthria: (6) Dysphagia: (7) Urine retention: (8) Diabetes mellitus, type 2: (9) UTI (urinary tract infection): (10) GERD (gastroesophageal reflux disease): (11) History of depression: (12) Dyslipidemia associated with type 2 diabetes mellitus: (13) BPH (benign prostatic hyperplasia): (14) Nicotine dependence: (15) Severe protein-calorie malnutrition: (16) Pseudobulbar affect: (17) Spondylosis: (18) Pilonidal cyst of cleft: PLAN: No abscess or bone destruction on the CT scan. PLAN: Plan 1. Continue therapy 2. Increase the a.m. lispro to 6 units and the lunchtime lispro to 6 units and continue sliding insulin scale. 3. No other changes to the medication list today. 4. He is making good progress with therapy and requiring less help with ADL's. Nursing is not able to ambulate him to the with no assist from therapy. Charges/Coding Visit Charges Inpatient E&M: 61939 Subs Hosp L2
[2022-08-07] MEDS: Bisacodyl 10 MG Suppository RC (12:02)
--- NOTE | 2022-08-07 12:45 | CASEMGMT ---
Social Work IDT met with patient and for Team meeting. Discussed patient's progress in PT/OT/ST/SN. Educated to [facility] insurance with [employer] 08/11 and continued stay is not guaranteed. The DC goal remains home with closer to PLOF. Will ReTeam weekly. SW to continue to follow. Ida Haynes, RENTAL AGENT SCHOOL HEALTH ASSISTANT
[2022-08-07] MEDS: 0.9% Saline Lock 10 ML Syringe IV ×2 (15:17→21:13)
[2022-08-07 16:40] LABS: Bedside Glucose 253 mg/dL (74-106)
[2022-08-07] MEDS: Tamsulosin HCl 0.4 MG Capsule PO (17:24)
[2022-08-07] MEDS: Insulin Lispro 100 UNIT/ML INSULN.PEN 8 UNIT SC (17:24)
[2022-08-07 20:31] VITALS: BP 112/65; PULSE 76; RESP 17; TEMP 36.6; O2SAT 96
[2022-08-07] MEDS: Mirtazapine 30 MG Tablet PO (21:12)
[2022-08-07] MEDS: Senna/Docusate Sodium 1 Tablet 2 TABLET PO (21:12)
[2022-08-07] MEDS: Insulin Glargine-YFGN 100 UNIT/ML Pen 8 UNIT SC (21:23)
[2022-08-07 21:32] VITALS: BMI 23.8
[2022-08-07 21:55] LABS: Bedside Glucose 162 mg/dL (74-106)
[2022-08-08] MEDS: Menthol/Lanolin/Calamine/Znox 113 GM Tube 1 APPLIC TOPICAL ×2 (06:22→21:19)
[2022-08-08] MEDS: Enoxaparin 40 MG/0.4 ML Syringe SC (06:22)
--- NOTE | 2022-08-08 06:31 | NURSING ---
Addendum entered by Martha Yousif 08/08/22 06:51: Blood sugar at 15 minute recheck is 88. Original Note: Fasting blood sugar this am 62, pt asymptomatic, given thickened orange juice with sugar, will recheck in 15 minutes.
[2022-08-08 07:11] LABS: Bedside Glucose 62 mg/dL (74-106)
[2022-08-08 07:11] LABS: Bedside Glucose 88 mg/dL (74-106)
[2022-08-08 07:28] VITALS: BP 135/51; PULSE 77; RESP 15; TEMP 36.2; O2SAT 95
[2022-08-08] MEDS: Insulin Glargine-YFGN 100 UNIT/ML Pen 35 UNIT SC (07:53)
[2022-08-08] MEDS: Pantoprazole Sodium 40 MG Tablet PO (07:54)
[2022-08-08] MEDS: Clopidogrel Bisulfate 75 MG Tablet PO (07:54)
[2022-08-08] MEDS: Senna/Docusate Sodium 1 Tablet 2 TABLET PO ×2 (07:54→21:18)
[2022-08-08] MEDS: Aspirin 81 MG TAB.CHEW PO (07:55)
[2022-08-08] MEDS: Insulin Lispro 100 UNIT/ML INSULN.PEN 6 UNIT SC ×2 (07:55→11:55)
[2022-08-08] MEDS: Lisinopril 20 MG Tablet PO (07:55)
[2022-08-08] MEDS: Multivitamins,Therapeutic Tablet 1 TABLET PO (07:55)
[2022-08-08] MEDS: amLODIPine 5 MG Tablet PO (07:55)
[2022-08-08] MEDS: Finasteride 5 MG Tablet PO (07:56)
[2022-08-08] MEDS: DEXTROMETHORPHAN HBR/QUINIDINE 1 EACH CAPSULE PO (07:56)
[2022-08-08] MEDS: 0.9% Saline Lock 10 ML Syringe IV (07:58)
[2022-08-08 09:42] VITALS: BMI 23.8
--- NOTE | 2022-08-08 11:24 | PN_ITS ---
Subjective Subjective Afebrile VSS Systolic is in the mid 130's and the diastolic is WNL. Maintaining appropriate oxygen saturation on RA Oral intake is good The blood sugar record was reviewed. BS's are very difficult to control due to non-compliance with diet. This morning the FBS was 62 and he was given orange juice. The blood sugar come up to 88. Then he ate a chocolate covered peanut butter filled Easter rabbit that was laying on his bedside table along with a [employer] bar. There are multiple cans of soda lined up on the ledge in his room. His is bringing food from outside without regard to carb control. Discussed with nursing - no problems that need addressed Reviewed the PT/OT/ST notes Medication list reviewed. Ayaan denies lightheadedness, vertigo, CP, SOB at rest, SOB with exertion, cough, nausea, vomiting, abd pain, diarrhea, constipation, dysuria, calf pain and ankle swelling. Has occasional hiccups. Tells me that he is sleeping well. No crying today while I talked with him. Culture from Sunday has no growth. Objective Data Objective Data Vital Signs: Vital Signs Temp Pulse Resp BP Pulse Ox O2 Del Method O2 Flow Rate 97.2 F L 77 15 135/51 H 95 Room Air 0 08/08/22 07:28 08/08/22 07:28 08/08/22 07:28 08/08/22 07:28 08/08/22 07:28 08/08/22 07:28 07/16/22 19:51 FiO2 21 07/16/22 19:51 Oxygen Flow Rate (L/min) 0 Oxygen Delivery Method Room Air Weight: 158 lb 11.725 oz Body Mass Index (BMI) 23.8 Intake & Output: Intake and Output for Last 24 Hours 08/06/22 08/07/22 08/08/22 23:59 23:59 23:59 Intake Total 1680 / 1780 1060 / 1060 590 / 590 Output Total 1740 / 2140 1275 / 1275 420 / 420 Balance -60 / -360 -215 / -215 170 / 170 Medical Nutrition Assessment Dietitian: Malnutrition Criteria Met Start: 07/28/22 15:57 Freq: Status: Active Protocol: Document 07/30/22 13:10 RMA (Rec: 07/30/22 13:10 RMA [id number]) Nutrition Malnutrition Evidence of Malnutrition Exists Yes Malnutrition (severe): Acute Illness/Injury Evidenced By Suboptimal Energy Intake ( Severe),Weight Loss (Severe) Clinical Problem Acute Disease or Injury Related Malnutrition Etiology Severe pro-kieran malnutrition in the context of acute disease related to inadequate oral intake Signs/Symptoms as evidenced by ~10% wt loss x 10 days and PO meeting less than 50% estimated nutrition needs Status Active Problem Recommendation Dietitian Recommendations/Changes Will adjust diet to 2000 calorie/consistent carbohydrate; Cardiac diet with texture/consistency per CIGAR MAKING MACHINE SUPERVISOR. Chocolate Magic Cup BID with lunch and dinner meals. Will d/c glucerna shake with medpass, pt refusing. Will try chocolate ensure compact w/ breakfast for tolerance. May need to consider enteral nutrition support if PO remains inadequate and weight continues to decline. Lab / Micro Data Result Diagrams: 08/04/22 07:45 08/04/22 07:45 Labs: Laboratory Results - last 24 hr 08/07/22 11:05: POC Glucose 160 H 08/07/22 16:05: POC Glucose 253 H 08/07/22 21:23: POC Glucose 162 H 08/08/22 06:25: POC Glucose 62 L 08/08/22 06:49: POC Glucose 88 Micro: Microbiology 08/06/22 16:20 Urine, Catheterized Urine Culture - Preliminary Culture exhibits no growth. 07/25/22 21:32 Blood Culture (Wb) - Right Hand Blood Culture - Final No growth in 5 days. 07/25/22 21:36 Blood Culture (Wb) - Anticubital Right Blood Culture - Final No growth in 5 days. 07/25/22 11:45 Discharge - Penile Gram Stain - Final 07/25/22 11:45 Discharge - Penile Wound Culture - Final Klebsiella oxytoca Pseudomonas aeruginosa 07/25/22 11:45 Urine, Catheterized Urine Culture - Final Pseudomonas aeruginosa Klebsiella oxytoca 07/14/22 17:34 Urine Catheter - Beavers Urine Culture - Final Culture exhibits no growth. Physical Exam Const alert Constitutional Narrative: still with L facial droop but, mild compared to admission. He is pleasant and not tearful. General Appearance: cooperative HEENT moist oral mucous membranes and oropharynx normal Resp normal respiratory effort, normal air movement and clear to auscultation bilaterally Cardio regular rate, regular rhythm and no gallops Cardio Narrative: No ectopy GI normal to inspection, nondistended, normoactive bowel sounds, soft to palpation and non-tender GI Narrative: Denies dysuria. He was straight cathed last night for 392 cc. He has been unable to void at all and is being straight cath'd anytime the residual is > 350. Extremity no calf tenderness General Extremity: Negative for edema Skin General Skin Exam: no breakdown Rashes: no rashes Assessment & Plan Assessment/Plan (1) Debility: (2) Acute cerebrovascular accident (CVA): PLAN: Still with a flaccid left upper extremity. He now has some subluxation of the left shoulder joint due to this. His has ordered a sling recommended by therapy to prevent subluxation. (3) Hemiplegia affecting left nondominant side: PLAN: On 08/07/2022 he was able to complete the tug test using a hemiwalker and he did this 3 times. The average time was 73.5 seconds and he required mod/max assist to advance his left lower extremity forward and min assist for trunk. (4) Fecal incontinence: PLAN: This has resolved and he is now continent of stool. (5) Dysarthria: (6) Dysphagia: (7) Urine retention: PLAN: No longer even initiating urination. (8) Diabetes mellitus, type 2: PLAN: Not ideally controlled......not compliant with a carb controlled diet. Eating outside lizzette brought in by family. (9) History of depression: PLAN: Depression is under good control with Remeron (10) Dyslipidemia associated with type 2 diabetes mellitus: PLAN: Intolerant of statins due to markedly elevated LFT's per his . Will start Zetia. (11) BPH (benign prostatic hyperplasia): (12) Nicotine dependence: (13) Severe protein-calorie malnutrition: (14) Pseudobulbar affect: (15) Spondylosis: (16) Pilonidal cyst of montse cleft: PLAN: No abscess or bone destruction on the CT scan. (17) Subluxation of left shoulder joint: PLAN: Plan 1. Continue therapy 2. Add Zetia 10 mg daily to his current drug regimen 3. Not able to initiate urination. He is on both Flomax and Proscar. I suspect he has neurogenic bladder. Will consult urology to see if there are other options besides catheterization. PSA is normal. I do not think retention is medication induced. The Beavers caused UTI and swelling and DC from the tip of the glans.....will continue with intermittent straight caths. 4. No evidence sertonin S with the addition of the Nuedexta to the Remeron. Ayaan and I had a discussion about the cause of the stroke. When I asked him what he thought lead to and ischemic stroke at such a young age her said I have no idea. I once again reviewed the RF's for stroke.....HTN, DM, HLD, smoking, male >50, FH of CV disease.......Ayaan has all of these. And the diabetes is uncontrolled and remains uncontrolled in the hospital due to consumption of food brought in by family. I suggested he needs to take control of his life and not rely on his to make all the decisions and take care of him. He is making good progress in therapy. We are working toward getting Ayaan to be more independent with ADL's so the burden on the customer care team coach is decreased. I am going to have the help desk technician speak with Ayaan by himself so he knows what is not good for him to be eating and how to control the BS's with diet, exercise and medication. Charges/Coding Visit Charges Inpatient E&M: 43922 Subs Hosp L2
[2022-08-08 11:35] LABS: Bedside Glucose 228 mg/dL (74-106)
[2022-08-08] MEDS: Insulin Lispro 100 UNIT/ML INSULN.PEN SC ×2 (11:54→11:55)
[2022-08-08 16:31] LABS: Bedside Glucose 71 mg/dL (74-106)
[2022-08-08] MEDS: Insulin Lispro 100 UNIT/ML INSULN.PEN 8 UNIT SC (17:27)
[2022-08-08] MEDS: Tamsulosin HCl 0.4 MG Capsule PO (17:28)
[2022-08-08 21:00] VITALS: BP 140/67; PULSE 88; RESP 18; TEMP 36.9; O2SAT 98; BMI 23.8
[2022-08-08] MEDS: Insulin Glargine-YFGN 100 UNIT/ML Pen 8 UNIT SC (21:17)
[2022-08-08] MEDS: Mirtazapine 30 MG Tablet PO (21:17)
[2022-08-08] MEDS: oxyCODONE 5 MG Tablet PO (21:18)
[2022-08-08 21:40] LABS: Bedside Glucose 154 mg/dL (74-106)
[2022-08-09] MEDS: Menthol/Lanolin/Calamine/Znox 113 GM Tube 1 APPLIC TOPICAL ×2 (05:56→21:31)
[2022-08-09] MEDS: Enoxaparin 40 MG/0.4 ML Syringe SC (05:56)
[2022-08-09 06:55] LABS: Bedside Glucose 73 mg/dL (74-106)
[2022-08-09 07:52] VITALS: BP 134/66; PULSE 69; RESP 15; TEMP 36.4; O2SAT 96
[2022-08-09] MEDS: Ezetimibe 10 MG Tablet PO (08:08)
[2022-08-09] MEDS: Pantoprazole Sodium 40 MG Tablet PO (08:08)
[2022-08-09] MEDS: Clopidogrel Bisulfate 75 MG Tablet PO (08:08)
[2022-08-09] MEDS: Finasteride 5 MG Tablet PO (08:08)
[2022-08-09] MEDS: Lisinopril 20 MG Tablet PO (08:08)
[2022-08-09] MEDS: Senna/Docusate Sodium 1 Tablet 2 TABLET PO ×2 (08:08→21:17)
[2022-08-09] MEDS: DEXTROMETHORPHAN HBR/QUINIDINE 1 EACH CAPSULE PO (08:09)
[2022-08-09] MEDS: Aspirin 81 MG TAB.CHEW PO (08:09)
[2022-08-09] MEDS: Multivitamins,Therapeutic Tablet 1 TABLET PO (08:09)
[2022-08-09] MEDS: Insulin Lispro 100 UNIT/ML INSULN.PEN 6 UNIT SC ×2 (08:09→12:26)
[2022-08-09] MEDS: amLODIPine 5 MG Tablet PO (08:09)
[2022-08-09] MEDS: Insulin Glargine-YFGN 100 UNIT/ML Pen 35 UNIT SC (08:10)
[2022-08-09 12:24] VITALS: BMI 23.8
[2022-08-09 12:40] LABS: Bedside Glucose 137 mg/dL (74-106)
[2022-08-09 13:23] VITALS: BMI 23.8
[2022-08-09] MEDS: Tamsulosin HCl 0.4 MG Capsule PO (17:23)
[2022-08-09] MEDS: Insulin Lispro 100 UNIT/ML INSULN.PEN 8 UNIT SC (17:23)
[2022-08-09 17:25] LABS: Bedside Glucose 108 mg/dL (74-106)
[2022-08-09 20:00] VITALS: BP 121/62; PULSE 80; RESP 17; TEMP 36.9; O2SAT 96
[2022-08-09] MEDS: Insulin Glargine-YFGN 100 UNIT/ML Pen 8 UNIT SC (21:17)
[2022-08-09] MEDS: Mirtazapine 30 MG Tablet PO (21:17)
[2022-08-09] MEDS: oxyCODONE 5 MG Tablet PO (21:18)
[2022-08-09] MEDS: 0.9% Saline Lock 10 ML Syringe IV (21:25)
[2022-08-09 21:50] LABS: Bedside Glucose 187 mg/dL (74-106)
[2022-08-10] MEDS: Enoxaparin 40 MG/0.4 ML Syringe SC (06:15)
[2022-08-10] MEDS: Menthol/Lanolin/Calamine/Znox 113 GM Tube 1 APPLIC TOPICAL ×2 (06:15→21:52)
[2022-08-10 07:00] LABS: Bedside Glucose 106 mg/dL (74-106)
--- NOTE | 2022-08-10 07:13 | CON.PCM.UR_ITS ---
Assessment & Plan Assessment/Plan (1) Urine retention: PLAN: Continue with self-admitted catheterization, he can do self- catheterization when he goes home, have the nurses teach him how to do self- catheterization. He can follow-up with his urologist in [place]. Signing off call me with questions HPI Consult Data Date of Consult: 08/10/22 HPI Narrative Reason for Consultation: Urinary retention HPI Narrative: HUGH VALENCIA, is a 62 M who currently is in rehab she he is suffered a stroke according to the patient. Also has not he been able to urinate he is on medical therapy, and the nurses have been doing intermittent straight catheterization which is probably the best management for urinary retention. I told the patient to continue with intermittent straight catheterization in fact it would be best if the nurses teach the patient how to do that himself and when he is discharged she can continue with self and self intermittent Catheterization. He does have a urologist he lives in [place] and he says he can follow-up with the urologist after discharge. [facility] Medical History BPH (benign prostatic hyperplasia) Chewing tobacco use Diabetes mellitus, type 2 Former cigarette smoker GERD (gastroesophageal reflux disease) History of alcohol abuse History of depression History of vitreous hemorrhage of right eye Hypertension Hypertension Overweight Home Medications aspirin 81 mg tablet 81 mg PO DAILY heart health 07/09/22 [History Last Taken 07/25/22 81] lisinopril 40 mg tablet 20 mg PO DAILY blood pressure 07/09/22 [History Last Taken 07/25/22] insulin glargine-yfgn 100 unit/mL (3 mL) subcutaneous pen 10 unit subcut BID DM 07/12/22 [History Last Taken 07/25/22] amlodipine 5 mg tablet (Norvasc) 5 mg PO DAILY blood pressure 07/26/22 [History Last Taken Unknown] acetaminophen 500 mg tablet 1,000 mg PO Q8H PRN PRN Pain 1-10 Or Fever #0 tabs 07/28/22 [Rx Last Taken Unknown] bupropion HCl 150 mg 24 hr tablet, extended release 150 mg PO DAILY mood 07/28/22 [History Last Taken Unknown] chlorpromazine 25 mg tablet 12.5 mg PO TID PRN PRN Hiccups #0 tabs 07/28/22 [Rx Last Taken Unknown] clopidogrel 75 mg tablet 75 mg PO DAILY blood thinner 07/28/22 [History Last Taken Unknown] enoxaparin 40 mg/0.4 mL subcutaneous syringe 40 mg subcut DAILY@0600 blood thinner 07/28/22 [History Last Taken Unknown] levofloxacin 500 mg tablet 500 mg PO DAILY atb 07/28/22 [History Last Taken Unk nown] mirtazapine 30 mg tablet 30 mg PO QHS sleep 07/28/22 [History Last Taken Unknown] nutrition tx glu intol,lac-free,soy-fiber 0.06 gram-1.2 kcal/mL liquid (Glucerna 1.2 Rudi) 120 ml PO TIDCM supp 07/28/22 [History Last Taken Unknown] pantoprazole 40 mg tablet,delayed release 40 mg PO DAILY stomach acid 07/28/22 [History Last Taken Unknown] phenazopyridine 95 mg tablet (Azo Urinary Pain Relief) 190 mg PO TID urine 07/28/22 [History Last Taken Unknown] sennosides 8.6 mg-docusate sodium 50 mg tablet (Stool Softener-Stimulant Laxative) 1 tab PO BID stool softener 07/28/22 [History Last Taken Unknown] Allergy/AdvReac Type Severity Reaction Status Date / Time empagliflozin AdvReac Other Verified 08/07/22 15:28 [From Jardiance] Family History Mother Brain tumor Dx age 43. Father Heart disease Hypertension CAD (coronary artery disease) Diabetes Brother CVA (cerebral vascular accident) CVA in his 60s. Brother CAD (coronary artery disease) Surgical History History of bladder repair surgery Hx of appendectomy Social History adopted: No household members: spouse housing: house number of children: 4 current occupational status: employed current occupation: [employer] sexually active: Yes Smoking Status: Former smoker quit date: 04/30/00 pack-years: 38 Smokeless tobacco user: chewing tobacco counseling given: provider counseling and counseling >3 minutes alcohol intake: current alcohol intake frequency: holidays/special occasions only details: Hx heavy EtOH abuse (64 ounces beer/day) but stopped heavy intake 2 yrs ago substance use type: does not use ROS Constitutional Constitutional: Denies chills, fever(s) or malaise Eyes Eyes: Denies blurry vision or change in vision ENT HEENT: Reports none Cardiovascular Cardiovascular: Denies chest pain or palpitations Respiratory/Chest Respiratory/Chest: Denies cough or shortness of breath with exertion Gastrointestinal Gastrointestinal: Denies abdominal pain, constipation or diarrhea Musculoskeletal Musculoskeletal: Denies back pain, joint stiffness or joint swelling Integumentary Integumentary: Denies dry skin, jaundice, lesions or rash Neurologic Neurologic: Denies confusion, syncope or weakness Psychiatric Psychiatric: Reports none; Denies anxiety or depression Endocrine Endocrinology: Denies excessive sweating, fatigue or flushing Hematologic/Lymphatic Hematologic/Lymphatic: Denies anemia, easy bleeding or easy bruising Physical Exam Const alert and oriented x3 General Appearance: cooperative HEENT normocephalic, head/scalp atraumatic, EAC's normal and TM's normal bilaterally Eyes PERRL and EOMs intact bilaterally Pupil: sluggish Neck no lymphadenopathy, supple and no JVD General: trachea midline Lymph Lymphatic: no lymphadenopathy noted, lymphedema and lymphadenopathy Resp normal respiratory effort, normal air movement and clear to auscultation bilaterally Cardio regular rate, regular rhythm and peripheral pulses 2+ throughout GI soft to palpation, non-tender and non-distended Extremity normal capillary refill and no clubbing, cyanosis or edema General Extremity: no tenderness to palpation of joints or extremities Skin no rashes or lesions noted General Skin Exam: turgor normal Lesions: no lesions Rashes: no rashes Neuro CN's II-XII intact bilaterally Speech: speech normal Motor Exam: strength 5/5 throughout; Negative for general weakness Psych thought process normal, cooperative and affect normal Appearance: appropriate Medical Records Data Medical Nutrition Assessment Dietitian: Malnutrition Criteria Met Start: 07/28/22 15:57 Freq: Status: Active Protocol: Document 07/30/22 13:10 RMA (Rec: 07/30/22 13:10 RMA [id number]) Nutrition Malnutrition Evidence of Malnutrition Exists Yes Malnutrition (severe): Acute Illness/Injury Evidenced By Suboptimal Energy Intake ( Severe),Weight Loss (Severe) Clinical Problem Acute Disease or Injury Related Malnutrition Etiology Severe pro-rudi malnutrition in the context of acute disease related to inadequate oral intake Signs/Symptoms as evidenced by ~10% wt loss x 10 days and PO meeting less than 50% estimated nutrition needs Status Active Problem Recommendation Dietitian Recommendations/Changes Will adjust diet to 2000 calorie/consistent carbohydrate; Cardiac diet with texture/consistency per WAREHOUSE FOREMAN. Chocolate Magic Cup BID with lunch and dinner meals. Will d/c glucerna shake with medpass, pt refusing. Will try chocolate ensure compact w/ breakfast for tolerance. May need to consider enteral nutrition support if PO remains inadequate and weight continues to decline. Lab / Micro Data Result Diagrams: 08/04/22 07:45 08/04/22 07:45 Labs: Laboratory Results - last 24 hr 08/09/22 12:04: POC Glucose 137 H 08/09/22 16:43: POC Glucose 108 H 08/09/22 21:14: POC Glucose 187 H 08/10/22 06:20: POC Glucose 106 Micro: Microbiology 08/06/22 16:20 Urine, Catheterized Urine Culture - Final Culture exhibits no growth.
[2022-08-10 07:27] VITALS: BP 142/64; PULSE 78; RESP 15; TEMP 36.4; O2SAT 96
[2022-08-10] MEDS: DEXTROMETHORPHAN HBR/QUINIDINE 1 EACH CAPSULE PO (07:45)
[2022-08-10] MEDS: Senna/Docusate Sodium 1 Tablet 2 TABLET PO ×2 (07:45→21:48)
[2022-08-10] MEDS: Clopidogrel Bisulfate 75 MG Tablet PO (07:46)
[2022-08-10] MEDS: amLODIPine 5 MG Tablet PO (07:46)
[2022-08-10] MEDS: Pantoprazole Sodium 40 MG Tablet PO (07:46)
[2022-08-10] MEDS: Multivitamins,Therapeutic Tablet 1 TABLET PO (07:46)
[2022-08-10] MEDS: Finasteride 5 MG Tablet PO (07:46)
[2022-08-10] MEDS: Ezetimibe 10 MG Tablet PO (07:46)
[2022-08-10] MEDS: Aspirin 81 MG TAB.CHEW PO (07:46)
[2022-08-10] MEDS: Insulin Lispro 100 UNIT/ML INSULN.PEN 6 UNIT SC ×2 (07:50→12:03)
[2022-08-10] MEDS: Insulin Glargine-YFGN 100 UNIT/ML Pen 35 UNIT SC (07:50)
[2022-08-10] MEDS: Lisinopril 20 MG Tablet PO (08:01)
[2022-08-10 11:25] LABS: Bedside Glucose 146 mg/dL (74-106)
--- NOTE | 2022-08-10 11:27 | PN_ITS ---
Subjective Subjective Afebrile VSS Maintaining appropriate oxygen saturation on RA Oral intake is good The blood sugar record was reviewed. BS's are much better controlled. No hypoglycemia in the past 24H however the AM sugar is on the low side. Weight is increasing gradually. Discussed with nursing - no problems that need addressed Reviewed the PT/OT/ST notes Medication list reviewed. Cristy went home to [place]. Ayaan is c/o of being tired all the time and sleeping a lot. He is bored sitting in his room by himself when he is not in therapy. He is sleeping well and eating well and working hard in therapy. I reviewed Dr. Brown's note and he recommended we teach Ayaan to straight cath......he has a flaccid LUE and I do not think this is possible. We will straight cath him 4X's a day and he can follow up with his urologist in [place] for possible suprapubic catheter. He is no longer c/o pain at the tip of his penis and he denies dysuria. He is still c/o pain over the sacrum on the midline. Ayaan denies chest pain, cough, shortness of breath, palpitations, cephalgia, nausea/vomiting/abdominal pain, dysuria and calf tenderness. He is only crying now when he thinks about going home. He is not able to do steps yet and he has to be able to do this to get in his house. Objective Data Objective Data Vital Signs: Vital Signs Temp Pulse Resp BP Pulse Ox O2 Del Method O2 Flow Rate 97.6 F L 78 15 142/64 H 96 Room Air 0 08/10/22 07:27 08/10/22 07:27 08/10/22 07:27 08/10/22 07:27 08/10/22 07:27 08/10/22 07:27 07/16/22 19:51 FiO2 21 07/16/22 19:51 Oxygen Flow Rate (L/min) 0 Oxygen Delivery Method Room Air Weight: 157 lb 3.033 oz Body Mass Index (BMI) 23.8 Intake & Output: Intake and Output for Last 24 Hours 08/08/22 08/09/22 08/10/22 23:59 23:59 23:59 Intake Total 1130 / 1130 720 / 840 410 / 410 Output Total 1795 / 1795 900 / 1250 500 / 500 Balance -665 / -665 -180 / -410 -90 / -90 Medical Nutrition Assessment Dietitian: Malnutrition Criteria Met Start: 07/28/22 15:57 Freq: Status: Active Protocol: Document 07/30/22 13:10 RMA (Rec: 07/30/22 13:10 RMA [id number]) Nutrition Malnutrition Evidence of Malnutrition Exists Yes Malnutrition (severe): Acute Illness/Injury Evidenced By Suboptimal Energy Intake ( Severe),Weight Loss (Severe) Clinical Problem Acute Disease or Injury Related Malnutrition Etiology Severe pro-kieran malnutrition in the context of acute disease related to inadequate oral intake Signs/Symptoms as evidenced by ~10% wt loss x 10 days and PO meeting less than 50% estimated nutrition needs Status Active Problem Recommendation Dietitian Recommendations/Changes Will adjust diet to 2000 calorie/consistent carbohydrate; Cardiac diet with texture/consistency per STAFF REPORTER. Chocolate Magic Cup BID with lunch and dinner meals. Will d/c glucerna shake with medpass, pt refusing. Will try chocolate ensure compact w/ breakfast for tolerance. May need to consider enteral nutrition support if PO remains inadequate and weight continues to decline. Lab / Micro Data Result Diagrams: 08/04/22 07:45 08/04/22 07:45 Labs: Laboratory Results - last 24 hr 08/09/22 12:04: POC Glucose 137 H 08/09/22 16:43: POC Glucose 108 H 08/09/22 21:14: POC Glucose 187 H 08/10/22 06:20: POC Glucose 106 08/10/22 11:05: POC Glucose 146 H Micro: Microbiology 08/06/22 16:20 Urine, Catheterized Urine Culture - Final Culture exhibits no growth. 07/25/22 21:32 Blood Culture (Wb) - Right Hand Blood Culture - Final No growth in 5 days. 07/25/22 21:36 Blood Culture (Wb) - Anticubital Right Blood Culture - Final No growth in 5 days. 07/25/22 11:45 Discharge - Penile Gram Stain - Final 07/25/22 11:45 Discharge - Penile Wound Culture - Final Klebsiella oxytoca Pseudomonas aeruginosa 07/25/22 11:45 Urine, Catheterized Urine Culture - Final Pseudomonas aeruginosa Klebsiella oxytoca 07/14/22 17:34 Urine Catheter - Beavers Urine Culture - Final Culture exhibits no growth. Physical Exam Const alert, oriented x3 and no apparent distress Constitutional Narrative: Looks bored and figures he might as well sleep since he has no visitors and he feels isolated in his room. He had tears in his eyes when he told me that Cristy had left for [place] and when he asked me when he could go back to [place]. General Appearance: cooperative HEENT normocephalic, moist oral mucous membranes and oropharynx normal Neck supple and no JVD Resp normal air movement and clear to auscultation bilaterally Resp Narrative: No cough. Effort and Inspection: Negative for tachypneic Cardio regular rate, regular rhythm and no gallops Cardio Narrative: No ectopy GI normal to inspection, nondistended, normoactive bowel sounds, soft to palpation and non-tender GI Narrative: No guarding with palpation. Extremity Negative for no calf tenderness Extremity Narrative: Seeing some atrophy in gastrocnemius muscles now. General Extremity: Negative for edema Skin General Skin Exam: no breakdown Rashes: no rashes Wound Narrative: Did not c/o of pain in the backside today. Neuro Neuro Narrative: LUE remains flaccid and likely will continue to be so. He still has a Left facial droop but he is now on regular textures.....still on mildly thickened liquids and the [place] water protocol. He ambulated with the diana walker and no knee immobilizer without buckling. He was able to advance the Left foot 20% of the time without assistance. Better quad control. Needs minimum assistance with upper body dressing and moderate assistance with bathing and lower body dressing. Still max assist with toileting and toilet transfer. Psych cooperative, denies homicidal ideation and denies suicidal ideation Psych Narrative: Not so9 depressed but, sad. He is anxious to go home but, at this point he would need 24/7 supervision and assistance. Continues to have great effort and participation and is making progress. Appearance: appropriate Attitude: No agitated Activity / Motor Behavior: Negative for restless Thought Content: No suicidality and No homicidality Assessment & Plan Assessment/Plan (1) Debility: (2) Acute cerebrovascular accident (CVA): (3) Hemiplegia affecting left nondominant side: (4) Dysphagia: (5) Urine retention: (6) Diabetes mellitus, type 2: (7) History of depression: (8) Dyslipidemia associated with type 2 diabetes mellitus: (9) BPH (benign prostatic hyperplasia): (10) Nicotine dependence: (11) Severe protein-calorie malnutrition: (12) Pseudobulbar affect: (13) Subluxation of left shoulder joint: PLAN: Plan 1. Continue therapy 2. We will start having the patient's eat together for lunch in the therapy room at least 5 days a week. Will set up 2 short education sessions at lunch on topics the patients pick. Today we talked about how to prevent strokes going forward. I asked the patients what they thought about having lunch together and they all said they were in favor of this and it helped they feel less isolated. 3. Decrease the dose of the HS Glargine. 4. Consider restarting Jardiance to assist with decreasing risk of further cardiovascular events and for BS control. He clearly did not tolerate the 25 mg and this lead to normoglycemic ketoacidosis. He was tolerating the 10 mg dose until he had pyelonephritis and I suspect the ketoacidosis at that time was due to infection and not Jardiance. 5. Check a CMP in 1 week. Ayaan had elevated liver enzymes with statin in the past.......he may have been drinking heavily at the time though. Zetia can also increase LFT's and cause muscle pain and fatigue. Charges/Coding Visit Charges Inpatient E&M: 37026 Subs Hosp L2
[2022-08-10 15:14] VITALS: BMI 23.8
[2022-08-10 16:36] LABS: Bedside Glucose 166 mg/dL (74-106)
[2022-08-10] MEDS: Insulin Lispro 100 UNIT/ML INSULN.PEN SC (16:50)
[2022-08-10] MEDS: Tamsulosin HCl 0.4 MG Capsule PO (16:51)
[2022-08-10] MEDS: Insulin Lispro 100 UNIT/ML INSULN.PEN 8 UNIT SC (16:51)
[2022-08-10 19:05] VITALS: BP 129/68; PULSE 87; RESP 16; TEMP 36.5; O2SAT 95
[2022-08-10 21:35] LABS: Bedside Glucose 159 mg/dL (74-106)
[2022-08-10] MEDS: oxyCODONE 5 MG Tablet PO (21:48)
[2022-08-10] MEDS: Mirtazapine 30 MG Tablet PO (21:48)
[2022-08-10] MEDS: Insulin Glargine-YFGN 100 UNIT/ML Pen 8 UNIT SC (21:49)
[2022-08-10 22:00] VITALS: PULSE 85; RESP 16; O2SAT 95
[2022-08-10] MEDS: Lidocaine Jelly 2% 20 ML Syringe (URO-JET) 1 APPLIC TOPICAL (22:00)
[2022-08-10] MEDS: 0.9% Saline Lock 10 ML Syringe IV (22:06)
[2022-08-10 23:05] VITALS: BMI 23.8
[2022-08-11] MEDS: Enoxaparin 40 MG/0.4 ML Syringe SC (05:21)
[2022-08-11] MEDS: Menthol/Lanolin/Calamine/Znox 113 GM Tube 1 APPLIC TOPICAL ×2 (05:21→22:32)
[2022-08-11] MEDS: Lidocaine Jelly 2% 20 ML Syringe (URO-JET) 1 APPLIC TOPICAL (05:23)
[2022-08-11 06:35] LABS: Bedside Glucose 93 mg/dL (74-106)
[2022-08-11 07:14] VITALS: BP 116/61; PULSE 73; RESP 16; TEMP 35.9; O2SAT 100
[2022-08-11] MEDS: DEXTROMETHORPHAN HBR/QUINIDINE 1 EACH CAPSULE PO (08:03)
[2022-08-11] MEDS: amLODIPine 5 MG Tablet PO (08:03)
[2022-08-11] MEDS: Lisinopril 20 MG Tablet PO (08:03)
[2022-08-11] MEDS: Ezetimibe 10 MG Tablet PO (08:03)
[2022-08-11] MEDS: Multivitamins,Therapeutic Tablet 1 TABLET PO (08:03)
[2022-08-11] MEDS: Finasteride 5 MG Tablet PO (08:03)
[2022-08-11] MEDS: Aspirin 81 MG TAB.CHEW PO (08:03)
[2022-08-11] MEDS: Clopidogrel Bisulfate 75 MG Tablet PO (08:04)
[2022-08-11] MEDS: Insulin Lispro 100 UNIT/ML INSULN.PEN 6 UNIT SC ×2 (08:04→12:52)
[2022-08-11] MEDS: Senna/Docusate Sodium 1 Tablet 2 TABLET PO ×2 (08:04→22:27)
[2022-08-11] MEDS: Pantoprazole Sodium 40 MG Tablet PO (08:04)
[2022-08-11] MEDS: Insulin Glargine-YFGN 100 UNIT/ML Pen 35 UNIT SC (08:05)
[2022-08-11 10:00] VITALS: BMI 24.4
--- NOTE | 2022-08-11 11:00 | PN_ITS ---
Progress Note Afebrile Vital signs stable Blood pressure is well controlled and within goal He is 100% saturated on room air today Oral fluid intake has improved significantly. His weight is 160.7 pounds today up from 151 pounds on 07/29/2022. He has been diagnosed by the dietitian with severe protein/calorie malnutrition but is now eating well. The blood sugar record was reviewed. Fasting blood sugar this morning was 93 and the at bedtime blood sugar last night was 159. All blood sugars yesterday were under 180 with no hypoglycemia. He received only 1 unit of lispro yesterday. We will continue sliding scale coverage as needed since his intake has been erratic in the past. Ayaan has been more interactive the past 2 days and he enjoyed talking at [facility].......we had a picnic in the break room at lunch with hot dogs, baked beans and chocolate pudding made by the patients. No complaints today. Denies N/V/epigastric pain. No rashes and no skin b reakdown. No CP, SOB, cough or dysuria. Physical Exam Const alert and no apparent distress General Appearance: cooperative HEENT moist oral mucous membranes Resp normal respiratory effort, no use of accessory muscles and clear to auscultation bilaterally Effort and Inspection: Negative for tachypneic or labored Cardio regular rate, regular rhythm and no gallops GI normal to inspection, nondistended, normoactive bowel sounds, non-tender and non-distended GI Narrative: no guarding with palpation Extremity Negative for no calf tenderness General Extremity: Negative for edema Skin General Skin Exam: no breakdown Rashes: no rashes Psych affect normal Assessment & Plan Assessment/Plan (1) Debility: (2) Acute cerebrovascular accident (CVA): (3) Hemiplegia affecting left nondominant side: (4) Dysphagia: (5) Urine retention: (6) Diabetes mellitus, type 2: (7) History of depression: (8) Dyslipidemia associated with type 2 diabetes mellitus: (9) BPH (benign prostatic hyperplasia): (10) Nicotine dependence: (11) Severe protein-calorie malnutrition: (12) Pseudobulbar affect: (13) Subluxation of left shoulder joint: PLAN: Plan 1. Continue therapy 2. Will try and get Ayaan involved in more activities. He enjoys talking to the other patients and he is less sleepy today. 3. No changes to the insulin regimen today. 4. Ayaan continues to make progress but, not yet ready to go home. Would like him to be better able to manage ADL's so there will be less executive marketing assistant burnout. Since Ayaan will not be able to manage doing a straight cath with only 1 arm I suspect he will need a suprapubic catheter which can be done by his urologist at home. Visit Charges Inpatient E&M: 98034 Subs Hosp L2
[2022-08-11 11:35] LABS: Bedside Glucose 135 mg/dL (74-106)
[2022-08-11] MEDS: 0.9% Saline Lock 10 ML Syringe IV ×2 (12:53→23:04)
[2022-08-11 15:10] VITALS: BMI 24.4
--- NOTE | 2022-08-11 15:12 | CASEMGMT ---
Social Work SW received communication from Fransisca, admission, that pt's insurance reviewer stated insurance will approve as much time needed for pt to recover on RU and return home. Pt does not need to go to a SNF. NRD 08/18. SW spoke with pt and updated. Pt appreciative. Ida Haynes, ORDNANCE KEEPER MATH AND SCIENCE INSTRUCTOR
[2022-08-11] MEDS: Insulin Lispro 100 UNIT/ML INSULN.PEN 8 UNIT SC (16:14)
[2022-08-11] MEDS: Tamsulosin HCl 0.4 MG Capsule PO (16:15)
[2022-08-11 16:45] LABS: Bedside Glucose 131 mg/dL (74-106)
[2022-08-11 19:00] VITALS: BP 127/62; PULSE 83; RESP 17; TEMP 36.4; O2SAT 96
[2022-08-11 19:45] LABS: Bedside Glucose 81 mg/dL (74-106)
[2022-08-11 21:35] LABS: Bedside Glucose 114 mg/dL (74-106)
[2022-08-11 22:00] VITALS: PULSE 83; RESP 16; O2SAT 96
[2022-08-11] MEDS: Mirtazapine 30 MG Tablet PO (22:27)
[2022-08-11] MEDS: Insulin Glargine-YFGN 100 UNIT/ML Pen 8 UNIT SC (22:27)
[2022-08-11] MEDS: oxyCODONE 5 MG Tablet PO (22:30)
[2022-08-11] MEDS: Nystatin Powder 15gm Bottle 1 APPLIC TOPICAL (22:32)
[2022-08-12 00:12] VITALS: BMI 24.4
[2022-08-12] MEDS: Enoxaparin 40 MG/0.4 ML Syringe SC (05:23)
[2022-08-12] MEDS: Menthol/Lanolin/Calamine/Znox 113 GM Tube 1 APPLIC TOPICAL ×2 (05:25→21:34)
[2022-08-12] MEDS: Nystatin Powder 15gm Bottle 1 APPLIC TOPICAL ×2 (05:25→21:24)
[2022-08-12 07:15] LABS: Bedside Glucose 83 mg/dL (74-106)
[2022-08-12 07:38] VITALS: BP 113/55; PULSE 71; RESP 16; TEMP 36.5; O2SAT 97
[2022-08-12] MEDS: amLODIPine 5 MG Tablet PO (07:45)
[2022-08-12] MEDS: Ezetimibe 10 MG Tablet PO (07:45)
[2022-08-12] MEDS: Senna/Docusate Sodium 1 Tablet 2 TABLET PO ×2 (07:45→21:23)
[2022-08-12] MEDS: Pantoprazole Sodium 40 MG Tablet PO (07:46)
[2022-08-12] MEDS: Clopidogrel Bisulfate 75 MG Tablet PO (07:46)
[2022-08-12] MEDS: DEXTROMETHORPHAN HBR/QUINIDINE 1 EACH CAPSULE PO (07:46)
[2022-08-12] MEDS: Lisinopril 20 MG Tablet PO (07:46)
[2022-08-12] MEDS: Insulin Lispro 100 UNIT/ML INSULN.PEN 6 UNIT SC ×2 (07:46→11:54)
[2022-08-12] MEDS: Multivitamins,Therapeutic Tablet 1 TABLET PO (07:46)
[2022-08-12] MEDS: Aspirin 81 MG TAB.CHEW PO (07:46)
[2022-08-12] MEDS: Finasteride 5 MG Tablet PO (07:51)
[2022-08-12] MEDS: Insulin Glargine-YFGN 100 UNIT/ML Pen 35 UNIT SC (09:32)
[2022-08-12] MEDS: 0.9% Saline Lock 10 ML Syringe IV ×2 (09:33→21:38)
[2022-08-12 09:54] VITALS: BMI 24.4
[2022-08-12 11:51] LABS: Bedside Glucose 156 mg/dL (74-106)
[2022-08-12] MEDS: Insulin Lispro 100 UNIT/ML INSULN.PEN SC (11:53)
[2022-08-12 17:05] LABS: Bedside Glucose 143 mg/dL (74-106)
[2022-08-12] MEDS: Insulin Lispro 100 UNIT/ML INSULN.PEN 8 UNIT SC (17:23)
[2022-08-12] MEDS: Tamsulosin HCl 0.4 MG Capsule PO (17:23)
[2022-08-12 21:00] VITALS: BP 127/69; PULSE 81; RESP 16; TEMP 36.8; O2SAT 96; BMI 24.4
[2022-08-12] MEDS: Mirtazapine 30 MG Tablet PO (21:23)
[2022-08-12] MEDS: Insulin Glargine-YFGN 100 UNIT/ML Pen 8 UNIT SC (21:24)
[2022-08-12] MEDS: oxyCODONE 5 MG Tablet PO (21:24)
[2022-08-12] MEDS: Acetaminophen 500 MG Tablet 1000 MG PO (21:33)
[2022-08-12 21:56] LABS: Bedside Glucose 105 mg/dL (74-106)
[2022-08-12] MEDS: Lidocaine Jelly 2% 20 ML Syringe (URO-JET) 1 APPLIC TOPICAL (22:12)
[2022-08-13] MEDS: Enoxaparin 40 MG/0.4 ML Syringe SC (05:33)
[2022-08-13] MEDS: Nystatin Powder 15gm Bottle 1 APPLIC TOPICAL ×2 (05:34→21:42)
[2022-08-13] MEDS: Menthol/Lanolin/Calamine/Znox 113 GM Tube 1 APPLIC TOPICAL ×2 (05:34→21:43)
[2022-08-13 06:31] LABS: Bedside Glucose 84 mg/dL (74-106)
[2022-08-13 07:39] VITALS: BP 128/69; PULSE 71; RESP 16; TEMP 36.2; O2SAT 95
[2022-08-13] MEDS: Insulin Lispro 100 UNIT/ML INSULN.PEN 6 UNIT SC ×2 (08:36→12:04)
[2022-08-13] MEDS: Insulin Glargine-YFGN 100 UNIT/ML Pen 35 UNIT SC (08:36)
[2022-08-13] MEDS: Lisinopril 20 MG Tablet PO (08:37)
[2022-08-13] MEDS: Aspirin 81 MG TAB.CHEW PO (08:37)
[2022-08-13] MEDS: amLODIPine 5 MG Tablet PO (08:37)
[2022-08-13] MEDS: Ezetimibe 10 MG Tablet PO (08:37)
[2022-08-13] MEDS: Senna/Docusate Sodium 1 Tablet 2 TABLET PO ×2 (08:37→21:44)
[2022-08-13] MEDS: Multivitamins,Therapeutic Tablet 1 TABLET PO (08:37)
[2022-08-13] MEDS: Clopidogrel Bisulfate 75 MG Tablet PO (08:37)
[2022-08-13] MEDS: Pantoprazole Sodium 40 MG Tablet PO (08:37)
[2022-08-13] MEDS: DEXTROMETHORPHAN HBR/QUINIDINE 1 EACH CAPSULE PO (08:38)
[2022-08-13] MEDS: Finasteride 5 MG Tablet PO (08:38)
[2022-08-13 09:38] VITALS: BMI 24.4
[2022-08-13 11:35] LABS: Bedside Glucose 131 mg/dL (74-106)
[2022-08-13] MEDS: Tamsulosin HCl 0.4 MG Capsule PO (17:04)
[2022-08-13] MEDS: Insulin Lispro 100 UNIT/ML INSULN.PEN 8 UNIT SC (17:04)
[2022-08-13 17:30] LABS: Bedside Glucose 124 mg/dL (74-106)
[2022-08-13] MEDS: oxyCODONE 5 MG Tablet PO ×2 (18:16→23:35)
[2022-08-13 21:00] VITALS: BP 137/74; PULSE 90; RESP 18; TEMP 37.1; O2SAT 97; BMI 24.4
[2022-08-13] MEDS: Insulin Glargine-YFGN 100 UNIT/ML Pen 8 UNIT SC (21:43)
[2022-08-13] MEDS: Mirtazapine 30 MG Tablet PO (21:44)
[2022-08-13] MEDS: 0.9% Saline Lock 10 ML Syringe IV (21:49)
[2022-08-13 21:50] LABS: Bedside Glucose 123 mg/dL (74-106)
[2022-08-13] MEDS: Lidocaine Jelly 2% 20 ML Syringe (URO-JET) 1 APPLIC TOPICAL (21:58)
[2022-08-14 06:00] VITALS: BMI 24.4
[2022-08-14] MEDS: Enoxaparin 40 MG/0.4 ML Syringe SC (06:32)
[2022-08-14] MEDS: Menthol/Lanolin/Calamine/Znox 113 GM Tube 1 APPLIC TOPICAL ×2 (06:33→21:39)
[2022-08-14] MEDS: Nystatin Powder 15gm Bottle 1 APPLIC TOPICAL ×2 (06:34→21:39)
[2022-08-14 07:15] LABS: Bedside Glucose 73 mg/dL (74-106)
[2022-08-14 07:42] VITALS: BP 124/71; PULSE 74; RESP 17; TEMP 36.9; O2SAT 98
[2022-08-14] MEDS: Insulin Lispro 100 UNIT/ML INSULN.PEN 6 UNIT SC ×2 (08:26→11:56)
[2022-08-14] MEDS: Insulin Glargine-YFGN 100 UNIT/ML Pen 35 UNIT SC (08:27)
[2022-08-14] MEDS: Aspirin 81 MG TAB.CHEW PO (08:28)
[2022-08-14] MEDS: Senna/Docusate Sodium 1 Tablet 2 TABLET PO ×2 (08:28→21:38)
[2022-08-14] MEDS: Finasteride 5 MG Tablet PO (08:28)
[2022-08-14] MEDS: Clopidogrel Bisulfate 75 MG Tablet PO (08:28)
[2022-08-14] MEDS: Pantoprazole Sodium 40 MG Tablet PO (08:28)
[2022-08-14] MEDS: Multivitamins,Therapeutic Tablet 1 TABLET PO (08:28)
[2022-08-14] MEDS: amLODIPine 5 MG Tablet PO (08:28)
[2022-08-14] MEDS: Lisinopril 20 MG Tablet PO (08:28)
[2022-08-14] MEDS: Ezetimibe 10 MG Tablet PO (08:28)
[2022-08-14] MEDS: DEXTROMETHORPHAN HBR/QUINIDINE 1 EACH CAPSULE PO (08:29)
[2022-08-14 11:26] LABS: Bedside Glucose 135 mg/dL (74-106)
--- NOTE | 2022-08-14 11:54 | PCM.PROGNOTE ---
Subjective Subjective Ayaan was seen on team rounds today. His Cristy participated by phone. Afebrile VSS-blood pressure is well controlled. Maintaining appropriate oxygen saturation on RA-98% on room air. Oral intake is good Weight is stable The blood sugar record was reviewed. A.m. blood sugar was low at 73 today and it was 84 yesterday. All blood sugars are less than 180. Discussed with nursing - no problems that need addressed Reviewed the PT/OT/ST notes - Continues to make progress. Medication list reviewed. Objective Data Objective Data Vital Signs: Vital Signs Temp Pulse Resp BP Pulse Ox O2 Del Method O2 Flow Rate 98.4 F 74 17 124/71 H 98 Room Air 0 08/14/22 07:42 08/14/22 07:42 08/14/22 07:42 08/14/22 07:42 08/14/22 07:42 08/14/22 07:42 07/16/22 19:51 FiO2 21 07/16/22 19:51 Oxygen Flow Rate (L/min) 0 Oxygen Delivery Method Room Air Weight: 160 lb 11.472 oz Body Mass Index (BMI) 24.4 Intake & Output: Intake and Output for Last 24 Hours 08/12/22 08/13/22 08/14/22 23:59 23:59 23:59 Intake Total 760 / 760 995 / 995 290 / 290 Output Total 1700 / 1700 1600 / 1600 Balance -940 / -940 -605 / -605 290 / 290 Medical Nutrition Assessment Dietitian: Malnutrition Criteria Met Start: 07/28/22 15:57 Freq: Status: Active Protocol: Document 07/30/22 13:10 RMA (Rec: 07/30/22 13:10 RMA [id number]) Nutrition Malnutrition Evidence of Malnutrition Exists Yes Malnutrition (severe): Acute Illness/Injury Evidenced By Suboptimal Energy Intake ( Severe),Weight Loss (Severe) Clinical Problem Acute Disease or Injury Related Malnutrition Etiology Severe pro-kieran malnutrition in the context of acute disease related to inadequate oral intake Signs/Symptoms as evidenced by ~10% wt loss x 10 days and PO meeting less than 50% estimated nutrition needs Status Active Problem Recommendation Dietitian Recommendations/Changes Will adjust diet to 2000 calorie/consistent carbohydrate; Cardiac diet with texture/consistency per NATURAL REMEDY CONSULTANT. Chocolate Magic Cup BID with lunch and dinner meals. Will d/c glucerna shake with medpass, pt refusing. Will try chocolate ensure compact w/ breakfast for tolerance. May need to consider enteral nutrition support if PO remains inadequate and weight continues to decline. Lab / Micro Data Result Diagrams: 08/04/22 07:45 08/16/22 05:37 Labs: Laboratory Results - last 24 hr 08/13/22 17:03: POC Glucose 124 H 08/13/22 21:14: POC Glucose 123 H 08/14/22 06:38: POC Glucose 73 L 08/14/22 11:01: POC Glucose 135 H Micro: Microbiology 08/06/22 16:20 Urine, Catheterized Urine Culture - Final Culture exhibits no growth. 07/25/22 21:32 Blood Culture (Wb) - Right Hand Blood Culture - Final No growth in 5 days. 07/25/22 21:36 Blood Culture (Wb) - Anticubital Right Blood Culture - Final No growth in 5 days. 07/25/22 11:45 Discharge - Penile Gram Stain - Final 07/25/22 11:45 Discharge - Penile Wound Culture - Final Klebsiella oxytoca Pseudomonas aeruginosa 07/25/22 11:45 Urine, Catheterized Urine Culture - Final Pseudomonas aeruginosa Klebsiella oxytoca 07/14/22 17:34 Urine Catheter - Beavers Urine Culture - Final Culture exhibits no growth. Physical Exam Const alert, oriented x3 and no apparent distress Constitutional Narrative: pleasant, good mood, no crying. Interacting more with staff and other patients. General Appearance: cooperative HEENT normocephalic, moist oral mucous membranes and oropharynx normal Neck supple and no JVD Resp clear to auscultation bilaterally Resp Narrative: No cough. Effort and Inspection: Negative for tachypneic or labored Cardio regular rate, regular rhythm and no gallops Cardio Narrative: No ectopy GI normal to inspection, nondistended, normoactive bowel sounds, soft to palpation and non-tender GI Narrative: No guarding with palpation. Extremity no calf tenderness Extremity Narrative: Seeing some atrophy in gastrocnemius muscles now. General Extremity: Negative for edema Skin General Skin Exam: no breakdown Rashes: no rashes Wound Narrative: Did not c/o of pain in the backside today. Neuro Neuro Narrative: LUE remains flaccid and likely will continue to be so. He still has a Left facial droop but he is now on regular textures.....still on mildly thickened liquids and the [place] water protocol. He ambulated with the diana walker and no knee immobilizer without buckling. He was able to advance the Left foot 20% of the time without assistance. Better quad control. Needs minimum assistance with upper body dressing and moderate assistance with bathing and lower body dressing. Still max assist with toileting and toilet transfer. Psych cooperative and affect normal Psych Narrative: Not so9 depressed but, sad. He is anxious to go home but, at this point he would need 24/7 supervision and assistance. Continues to have great effort and participation and is making progress. Appearance: appropriate Attitude: No agitated Activity / Motor Behavior: Negative for restless Thought Content: No suicidality and No homicidality Assessment & Plan Assessment/Plan (1) Debility: (2) Acute cerebrovascular accident (CVA): (3) Hemiplegia affecting left nondominant side: (4) Dysphagia: (5) Urine retention: (6) Diabetes mellitus, type 2: (7) History of depression: (8) Dyslipidemia associated with type 2 diabetes mellitus: (9) BPH (benign prostatic hyperplasia): (10) Nicotine dependence: (11) Severe protein-calorie malnutrition: (12) Pseudobulbar affect: (13) Subluxation of left shoulder joint: PLAN: Plan 1. Continue therapy 2. His is upset that he still has pain over the lower sacrum/coccyx area and would like us to do something about this. He has been worked up for possible pilonidal cyst/abscess and the CT scan of the pelvis was negative. The area is not open it is mildly reddened and it is tender to palpation. He has pain medication ordered and there is a Mepilex patch over the area to decrease friction. 3. Decrease the at bedtime glargine to 40 units. 4. Recheck BMP on Sunday. Charges/Coding Visit Charges Inpatient E&M: 79984 Subs Hosp L2
[2022-08-14 12:57] VITALS: BMI 24.4
--- NOTE | 2022-08-14 12:57 | CASEMGMT ---
Social Work IDT met with patient and via conference call for Team meeting. Discussed patient's progress in PT/OT/ST/SN. Educated to [place] CM insurance with NRD 08/18. Reiterated insurance reviewer stated pt will continued to get approval for more time until pt is ready to DC home. SW to continue to follow and coordinate DC needs. Will ReTeam weekly. Ida Haynes, TRENCH TRIMMER FINE GLOVE PRESSER
[2022-08-14 16:51] LABS: Bedside Glucose 49 mg/dL (74-106)
[2022-08-14 16:51] LABS: Bedside Glucose 81 mg/dL (74-106)
[2022-08-14] MEDS: Insulin Lispro 100 UNIT/ML INSULN.PEN 8 UNIT SC (17:42)
--- NOTE | 2022-08-14 18:43 | NURSING ---
1600 blood sugar 49, 9oz coke and snack given. recheck 81. Dr zaldivar made aware and dinner given at 1700
[2022-08-14 19:41] VITALS: BP 131/63; PULSE 92; RESP 16; TEMP 36.9; O2SAT 96
[2022-08-14 21:00] VITALS: PULSE 92; RESP 16; O2SAT 96; BMI 24.4
[2022-08-14] MEDS: oxyCODONE 5 MG Tablet PO (21:39)
[2022-08-14] MEDS: Mirtazapine 30 MG Tablet PO (21:39)
[2022-08-14] MEDS: Insulin Glargine-YFGN 100 UNIT/ML Pen SC (21:40)
[2022-08-14 22:20] LABS: Bedside Glucose 237 mg/dL (74-106)
--- NOTE | 2022-08-15 02:29 | NURSING ---
Reviewed and agree with Lary CRAFT, documentation and assessment charting.
[2022-08-15] MEDS: Enoxaparin 40 MG/0.4 ML Syringe SC (05:12)
[2022-08-15] MEDS: Menthol/Lanolin/Calamine/Znox 113 GM Tube 1 APPLIC TOPICAL ×2 (05:13→22:23)
[2022-08-15] MEDS: 0.9% Saline Lock 10 ML Syringe IV ×2 (05:13→14:55)
[2022-08-15] MEDS: Nystatin Powder 15gm Bottle 1 APPLIC TOPICAL ×2 (05:13→22:28)
[2022-08-15] MEDS: Lidocaine Jelly 2% 20 ML Syringe (URO-JET) 1 APPLIC TOPICAL (05:16)
[2022-08-15 07:25] LABS: Bedside Glucose 69 mg/dL (74-106)
[2022-08-15 07:41] VITALS: BP 136/64; PULSE 65; RESP 16; TEMP 36; O2SAT 96
[2022-08-15] MEDS: DEXTROMETHORPHAN HBR/QUINIDINE 1 EACH CAPSULE PO (08:10)
[2022-08-15] MEDS: Aspirin 81 MG TAB.CHEW PO (08:11)
[2022-08-15] MEDS: amLODIPine 5 MG Tablet PO ×2 (08:11→22:23)
[2022-08-15] MEDS: Multivitamins,Therapeutic Tablet 1 TABLET PO (08:11)
[2022-08-15] MEDS: Lisinopril 20 MG Tablet PO (08:11)
[2022-08-15] MEDS: Ezetimibe 10 MG Tablet PO (08:11)
[2022-08-15] MEDS: Senna/Docusate Sodium 1 Tablet 2 TABLET PO ×2 (08:11→22:24)
[2022-08-15] MEDS: Pantoprazole Sodium 40 MG Tablet PO (08:11)
[2022-08-15] MEDS: Clopidogrel Bisulfate 75 MG Tablet PO (08:11)
[2022-08-15] MEDS: Insulin Lispro 100 UNIT/ML INSULN.PEN 6 UNIT SC ×2 (08:14→11:54)
[2022-08-15] MEDS: Insulin Glargine-YFGN 100 UNIT/ML Pen 35 UNIT SC (08:15)
[2022-08-15 08:36] LABS: Bedside Glucose 126 mg/dL (74-106)
[2022-08-15 11:30] LABS: Bedside Glucose 201 mg/dL (74-106)
[2022-08-15] MEDS: Insulin Lispro 100 UNIT/ML INSULN.PEN SC (11:54)
[2022-08-15] MEDS: oxyCODONE 5 MG Tablet PO ×2 (14:52→22:28)
[2022-08-15 16:56] LABS: Bedside Glucose 79 mg/dL (74-106)
[2022-08-15 17:00] VITALS: BMI 24.4
--- NOTE | 2022-08-15 17:07 | PCM.PROGNOTE ---
Subjective Subjective Afebrile VSS Maintaining appropriate oxygen saturation on RA Oral intake is good. Most of the time he is eating 75 to 100% of his meals. Last night he only ate 50 to 74% of his supper. The blood sugar record was reviewed. He received 4 units of glargine last night +2 units of lispro for blood sugar of 237 at at bedtime. The fasting blood sugar this morning was 69. It was 201 at lunch and is 79 at supper. He got 2 units of lispro in addition to the scheduled lunchtime insulin and this is likely why the supper blood sugar is only 79. Sliding scale has been discontinued. Discussed with nursing - no problems that need addressed Reviewed the PT/OT/ST notes Medication list reviewed. He rarely takes the oxycodone for the pain in his tailbone. It is not open. Ayaan denies lightheadedness, vertigo, CP, SOB at rest, SOB with exertion, cough, nausea, vomiting, abd pain, diarrhea, constipation, dysuria, calf pain and ankle swelling. He is sleeping well at night and has a good appetite. Objective Data Objective Data Vital Signs: Vital Signs Temp Pulse Resp BP Pulse Ox O2 Del Method O2 Flow Rate 96.8 F L 65 16 136/64 H 96 Room Air 0 08/15/22 07:41 08/15/22 07:41 08/15/22 07:41 08/15/22 07:41 08/15/22 07:41 08/15/22 07:41 07/16/22 19:51 FiO2 21 07/16/22 19:51 Oxygen Flow Rate (L/min) 0 Oxygen Delivery Method Room Air Weight: 160 lb 11.472 oz Body Mass Index (BMI) 24.4 Intake & Output: Intake and Output for Last 24 Hours 08/13/22 08/14/22 08/15/22 23:59 23:59 23:59 Intake Total 995 / 995 1430 / 1430 600 / 600 Output Total 1600 / 1600 450 / 450 400 / 400 Balance -605 / -605 980 / 980 200 / 200 Medical Nutrition Assessment Dietitian: Malnutrition Criteria Met Start: 07/28/22 15:57 Freq: Status: Active Protocol: Document 07/30/22 13:10 RMA (Rec: 07/30/22 13:10 RMA [id number]) Nutrition Malnutrition Evidence of Malnutrition Exists Yes Malnutrition (severe): Acute Illness/Injury Evidenced By Suboptimal Energy Intake ( Severe),Weight Loss (Severe) Clinical Problem Acute Disease or Injury Related Malnutrition Etiology Severe pro-kieran malnutrition in the context of acute disease related to inadequate oral intake Signs/Symptoms as evidenced by ~10% wt loss x 10 days and PO meeting less than 50% estimated nutrition needs Status Active Problem Recommendation Dietitian Recommendations/Changes Will adjust diet to 2000 calorie/consistent carbohydrate; Cardiac diet with texture/consistency per DIRECTOR TRADE. Chocolate Magic Cup BID with lunch and dinner meals. Will d/c glucerna shake with medpass, pt refusing. Will try chocolate ensure compact w/ breakfast for tolerance. May need to consider enteral nutrition support if PO remains inadequate and weight continues to decline. Lab / Micro Data Result Diagrams: 08/04/22 07:45 08/16/22 05:37 Labs: Laboratory Results - last 24 hr 08/14/22 21:36: POC Glucose 237 H 08/15/22 06:59: POC Glucose 69 L 08/15/22 08:13: POC Glucose 126 H 08/15/22 11:06: POC Glucose 201 H 08/15/22 16:33: POC Glucose 79 Micro: Microbiology 08/06/22 16:20 Urine, Catheterized Urine Culture - Final Culture exhibits no growth. 07/25/22 21:32 Blood Culture (Wb) - Right Hand Blood Culture - Final No growth in 5 days. 07/25/22 21:36 Blood Culture (Wb) - Anticubital Right Blood Culture - Final No growth in 5 days. 07/25/22 11:45 Discharge - Penile Gram Stain - Final 07/25/22 11:45 Discharge - Penile Wound Culture - Final Klebsiella oxytoca Pseudomonas aeruginosa 07/25/22 11:45 Urine, Catheterized Urine Culture - Final Pseudomonas aeruginosa Klebsiella oxytoca 07/14/22 17:34 Urine Catheter - Beavers Urine Culture - Final Culture exhibits no growth. Physical Exam Const alert and no apparent distress General Appearance: cooperative Resp clear to auscultation bilaterally Cardio regular rate, regular rhythm and no gallops GI normal to inspection, nondistended, normoactive bowel sounds, soft to palpation and non-tender Extremity no calf tenderness General Extremity: Negative for edema Skin Skin Narrative: Maybe a stage 1 over the lower sacrum/coccyx but, it really is not red. There is no swelling and no opening in the skin. No DC. General Skin Exam: no breakdown Rashes: no rashes Neuro Neuro Narrative: The left leg is getting stronger. L arm remains flaccid. Psych cooperative and affect normal Psych Narrative: More talkative and less crying Assessment & Plan Assessment/Plan (1) Debility: (2) Acute cerebrovascular accident (CVA): (3) Hemiplegia affecting left nondominant side: (4) Dysphagia: (5) Urine retention: (6) Diabetes mellitus, type 2: (7) History of depression: (8) Dyslipidemia associated with type 2 diabetes mellitus: (9) BPH (benign prostatic hyperplasia): (10) Nicotine dependence: (11) Severe protein-calorie malnutrition: (12) Pseudobulbar affect: (13) Subluxation of left shoulder joint: PLAN: Plan 1. Continue therapy 2. DC the glargine at at bedtime and DC the sliding scale insulin. Continue to monitor the blood sugars before meals and at bedtime. 3. Check a CMP and a total CK in the a.m........He has been on the Zetia for 1 week. Denies muscle pain......the only pain he has is in his tailbone. 4. He has been on dual antiplatelet agents for over 1 month now so will discontinue Plavix and continue with aspirin 81 mg p.o. daily. 5. Change the amlodipine to 5 mg p.o. nightly rather than in the a.m. to better control the a.m. blood pressure. If he continues to have systolic blood pressures over 130 for the next few days will increase amlodipine to 10 mg. LDL was in the 80's at the time he had the stroke. 6. He is much less tearful since the Nuedexta was started. Charges/Coding Visit Charges Inpatient E&M: 98174 Subs Hosp L2
[2022-08-15 19:18] VITALS: BP 110/62; PULSE 83; RESP 18; TEMP 36.8; O2SAT 95
[2022-08-15 19:23] VITALS: PULSE 83; RESP 18; O2SAT 95
[2022-08-15 19:26] VITALS: BMI 24.4
[2022-08-15 21:53] VITALS: BMI 24.4
[2022-08-15] MEDS: Mirtazapine 30 MG Tablet PO (22:24)
[2022-08-15 22:31] LABS: Bedside Glucose 157 mg/dL (74-106)
--- NOTE | 2022-08-16 00:33 | NURSING ---
Pt actually voided 250mL on own d/t urgency this hs. After voiding, he had another episode, soon after, of urgency using the urinal for 50ml and had some incontinence to Attends. Pt bladder scan was 100ml @ 2230. No straight cath required before bed.
[2022-08-16] MEDS: Nystatin Powder 15gm Bottle 1 APPLIC TOPICAL ×2 (05:06→21:58)
[2022-08-16] MEDS: Menthol/Lanolin/Calamine/Znox 113 GM Tube 1 APPLIC TOPICAL ×2 (05:06→21:57)
[2022-08-16] MEDS: Enoxaparin 40 MG/0.4 ML Syringe SC (05:07)
[2022-08-16] MEDS: Lidocaine Jelly 2% 20 ML Syringe (URO-JET) 1 APPLIC TOPICAL ×2 (05:34→22:15)
[2022-08-16 06:00] VITALS: BMI 24.5
[2022-08-16 06:13] LABS: ALB/GLOB Ratio 0.9 RATIO (0.9-2.4); AST(SGOT) 29 U/L (15-37); Alanine Aminotransfer ALT/SGPT 54 U/L (16-61); Albumin, Serum 2.9 g/dL (3.2-5.0); Alkaline Phosphatase 107 U/L (45-117); Anion Gap 1 (5-15); BUN 13 mg/dL (7-18); BUN/Creat Ratio 18.5 RATIO (10-20); CPK Total, Creatine Kinase 41 U/L (39-308); Calcium,Total 8.7 mg/dL (8.5-10.1); Chloride 109 mmol/L (98-107); EST Glomerular Filtration Rate 121 mL/min (>60); Est Glom Filt Rate - Afr Amer 147 mL/min (>60); Estimated Creatinine Clearance 105.86 ml/min; Globulin 3.3 g/dL (2.2-4.2); Glucose 73 mg/dL (74-106); Potassium 3.7 mmol/L (3.5-5.1); Protein, Total 6.2 g/dL (6.4-8.2); Sodium Level 139 mmol/L (136-145)
[2022-08-16 06:35] LABS: Bedside Glucose 70 mg/dL (74-106)
[2022-08-16 07:35] LABS: Bedside Glucose 122 mg/dL (74-106)
[2022-08-16 08:36] VITALS: BP 124/64; PULSE 66; RESP 16; TEMP 36.1; O2SAT 100
[2022-08-16] MEDS: Aspirin 81 MG TAB.CHEW PO (09:26)
[2022-08-16] MEDS: DEXTROMETHORPHAN HBR/QUINIDINE 1 EACH CAPSULE PO (09:27)
[2022-08-16] MEDS: Multivitamins,Therapeutic Tablet 1 TABLET PO (09:27)
[2022-08-16] MEDS: Lisinopril 20 MG Tablet PO (09:28)
[2022-08-16] MEDS: Pantoprazole Sodium 40 MG Tablet PO (09:28)
[2022-08-16] MEDS: Senna/Docusate Sodium 1 Tablet 2 TABLET PO ×2 (09:28→21:57)
[2022-08-16] MEDS: Ezetimibe 10 MG Tablet PO (09:28)
[2022-08-16] MEDS: Insulin Lispro 100 UNIT/ML INSULN.PEN 6 UNIT SC ×2 (09:33→12:58)
[2022-08-16] MEDS: Insulin Glargine-YFGN 100 UNIT/ML Pen 35 UNIT SC (09:34)
[2022-08-16] MEDS: 0.9% Saline Lock 10 ML Syringe IV ×2 (10:15→22:12)
[2022-08-16 11:40] LABS: Bedside Glucose 102 mg/dL (74-106)
[2022-08-16 13:27] VITALS: BMI 24.5
[2022-08-16 17:25] LABS: Bedside Glucose 99 mg/dL (74-106)
[2022-08-16] MEDS: Insulin Lispro 100 UNIT/ML INSULN.PEN 8 UNIT SC (17:27)
[2022-08-16 19:10] VITALS: BP 124/58; PULSE 76; RESP 18; TEMP 36.7; O2SAT 100
[2022-08-16 21:50] LABS: Bedside Glucose 104 mg/dL (74-106)
[2022-08-16] MEDS: amLODIPine 5 MG Tablet PO (21:57)
[2022-08-16] MEDS: Mirtazapine 30 MG Tablet PO (21:57)
[2022-08-16] MEDS: oxyCODONE 5 MG Tablet PO (21:57)
[2022-08-16 22:00] VITALS: PULSE 76; RESP 17; O2SAT 100
[2022-08-16 23:22] VITALS: BMI 24.5
[2022-08-17] MEDS: Nystatin Powder 15gm Bottle 1 APPLIC TOPICAL ×2 (05:13→21:37)
[2022-08-17] MEDS: Menthol/Lanolin/Calamine/Znox 113 GM Tube 1 APPLIC TOPICAL ×2 (05:13→21:37)
[2022-08-17] MEDS: Enoxaparin 40 MG/0.4 ML Syringe SC (05:13)
[2022-08-17] MEDS: Lidocaine Jelly 2% 20 ML Syringe (URO-JET) 1 APPLIC TOPICAL (05:19)
[2022-08-17 07:15] VITALS: BP 120/61; PULSE 64; RESP 15; TEMP 36.6; O2SAT 96
[2022-08-17 07:20] LABS: Bedside Glucose 106 mg/dL (74-106)
[2022-08-17] MEDS: Pantoprazole Sodium 40 MG Tablet PO (08:57)
[2022-08-17] MEDS: Lisinopril 20 MG Tablet PO (08:57)
[2022-08-17] MEDS: Multivitamins,Therapeutic Tablet 1 TABLET PO (08:57)
[2022-08-17] MEDS: DEXTROMETHORPHAN HBR/QUINIDINE 1 EACH CAPSULE PO (08:57)
[2022-08-17] MEDS: Insulin Lispro 100 UNIT/ML INSULN.PEN 6 UNIT SC ×2 (08:57→12:00)
[2022-08-17] MEDS: Ezetimibe 10 MG Tablet PO (08:57)
[2022-08-17] MEDS: Aspirin 81 MG TAB.CHEW PO (08:57)
[2022-08-17] MEDS: Insulin Glargine-YFGN 100 UNIT/ML Pen 35 UNIT SC (08:58)
[2022-08-17 12:10] LABS: Bedside Glucose 107 mg/dL (74-106)
[2022-08-17 13:22] VITALS: BMI 24.5
--- NOTE | 2022-08-17 15:07 | PN_ITS ---
Subjective Subjective Afebrile VSS-changing the amlodipine to at bedtime has been effective in controlling the a.m. blood pressures. Since the change was made his blood pressures have ranged from 110/62 to 124/64. Heart rate is within normal limits. Maintaining appropriate oxygen saturation on RA Oral intake is good The blood sugar record was reviewed. Discussed with nursing - no problems that need addressed Reviewed the PT/OT/ST notes Medication list reviewed. The liver panel was rechecked 1 week after starting Zetia and the LFTs are all within normal limits. Objective Data Objective Data Vital Signs: Vital Signs Temp Pulse Resp BP Pulse Ox O2 Del Method O2 Flow Rate 97.9 F 64 15 120/61 96 Room Air 0 08/17/22 07:15 08/17/22 07:15 08/17/22 07:15 08/17/22 07:15 08/17/22 07:15 08/17/22 07:15 07/16/22 19:51 FiO2 21 07/16/22 19:51 Oxygen Flow Rate (L/min) 0 Oxygen Delivery Method Room Air Weight: 161 lb 9.581 oz Body Mass Index (BMI) 24.5 Intake & Output: Intake and Output for Last 24 Hours 08/15/22 08/16/22 08/17/22 23:59 23:59 23:59 Intake Total 900 / 900 1100 / 1100 300 / 300 Output Total 700 / 700 2695 / 2695 900 / 900 Balance 200 / 200 -1595 / -1595 -600 / -600 Medical Nutrition Assessment Dietitian: Malnutrition Criteria Met Start: 07/28/22 15:57 Freq: Status: Active Protocol: Document 07/30/22 13:10 RMA (Rec: 07/30/22 13:10 RMA [id number]) Nutrition Malnutrition Evidence of Malnutrition Exists Yes Malnutrition (severe): Acute Illness/Injury Evidenced By Suboptimal Energy Intake ( Severe),Weight Loss (Severe) Clinical Problem Acute Disease or Injury Related Malnutrition Etiology Severe pro-kieran malnutrition in the context of acute disease related to inadequate oral intake Signs/Symptoms as evidenced by ~10% wt loss x 10 days and PO meeting less than 50% estimated nutrition needs Status Active Problem Recommendation Dietitian Recommendations/Changes Will adjust diet to 2000 calorie/consistent carbohydrate; Cardiac diet with texture/consistency per AUTOMATIC CASTING MACHINE OPERATOR. Chocolate Magic Cup BID with lunch and dinner meals. Will d/c glucerna shake with medpass, pt refusing. Will try chocolate ensure compact w/ breakfast for tolerance. May need to consider enteral nutrition support if PO remains inadequate and weight continues to decline. Lab / Micro Data Result Diagrams: 08/04/22 07:45 08/16/22 05:37 Labs: Laboratory Results - last 24 hr 08/16/22 16:56: POC Glucose 99 08/16/22 21:15: POC Glucose 104 08/17/22 06:22: POC Glucose 106 08/17/22 11:52: POC Glucose 107 H Micro: Microbiology 08/06/22 16:20 Urine, Catheterized Urine Culture - Final Culture exhibits no growth. 07/25/22 21:32 Blood Culture (Wb) - Right Hand Blood Culture - Final No growth in 5 days. 07/25/22 21:36 Blood Culture (Wb) - Anticubital Right Blood Culture - Final No growth in 5 days. 07/25/22 11:45 Discharge - Penile Gram Stain - Final 07/25/22 11:45 Discharge - Penile Wound Culture - Final Klebsiella oxytoca Pseudomonas aeruginosa 07/25/22 11:45 Urine, Catheterized Urine Culture - Final Pseudomonas aeruginosa Klebsiella oxytoca 07/14/22 17:34 Urine Catheter - Beavers Urine Culture - Final Culture exhibits no growth. Physical Exam Const alert and oriented x3 Constitutional Narrative: Not sleeping as much as he was during the day. Did some steps today with assist of 2. Resp normal respiratory effort, normal air movement and clear to auscultation bila terally Effort and Inspection: Negative for tachypneic Cardio regular rate, regular rhythm and no gallops GI normal to inspection, nondistended, normoactive bowel sounds, soft to palpation and non-tender Extremity no calf tenderness General Extremity: Negative for edema Skin Skin Narrative: Over the cleft there are 2 small stage 1 decubitus ulcers. They are not open and there is no discharge. Ayaan tells me that the area is less painful than it was. Nursing is doing Calmoseptine and a Mepilex patch to decrease friction. Rashes: no rashes Neuro Neuro Narrative: Mild left facial droop, flaccid LUE, the left leg is stronger and he was able to advance the Left foot forward today when ambulating for 8 feet, with no knee immobilizer on. Psych cooperative and affect normal Assessment & Plan Assessment/Plan (1) Debility: (2) Acute cerebrovascular accident (CVA): (3) Hemiplegia affecting left nondominant side: (4) Dysphagia: (5) Urine retention: (6) Diabetes mellitus, type 2: (7) History of depression: (8) Dyslipidemia associated with type 2 diabetes mellitus: (9) BPH (benign prostatic hyperplasia): (10) Nicotine dependence: (11) Severe protein-calorie malnutrition: (12) Pseudobulbar affect: (13) Subluxation of left shoulder joint: (14) Stage I decubitus ulcer and pressure area: PLAN: Over the sacrum on the midline. Feeling better with the Mepilex patches and he is trying to lie on his side at night. PLAN: Plan 1. Continue therapy 2. He ordered Doherty's from [employer].....with 1 sweet tea and 1 non- sweetened. 3. Continue all the current medications. No need to increase the dose of the Nuedexta.......he is doing well. 4. Will need to discuss with Cristy what the plan is for Ayaan to go home to [place]? He is a 1 person assist with everything now. He will need assistance and is she planning on staying home to care for Ayaan OR will she be going back to work? May need to set up a conference call with the Cristy KEARNS and myself to discuss how goodAyaan has to be before going home? Charges/Coding Visit Charges Inpatient E&M: 80701 Subs Hosp L2
[2022-08-17 16:50] LABS: Bedside Glucose 166 mg/dL (74-106)
[2022-08-17] MEDS: Insulin Lispro 100 UNIT/ML INSULN.PEN 8 UNIT SC (16:51)
[2022-08-17 20:01] VITALS: BP 126/66; PULSE 83; RESP 18; TEMP 36.7; O2SAT 98
[2022-08-17 21:30] LABS: Bedside Glucose 197 mg/dL (74-106)
[2022-08-17] MEDS: Arthritis Pain Compound 60 CLICK TUBE TOPICAL (21:35)
[2022-08-17] MEDS: Mirtazapine 30 MG Tablet PO (21:35)
[2022-08-17] MEDS: oxyCODONE 5 MG Tablet PO (21:35)
[2022-08-17] MEDS: amLODIPine 5 MG Tablet PO (21:35)
[2022-08-17] MEDS: Senna/Docusate Sodium 1 Tablet 2 TABLET PO (21:38)
[2022-08-18] MEDS: Enoxaparin 40 MG/0.4 ML Syringe SC (05:58)
[2022-08-18 06:00] VITALS: BMI 24.3
[2022-08-18] MEDS: Nystatin Powder 15gm Bottle 1 APPLIC TOPICAL ×2 (06:13→20:36)
[2022-08-18] MEDS: Menthol/Lanolin/Calamine/Znox 113 GM Tube 1 APPLIC TOPICAL ×2 (06:13→20:36)
[2022-08-18 07:10] LABS: Bedside Glucose 85 mg/dL (74-106)
[2022-08-18 07:32] VITALS: BP 143/68; PULSE 63; RESP 15; TEMP 36.7; O2SAT 97
[2022-08-18] MEDS: Arthritis Pain Compound 60 CLICK TUBE TOPICAL ×2 (07:39→20:37)
[2022-08-18] MEDS: Pantoprazole Sodium 40 MG Tablet PO (07:43)
[2022-08-18] MEDS: Aspirin 81 MG TAB.CHEW PO (07:43)
[2022-08-18] MEDS: Ezetimibe 10 MG Tablet PO (07:43)
[2022-08-18] MEDS: Lisinopril 20 MG Tablet PO ×2 (07:43→21:17)
[2022-08-18] MEDS: Senna/Docusate Sodium 1 Tablet 2 TABLET PO ×2 (07:43→20:53)
[2022-08-18] MEDS: Insulin Glargine-YFGN 100 UNIT/ML Pen 35 UNIT SC (07:44)
[2022-08-18] MEDS: Multivitamins,Therapeutic Tablet 1 TABLET PO (07:44)
[2022-08-18] MEDS: Insulin Lispro 100 UNIT/ML INSULN.PEN 6 UNIT SC ×2 (07:45→11:43)
[2022-08-18] MEDS: DEXTROMETHORPHAN HBR/QUINIDINE 1 EACH CAPSULE PO (07:54)
[2022-08-18 12:21] LABS: Bedside Glucose 127 mg/dL (74-106)
[2022-08-18 14:42] VITALS: BMI 24.5
[2022-08-18] MEDS: Insulin Lispro 100 UNIT/ML INSULN.PEN 8 UNIT SC (16:28)
[2022-08-18 16:55] LABS: Bedside Glucose 134 mg/dL (74-106)
[2022-08-18 20:00] VITALS: BP 118/70; PULSE 68; RESP 15; TEMP 36.6; O2SAT 98; BMI 24.5
[2022-08-18] MEDS: amLODIPine 5 MG Tablet PO (20:35)
[2022-08-18] MEDS: oxyCODONE 5 MG Tablet PO (20:52)
[2022-08-18] MEDS: Mirtazapine 30 MG Tablet PO (20:53)
[2022-08-18 23:15] LABS: Bedside Glucose 159 mg/dL (74-106)
[2022-08-19] MEDS: Arthritis Pain Compound 60 CLICK TUBE TOPICAL ×2 (05:44→22:13)
[2022-08-19] MEDS: Menthol/Lanolin/Calamine/Znox 113 GM Tube 1 APPLIC TOPICAL ×2 (05:44→22:13)
[2022-08-19] MEDS: Nystatin Powder 15gm Bottle 1 APPLIC TOPICAL ×2 (05:45→22:14)
[2022-08-19] MEDS: Enoxaparin 40 MG/0.4 ML Syringe SC (05:45)
[2022-08-19] MEDS: Lidocaine Jelly 2% 20 ML Syringe (URO-JET) 1 APPLIC TOPICAL (05:46)
[2022-08-19 07:15] LABS: Bedside Glucose 109 mg/dL (74-106)
[2022-08-19 07:48] VITALS: BP 114/63; PULSE 63; RESP 16; TEMP 36.3; O2SAT 95
[2022-08-19] MEDS: Insulin Lispro 100 UNIT/ML INSULN.PEN 6 UNIT SC ×2 (09:00→11:54)
[2022-08-19] MEDS: Aspirin 81 MG TAB.CHEW PO (09:00)
[2022-08-19] MEDS: Insulin Glargine-YFGN 100 UNIT/ML Pen 35 UNIT SC (09:02)
[2022-08-19] MEDS: Multivitamins,Therapeutic Tablet 1 TABLET PO (09:02)
[2022-08-19] MEDS: Pantoprazole Sodium 40 MG Tablet PO (09:03)
[2022-08-19] MEDS: DEXTROMETHORPHAN HBR/QUINIDINE 1 EACH CAPSULE PO (09:03)
[2022-08-19] MEDS: Ezetimibe 10 MG Tablet PO (09:04)
[2022-08-19] MEDS: Senna/Docusate Sodium 1 Tablet 2 TABLET PO ×2 (09:04→22:15)
[2022-08-19 11:51] LABS: Bedside Glucose 163 mg/dL (74-106)
[2022-08-19 15:24] VITALS: BMI 24.5
[2022-08-19 17:00] LABS: Bedside Glucose 186 mg/dL (74-106)
[2022-08-19] MEDS: Insulin Lispro 100 UNIT/ML INSULN.PEN 8 UNIT SC (18:04)
[2022-08-19 19:31] VITALS: BP 118/63; PULSE 76; RESP 16; TEMP 37.4; O2SAT 95
[2022-08-19] MEDS: Mirtazapine 30 MG Tablet PO (22:14)
[2022-08-19] MEDS: oxyCODONE 5 MG Tablet PO (22:14)
[2022-08-19] MEDS: amLODIPine 5 MG Tablet PO (22:15)
[2022-08-19 23:06] LABS: Bedside Glucose 216 mg/dL (74-106)
[2022-08-20] MEDS: Enoxaparin 40 MG/0.4 ML Syringe SC (06:05)
[2022-08-20] MEDS: Arthritis Pain Compound 60 CLICK TUBE TOPICAL ×2 (06:05→21:08)
[2022-08-20] MEDS: Menthol/Lanolin/Calamine/Znox 113 GM Tube 1 APPLIC TOPICAL ×2 (06:06→21:08)
[2022-08-20] MEDS: Nystatin Powder 15gm Bottle 1 APPLIC TOPICAL ×2 (06:06→21:09)
[2022-08-20 07:25] LABS: Bedside Glucose 80 mg/dL (74-106)
[2022-08-20 07:59] VITALS: BP 147/73; PULSE 68; RESP 16; TEMP 36.5; O2SAT 98
[2022-08-20] MEDS: Aspirin 81 MG TAB.CHEW PO (08:18)
[2022-08-20] MEDS: Multivitamins,Therapeutic Tablet 1 TABLET PO (08:18)
[2022-08-20] MEDS: Insulin Lispro 100 UNIT/ML INSULN.PEN 6 UNIT SC ×2 (08:18→13:03)
[2022-08-20] MEDS: Lisinopril 20 MG Tablet PO (08:19)
[2022-08-20] MEDS: DEXTROMETHORPHAN HBR/QUINIDINE 1 EACH CAPSULE PO (08:19)
[2022-08-20] MEDS: Senna/Docusate Sodium 1 Tablet 2 TABLET PO (08:19)
[2022-08-20] MEDS: Ezetimibe 10 MG Tablet PO (08:19)
[2022-08-20] MEDS: Pantoprazole Sodium 40 MG Tablet PO (08:19)
[2022-08-20] MEDS: Insulin Glargine-YFGN 100 UNIT/ML Pen 35 UNIT SC (08:19)
[2022-08-20 12:06] LABS: Bedside Glucose 135 mg/dL (74-106)
[2022-08-20 13:22] VITALS: BMI 24.5
[2022-08-20 16:56] LABS: Bedside Glucose 141 mg/dL (74-106)
[2022-08-20] MEDS: Insulin Lispro 100 UNIT/ML INSULN.PEN 8 UNIT SC (17:08)
[2022-08-20 19:28] VITALS: BP 142/75; PULSE 72; RESP 16; TEMP 36.7; O2SAT 96
[2022-08-20] MEDS: Acetaminophen 500 MG Tablet 1000 MG PO (20:11)
[2022-08-20] MEDS: Lidocaine Jelly 2% 20 ML Syringe (URO-JET) 1 APPLIC TOPICAL (20:21)
[2022-08-20] MEDS: amLODIPine 5 MG Tablet PO (21:09)
[2022-08-20] MEDS: oxyCODONE 5 MG Tablet PO (21:09)
[2022-08-20] MEDS: Mirtazapine 30 MG Tablet PO (21:10)
[2022-08-20 22:50] LABS: Bedside Glucose 154 mg/dL (74-106)
[2022-08-21 05:29] LABS: Hematocrit 43.1 % (40-54); Hemoglobin 13.7 g/dL (13.0-16.5); Mean Corp Hgb Conc 31.8 g/dL (32-36); Mean Corpuscular Hgb 29.4 pg (27.0-32.0); Mean Corpuscular Volume 92.5 fL (80-94); Mean Platelet Vol. 10.3 fl (6.2-12.0); Platelet Count 262 K/mm3 (150-450); RBC Distribution Width CV 12.6 % (11.6-14.6); RBC Distribution Width SD 42.8 fl (35.1-43.9); Red Blood Count 4.66 M/mm3 (4.6-6.2)
[2022-08-21] MEDS: Enoxaparin 40 MG/0.4 ML Syringe SC (05:39)
[2022-08-21] MEDS: Arthritis Pain Compound 60 CLICK TUBE TOPICAL ×2 (05:39→22:30)
[2022-08-21] MEDS: Nystatin Powder 15gm Bottle 1 APPLIC TOPICAL ×2 (05:49→22:30)
[2022-08-21] MEDS: Menthol/Lanolin/Calamine/Znox 113 GM Tube 1 APPLIC TOPICAL ×2 (05:49→22:30)
[2022-08-21 05:57] LABS: ALB/GLOB Ratio 0.8 RATIO (0.9-2.4); AST(SGOT) 20 U/L (15-37); Alanine Aminotransfer ALT/SGPT 51 U/L (16-61); Albumin, Serum 2.8 g/dL (3.2-5.0); Alkaline Phosphatase 106 U/L (45-117); Anion Gap 3 (5-15); BUN 14 mg/dL (7-18); BUN/Creat Ratio 20.8 RATIO (10-20); Calcium,Total 8.8 mg/dL (8.5-10.1); Chloride 110 mmol/L (98-107); Creatinine, Serum 0.67 mg/dL (0.70-1.30); EST Glomerular Filtration Rate 127 mL/min (>60); Est Glom Filt Rate - Afr Amer 153 mL/min (>60); Globulin 3.3 g/dL (2.2-4.2); Glucose 112 mg/dL (74-106); Magnesium 1.8 mg/dL (1.6-2.6); Potassium 3.9 mmol/L (3.5-5.1); Protein, Total 6.1 g/dL (6.4-8.2); Sodium Level 140 mmol/L (136-145)
[2022-08-21 06:00] VITALS: BMI 24.0
[2022-08-21 07:01] LABS: Bedside Glucose 118 mg/dL (74-106)
[2022-08-21 08:16] VITALS: BP 141/65; PULSE 57; RESP 14; TEMP 36.4; O2SAT 98
[2022-08-21] MEDS: DEXTROMETHORPHAN HBR/QUINIDINE 1 EACH CAPSULE PO (09:00)
[2022-08-21] MEDS: Ezetimibe 10 MG Tablet PO (09:01)
[2022-08-21] MEDS: Lisinopril 20 MG Tablet PO (09:01)
[2022-08-21] MEDS: Multivitamins,Therapeutic Tablet 1 TABLET PO (09:01)
[2022-08-21] MEDS: Pantoprazole Sodium 40 MG Tablet PO (09:01)
[2022-08-21] MEDS: Insulin Glargine-YFGN 100 UNIT/ML Pen 35 UNIT SC (09:01)
[2022-08-21] MEDS: Aspirin 81 MG TAB.CHEW PO (09:01)
[2022-08-21] MEDS: Insulin Lispro 100 UNIT/ML INSULN.PEN 6 UNIT SC ×2 (09:02→11:56)
--- NOTE | 2022-08-21 11:18 | PN_ITS ---
Subjective Subjective Ayaan was seen on team rounds today. His Cristy participated by phone. It did not go well with Cristy. She wants Ayaan to be able to get out of bed and ambulate to the and take care of himself prior to going home to [place] and I don't know if he will ever be able to take care of himself again. He has made good progress in therapy and he could go home with assist of 1 to help him. Cristy works as a travelling nurse and is out of the home for 13 weeks at a time. His son Arturo sometimes goes with her and that leaves only her mother at home. Arturo is 16 and may be able to provide the assistance Ayaan needs to go home with some training. Alma is very upset that Ayaan may never be able to take care of himself without assistance going forward. He will not be able to drive and still needs assistance to ambulate. He is now walking without bracing the Left knee and he is able to advance the left foot by himself........we are still osorio wrapping the L foot into dorsiflexion. Afebrile VSS-consistently mildly elevated systolic blood pressure. Diastolics are within normal limits. Maintaining appropriate oxygen saturation on RA Oral intake is good for food and not so good for fluids. The blood sugar record was reviewed. Blood sugars are in good control for the past 48 hours with no hypoglycemia. Weight is stable. Discussed with nursing - no problems that need addressed Reviewed the PT/OT/ST notes Medication list reviewed. Has not taken any oxycodone since last Sunday. He is still complaining of pain in his bottom but, he has not been asking for anything stronger than Tylenol. He does not look to be in any distress/pain. He is rarely tearful any more. Cristy wants the Nuedexta discontinued but, it has helped with the affect/constant crying. She told the SW the insurance co charline told her Ayaan could stay in acute rehab for 100 days and I do not think this is true. The SW is going to clarify this with the insurance company. She says she wants him transferred to the [facility] where they can try electric stimulation.......which we have started doing here. Cristy thinks he is just laying in bed all day........I rarely see him in bed any more. He is up in the chair and going to meals at lunch with the other patients. He is no longer napping all day between therapy sessions like he was doing earlier in the admission. Objective Data Objective Data Vital Signs: Vital Signs Temp Pulse Resp BP Pulse Ox O2 Del Method O2 Flow Rate 97.5 F L 57 L 14 141/65 H 98 Room Air 0 08/21/22 08:16 08/21/22 08:16 08/21/22 08:16 08/21/22 08:16 08/21/22 08:16 08/21/22 08:16 07/16/22 19:51 FiO2 21 07/16/22 19:51 Oxygen Flow Rate (L/min) 0 Oxygen Delivery Method Room Air Weight: 160 lb 14.999 oz Body Mass Index (BMI) 24.5 Intake & Output: Intake and Output for Last 24 Hours 08/19/22 08/20/22 08/21/22 23:59 23:59 23:59 Intake Total 920 / 1020 1070 / 1070 50 / 50 Output Total 775 / 775 1350 / 1350 Balance 145 / 245 -280 / -280 50 / 50 Medical Nutrition Assessment Dietitian: Malnutrition Criteria Met Start: 07/28/22 15:57 Freq: Status: Active Protocol: Document 07/30/22 13:10 RMA (Rec: 07/30/22 13:10 RMA [id number]) Nutrition Malnutrition Evidence of Malnutrition Exists Yes Malnutrition (severe): Acute Illness/Injury Evidenced By Suboptimal Energy Intake ( Severe),Weight Loss (Severe) Clinical Problem Acute Disease or Injury Related Malnutrition Etiology Severe pro-kieran malnutrition in the context of acute disease related to inadequate oral intake Signs/Symptoms as evidenced by ~10% wt loss x 10 days and PO meeting less than 50% estimated nutrition needs Status Active Problem Recommendation Dietitian Recommendations/Changes Will adjust diet to 2000 calorie/consistent carbohydrate; Cardiac diet with texture/consistency per WOOD CARVER HAND. Chocolate Magic Cup BID with lunch and dinner meals. Will d/c glucerna shake with medpass, pt refusing. Will try chocolate ensure compact w/ breakfast for tolerance. May need to consider enteral nutrition support if PO remains inadequate and weight continues to decline. Lab / Micro Data Result Diagrams: 08/21/22 05:16 08/21/22 05:16 Labs: Laboratory Results - last 24 hr 08/20/22 11:33: POC Glucose 135 H 08/20/22 16:34: POC Glucose 141 H 08/20/22 21:19: POC Glucose 154 H 08/21/22 05:16: WBC 5.0, RBC 4.66, Hgb 13.7, Hct 43.1, MCV 92.5, MCH 29.4, MCHC 31.8 L, RDW Std Deviation 42.8, RDW Coeff of Machelle 12.6, Plt Count 262, MPV 10.3 08/21/22 05:16: Sodium 140, Potassium 3.9, Chloride 110 H, Carbon Dioxide 27.0, Anion Gap 3 L, BUN 14, Creatinine 0.67 L, Estim Creat Clear Calc 110.60, Est GFR (MDRD) Af Amer 153, Est GFR (MDRD) Non-Af 127, BUN/Creatinine Ratio 20.8 H, Glucose 112 H, Calcium 8.8, Magnesium 1.8, Total Bilirubin 0.30, AST 20, ALT 51, Alkaline Phosphatase 106, Total Protein 6.1 L, Albumin 2.8 L, Globulin 3.3, Albumin/Globulin Ratio 0.8 L 08/21/22 06:31: POC Glucose 118 H Micro: Microbiology 08/06/22 16:20 Urine, Catheterized Urine Culture - Final Culture exhibits no growth. 07/25/22 21:32 Blood Culture (Wb) - Right Hand Blood Culture - Final No growth in 5 days. 07/25/22 21:36 Blood Culture (Wb) - Anticubital Right Blood Culture - Final No growth in 5 days. 07/25/22 11:45 Discharge - Penile Gram Stain - Final 07/25/22 11:45 Discharge - Penile Wound Culture - Final Klebsiella oxytoca Pseudomonas aeruginosa 07/25/22 11:45 Urine, Catheterized Urine Culture - Final Pseudomonas aeruginosa Klebsiella oxytoca 07/14/22 17:34 Urine Catheter - Beavers Urine Culture - Final Culture exhibits no growth. Physical Exam Const alert, oriented x3 and no apparent distress General Appearance: cooperative Orientation / Consciousness: Negative for confused HEENT moist oral mucous membranes Resp normal respiratory effort, no use of accessory muscles and clear to auscultation bilaterally Effort and Inspection: Negative for tachypneic or labored Cardio regular rate, regular rhythm and no gallops GI normal to inspection, nondistended, normoactive bowel sounds, non-tender and non-distended GI Narrative: no guarding with palpation Extremity Negative for no calf tenderness General Extremity: Negative for edema Skin Skin Narrative: Will examine the sacrococcygeal area the next time the Mepilex is changed. Nursing tells me that it is looking good. I instructed Ayaan to ask for something stronger if the Tylenol is not effectively relieving his pain. He has Oxycodone ordered PRN. General Skin Exam: no breakdown Rashes: no rashes Psych affect normal Assessment & Plan Assessment/Plan (1) Debility: (2) Acute cerebrovascular accident (CVA): (3) Hemiplegia affecting left nondominant side: (4) Dysphagia: (5) Urine retention: (6) Diabetes mellitus, type 2: (7) History of depression: (8) Dyslipidemia associated with type 2 diabetes mellitus: (9) BPH (benign prostatic hyperplasia): (10) Nicotine dependence: (11) Severe protein-calorie malnutrition: (12) Pseudobulbar affect: (13) Subluxation of left shoulder joint: (14) Stage I decubitus ulcer and pressure area: PLAN: Over the sacrum on the midline. Feeling better with the Mepilex patches and he is trying to lie on his side at night. PLAN: Plan 1. Continue therapy. 2. the is going to allow Cristy some time to get herself together and then talk to Ayaan so they can come up with a plan on how Ayaan is to be cared for when he goes back to [place]. Arturo may be able to assist Ayaan. Ayaan wants to go home. He has the misconception that he will be able to walk without assist when he is home and he needs to start walking without assist to see if he can do it. He was able to urinate today 400 cc's and he had only a 120 cc PVR.....will restart the Flomax. It would be nice if he did not have to be straight cath'd at [place] and cou7ld use a urinal. Charges/Coding Visit Charges Inpatient E&M: 18998 Subs Hosp L2
[2022-08-21 12:10] LABS: Bedside Glucose 178 mg/dL (74-106)
[2022-08-21 13:11] VITALS: BMI 24.0
--- NOTE | 2022-08-21 13:21 | CASEMGMT ---
Social Work IDT met with patient and via conference call for Team meeting. Discussed patient's progress in PT/OT/ST/SN. [employer] insurance continues to approve additional time - NRD 08/25. SW and IDT inquired to about DC plan. Pt is x1 assist and can be cared for at home, with assistance. stated pt has to be able to go to the bathroom, get in and out bed and ambulate independently. 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 educated to that level of independence may not be achieved or how much longer it will take for that to happen. Asked the plan. began spontaneously explaining different things, speaking rapidly, not allowing for interjection, changing to different topics. Ultimately, the conversation no longer became productive and abruptly ended the phone call. , this worker and nurse spoke with patient after phone call. Praised pt on accomplishments thus far, however, pt is aware he may not regain full independence. Pt stated this is 's personality and explained 's BRETT had a stroke about a year ago and got better within 4 days. SW inferred is comparing BRETT and pt's strokes and getting discouraged with time of recovery. Pt confirmed. SW asked pt his wishes. Pt states he wants to go home and get into a routine to see how things go. SW asked further questions about home set up, 's work hours, and son's abilities. Pt stated is a travel nurse and be can in a different state for 13 weeks. homeschools their 16 year old son, and would take son with her or he would stay at home and complete school work with pt. Pt stated son is physically capable to care for pt at home and would be willing to do so. SW encouraged for pt to have further conversation with son and about discharging home and getting the help he needs. SW will begin the process for pt's DC back to [place] with skilled HHC and PCP appt. SW offered for son and to get therapy training at time of discharge. Pt agreed and appreciative. SW to continue to follow. Ida Haynes, HAYDEN العراقي
[2022-08-21] MEDS: Tamsulosin HCl 0.4 MG Capsule PO (16:55)
[2022-08-21] MEDS: Insulin Lispro 100 UNIT/ML INSULN.PEN 8 UNIT SC (16:55)
[2022-08-21 17:31] LABS: Bedside Glucose 169 mg/dL (74-106)
[2022-08-21 19:53] VITALS: BP 150/71; PULSE 79; RESP 17; TEMP 36.7; O2SAT 97
[2022-08-21] MEDS: Senna/Docusate Sodium 1 Tablet 2 TABLET PO (22:30)
[2022-08-21] MEDS: Mirtazapine 30 MG Tablet PO (22:30)
[2022-08-21] MEDS: amLODIPine 5 MG Tablet PO (22:30)
[2022-08-21] MEDS: oxyCODONE 5 MG Tablet PO (22:32)
[2022-08-21 23:06] LABS: Bedside Glucose 247 mg/dL (74-106)
[2022-08-22] MEDS: Enoxaparin 40 MG/0.4 ML Syringe SC (05:45)
[2022-08-22] MEDS: Arthritis Pain Compound 60 CLICK TUBE TOPICAL ×2 (05:45→20:51)
[2022-08-22] MEDS: Menthol/Lanolin/Calamine/Znox 113 GM Tube 1 APPLIC TOPICAL ×2 (05:49→20:51)
[2022-08-22] MEDS: Nystatin Powder 15gm Bottle 1 APPLIC TOPICAL ×2 (05:49→20:52)
[2022-08-22 06:51] LABS: Bedside Glucose 98 mg/dL (74-106)
[2022-08-22 07:23] VITALS: BP 116/62; PULSE 66; RESP 14; TEMP 37; O2SAT 97
[2022-08-22] MEDS: Multivitamins,Therapeutic Tablet 1 TABLET PO (08:25)
[2022-08-22] MEDS: Pantoprazole Sodium 40 MG Tablet PO (08:26)
[2022-08-22] MEDS: Senna/Docusate Sodium 1 Tablet 2 TABLET PO ×2 (08:26→20:32)
[2022-08-22] MEDS: Ezetimibe 10 MG Tablet PO (08:26)
[2022-08-22] MEDS: Lisinopril 20 MG Tablet PO (08:26)
[2022-08-22] MEDS: Aspirin 81 MG TAB.CHEW PO (08:26)
[2022-08-22] MEDS: Insulin Lispro 100 UNIT/ML INSULN.PEN 6 UNIT SC ×2 (08:27→12:10)
[2022-08-22] MEDS: Insulin Glargine-YFGN 100 UNIT/ML Pen 35 UNIT SC (08:27)
[2022-08-22] MEDS: DEXTROMETHORPHAN HBR/QUINIDINE 1 EACH CAPSULE PO (08:29)
[2022-08-22 11:46] LABS: Bedside Glucose 135 mg/dL (74-106)
[2022-08-22] MEDS: Acetaminophen 500 MG Tablet 1000 MG PO (12:16)
[2022-08-22 14:29] VITALS: BMI 24.0
[2022-08-22] MEDS: Tamsulosin HCl 0.4 MG Capsule PO (17:33)
[2022-08-22] MEDS: Insulin Lispro 100 UNIT/ML INSULN.PEN 8 UNIT SC (17:33)
[2022-08-22 17:50] LABS: Bedside Glucose 170 mg/dL (74-106)
[2022-08-22] MEDS: oxyCODONE 5 MG Tablet PO (20:32)
[2022-08-22] MEDS: Mirtazapine 30 MG Tablet PO (20:33)
[2022-08-22] MEDS: amLODIPine 5 MG Tablet PO (20:33)
[2022-08-22 21:18] VITALS: BP 132/58; PULSE 74; RESP 18; TEMP 36.6; O2SAT 96
[2022-08-22 21:27] VITALS: O2SAT 96
[2022-08-22 22:00] LABS: Bedside Glucose 142 mg/dL (74-106)
[2022-08-23 03:10] VITALS: BMI 24.0
[2022-08-23 06:00] VITALS: BMI 24.0
[2022-08-23] MEDS: Enoxaparin 40 MG/0.4 ML Syringe SC (06:10)
[2022-08-23 06:40] LABS: Bedside Glucose 92 mg/dL (74-106)
[2022-08-23 08:14] VITALS: BP 127/63; PULSE 69; RESP 16; TEMP 36.6; O2SAT 96
[2022-08-23] MEDS: Menthol/Lanolin/Calamine/Znox 113 GM Tube 1 APPLIC TOPICAL ×2 (09:16→20:39)
[2022-08-23] MEDS: Arthritis Pain Compound 60 CLICK TUBE TOPICAL ×2 (09:16→22:56)
[2022-08-23] MEDS: Aspirin 81 MG TAB.CHEW PO (09:17)
[2022-08-23] MEDS: Multivitamins,Therapeutic Tablet 1 TABLET PO (09:17)
[2022-08-23] MEDS: Nystatin Powder 15gm Bottle 1 APPLIC TOPICAL ×2 (09:17→23:04)
[2022-08-23] MEDS: DEXTROMETHORPHAN HBR/QUINIDINE 1 EACH CAPSULE PO (09:18)
[2022-08-23] MEDS: Lisinopril 20 MG Tablet PO (09:18)
[2022-08-23] MEDS: Senna/Docusate Sodium 1 Tablet 2 TABLET PO (09:18)
[2022-08-23] MEDS: Pantoprazole Sodium 40 MG Tablet PO (09:18)
[2022-08-23] MEDS: Ezetimibe 10 MG Tablet PO (09:18)
[2022-08-23] MEDS: Insulin Lispro 100 UNIT/ML INSULN.PEN 6 UNIT SC ×2 (09:19→12:51)
[2022-08-23] MEDS: Insulin Glargine-YFGN 100 UNIT/ML Pen 35 UNIT SC (09:19)
[2022-08-23 12:15] LABS: Bedside Glucose 192 mg/dL (74-106)
[2022-08-23 13:38] VITALS: BMI 24.0
--- NOTE | 2022-08-23 15:16 | CASEMGMT ---
Social Work Received voicemail from stating she wants a referral sent to [facility] and provided fax number and name of contact. However, it was not clear which facility or type of facility. SW spoke with pt in room to discuss 's request and pt's wishes. Pt conflicted stating he wants to be able to improve and what is best for him, but he is unsure what that is. He reiterated he knows his wants the referral. SW maintained focus on pt's wishes, stating referral does not need to be made and pt can DC home. SW offered returning home to [place] and then admitting to a rehab facility if needed. Pt ultimately decided to have the referral made to see if he will be approved. He is approved, he can go, and is aware he can DC at any time; if denied, he will DC home. SW agreed. SW returned call to to get further clarification, but did not answer and voicemail box is full. SOM assumed it would be a lateral transfer to [facility] or [facility]. Referrals sent via [employer]. Will continue to follow. Ida Haynes CLINICAL LABORATORY DIRECTOR BENCH REPAIR TECHNICIAN
[2022-08-23] MEDS: Tamsulosin HCl 0.4 MG Capsule PO (17:04)
[2022-08-23] MEDS: Insulin Lispro 100 UNIT/ML INSULN.PEN 8 UNIT SC (17:04)
[2022-08-23 17:30] LABS: Bedside Glucose 178 mg/dL (74-106)
[2022-08-23 19:00] VITALS: BP 121/62; PULSE 89; RESP 17; TEMP 37.5; O2SAT 97
[2022-08-23 22:51] VITALS: BP 114/61; PULSE 77; TEMP 36.4
[2022-08-23] MEDS: oxyCODONE 5 MG Tablet PO (22:55)
[2022-08-23] MEDS: amLODIPine 5 MG Tablet PO (22:57)
[2022-08-23] MEDS: Mirtazapine 30 MG Tablet PO (22:57)
[2022-08-23 23:51] LABS: Bedside Glucose 116 mg/dL (74-106)
[2022-08-24 03:54] VITALS: BMI 24.0
[2022-08-24] MEDS: Arthritis Pain Compound 60 CLICK TUBE TOPICAL ×2 (05:48→21:54)
[2022-08-24] MEDS: Menthol/Lanolin/Calamine/Znox 113 GM Tube 1 APPLIC TOPICAL ×2 (05:49→21:55)
[2022-08-24] MEDS: Enoxaparin 40 MG/0.4 ML Syringe SC (05:49)
[2022-08-24] MEDS: Nystatin Powder 15gm Bottle 1 APPLIC TOPICAL ×2 (05:49→21:55)
[2022-08-24 07:31] LABS: Bedside Glucose 105 mg/dL (74-106)
[2022-08-24] MEDS: Ezetimibe 10 MG Tablet PO (08:14)
[2022-08-24] MEDS: Multivitamins,Therapeutic Tablet 1 TABLET PO (08:15)
[2022-08-24] MEDS: DEXTROMETHORPHAN HBR/QUINIDINE 1 EACH CAPSULE PO (08:15)
[2022-08-24] MEDS: Insulin Lispro 100 UNIT/ML INSULN.PEN 6 UNIT SC ×2 (08:15→12:01)
[2022-08-24] MEDS: Insulin Glargine-YFGN 100 UNIT/ML Pen 35 UNIT SC (08:15)
[2022-08-24] MEDS: Aspirin 81 MG TAB.CHEW PO (08:15)
[2022-08-24] MEDS: Pantoprazole Sodium 40 MG Tablet PO (08:15)
[2022-08-24] MEDS: Lisinopril 20 MG Tablet PO (08:15)
[2022-08-24 09:12] VITALS: BP 122/67; PULSE 72; RESP 18; TEMP 36.3; O2SAT 97
[2022-08-24 12:25] LABS: Bedside Glucose 178 mg/dL (74-106)
--- NOTE | 2022-08-24 13:39 | CASEMGMT ---
Addendum entered by Ida Haynes 08/25/22 16:04: SW left message with Amy in [place], [place] to follow up on DME order. SW has referred to 13 HHC agencies. [facility] can accept but only has PT/OT. SW to follow up with IDT on recommendations. Addendum entered by Ida Haynes 08/24/22 15:14: SW emailed with DME recommendations. SW to refer to [place] DME company via [employer] for BSC, hospital bed and shower chair. SW to refer [place] [facility] [place]mi[place] and w/c for use immediately at DC. SW educated to purchasing hip kit at drug store. Original Note: Social Work [facility] and [facility] both denied pt. SW spoke with via phone to update on denial. SW explained pt stated if he would transfer to another facility if accepted, but if denied, he wants to DC home. continued to talk over this worker with her complaints of [facility]. SW attempted to interject and provide responses, but was not allowing this worker to speak. SW remained silent and provided active listening to . then stated give her a discharge date and she will come pick him up. SW offered for to choose date but she refused. SW offered DC 5/4, one week from today. agreed. SW offered and son arrive early and complete therapy training. stated her son is staying home and she has had 25 years of training as an RN. SW inquired about son assisting pt at home while is working, as stated by pt. denied and stated she would be caring for pt. asked for a list of DME she needs to purchase and she will start getting the house ready. SW will continue to refer to skilled HHC agencies for pt. SW educated pt cannot start with HHC until pt sees PCP, which the appt is September 04. expressed understanding and ended phone call. SW placed 9 more HHC referrals via [employer], as the first 6 HHC agencies denied. Will continue to follow. HAYDEN Persaud
[2022-08-24 14:51] VITALS: BMI 24.0
[2022-08-24 16:46] LABS: Bedside Glucose 131 mg/dL (74-106)
[2022-08-24] MEDS: Tamsulosin HCl 0.4 MG Capsule PO (17:28)
[2022-08-24] MEDS: Insulin Lispro 100 UNIT/ML INSULN.PEN 8 UNIT SC (17:29)
[2022-08-24] MEDS: oxyCODONE 5 MG Tablet PO ×2 (17:40→21:54)
[2022-08-24 19:19] VITALS: BP 125/65; PULSE 74; RESP 16; TEMP 36.6; O2SAT 97
[2022-08-24] MEDS: Mirtazapine 30 MG Tablet PO (21:54)
[2022-08-24] MEDS: amLODIPine 5 MG Tablet PO (21:54)
[2022-08-24 23:10] LABS: Bedside Glucose 115 mg/dL (74-106)
--- NOTE | 2022-08-25 02:56 | NURSING ---
REVIEWED AND AGREE WITH Fredrick CRAFT, DOCUMENTATION AND ASSESSMENT CHARTING.
[2022-08-25] MEDS: Enoxaparin 40 MG/0.4 ML Syringe SC (05:51)
[2022-08-25] MEDS: Arthritis Pain Compound 60 CLICK TUBE TOPICAL ×2 (05:51→22:13)
[2022-08-25] MEDS: Nystatin Powder 15gm Bottle 1 APPLIC TOPICAL ×2 (05:52→22:13)
[2022-08-25] MEDS: Menthol/Lanolin/Calamine/Znox 113 GM Tube 1 APPLIC TOPICAL ×2 (05:52→22:13)
[2022-08-25 06:00] VITALS: BMI 24.0
[2022-08-25 07:06] LABS: Bedside Glucose 102 mg/dL (74-106)
[2022-08-25 07:46] VITALS: BP 124/58; PULSE 62; RESP 16; TEMP 36.3; O2SAT 94
[2022-08-25] MEDS: oxyCODONE 5 MG Tablet PO ×2 (08:35→22:14)
[2022-08-25] MEDS: Aspirin 81 MG TAB.CHEW PO (09:21)
[2022-08-25] MEDS: Multivitamins,Therapeutic Tablet 1 TABLET PO (09:21)
[2022-08-25] MEDS: Senna/Docusate Sodium 1 Tablet 2 TABLET PO ×2 (09:21→22:14)
[2022-08-25] MEDS: Ezetimibe 10 MG Tablet PO (09:21)
[2022-08-25] MEDS: Pantoprazole Sodium 40 MG Tablet PO (09:21)
[2022-08-25] MEDS: Lisinopril 20 MG Tablet PO (09:21)
[2022-08-25] MEDS: DEXTROMETHORPHAN HBR/QUINIDINE 1 EACH CAPSULE PO (09:21)
[2022-08-25] MEDS: Insulin Lispro 100 UNIT/ML INSULN.PEN 6 UNIT SC ×2 (09:22→12:24)
[2022-08-25] MEDS: Insulin Glargine-YFGN 100 UNIT/ML Pen 35 UNIT SC (09:22)
[2022-08-25 11:26] LABS: Bedside Glucose 190 mg/dL (74-106)
[2022-08-25 16:30] LABS: Bedside Glucose 166 mg/dL (74-106)
[2022-08-25] MEDS: Tamsulosin HCl 0.4 MG Capsule PO (16:52)
[2022-08-25] MEDS: Insulin Lispro 100 UNIT/ML INSULN.PEN 8 UNIT SC (16:52)
[2022-08-25 17:00] VITALS: BMI 24.0
--- NOTE | 2022-08-25 18:46 | PCM.PROGNOTE ---
Subjective Subjective Afebrile VSS Maintaining appropriate oxygen saturation on RA Oral intake is good Discussed with nursing - no problems that need addressed Reviewed the PT/OT/ST notes Medication list reviewed. Ayaan denies lightheadedness, vertigo, CP, SOB at rest, SOB with exertion, cough, nausea, vomiting, abd pain, diarrhea, constipation, dysuria, calf pain and ankle swelling. He had no complaints to me when I asked if he had any problems today. Objective Data Objective Data Vital Signs: Vital Signs Temp Pulse Resp BP Pulse Ox O2 Del Method O2 Flow Rate 97.4 F L 62 16 124/58 H 94 Room Air 0 08/25/22 07:46 08/25/22 07:46 08/25/22 07:46 08/25/22 07:46 08/25/22 07:46 08/25/22 07:46 07/16/22 19:51 FiO2 21 07/16/22 19:51 Oxygen Flow Rate (L/min) 0 Oxygen Delivery Method Room Air Weight: 158 lb 15.253 oz Body Mass Index (BMI) 24.0 Intake & Output: Intake and Output for Last 24 Hours 08/23/22 08/24/22 08/25/22 23:59 23:59 23:59 Intake Total 1600 / 1600 400 / 400 1245 / 1245 Output Total 1425 / 1425 1655 / 1655 800 / 800 Balance 175 / 175 -1255 / -1255 445 / 445 Medical Nutrition Assessment Dietitian: Malnutrition Criteria Met Start: 07/28/22 15:57 Freq: Status: Active Protocol: Document 07/30/22 13:10 RMA (Rec: 07/30/22 13:10 RMA [id number]) Nutrition Malnutrition Evidence of Malnutrition Exists Yes Malnutrition (severe): Acute Illness/Injury Evidenced By Suboptimal Energy Intake ( Severe),Weight Loss (Severe) Clinical Problem Acute Disease or Injury Related Malnutrition Etiology Severe pro-kieran malnutrition in the context of acute disease related to inadequate oral intake Signs/Symptoms as evidenced by ~10% wt loss x 10 days and PO meeting less than 50% estimated nutrition needs Status Active Problem Recommendation Dietitian Recommendations/Changes Will adjust diet to 2000 calorie/consistent carbohydrate; Cardiac diet with texture/consistency per ASSOCIATE PROFESSOR OF LIBRARY SCIENCE. Chocolate Magic Cup BID with lunch and dinner meals. Will d/c glucerna shake with medpass, pt refusing. Will try chocolate ensure compact w/ breakfast for tolerance. May need to consider enteral nutrition support if PO remains inadequate and weight continues to decline. Lab / Micro Data Result Diagrams: 08/21/22 05:16 08/21/22 05:16 Labs: Laboratory Results - last 24 hr 08/24/22 22:38: POC Glucose 115 H 08/25/22 06:43: POC Glucose 102 08/25/22 11:05: POC Glucose 190 H 08/25/22 15:58: POC Glucose 166 H Micro: Microbiology 08/06/22 16:20 Urine, Catheterized Urine Culture - Final Culture exhibits no growth. 07/25/22 21:32 Blood Culture (Wb) - Right Hand Blood Culture - Final No growth in 5 days. 07/25/22 21:36 Blood Culture (Wb) - Anticubital Right Blood Culture - Final No growth in 5 days. 07/25/22 11:45 Discharge - Penile Gram Stain - Final 07/25/22 11:45 Discharge - Penile Wound Culture - Final Klebsiella oxytoca Pseudomonas aeruginosa 07/25/22 11:45 Urine, Catheterized Urine Culture - Final Pseudomonas aeruginosa Klebsiella oxytoca 07/14/22 17:34 Urine Catheter - Beavers Urine Culture - Final Culture exhibits no growth. Physical Exam Const alert, oriented x3 and no apparent distress Constitutional Narrative: Sitting in the recliner at the bedside and appears comfortable. General Appearance: cooperative HEENT moist oral mucous membranes Resp normal respiratory effort and clear to auscultation bilaterally Effort and Inspection: Negative for tachypneic Cardio regular rate, regular rhythm, no murmurs and no gallops GI normal to inspection, nondistended, normoactive bowel sounds, soft to palpation and non-tender GI Narrative: No guarding with palpation. Extremity no calf tenderness General Extremity: Negative for edema Skin Rashes: no rashes Neuro Neuro Narrative: Strength in the Left leg continues to improve. Speech is fluent. LUE is still flaccid. No trouble with word finding. No problems with coughing with eating or drinking. Psych affect normal Psych Narrative: He is in a good mood today and not crying despite yesterdays decompensation by his over the phone and her wanting him to be self sufficient so she can continue to work as a travelling nurse and be away for 13 weeks at a time. Appearance: appropriate Assessment & Plan Assessment/Plan (1) Debility: (2) Acute cerebrovascular accident (CVA): (3) Hemiplegia affecting left nondominant side: (4) Urine retention: (5) Diabetes mellitus, type 2: (6) History of depression: (7) BPH (benign prostatic hyperplasia): (8) Severe protein-calorie malnutrition: PLAN: Plan 1. continue therapy 2. The will continue to attempt to reach [facility].......phone has been going to . Charges/Coding Visit Charges Inpatient E&M: 34162 Subs Hosp L2
[2022-08-25 20:20] VITALS: BP 147/63; PULSE 77; RESP 18; TEMP 37; O2SAT 96
[2022-08-25] MEDS: amLODIPine 5 MG Tablet PO (22:14)
[2022-08-25] MEDS: Mirtazapine 30 MG Tablet PO (22:14)
[2022-08-25 22:36] LABS: Bedside Glucose 103 mg/dL (74-106)
[2022-08-26] MEDS: Menthol/Lanolin/Calamine/Znox 113 GM Tube 1 APPLIC TOPICAL ×2 (05:39→21:32)
[2022-08-26] MEDS: Nystatin Powder 15gm Bottle 1 APPLIC TOPICAL ×2 (05:39→21:32)
[2022-08-26] MEDS: Arthritis Pain Compound 60 CLICK TUBE TOPICAL ×2 (05:39→21:27)
[2022-08-26] MEDS: Enoxaparin 40 MG/0.4 ML Syringe SC (05:40)
[2022-08-26 06:36] LABS: Bedside Glucose 100 mg/dL (74-106)
[2022-08-26] MEDS: Aspirin 81 MG TAB.CHEW PO (07:55)
[2022-08-26] MEDS: Multivitamins,Therapeutic Tablet 1 TABLET PO (07:56)
[2022-08-26] MEDS: Insulin Lispro 100 UNIT/ML INSULN.PEN 6 UNIT SC ×2 (07:56→11:52)
[2022-08-26 08:04] VITALS: BP 148/66; PULSE 67; RESP 16; TEMP 36.5; O2SAT 97
[2022-08-26] MEDS: Ezetimibe 10 MG Tablet PO (10:05)
[2022-08-26] MEDS: Senna/Docusate Sodium 1 Tablet 2 TABLET PO ×2 (10:06→21:27)
[2022-08-26] MEDS: Lisinopril 20 MG Tablet PO (10:06)
[2022-08-26] MEDS: Pantoprazole Sodium 40 MG Tablet PO (10:07)
[2022-08-26] MEDS: Insulin Glargine-YFGN 100 UNIT/ML Pen 35 UNIT SC (10:07)
[2022-08-26] MEDS: DEXTROMETHORPHAN HBR/QUINIDINE 1 EACH CAPSULE PO (10:08)
[2022-08-26 11:41] LABS: Bedside Glucose 106 mg/dL (74-106)
[2022-08-26 16:51] LABS: Bedside Glucose 196 mg/dL (74-106)
[2022-08-26] MEDS: Tamsulosin HCl 0.4 MG Capsule PO (16:59)
[2022-08-26 17:00] VITALS: BMI 24.0
[2022-08-26] MEDS: Insulin Lispro 100 UNIT/ML INSULN.PEN 8 UNIT SC (17:00)
[2022-08-26 19:22] VITALS: BP 136/69; PULSE 75; RESP 14; TEMP 36.9; O2SAT 98
[2022-08-26 20:05] VITALS: BMI 24.0
[2022-08-26] MEDS: Mirtazapine 30 MG Tablet PO (21:26)
[2022-08-26] MEDS: oxyCODONE 5 MG Tablet PO (21:27)
[2022-08-26] MEDS: amLODIPine 5 MG Tablet PO (21:27)
[2022-08-26 22:36] LABS: Bedside Glucose 235 mg/dL (74-106)
[2022-08-27] MEDS: Enoxaparin 40 MG/0.4 ML Syringe SC (06:29)
[2022-08-27] MEDS: Arthritis Pain Compound 60 CLICK TUBE TOPICAL ×2 (06:29→22:15)
[2022-08-27] MEDS: Nystatin Powder 15gm Bottle 1 APPLIC TOPICAL ×2 (06:32→22:16)
[2022-08-27] MEDS: Menthol/Lanolin/Calamine/Znox 113 GM Tube 1 APPLIC TOPICAL ×2 (06:32→22:16)
[2022-08-27 07:15] LABS: Bedside Glucose 110 mg/dL (74-106)
[2022-08-27 07:59] VITALS: BP 129/61; PULSE 63; RESP 15; TEMP 36.3; O2SAT 96
[2022-08-27] MEDS: Senna/Docusate Sodium 1 Tablet 2 TABLET PO ×2 (09:20→22:15)
[2022-08-27] MEDS: Ezetimibe 10 MG Tablet PO (09:20)
[2022-08-27] MEDS: Pantoprazole Sodium 40 MG Tablet PO (09:20)
[2022-08-27] MEDS: Aspirin 81 MG TAB.CHEW PO (09:20)
[2022-08-27] MEDS: DEXTROMETHORPHAN HBR/QUINIDINE 1 EACH CAPSULE PO (09:21)
[2022-08-27] MEDS: Multivitamins,Therapeutic Tablet 1 TABLET PO (09:21)
[2022-08-27] MEDS: Lisinopril 20 MG Tablet PO (09:21)
[2022-08-27] MEDS: Insulin Lispro 100 UNIT/ML INSULN.PEN 6 UNIT SC ×2 (09:22→11:30)
[2022-08-27] MEDS: Insulin Glargine-YFGN 100 UNIT/ML Pen 35 UNIT SC (09:23)
[2022-08-27] MEDS: oxyCODONE 5 MG Tablet PO ×2 (11:30→22:15)
[2022-08-27 11:46] LABS: Bedside Glucose 196 mg/dL (74-106)
[2022-08-27 14:05] VITALS: BMI 24.0
[2022-08-27 16:46] LABS: Bedside Glucose 126 mg/dL (74-106)
[2022-08-27] MEDS: Insulin Lispro 100 UNIT/ML INSULN.PEN 8 UNIT SC (16:51)
[2022-08-27] MEDS: Tamsulosin HCl 0.4 MG Capsule PO (16:51)
--- NOTE | 2022-08-27 18:22 | NURSING ---
Patient has company in room and has refused to attempt to do toileting task at this time. Patient has been voiding without issue and denies discomfort.
[2022-08-27 20:07] VITALS: BP 126/64; PULSE 71; RESP 16; TEMP 36.6; O2SAT 95
[2022-08-27 22:00] VITALS: PULSE 74; RESP 16; O2SAT 96
[2022-08-27] MEDS: Mirtazapine 30 MG Tablet PO (22:15)
[2022-08-27] MEDS: amLODIPine 5 MG Tablet PO (22:15)
[2022-08-27 22:33] VITALS: BMI 24.0
[2022-08-27 22:46] LABS: Bedside Glucose 222 mg/dL (74-106)
[2022-08-28 06:00] VITALS: BMI 24.5
[2022-08-28] MEDS: Nystatin Powder 15gm Bottle 1 APPLIC TOPICAL ×2 (06:38→21:58)
[2022-08-28] MEDS: Menthol/Lanolin/Calamine/Znox 113 GM Tube 1 APPLIC TOPICAL ×2 (06:38→21:59)
[2022-08-28] MEDS: Arthritis Pain Compound 60 CLICK TUBE TOPICAL ×2 (06:39→21:58)
[2022-08-28] MEDS: Enoxaparin 40 MG/0.4 ML Syringe SC (06:41)
[2022-08-28 07:15] VITALS: BP 141/66; PULSE 60; RESP 17; TEMP 36.3; O2SAT 96
[2022-08-28 07:15] LABS: Bedside Glucose 95 mg/dL (74-106)
[2022-08-28] MEDS: oxyCODONE 5 MG Tablet PO ×2 (08:47→22:00)
[2022-08-28] MEDS: Ezetimibe 10 MG Tablet PO (08:50)
[2022-08-28] MEDS: Pantoprazole Sodium 40 MG Tablet PO (08:50)
[2022-08-28] MEDS: Multivitamins,Therapeutic Tablet 1 TABLET PO (08:50)
[2022-08-28] MEDS: Senna/Docusate Sodium 1 Tablet 2 TABLET PO ×2 (08:50→22:01)
[2022-08-28] MEDS: Insulin Lispro 100 UNIT/ML INSULN.PEN 6 UNIT SC ×2 (08:50→11:59)
[2022-08-28] MEDS: Aspirin 81 MG TAB.CHEW PO (08:50)
[2022-08-28] MEDS: Insulin Glargine-YFGN 100 UNIT/ML Pen 35 UNIT SC (08:51)
[2022-08-28] MEDS: Lisinopril 20 MG Tablet PO (08:51)
[2022-08-28] MEDS: DEXTROMETHORPHAN HBR/QUINIDINE 1 EACH CAPSULE PO (08:57)
[2022-08-28 12:10] LABS: Bedside Glucose 143 mg/dL (74-106)
--- NOTE | 2022-08-28 12:21 | PCM.PROGNOTE ---
Subjective Subjective Ayaan was to be seen on team rounds today. He was on the phone with Social Security/disability when we entered the room and his failed to answer her phone and a VM was left for her to call the SW or myself for an update. Afebrile VSS Maintaining appropriate oxygen saturation on RA Oral intake is good He is urinating with no significant Post void residuals now. BS's are high at lunch and HS. BS this AM was 95 and the BS at HS was 222. BS's have generally much better since his left and he is no longer getting pastry and candy and pizza and sweet tea. Discussed with nursing - no problems that need addressed Reviewed the PT/OT/ST notes Medication list reviewed. Ayaan denies CP, SOB, palpitations, lightheadedness, dysuria, nausea/vomiting/epigastric pain, hiccups (have resolved with treating GERD more aggressively), calf pain and constipation. He is no longer crying. He is cooperative and participates with therapy in everything they ask him to do. Objective Data Objective Data Vital Signs: Vital Signs Temp Pulse Resp BP Pulse Ox O2 Del Method O2 Flow Rate 97.4 F L 60 17 141/66 H 96 Room Air 0 08/28/22 07:15 08/28/22 07:15 08/28/22 07:15 08/28/22 07:15 08/28/22 07:15 08/28/22 07:15 07/16/22 19:51 FiO2 21 07/16/22 19:51 Oxygen Flow Rate (L/min) 0 Oxygen Delivery Method Room Air Weight: 161 lb 9.581 oz Body Mass Index (BMI) 24.5 Intake & Output: Intake and Output for Last 24 Hours 08/26/22 08/27/22 08/28/22 23:59 23:59 23:59 Intake Total 1590 / 1590 2040 / 2040 Output Total 2185 / 2185 1545 / 1545 1400 / 1400 Balance -595 / -595 495 / 495 -1400 / -1400 Medical Nutrition Assessment Dietitian: Malnutrition Criteria Met Start: 07/28/22 15:57 Freq: Status: Active Protocol: Document 07/30/22 13:10 RMA (Rec: 07/30/22 13:10 RMA [id number]) Nutrition Malnutrition Evidence of Malnutrition Exists Yes Malnutrition (severe): Acute Illness/Injury Evidenced By Suboptimal Energy Intake ( Severe),Weight Loss (Severe) Clinical Problem Acute Disease or Injury Related Malnutrition Etiology Severe pro-kieran malnutrition in the context of acute disease related to inadequate oral intake Signs/Symptoms as evidenced by ~10% wt loss x 10 days and PO meeting less than 50% estimated nutrition needs Status Active Problem Recommendation Dietitian Recommendations/Changes Will adjust diet to 2000 calorie/consistent carbohydrate; Cardiac diet with texture/consistency per DIRECTOR TALENT ACQUISITION. Chocolate Magic Cup BID with lunch and dinner meals. Will d/c glucerna shake with medpass, pt refusing. Will try chocolate ensure compact w/ breakfast for tolerance. May need to consider enteral nutrition support if PO remains inadequate and weight continues to decline. Lab / Micro Data Result Diagrams: 08/21/22 05:16 08/21/22 05:16 Labs: Laboratory Results - last 24 hr 08/27/22 16:23: POC Glucose 126 H 08/27/22 22:14: POC Glucose 222 H 08/28/22 06:32: POC Glucose 95 08/28/22 11:50: POC Glucose 143 H Micro: Microbiology 08/06/22 16:20 Urine, Catheterized Urine Culture - Final Culture exhibits no growth. 07/25/22 21:32 Blood Culture (Wb) - Right Hand Blood Culture - Final No growth in 5 days. 07/25/22 21:36 Blood Culture (Wb) - Anticubital Right Blood Culture - Final No growth in 5 days. 07/25/22 11:45 Discharge - Penile Gram Stain - Final 07/25/22 11:45 Discharge - Penile Wound Culture - Final Klebsiella oxytoca Pseudomonas aeruginosa 07/25/22 11:45 Urine, Catheterized Urine Culture - Final Pseudomonas aeruginosa Klebsiella oxytoca 07/14/22 17:34 Urine Catheter - Beavers Urine Culture - Final Culture exhibits no growth. Physical Exam Const alert, oriented x3 and no apparent distress Constitutional Narrative: Pleasant. General Appearance: cooperative Resp clear to auscultation bilaterally Cardio regular rate and regular rhythm GI normal to inspection, nondistended, normoactive bowel sounds, soft to palpation and non-tender Extremity no calf tenderness General Extremity: Negative for edema Skin Skin Narrative: Mepilex patch is helping with the pain over the sacrum/coccyx - very little padding between the skin and the bone at this location. He really is not complaining of pain any longer unless I bring it up. Rashes: no rashes Neuro Neuro Narrative: NO cough with drinking or eating. LUE is still flaccid. Moving the Left foot forward without assist now. Able to urinate without any significant post void residual now. Psych cooperative and affect normal Psych Narrative: Able to hold a good conversation now. Excited about going home next week Appearance: appropriate Attitude: No agitated Assessment & Plan Assessment/Plan (1) Debility: (2) Acute cerebrovascular accident (CVA): (3) Hemiplegia affecting left nondominant side: (4) Fecal incontinence: PLAN: resolved (5) Dysarthria: (6) Dysphagia: (7) Urine retention: (8) Diabetes mellitus, type 2: (9) Nausea and vomiting: (10) GERD (gastroesophageal reflux disease): (11) History of depression: (12) Dyslipidemia associated with type 2 diabetes mellitus: (13) BPH (benign prostatic hyperplasia): (14) Severe protein-calorie malnutrition: PLAN: Dietary is providing supplements. is bringing him food......although it is not the healthiest he is at least eating so will continue with the SSI. May consider trying Amaryl again in the future is he continues to consistently eat well. PLAN: Plan 1. Continue therapy 2. Plan for discharge on home to [place] with his . 3. Decrease the long-acting insulin to 30 units every morning and increase the breakfast insulin to 8 units and the lispro with supper to 10 units. He is not compliant with diet and tightly controlling his blood sugars is difficult. I suspect his diet will change when he goes home and further adjustments to the insulin regimen can be made by his PCP. Would avoid Jardiance since he had a euglycemic metabolic acidosis with this medication. 4. Continue all other medications at [facility]. I suspect his is going to discontinue the medications she is not in agreement with.......eg Nuedexta. Since adding the Nuedexta his mood is much improved and he is no longer crying frequently......I can not recall the last time he cried in front of me. 5. The SOM has called a lot of rehab facilities and agencies in [place] and no one can provide at home [facility] SOM has been working closely with Cristy and giving her many options. Cristy wants him to be able to take care of himself when he goes home without any assist or supervision and this is just not possible at this time. He would be able to get by with just assist of 1 person at this time and he continues to make progress. Charges/Coding Visit Charges Inpatient E&M: 16681 Subs Hosp L2
[2022-08-28 13:06] VITALS: BMI 24.5
--- NOTE | 2022-08-28 13:09 | CASEMGMT ---
Addendum entered by Ida Haynes 08/29/22 16:02: SW left another voicemail with [facility]. Spoke with Amy and confirmed pt's hospital bed and BSC were approved by insurance and are being delivered to the pt's home on 08/30. The is aware. SW found an outpatient therapy center - [facility] in [place]. Spoke with the personnel psychologist and faxed the referral for PT/OT/ST. Secure email sent to with updates. Will continue to follow. Addendum entered by Ida Haynes 08/29/22 09:45: SW left voicemail with [facility] to follow up on order. SOM spoke with Latesha at [facility]. Faxed paperwork per request. Latesha confirmed they have the semi-electric hospital bed and BSC in stock and can be delivered to the pt's home at discharge. SOM spoke with PCPs office for additional therapy recommendations. is okay with outpatient therapy. PCP office provided [facility] that can provide outpatient PT/OT/ST. SOM left voicemail with ancillary services manager therapy requesting return call back to schedule appointment. SW to continue to follow. Addendum entered by Ida Haynes 08/28/22 14:58: [facility] is unable to provide DME items. SOM referred to [facility] in [place] for hemiwalker and w/c Original Note: Social Work SW spoke with IDT that only accepting [facility] company, [facility], can provide PT/OT. All in agreement to provide any services available. Pt follow up with PCP for further assistance as well. SOM sent updated message via [employer] to [facility] for PT/OT. Sent updated message to Amy in [place] to follow up on order for hospital bed and BSC. Spoke with [employer] liaison to follow up on order for hemiwalker and w/c. Liaison has hemiwalker but checking on availability for 18 in w/c with left brake extension. IDT met in pt room for Team. However, pt is on the phone with appt with social security and could not have meeting. Team contacted but did not answer; SW left message requesting call back to review DC plans and updates. SW to continue to follow. HAYDEN PersaudW
[2022-08-28] MEDS: Insulin Lispro 100 UNIT/ML INSULN.PEN 10 UNIT SC (17:24)
[2022-08-28] MEDS: Tamsulosin HCl 0.4 MG Capsule PO (17:25)
[2022-08-28 18:01] LABS: Bedside Glucose 131 mg/dL (74-106)
[2022-08-28 19:37] VITALS: BP 150/69; PULSE 79; RESP 17; TEMP 37.1; O2SAT 96
[2022-08-28 21:25] LABS: Bedside Glucose 230 mg/dL (74-106)
[2022-08-28 22:00] VITALS: PULSE 79; RESP 16; O2SAT 96
[2022-08-28] MEDS: amLODIPine 5 MG Tablet PO (22:00)
[2022-08-28] MEDS: Mirtazapine 30 MG Tablet PO (22:00)
[2022-08-29 00:14] VITALS: BMI 24.5
[2022-08-29] MEDS: Arthritis Pain Compound 60 CLICK TUBE TOPICAL ×2 (05:35→21:48)
[2022-08-29] MEDS: Enoxaparin 40 MG/0.4 ML Syringe SC (05:37)
[2022-08-29] MEDS: Menthol/Lanolin/Calamine/Znox 113 GM Tube 1 APPLIC TOPICAL ×2 (05:37→21:50)
[2022-08-29 06:31] LABS: Bedside Glucose 116 mg/dL (74-106)
[2022-08-29] MEDS: DEXTROMETHORPHAN HBR/QUINIDINE 1 EACH CAPSULE PO (07:40)
[2022-08-29] MEDS: Lisinopril 20 MG Tablet PO (07:40)
[2022-08-29] MEDS: Ezetimibe 10 MG Tablet PO (07:40)
[2022-08-29] MEDS: Senna/Docusate Sodium 1 Tablet 2 TABLET PO ×2 (07:40→21:49)
[2022-08-29] MEDS: Pantoprazole Sodium 40 MG Tablet PO (07:41)
[2022-08-29] MEDS: Aspirin 81 MG TAB.CHEW PO (07:41)
[2022-08-29] MEDS: Insulin Lispro 100 UNIT/ML INSULN.PEN 8 UNIT SC (07:41)
[2022-08-29] MEDS: Multivitamins,Therapeutic Tablet 1 TABLET PO (07:41)
[2022-08-29] MEDS: Insulin Glargine-YFGN 100 UNIT/ML Pen 30 UNIT SC (07:42)
[2022-08-29 08:03] VITALS: BP 139/79; PULSE 73; RESP 16; TEMP 36.4; O2SAT 98
--- NOTE | 2022-08-29 10:58 | PN_ITS ---
Subjective Subjective Afebrile VSS - not consistently < 130/80. HR is WNL Maintaining appropriate oxygen saturation on RA -98% today. Oral intake is good The blood sugar record was reviewed. Blood sugars yesterday were good except the at bedtime sugar which was high at 230. The insulin was increased to 10 units with supper yesterday. Fasting today is 116. No hypoglycemia. The highest postvoid residual in the past few days has been 200. Discussed with nursing - no problems that need addressed Reviewed the PT/OT/ST notes Medication list reviewed. Ayaan denies CP, SOB, heartburn, N/V/epigastric pain, dysuria, calf pain and lig htheadedness. The pain in the backside is doing better. He c/o some soreness of the tip of the 3rd finger on the R hand. He does not remember pinching it on anything.....he thinks it may be due to pricking his finger for a BS. He wants to break it open and I told him we do not want to do this because it increases the risk for infection. He is not worried about going home. He tells me that Cristy is not working and she will be home to assist him. Objective Data Objective Data Vital Signs: Vital Signs Temp Pulse Resp BP Pulse Ox O2 Del Method O2 Flow Rate 97.5 F L 73 16 139/79 H 98 Room Air 0 08/29/22 08:03 08/29/22 08:03 08/29/22 08:03 08/29/22 08:03 08/29/22 08:03 08/29/22 08:03 07/16/22 19:51 FiO2 21 07/16/22 19:51 Oxygen Flow Rate (L/min) 0 Oxygen Delivery Method Room Air Weight: 161 lb 9.581 oz Body Mass Index (BMI) 24.5 Intake & Output: Intake and Output for Last 24 Hours 08/27/22 08/28/22 08/29/22 23:59 23:59 23:59 Intake Total 0 / 2040 720 / 820 550 / 550 Output Total 1545 / 1545 2000 / 2500 1150 / 1150 Balance 495 / 495 -1280 / -1680 -600 / -600 Medical Nutrition Assessment Dietitian: Malnutrition Criteria Met Start: 07/28/22 15:57 Freq: Status: Active Protocol: Document 07/30/22 13:10 RMA (Rec: 07/30/22 13:10 RMA [id number]) Nutrition Malnutrition Evidence of Malnutrition Exists Yes Malnutrition (severe): Acute Illness/Injury Evidenced By Suboptimal Energy Intake ( Severe),Weight Loss (Severe) Clinical Problem Acute Disease or Injury Related Malnutrition Etiology Severe pro-kieran malnutrition in the context of acute disease related to inadequate oral intake Signs/Symptoms as evidenced by ~10% wt loss x 10 days and PO meeting less than 50% estimated nutrition needs Status Active Problem Recommendation Dietitian Recommendations/Changes Will adjust diet to 2000 calorie/consistent carbohydrate; Cardiac diet with texture/consistency per CENTER SALES AND SERVICE ASSOCIATE. Chocolate Magic Cup BID with lunch and dinner meals. Will d/c glucerna shake with medpass, pt refusing. Will try chocolate ensure compact w/ breakfast for tolerance. May need to consider enteral nutrition support if PO remains inadequate and weight continues to decline. Lab / Micro Data Result Diagrams: 08/21/22 05:16 08/21/22 05:16 Labs: Laboratory Results - last 24 hr 08/28/22 11:50: POC Glucose 143 H 08/28/22 17:30: POC Glucose 131 H 08/28/22 21:03: POC Glucose 230 H 08/29/22 06:01: POC Glucose 116 H Micro: Microbiology 08/06/22 16:20 Urine, Catheterized Urine Culture - Final Culture exhibits no growth. 07/25/22 21:32 Blood Culture (Wb) - Right Hand Blood Culture - Final No growth in 5 days. 07/25/22 21:36 Blood Culture (Wb) - Anticubital Right Blood Culture - Final No growth in 5 days. 07/25/22 11:45 Discharge - Penile Gram Stain - Final 07/25/22 11:45 Discharge - Penile Wound Culture - Final Klebsiella oxytoca Pseudomonas aeruginosa 07/25/22 11:45 Urine, Catheterized Urine Culture - Final Pseudomonas aeruginosa Klebsiella oxytoca 07/14/22 17:34 Urine Catheter - Beavers Urine Culture - Final Culture exhibits no growth. Physical Exam Const alert, oriented x3 and no apparent distress Constitutional Narrative: Lying in bed and working with ST. Lying flat in bed with no SOB. Appears comfo rtable. General Appearance: cooperative Orientation / Consciousness: Negative for confused HEENT moist oral mucous membranes Resp clear to auscultation bilaterally Cardio regular rate, regular rhythm and no gallops GI normal to inspection, nondistended, normoactive bowel sounds, soft to palpation and non-tender Extremity no calf tenderness Extremity Narrative: He has a small blood filled blister on the pad of the third R finger. No swelling, no erythema, blister is intact. General Extremity: Negative for edema Skin Skin Narrative: Will examine the sacrococcygeal area when he goes to the later today. Rashes: no rashes Psych affect normal Appearance: appropriate Assessment & Plan Assessment/Plan (1) Debility: (2) Acute cerebrovascular accident (CVA): (3) Hemiplegia affecting left nondominant side: (4) Urine retention: (5) Diabetes mellitus, type 2: (6) History of depression: (7) BPH (benign prostatic hyperplasia): (8) Severe protein-calorie malnutrition: (9) Decubitus ulcer, stage 2: PLAN: Plan 1. Continue therapy 2. Add Cardura 1 mg p.o. nightly which will help with BPH/urine retention and also with the mildly elevated blood pressure. 3. Check a CBC, CMP, magnesium and lipid panel in the AM. It has been 3 weeks since he was started on Zetia. 4. The social human services assistants has arranged for a wheelchair and a hemiwalker which Cristy will pickling tank operator at [employer] on . 5. Plan DC for 6. Increase the Lispro at supper to 12 units. 7. HHC for PT/OT following DC......There is no home care agency where he lives that provides ST. 8. would like to get the name of his PCP in [place] so that I can update him/her on what has happened with Ayaan since the stroke. Will ask Ayaan......will also ask if he has a follow up appt scheduled now that we know when he is going to be discharged. Charges/Coding Visit Charges Inpatient E&M: 63178 Subs Hosp L2
[2022-08-29 12:25] LABS: Bedside Glucose 72 mg/dL (74-106)
[2022-08-29] MEDS: Insulin Lispro 100 UNIT/ML INSULN.PEN 6 UNIT SC (13:15)
[2022-08-29] MEDS: oxyCODONE 5 MG Tablet PO ×2 (13:19→22:17)
[2022-08-29 14:44] VITALS: BMI 24.5
[2022-08-29 17:20] LABS: Bedside Glucose 76 mg/dL (74-106)
[2022-08-29] MEDS: Insulin Lispro 100 UNIT/ML INSULN.PEN 12 UNIT SC (17:55)
[2022-08-29] MEDS: Tamsulosin HCl 0.4 MG Capsule PO (17:55)
[2022-08-29 19:47] VITALS: BP 131/63; PULSE 62; RESP 18; TEMP 36.6; O2SAT 96
[2022-08-29] MEDS: Doxazosin 1 MG Tablet PO (21:48)
[2022-08-29] MEDS: Mirtazapine 30 MG Tablet PO (21:49)
[2022-08-29] MEDS: amLODIPine 5 MG Tablet PO (21:49)
[2022-08-29] MEDS: Nystatin Powder 15gm Bottle 1 APPLIC TOPICAL (21:50)
[2022-08-29 22:00] VITALS: PULSE 65; RESP 18; O2SAT 96
[2022-08-29 22:11] VITALS: BMI 24.5
[2022-08-29 22:20] LABS: Bedside Glucose 132 mg/dL (74-106)
[2022-08-30 06:05] LABS: Hematocrit 41.4 % (40-54); Hemoglobin 13.5 g/dL (13.0-16.5); Mean Corp Hgb Conc 32.6 g/dL (32-36); Mean Corpuscular Hgb 29.3 pg (27.0-32.0); Mean Corpuscular Volume 89.8 fL (80-94); Mean Platelet Vol. 10.1 fl (6.2-12.0); Platelet Count 232 K/mm3 (150-450); RBC Distribution Width CV 12.7 % (11.6-14.6); RBC Distribution Width SD 41.6 fl (35.1-43.9); Red Blood Count 4.61 M/mm3 (4.6-6.2); White Blood Count 8.5 K/mm3 (4.4-11.0)
[2022-08-30] MEDS: Enoxaparin 40 MG/0.4 ML Syringe SC (06:20)
[2022-08-30] MEDS: Arthritis Pain Compound 60 CLICK TUBE TOPICAL ×2 (06:20→21:12)
[2022-08-30] MEDS: Nystatin Powder 15gm Bottle 1 APPLIC TOPICAL (06:26)
[2022-08-30] MEDS: Menthol/Lanolin/Calamine/Znox 113 GM Tube 1 APPLIC TOPICAL (06:26)
[2022-08-30 06:55] LABS: Bedside Glucose 166 mg/dL (74-106)
[2022-08-30 06:57] LABS: ALB/GLOB Ratio 0.9 RATIO (0.9-2.4); AST(SGOT) 17 U/L (15-37); Alanine Aminotransfer ALT/SGPT 38 U/L (16-61); Albumin, Serum 2.9 g/dL (3.2-5.0); Alkaline Phosphatase 123 U/L (45-117); Anion Gap 7 (5-15); BUN 12 mg/dL (7-18); BUN/Creat Ratio 17.8 RATIO (10-20); Calcium,Total 8.9 mg/dL (8.5-10.1); Chloride 107 mmol/L (98-107); Cholesterol 141 mg/dL (200); Creatinine, Serum 0.68 mg/dL (0.70-1.30); EST Glomerular Filtration Rate 126 mL/min (>60); Est Glom Filt Rate - Afr Amer 153 mL/min (>60); Estimated Creatinine Clearance 108.97 ml/min; Globulin 3.4 g/dL (2.2-4.2); Glucose 169 mg/dL (74-106); High Density Lipoprotein 35 mg/dL; Magnesium 1.7 mg/dL (1.6-2.6); Protein, Total 6.3 g/dL (6.4-8.2); Sodium Level 140 mmol/L (136-145); Triglycerides 100 mg/dL; Very Low Density Lipoprotein 20 mg/dL (5-40)
[2022-08-30 07:38] VITALS: BMI 24.3
[2022-08-30 07:46] VITALS: BP 138/63; PULSE 84; RESP 16; TEMP 36.2; O2SAT 95
[2022-08-30] MEDS: Aspirin 81 MG TAB.CHEW PO (08:16)
[2022-08-30] MEDS: Insulin Lispro 100 UNIT/ML INSULN.PEN 8 UNIT SC (08:16)
[2022-08-30] MEDS: Insulin Glargine-YFGN 100 UNIT/ML Pen 30 UNIT SC (08:17)
[2022-08-30] MEDS: Multivitamins,Therapeutic Tablet 1 TABLET PO (08:18)
[2022-08-30] MEDS: DEXTROMETHORPHAN HBR/QUINIDINE 1 EACH CAPSULE PO (08:18)
[2022-08-30] MEDS: Pantoprazole Sodium 40 MG Tablet PO (08:18)
[2022-08-30] MEDS: Senna/Docusate Sodium 1 Tablet 2 TABLET PO ×2 (08:18→21:12)
[2022-08-30] MEDS: Ezetimibe 10 MG Tablet PO (08:19)
[2022-08-30] MEDS: Lisinopril 20 MG Tablet PO (08:19)
[2022-08-30 08:23] LABS: Hemoglobin A1c 7.2 % (3.8-5.6)
--- NOTE | 2022-08-30 09:42 | CASEMGMT ---
Addendum entered by Ida Haynes 08/30/22 13:20: SOM spoke with Lisa Pardo who is needing to hear from insurance if in-network with the insurance. SOM sent updated email to explaining this worker is continuing to work on securing the hemiwalker and wheelchair for the pt. This worker has contacted 12 DME companies and they do not have them in stock or cannot provide the equipment to a ?patient living out of state. [facility] is waiting to hear back from the insurance, but only have a wheelchair in stock; no hemiwalker. SOM called [facility], however, they do not accept insurance, and they have one hemiwalker left in stock. It sells for $82.61, no tax, and if paid by tristan or check, it is another 5% off that veras. SOM provided final suggestion to go to another drug store like [facility] or [facility] and see if they have hemiwalkers and at a lower cost. Offered for this worker to see if Amy in [place] will have one in stock for pt when he gets home. However, all parites wanting pt to have that at discharge. SOM offered to secure the w/c at [facility] too, if [facility] cannot provide it. For outpatient PT/OT/ST, [facility], which [facility] by [facility]. SW to continue to follow. Addendum entered by Ida Haynes 08/30/22 09:50: SOM spoke with Dhara at [facility]. An 18 inch w/c is in stock, but they do not carry hemiwalkers. [facility] to process the referral for a w/c. Original Note: Social Work Still have not received return call from [facility]. SOM placed referral via [employer] to 4 additional DME companies to deliver to [place]. Will continue to follow. Ida Haynes, HAYDEN GLOVERW
--- NOTE | 2022-08-30 10:34 | DCINST_ITS ---
Discharge Instructions Diet Discharge Diet: - (low fat, low salt and no concentrated carbs/carb consistent. ) Activity Discharge Activity: May Not Drive, May Shower and Use Walker (use the hemiwalker) Weight Bearing Status: Full weight bearing Dressing / Incision Call your doctor if you observe: Fever of 101 or Higher, Inability to urinate, Inability to have a bowel movement, Shortness of breath, Dizziness, Fainting spells, Swelling in the ankles, Chest pain, Increased palpitations (irregular heartbeat), Calf discomfort and - (STROKE symptoms: facial droop, slurred speech, inability to get words out, weakness on 1 side of the body and not the other, numbness on 1 side of the body and not the other, inability to maintain your balance sitting or standing, vertigo. ) Follow Up Care Please Follow Up With: PCP When: within 7-10 days after returning home to [place]. Test Results: Test results from this visit will be discussed in further detail at your follow- up appointment, if applicable. Pending Tests Upon Discharge: none Discharge Plan Admission Admit Date/Time: 07/12/22 12:30 Primary Reason for Your Visit: Post stroke debility Attending Provider: Joelle Brooks Consulting Providers: Kolby Brown Instructions Patient Instructions: Discharge Instructions for Stroke Additional Instructions / Restrictions: 1. To prevent further strokes going forward you need to take better care of yourself. the goals you must always keep in mind are BP < 130/80, HGBA1C 7 or< and LDL (bad cholesterol) 70 or less. Always know what these numbers are. You have not controlled the diabetes well in the past. Your HGBA1C when you first came to the hospital was 8.8. It is now down to 7.2. In order to keep the HGBA1C < 7 you will need to be better about your diet. You need to have a consistent carbohydrate intake to control blood sugars. Continue to take your blood sugar before meals at home. You take 8 units with breakfast, 6 units with lunch and 10 units with supper. I am also giving you a sliding scale to add to the scheduled insulin in case the blood sugars are very high. Take charge of your health and get these things under control or the risk for additional strokes is high. Also, generally people who have disease in the arteries of the brain also have disease in the heart arteries. Risk factors for heart disease and strokes include DM, high blood pressure, smoking, high cholesterol, Being a man over the age of 50 and a family history of strokes or heart attacks. 2. Since you do not tolerate statins to lower your cholesterol I put you on a different cholesterol lowering drug called Zetia. I rechecked the cholesterol and a liver panel the day prior to you leaving rehab and the LDL is down to 86. The good cholesterol (HDL) is 35 and we would like to see this number >40. Exercise helps to increase the HDL. You have only been on the Zetia for 3 weeks so it should be checked again in another 3-4 weeks. The goal is 70 or < and you are currently at 86. No fried foods, red meat no more than once a week, limit dairy/cheeses/butter, cook with olive oil. 3. Your labs prior to leaving rehab included a CBC, CMP, lipid panel and magnesium. CBC was normal. The CMP showed good renal function and normal liver enzymes. The magnesium was normal and the lipid panel results are above. 4. He worked hard in rehab and we all appreciated your good attitude and hard work. It has been rewarding to see you improved so much in the time he spent in acute rehab. I suspect that if you continue to work hard he will have continued improvement. Doing your exercises daily is very important. If you have any questions following discharge from acute rehab please do not hesitate to call me. Office: [phone] . Discharge Orders/Prescriptions Prescriptions: New sennosides-docusate sodium [Stool Softener-Stimulant Laxat] 8.6-50 mg Tablet 1 tab-cap PO BID Qty: 60 0RF pantoprazole 40 mg Tablet,Delayed Release (Dr/Ec) 40 mg PO DAILY Qty: 30 0RF mirtazapine 30 mg Tablet 30 mg PO QHS Qty: 30 0RF Nuedexta 20-10 mg Capsule 1 cap PO DAILY Qty: 30 0RF doxazosin 1 mg Tablet 1 mg PO QHS Qty: 30 0RF ezetimibe 10 mg Tablet 10 mg PO DAILY Qty: 30 0RF insulin detemir U-100 100 unit/mL (3 mL) insulin pen 30 unit subcut DAILY Qty: 15 0RF insulin aspart (niacinamide) 100 unit/mL (3 mL) insulin pen See Rx Instructions .ROUTE .COMPLEX Qty: 15 0RF Rx Instructions: 8 units with breakfast 6 units with lunch 10 units with supper lisinopril 20 mg Tablet 20 mg PO DAILY Qty: 30 0RF oxycodone 5 mg Tablet 5 mg PO Q6H PRN PRN (Reason: Pain Score 6-10) 7 Days Qty: 20 0RF tamsulosin 0.4 mg Capsule 0.4 mg PO DAILY@1730 Qty: 30 0RF Continued aspirin 81 mg Tablet 81 mg PO DAILY amlodipine [Norvasc] 5 mg Tablet 5 mg PO DAILY Qty: 30 0RF acetaminophen 500 mg Tablet 1,000 mg PO Q8H PRN PRN (Reason: Pain 1-10 Or Fever) Qty: 0 0RF Discontinued lisinopril 40 mg Tablet 20 mg PO DAILY insulin glargine-yfgn 100 unit/mL (3 mL) insulin pen 10 unit subcut BID sennosides-docusate sodium [Stool Softener-Stimulant Laxat] 8.6-50 mg tablet 1 tab PO BID clopidogrel 75 mg tablet 75 mg PO DAILY phenazopyridine [Azo Urinary Pain Relief] 95 mg tablet 190 mg PO TID pantoprazole 40 mg tablet,delayed release (DR/EC) 40 mg PO DAILY mirtazapine 30 mg tablet 30 mg PO QHS levofloxacin 500 mg tablet 500 mg PO DAILY enoxaparin 40 mg/0.4 mL syringe 40 mg subcut DAILY@0600 bupropion HCl 150 mg tablet extended release 24 hr 150 mg PO DAILY Glucerna 1.2 Rudi 0.06-1.2 gram-kcal/mL liquid 120 ml PO TIDCM chlorpromazine 25 mg Tablet 12.5 mg PO TID PRN PRN (Reason: Hiccups) Qty: 0 0RF Referrals / Follow Up: Dr Michelle-PCP [Other] - 09/04/22 Disposition Disposition (needs filled in before D/C Order can be placed): Home Health Service
[2022-08-30] MEDS: oxyCODONE 5 MG Tablet PO ×2 (12:07→20:01)
[2022-08-30] MEDS: Insulin Lispro 100 UNIT/ML INSULN.PEN 6 UNIT SC (12:22)
[2022-08-30 12:26] LABS: Bedside Glucose 239 mg/dL (74-106)
[2022-08-30 13:21] VITALS: BMI 24.3
[2022-08-30 17:15] LABS: Bedside Glucose 224 mg/dL (74-106)
[2022-08-30] MEDS: Insulin Lispro 100 UNIT/ML INSULN.PEN 12 UNIT SC (17:20)
[2022-08-30 19:53] VITALS: BP 126/63; PULSE 87; RESP 18; TEMP 37; O2SAT 94
[2022-08-30] MEDS: amLODIPine 5 MG Tablet PO (21:12)
[2022-08-30] MEDS: Mirtazapine 30 MG Tablet PO (21:12)
[2022-08-30] MEDS: Doxazosin 1 MG Tablet PO (21:12)
[2022-08-30] MEDS: BACITRACIN 15 GM Tube 1 APPLIC TOPICAL (21:48)
[2022-08-30 22:20] LABS: Bedside Glucose 160 mg/dL (74-106)
[2022-08-31] MEDS: oxyCODONE 5 MG Tablet PO (00:18)
[2022-08-31] MEDS: Arthritis Pain Compound 60 CLICK TUBE TOPICAL (06:07)
[2022-08-31] MEDS: Enoxaparin 40 MG/0.4 ML Syringe SC (06:07)
[2022-08-31 06:56] LABS: Bedside Glucose 132 mg/dL (74-106)
[2022-08-31 07:35] VITALS: BP 125/60; PULSE 71; RESP 15; TEMP 36.6; O2SAT 95
--- NOTE | 2022-08-31 07:36 | PCM.DC.SUM ---
Providers Date of Admission: 07/12/22 Date of Discharge: 08/31/22 Primary Care Physician: Dr. Schafer in [place]. Consultations 08/08/22 13:25 Consult: Urology Routine Consulting Provider: Kolby Brown Reason for Consult: urine retention despite Flomax and Proscar. EMERGENT Consult: No MD Notified: Yes Date Notified: 08/08/22 Time Notified: 13:25 Method of Notification: Verbal Reason For Visit: CVA Diagnosis Discharge Diagnosis (1) Debility: Status: Acute Code(s): R53.81 - Other malaise (2) Acute cerebrovascular accident (CVA): Status: Acute Code(s): I63.9 - Cerebral infarction, unspecified (3) Hemiplegia affecting left nondominant side: Status: Acute Code(s): G81.94 - Hemiplegia, unspecified affecting left nondominant side Plan: LUE is still flaccid at CO. LLE is gaining strength and he is sometimes able to advance the L leg by himself without assist when ambulating. (4) Urine retention: Status: Resolved Code(s): R33.9 - Retention of urine, unspecified Plan: This was likely due not only to BPH but, also due to the stroke. It resolved prior to DC and he has been continent of urine recently with post void residuals < 200. (5) Diabetes mellitus, type 2: Status: Inactive Code(s): E11.9 - Type 2 diabetes mellitus without complications Plan: Trolled at admission to the hospital. Hemoglobin A1c was 8.8 at admission to the acute hospital. It was rechecked 1 day prior to discharge and is down to 7.2. I think it is non-compliance with diet that makes the BS's difficult to treat. Drinking sweet tea, eating candy and desserts. We discussed the need to get the HGBA1C less than 7 since he is only 62 and has already had a stroke. I explained that you have to be consistent with diet if you are going to be able to control the blood sugars. The special technical operations officer also spoke to Hugh on different occasions and instructing him in a proper diet. (6) History of depression: Status: Inactive Code(s): Z86.59 - Personal history of other mental and behavioral disorders Plan: Better at CO. I also suspect he has pseudobulbar affect. He was started on the antidepressant early in the admission but, he continued to have crying jags for no reason and he could not control this. At the time of DC he has had no recent crying jags and he is sleeping well and eating well and is pleasant and outgoing. Things improved soon after his went back to [place]. (7) BPH (benign prostatic hyperplasia): Status: Inactive Code(s): N40.0 - Benign prostatic hyperplasia without lower urinary tract symptoms Plan: On Flomax at CO with no lightheadedness or orthostatic hypotension. (8) Severe protein-calorie malnutrition: Status: Acute Code(s): E43 - Unspecified severe protein-calorie malnutrition Plan: Due to depression and poor oral intake early in the admission to rehab. Good appetite at CO. (9) Decubitus ulcer, stage 2: Status: Resolved Code(s): L89.92 - Pressure ulcer of unspecified site, stage 2 Plan: Pain is improved with application of Mepilex dressing to the coccyx to decrease friction and pressure from sitting and lying in bed most of the day. Plan 1. Continue therapy 2. Add Cardura 1 mg p.o. nightly which will help with BPH/urine retention as well as the mildly elevated blood pressure. 3. Chemistries 1 day prior to discharge showed a sodium of 140 and a potassium of 4.0. The BUN is 12 and the creatinine is stable at 0.68. Hemoglobin A1c is down to 7.2 and LFT's are normal with the exception of the AP which is very mildly elevated at 123. He is tolerating Zetia with no adverse reactions. Triglycerides are normal at 100 and the total cholesterol is 141 with an LDL of 86 and a low HDL at 35. PSA was normal at 0.37 during his admission to rehab. Hugh knows that the goal of the LDL is less than or equal to 70. I encouraged increased compliance with a low fat, carb controlled diet. 4. The social work program coordinator has arranged for a wheelchair and a hemiwalker which Cristy will medicinal plant picker at [place] on the day of DC. 5. Plan DC for 6. Increase the Lispro at supper to 12 units. 7. [facility] for PT/OT following DC......There is no home care agency where he lives that provides ST. 8. Follow up with his PCP within 10 days of DC from rehab. 9. Continue both Remeron and Nuedexta at discharge. Medications at Discharge Home Medications aspirin 81 mg tablet 81 mg PO DAILY heart health 07/09/22 acetaminophen 500 mg tablet 1,000 mg PO Q8H PRN PRN Pain 1-10 Or Fever #0 tabs 07/28/22 amlodipine 5 mg tablet (Norvasc) 5 mg PO DAILY blood pressure #30 tabs 08/30/22 dextromethorphan 20 mg-quinidine 10 mg capsule (Nuedexta) 1 cap PO DAILY #30 caps 08/30/22 doxazosin 1 mg tablet 1 mg PO QHS #30 tabs 08/30/22 ezetimibe 10 mg tablet 10 mg PO DAILY #30 tabs 08/30/22 insulin aspart (niacinamide)(U-100) 100 unit/mL(3 mL) subcutaneous pen See Rx Instructions .Route .COMPLEX #15 mL 08/30/22 insulin detemir U-100 100 unit/mL (3 mL) subcutaneous pen 30 unit (0.3 mL) subcut DAILY #15 mL 08/30/22 lisinopril 20 mg tablet 20 mg PO DAILY #30 tabs 08/30/22 mirtazapine 30 mg tablet 30 mg PO QHS #30 tabs 08/30/22 oxycodone 5 mg tablet 5 mg PO Q6H PRN PRN Pain Score 6-10 7 days #20 tabs 08/30/22 pantoprazole 40 mg tablet,delayed release 40 mg PO DAILY #30 tabs 08/30/22 sennosides 8.6 mg-docusate sodium 50 mg tablet (Stool Softener-Stimulant Laxative) 1 tab-cap PO BID #60 tabs 08/30/22 tamsulosin 0.4 mg capsule 0.4 mg PO DAILY@1730 #30 caps 08/30/22 Hospital Course Operations None Procedures - (Modified barium swallow on 07/10/2022.) Summary of Care Provided Minutes Spent on Discharge: 50 Hospital Course: HUGH VALENCIA, is a 62 YO M with a PMH of DM II, depression, tobacco dependence in remission (quit April 2000, but, he is on a nicotine patch because he continues to chew tobacco ), alcohol abuse in remission (drinks only on holidays and special occasions for the past 2 years), HTN, Diabetic retinopathy with vitreous hemorrhage (resolved) and current use of chewing tobacco who presented to the ED at [facility] on 07/09/22 with left-sided weakness, facial droop and slurred speech.? NIHSS score was 15 at presentation to the emergency department.? Stat noncontrast CT brain showed senescent changes only.? CTA of the head and neck showed severe focal stenosis in the right internal carotid artery, severe stenosis in the proximal left V4 segment and a hypoplastic right A1 segment.? [facility] teleneurology was consulted and recommended TNK which was given in the emergency department. Hugh's felt the TNK was not given because she did not see it hanging and the deficits did not resolve with TNK. I explained that TNK is given push unlike TPA.? Patient was then transferred to the intensive care unit for monitoring.? An echocardiogram was obtained and showed normal left ventricular function with an ejection fraction of 60%.? He had stage I diastolic dysfunction (more likely than not due to uncontrolled HTN) and the pulmonary artery pressure was mildly increased at 34.? The bubble contrast study was negative for right to left shunt.? Hemiplegia increased following TNK and he became lethargic.? Noncontrast CT brain obtained 24 hours after TNKase administration showed toxic edema, more conspicuous than the prior day with loss of flower-white matter differentiation involving the right caudate head, basal ganglia and internal capsule with no evidence of hemorrhagic transformation. There was no midline shift.? Vascular surgery was consulted for R carotid stenosis in a pt with no improvement following TNK.? He had no significant stenosis in the cervical portion of the R ICA, only stenosis in the cavernous portion of the artery and this is not typically treated surgically due to high risk of complications.? Carotid duplex showed less than 50% stenosis in the cervical portion of the left and right internal carotid arteries.? Teleneurology consult was obtained on 07/10/22.? NIH score was 12 at the time of the neurology consult.? A cerebral MRI and continued aspirin 81 mg daily was recommended.? The MRI showed acute infarct in the right basal ganglia with chronic involutional and white matter changes. Hugh was seen by PT/OT/ST and acute inpt rehab was recommended at [place].? He was transferred to the acute inpt rehab unit at [facility] on 07/12/22 for 3 hours of therapy daily to restore function at or near to his prior level of function.? Significant lab included a HGBA1C of 8.8, total cholesterol of 136 with triglycerides of 104, and LDL of 81 and a low HDL at 34. Emir's refused to allow him to take statins as she told us that his LFTs were significantly elevated in the past with statins, but, that was prior to him stopping excessive ETOH consumption. He now consumes ETOH on Holidays and special occasions. Hugh was diagnosed with DM in 2000 and told me that his blood sugars have never been well controlled. Initially at presentation to rehab Hugh was quite depressed. He had poor oral intake and he wanted to sleep all the time. He had frequent crying outbursts. His attributed this to his personality and said he cries a lot at home and he is emotional. He was started on Remeron and the dose has been titrated up since admission. He is tolerating Remeron without any adverse reactions. Unfortunately the crying jags persisted even though the depression was improved and he was started on Nuedexta for suspected pseudobulbar affect. The crying jags resolved and at the time of discharge he has not had crying jags for the past 2 weeks. His wanted the Nuedexta discontinued but, I feel it has been effective in controlling crying jags and emotional outbursts and it was continued at CO. Initially Hugh had urine retention and had a Beavers catheter. He then developed purulent DC from the end of the penis and UA was positive for infection. The discharge from the end of the penis was cultured and grew Klebsiella oxytoca and Pseudomonas aeruginosa. The discharge was negative for Chlamydia trachomatis and Neisseria gonorrhea. He became lethargic and had N/V so he was transferred to the acute side of the hospital for pyelonephritis. Blood cultures were negative and the urine culture was negative but he had already received antibiotics prior to the urine culture being taken. He was discharged from the hospital on Levaquin and received 7 additional days following arrival back on Rehab. He still had a Beavers at discharge from the acute side of the hospital secondary to urine retention. There was still considerable erythema/irritation around the urethra on the glans penis and the Beavers catheter was removed and we began straight cathing for urine retention >300 so we could use a smaller catheter and the Beavers was no constantly irritating the urethra. He denied pelvic pain and I do not feel that he had bacterial prostatitis. He was started back on Flomax and urologic consultation was requested. The urologist suggested we teach Hugh to straight cath......not really possible with a flaccid LUE. Prior to DC we were able to DC the straight caths and Hugh was continent of urine. Postvoid residuals ranged from 36-200 following discontinuation of straight cathing every 6 H. Cardura 1 mg at HS was added to the drug regimen both for urine retention/BPH and for BP control. Orthostatics were negative prior to DC and Hugh denied lightheadedness. Because of the reported allergy to statins he was started on Zetia which he is tolerating without derangement of the LFT's. LDL is still 86 and the HDL is low at 35. May consider adding Niaspan to the drug regimen at HS is the HDL is still low in another 6 weeks. Goal for LDL is less than or equal to 70. We stressed adherence to a low fat diet. Following treatment of depression and resolution of pyelonephritis Hugh made steady progress in rehab. At the time of discharge he was supervision/set up for eating and grooming. He required minimal assistance with tub/shower transfer, toilet transfer and upper body dressing. He continues to need moderate assistance with lower body dressing and max assistance for toileting. He is able to do 8 sit to stands with the right upper extremity at light contact-guard assist. He was able to ascend/descend to 7 inch steps with minimal assistance with him being able to bring up the LLE by himself so that he can enter his house. He has ambulated up to 120 feet with a hemiwalker while self advancing his left lower extremity at contact-guard assist/min assist. The left leg has gotten stronger and he no longer needs a knee immobilizer or an Darci wrap for dorsiflexing the foot. He had met the short and group home goals that the had for him. The speech therapist at discharge recommended continued outpatient therapy to address remaining deficits in speech intelligibility, oral weakness and cognitive dysfunction. She felt that without continued therapy the patient was at risk for functional decline. She recommended no driving of any kind at discharge and family supervision/management for medications and finances. There were many heated encounters with Hugh Muniz's , during his stay for both the and myself. She did not want to take Hugh home until he could ambulate to the BR and toilet without assistance. Cristy works as a travelling nurse and is often out of the home for 13 week intervals. Hugh has a 16 YO son who is home schooled and often accompanies Cristy out of town. We explained that Hugh would need 24/ supervision/assistance at CO. She looked into transferring Hugh to [facility] rehab but, this was not an option. I think that Hugh will continue to improve if he has assistance at home. I am not sure that Cristy will provide this. The SE looked into [facility] in [place] and apparently there are no home health care agencies that provide speech therapy. He did not want to go to an SNF and with assistance I think he will be fine to go home. Cristy relented and a DC day was set. She was told he would be discharged home on 08/31/22 and even though the usual DC time is 1 PM special arrangements were made with the nursing staff for DC at 8 AM on the . Cristy showed up on the evening of the and wanted him DC then. This was not possible and if she took him home he would need to go AMA. She agreed to pick him up at 0800 the following day and she showed up at 10 AM. The therapist assisted Hugh getting into the car and Cristy told us she has assistance arrangement to get him out of the car at home and up the 2 steps. RX's were supplied at [place]. Hugh will need repeat LFT's and a lipid panel in 6-12 weeks. He needs to continue with ST and perhaps this can be arranged as an OP after he is released form [facility]......you can't go OP if you are on [facility]. We did a great deal of education with Hugh during his stay in rehab in hopes of preventing additional cardiovascular events going forward. We reinforced the goals of tx with him multiple times occluding blood pressure less than 130/70, LDL less than 70 and hemoglobin A1c less than or equal to 7. I think dietary compliance is an issue for him and I hope that he is able to better adhere to a low-fat, low salt, carb controlled diet following DC. I also recommended he do the exercise given to him by the therapists daily following DC to prevent back sliding. Would continue the antidepressant for at least 6 months prior to considering tapering. Nuedexta could be discontinued in the next few months but should be restarted if he has recurrent emotional outbursts/crying jags. Hugh was instructed that he is not allowed to drive. After starting Cardura the blood pressure at discharge was 125/60 with a pulse of 71. He denied lightheadedness. Hugh's weight was 173.9 pounds at admission to [facility]. Due to depression, decreased appetite, poor oral intake and dysphagia the weight decreased to 151 pounds. He was diagnosed with severe protein/calorie malnutrition and the dietitian provided supplements. At the end of discharge his weight is up to 159.6 pounds. Physical Exam Const alert, oriented x3 and no apparent distress Constitutional Narrative: Lying in bed and working with ST. Lying flat in bed with no SOB. Appears comfortable. General Appearance: cooperative Orientation / Consciousness: Negative for confused HEENT normocephalic, moist oral mucous membranes and oropharynx normal Neck supple and no JVD Resp normal respiratory effort, normal air movement, no use of accessory muscles and clear to auscultation bilaterally Resp Narrative: No cough. Effort and Inspection: Negative for tachypneic or labored Cardio regular rate, regular rhythm, no murmurs and no gallops Cardio Narrative: No ectopy GI normal to inspection, nondistended, normoactive bowel sounds, soft to palpation, non-tender and non-distended GI Narrative: No guarding with palpation. Extremity no calf tenderness Extremity Narrative: He has a blood filled blister develop on the pad of the third R finger. The blister was intact but it enlarged overnight and was very painful. The blister was punctured and drained with a sterile needle and then Bactroban was ordered 3 times a day to prevent infection. General Extremity: Negative for edema Skin Rashes: no rashes Wound Narrative: Did not c/o of pain in the backside today. Neuro Neuro Narrative: Strength in the Left leg continues to improve. Speech is fluent. LUE is still flaccid. No trouble with word finding. No problems with coughing with eating or drinking. Psych cooperative, affect normal, denies homicidal ideation and denies suicidal ideation Appearance: appropriate Attitude: No agitated Activity / Motor Behavior: Negative for restless Thought Content: No suicidality and No homicidality Medical Records Data Medical Nutrition Assessment Dietitian: Malnutrition Criteria Met Start: 07/28/22 15:57 Freq: Status: Active Protocol: Document 07/30/22 13:10 RMA (Rec: 07/30/22 13:10 RMA [id number]) Nutrition Malnutrition Evidence of Malnutrition Exists Yes Malnutrition (severe): Acute Illness/Injury Evidenced By Suboptimal Energy Intake ( Severe),Weight Loss (Severe) Clinical Problem Acute Disease or Injury Related Malnutrition Etiology Severe pro-kieran malnutrition in the context of acute disease related to inadequate oral intake Signs/Symptoms as evidenced by ~10% wt loss x 10 days and PO meeting less than 50% estimated nutrition needs Status Active Problem Recommendation Dietitian Recommendations/Changes Will adjust diet to 2000 calorie/consistent carbohydrate; Cardiac diet with texture/consistency per PROFESSIONAL ORGANIZER. Chocolate Magic Cup BID with lunch and dinner meals. Will d/c glucerna shake with medpass, pt refusing. Will try chocolate ensure compact w/ breakfast for tolerance. May need to consider enteral nutrition support if PO remains inadequate and weight continues to decline. Weight / BMI Weight Weight: 159 lb 9.835 oz Body Mass Index (BMI) 24.3 ABG / Lab / Microbiology Data Result Diagrams: 08/30/22 05:44 08/30/22 05:44 Laboratory: Laboratory Results - last 24 hr 08/30/22 05:44: Hemoglobin A1c 7.2 H 08/30/22 11:59: POC Glucose 239 H 08/30/22 16:54: POC Glucose 224 H 08/30/22 21:46: POC Glucose 160 H 08/31/22 06:30: POC Glucose 132 H Microbiology: Microbiology 08/06/22 16:20 Urine, Catheterized Urine Culture - Final Culture exhibits no growth. 07/25/22 21:32 Blood Culture (Wb) - Right Hand Blood Culture - Final No growth in 5 days. 07/25/22 21:36 Blood Culture (Wb) - Anticubital Right Blood Culture - Final No growth in 5 days. 07/25/22 11:45 Discharge - Penile Gram Stain - Final 07/25/22 11:45 Discharge - Penile Wound Culture - Final Klebsiella oxytoca Pseudomonas aeruginosa 07/25/22 11:45 Urine, Catheterized Urine Culture - Final Pseudomonas aeruginosa Klebsiella oxytoca 07/14/22 17:34 Urine Catheter - Beavers Urine Culture - Final Culture exhibits no growth. D/C Instructions Discharge Diet: - (low fat, low salt and no concentrated carbs/carb consistent. ) Weight Bearing Status: Full weight bearing Call your doctor if you observe: Fever of 101 or Higher, Inability to urinate, Inability to have a bowel movement, Shortness of breath, Dizziness, Fainting spells, Swelling in the ankles, Chest pain, Increased palpitations (irregular heartbeat), Calf discomfort and - (STROKE symptoms: facial droop, slurred speech, inability to get words out, weakness on 1 side of the body and not the other, numbness on 1 side of the body and not the other, inability to maintain your balance sitting or standing, vertigo. ) Pending Tests Upon Discharge: none Please Follow Up With: PCP When: within 7-10 days after returning home to [place]. Meaningful Use Info Meaningful Use Diagnoses (Choose all that apply): Ischemic CVA CVA Therapy Assessed for PT,OT and/or ST?: Yes Ischemic Stroke Antithrombotic order at d/c?: Yes Dx of Atrial fib/flutter?: No Anticoagulant at discharge?: No Reason anticoagulant not ordered: Treatment not Indicated Statins at discharge?: No Reason Statin not ordered: Medical Contraindication (He reportedly had markedly increased LFT's when on a statin in the past per his . ) Primary Dx Acute Ischemic CVA?: Yes IV thrombolytic ordered during stay?: No Reason IV thrombolytic not ordered: Treatment not Indicated (He had TNK in the ED at admission to the acute side of the hospital/ICU.) Discharge Plan Admission Admit Date/Time: 07/12/22 12:30 Primary Reason for Your Visit: Post stroke debility Attending Provider: Joelle Brooks Consulting Providers: Kolby Brown Instructions Patient Instructions: Discharge Instructions for Stroke Additional Instructions / Restrictions: 1. To prevent further strokes going forward you need to take better care of yourself. the goals you must always keep in mind are BP < 130/80, HGBA1C 7 or< and LDL (bad cholesterol) 70 or less. Always know what these numbers are. You have not controlled the diabetes well in the past. Your HGBA1C when you first came to the hospital was 8.8. It is now down to 7.2. In order to keep the HGBA1C < 7 you will need to be better about your diet. You need to have a consistent carbohydrate intake to control blood sugars. Continue to take your blood sugar before meals at home. You take 8 units with breakfast, 6 units with lunch and 10 units with supper. I am also giving you a sliding scale to add to the scheduled insulin in case the blood sugars are very high. Take charge of your health and get these things under control or the risk for additional strokes is high. Also, generally people who have disease in the arteries of the brain also have disease in the heart arteries. Risk factors for heart disease and strokes include DM, high blood pressure, smoking, high cholesterol, Being a man over the age of 50 and a family history of strokes or heart attacks. 2. Since you do not tolerate statins to lower your cholesterol I put you on a different cholesterol lowering drug called Zetia. I rechecked the cholesterol and a liver panel the day prior to you leaving rehab and the LDL is down to 86. The good cholesterol (HDL) is 35 and we would like to see this number >40. Exercise helps to increase the HDL. You have only been on the Zetia for 3 weeks so it should be checked again in another 3-4 weeks. The goal is 70 or < and you are currently at 86. No fried foods, red meat no more than once a week, limit dairy/cheeses/butter, cook with olive oil. 3. Your labs prior to leaving rehab included a CBC, CMP, lipid panel and magnesium. CBC was normal. The CMP showed good renal function and normal liver enzymes. The magnesium was normal and the lipid panel results are above. 4. He worked hard in rehab and we all appreciated your good attitude and hard work. It has been rewarding to see you improved so much in the time he spent in acute rehab. I suspect that if you continue to work hard he will have continued improvement. Doing your exercises daily is very important. If you have any questions following discharge from acute rehab please do not hesitate to call me. Office: [phone] . Discharge Orders/Prescriptions Prescriptions: New sennosides-docusate sodium [Stool Softener-Stimulant Laxat] 8.6-50 mg Tablet 1 tab-cap PO BID Qty: 60 0RF pantoprazole 40 mg Tablet,Delayed Release (Dr/Ec) 40 mg PO DAILY Qty: 30 0RF mirtazapine 30 mg Tablet 30 mg PO QHS Qty: 30 0RF Nuedexta 20-10 mg Capsule 1 cap PO DAILY Qty: 30 0RF doxazosin 1 mg Tablet 1 mg PO QHS Qty: 30 0RF ezetimibe 10 mg Tablet 10 mg PO DAILY Qty: 30 0RF insulin detemir U-100 100 unit/mL (3 mL) insulin pen 30 unit subcut DAILY Qty: 15 0RF insulin aspart (niacinamide) 100 unit/mL (3 mL) insulin pen See Rx Instructions .ROUTE .COMPLEX Qty: 15 0RF Rx Instructions: 8 units with breakfast 6 units with lunch 10 units with supper lisinopril 20 mg Tablet 20 mg PO DAILY Qty: 30 0RF oxycodone 5 mg Tablet 5 mg PO Q6H PRN PRN (Reason: Pain Score 6-10) 7 Days Qty: 20 0RF tamsulosin 0.4 mg Capsule 0.4 mg PO DAILY@1730 Qty: 30 0RF Continued aspirin 81 mg Tablet 81 mg PO DAILY amlodipine [Norvasc] 5 mg Tablet 5 mg PO DAILY Qty: 30 0RF acetaminophen 500 mg Tablet 1,000 mg PO Q8H PRN PRN (Reason: Pain 1-10 Or Fever) Qty: 0 0RF Discontinued lisinopril 40 mg Tablet 20 mg PO DAILY insulin glargine-yfgn 100 unit/mL (3 mL) insulin pen 10 unit subcut BID sennosides-docusate sodium [Stool Softener-Stimulant Laxat] 8.6-50 mg tablet 1 tab PO BID clopidogrel 75 mg tablet 75 mg PO DAILY phenazopyridine [Azo Urinary Pain Relief] 95 mg tablet 190 mg PO TID pantoprazole 40 mg tablet,delayed release (DR/EC) 40 mg PO DAILY mirtazapine 30 mg tablet 30 mg PO QHS levofloxacin 500 mg tablet 500 mg PO DAILY enoxaparin 40 mg/0.4 mL syringe 40 mg subcut DAILY@0600 bupropion HCl 150 mg tablet extended release 24 hr 150 mg PO DAILY Glucerna 1.2 Kieran 0.06-1.2 gram-kcal/mL liquid 120 ml PO TIDCM chlorpromazine 25 mg Tablet 12.5 mg PO TID PRN PRN (Reason: Hiccups) Qty: 0 0RF Referrals / Follow Up: Dr Michelle-PCP [Other] - 09/04/22 Disposition Disposition (needs filled in before D/C Order can be placed): Home Health Service
[2022-08-31] MEDS: Multivitamins,Therapeutic Tablet 1 TABLET PO (07:51)
[2022-08-31] MEDS: Aspirin 81 MG TAB.CHEW PO (07:51)
[2022-08-31] MEDS: DEXTROMETHORPHAN HBR/QUINIDINE 1 EACH CAPSULE PO (07:51)
[2022-08-31] MEDS: Ezetimibe 10 MG Tablet PO (07:52)
[2022-08-31] MEDS: BACITRACIN 15 GM Tube 1 APPLIC TOPICAL (07:52)
[2022-08-31] MEDS: Lisinopril 20 MG Tablet PO (07:52)
[2022-08-31] MEDS: Pantoprazole Sodium 40 MG Tablet PO (07:52)
[2022-08-31] MEDS: Insulin Glargine-YFGN 100 UNIT/ML Pen 30 UNIT SC (07:53)
[2022-08-31] MEDS: Insulin Lispro 100 UNIT/ML INSULN.PEN 8 UNIT SC (07:54)
[2022-08-31 08:41] VITALS: BP 125/60; PULSE 71; RESP 15; TEMP 36.6; O2SAT 95
--- NOTE | 2022-08-31 10:17 | NURSING ---
Discharge instructions faxed to Dr. Schafer, fax received.
--- NOTE | 2022-08-31 10:26 | CASEMGMT ---
Social Work SW received no response back from on DME suggestions. SW presented to unit and nursing stated already discharged patient. stated she purchased the DME. SW updated [facility] [place]. Ida Haynes, [employer]
== END 2022-08-31 09:10 | disposition home health service (06) | DRG 56 ==
PROVIDERS: Hospitalist; Admitting Provider Internal Medicine; Visit Provider Internal Medicine
DX: I69.354 Hemiplegia and hemiparesis following cerebral infarction affecting left non-dominant side (principal); E43 Unspecified severe protein-calorie malnutrition; B37.0 Candidal stomatitis; L89.152 Pressure ulcer of sacral region, stage 2; E11.319 Type 2 diabetes mellitus with unspecified diabetic retinopathy without macular edema; L89.301 Pressure ulcer of unspecified buttock, stage 1; E11.69 Type 2 diabetes mellitus with other specified complication; E11.10 Type 2 diabetes mellitus with ketoacidosis without coma; T83.511A Infection and inflammatory reaction due to indwelling urethral catheter, initial encounter; Z79.4 Long term (current) use of insulin; F10.11 Alcohol abuse, in remission; E78.5 Hyperlipidemia, unspecified; I69.322 Dysarthria following cerebral infarction; K21.9 Gastro-esophageal reflux disease without esophagitis; I10 Essential (primary) hypertension; R15.9 Full incontinence of feces; I69.328 Other speech and language deficits following cerebral infarction; I69.392 Facial weakness following cerebral infarction; F17.220 Nicotine dependence, chewing tobacco, uncomplicated; L05.91 Pilonidal cyst without abscess; N39.0 Urinary tract infection, site not specified; Z79.84 Long term (current) use of oral hypoglycemic drugs; F32.A Depression, unspecified; N40.1 Benign prostatic hyperplasia with lower urinary tract symptoms; R33.8 Other retention of urine; Z79.82 Long term (current) use of aspirin; Z20.822 Contact with and (suspected) exposure to COVID-19; Z79.899 Other long term (current) drug therapy; Z91.119 Patient's noncompliance with dietary regimen due to unspecified reason; R36.9 Urethral discharge, unspecified; Z68.22 Body mass index [BMI] 22.0-22.9, adult
CPT/HCPCS: 36415; 71045; 72193; 72220; 74018; 80048; 80053; 80061; 81001; 82009; 82040; 82550; 82962; 83036; 83605; 83735; 84100; 84153; 84484; 85025; 85027; 85652; 86140; 87040; 87070; 87077; 87086; 87088; 87186; 87205; 87491; 87591; 92507; 92522; 92523; 92526; 92610; 92611; 93005; 94762; 97110; 97112; 97116; 97129; 97130; 97162; 97164; 97166; 97168; 97530; 97533; 97535; 97542; 97802; 97803; J7030; Q9967; A4216; G0103; J0696

== ENCOUNTER 2022-07-26 00:34 | Inpatient (IN) | payer BC, SELFPAY ==
[2022-07-25 23:46] VITALS: BP 123/62; PULSE 100; RESP 18; TEMP 37.2; O2SAT 93; BMI 24.8
--- NOTE | 2022-07-26 00:43 | HP.PCM.HOS_ITS ---
HPI - General General Date of Admission: 07/25/22 Date of Service: 07/25/22 Chief Complaint: kETOSIS HPI Narrative HUGH VALENCIA, is a 62 M with a significant history of CVA who was at the rehab unit of [facility] being transferred to the acute care part of the Hospital secondary to ketosis. Also patient was found to have a fever and urinary retention.? His urinalysis was abnormal. In regard to his urinary retention he had a postvoid residual of more than 500. Patient earlier in the day of transfer to acute care unit had nausea and vomiting. Initially urine ketone was small but urine ketone increased to moderate. Because of concern for diabetic ketoacidosis rehab attending doctor reportedly discussed case with road oiling truck driver Dr. Mitchell and the concern was that patient may be diabetic ketoacidosis so patient is to be transferred to the acute care for further management and frequent monitoring. Also patient has had urinary retention with a postvoid residual more than 500. [facility] Medical History BPH (benign prostatic hyperplasia) Chewing tobacco use Diabetes mellitus, type 2 Former cigarette smoker GERD (gastroesophageal reflux disease) History of alcohol abuse History of depression History of vitreous hemorrhage of right eye Hypertension Hypertension Overweight Home Medications aspirin 81 mg tablet 81 mg PO DAILY Check with primary doctor 07/09/22 [History Last Taken 07/25/22 81] lisinopril 40 mg tablet 20 mg PO DAILY Check with primary doctor 07/09/22 [History Last Taken 07/25/22] atorvastatin 80 mg tablet 80 mg PO QHS cholesterol 07/12/22 [History Last Taken 07/25/22] insulin glargine-yfgn 100 unit/mL (3 mL) subcutaneous pen 35 unit subcut BID DM 07/12/22 [History Last Taken 07/25/22] insulin lispro 100 unit/mL subcutaneous pen (Humalog KwikPen (U-100) Insulin) See Protocol subcut ACHS DM 07/12/22 [History Last Taken Unknown] nicotine 21 mg/24 hr daily transdermal patch mg transdermal DAILY Check with primary doctor 07/12/22 [History Last Taken 07/25/22] amlodipine 5 mg tablet (Norvasc) 5 mg PO DAILY Check with primary doctor 07/26/22 [History Last Taken Unknown] ustekinumab 45 mg/0.5 mL subcutaneous syringe (Stelara) mg subcut psoriasis 07/26/22 [History Last Taken Unknown] Allergy/AdvReac Type Severity Reaction Status Date / Time No Known Allergies Allergy Verified 07/09/22 00:56 Family History Mother Brain tumor Dx age 43. Father Heart disease Hypertension CAD (coronary artery disease) Diabetes Brother CVA (cerebral vascular accident) CVA in his 60s. Brother CAD (coronary artery disease) Surgical History History of bladder repair surgery Hx of appendectomy Social History adopted: No household members: spouse housing: house number of children: 4 current occupational status: employed current occupation: Drills holes into rock sexually active: Yes Smoking Status: Former smoker quit date: 04/30/00 pack-years: 38 Smokeless tobacco user: chewing tobacco counseling given: provider counseling and counseling >3 minutes alcohol intake: current alcohol intake frequency: holidays/special occasions only details: Hx heavy EtOH abuse (64 ounces beer/day) but stopped heavy intake 2 yrs ago substance use type: does not use ROS ROS Narrative Pertinent positives and pertinent negatives as noted in HPI. All other systems were reviewed and are negative Vital Signs Vital Signs Vital Signs: 07/26/22 00:23 Respiratory Effort Normal Non-Labored Respiratory Depth Normal Respiratory Pattern Normal Oxygen Delivery Method Room Air Weight Weight: 74.1 kg Body Mass Index (BMI) 24.8 Physical Exam Narrative Physical exam: General: Well-nourished, well-developed. Head: Normocephalic, atraumatic, no tenderness Eyes: Vision is grossly intact. EOMI ENT, no trauma, no rhinorrhea Neck: Nontender, No thyromegaly. CVS:? Regular rate and rhythm.? S1-S2 present.? No murmur, gallop or rub. Respiratory : clear to auscultation bilaterally, chest wall nontender Abdomen: Soft, nontender, nondistended, normal bowel sounds, no masses : Deferred Back: Nontender, no CVA tenderness, no midline spinal tenderness, deformities, step-offs Extremities: Patient can raise right upper extremity and right lower extremity with strength 5 out of 5, no trauma Skin: Normal color, no trauma, abrasions Neuro: Alert, oriented, cranial nerves II through XII grossly intact. Psychiatry: Normal mood.? Normal affect.? Not depressed.? Not anxious. Results Lab / Micro Data Result Diagrams: 07/26/22 01:06 Assessment & Plan Assessment/Plan (1) Ketosis: (2) UTI (urinary tract infection): (3) Constipation: (4) Diabetes mellitus, type 2: PLAN: Plan Ketosis Urinalysis on 07/25/2022 showed urine ketones of 150.? Also urinalysis on 07/14/2022 showed urine ketones of 150. Bicarb level of 24, normal.? No anion gap. Consideration was made for euglycemic DKA especially as patient is on empagli flozin but again patient's has normal bicarbonate and there is no gap.? We will discontinue empagliflozin. ABG ordered returned with normal pH and normal bicarbonate. DKA ruled out. Most likely Starvation ketosis. Straight from normal saline to D5W with potassium. Accu-Chek with correction scale insulin ordered. Serial BMP ordered. Diabetic diet. Glucerna ordered. UTI High-grade fever on 07/25/2022 Nurse reported a temperature of 103.3 weakness which has increased from previous reading.? Change antibiotics from ceftriaxone to Zosyn.? Blood culture has been obtained. Lactic acid ordered return as 1.0 Rapid COVID and influenza ordered. Chest x-ray with no radiographic evidence of acute cardiopulmonary disease. I agree with radiology interpretation. Follow blood culture and urine culture ordered at the rehabilitation unit. Constipation Impression KUB by radiologist: Mild fecal retention. A KUB was visualized independent interpreted I agree with radiology interpretation. Enema ordered at rehab units. Reportedly patient could not hold enema. Escalate dose of Senokot-S. Subacute CVA Patient was admitted to [facility] the [facility] rehab on 07/13/2022 for rehab secondary stroke. PT and OT continued. Aspirin continued. DVT prophylaxis Subcutaneous Lovenox ordered. ? Charges/Coding Visit Charges Inpatient E&M: 85243 Init Hosp L3
[2022-07-26 01:31] LABS: Anion Gap 5 (5-15); BUN 19 mg/dL (7-18); BUN/Creat Ratio 25.9 RATIO (10-20); Chloride 110 mmol/L (98-107); Creatinine, Serum 0.73 mg/dL (0.70-1.30); EST Glomerular Filtration Rate 115 mL/min (>60); Est Glom Filt Rate - Afr Amer 139 mL/min (>60); Estimated Creatinine Clearance 101.51 ml/min; Glucose 97 mg/dL (74-106); Potassium 3.6 mmol/L (3.5-5.1); Sodium Level 139 mmol/L (136-145)
[2022-07-26 02:16] LABS: Allen Test Positive; Base Excess -2 mmol/L (-2 to +2); Bicarbonate 23.2 mmol/L (22-26); Blood Gas Specimen Type ART; O2 Delivery Device Room Air; PO2 82 mmHG (75-100); SITE R Radial; SO2 96 % (95-99); Total Carbon Dioxide 24 mmol/L; pCO2 36.7 mmHg (35-45); pH 7.41 (7.35-7.45)
[2022-07-26 03:05] LABS: Bedside Glucose 88 mg/dL (74-106)
[2022-07-26 05:06] LABS: Absolute Lymphocyte Count 1.77 X10^3/uL (0.83-4.51); Absolute Neutrophil Count 16.1 X10^3/uL (2.0-7.7); Basophil# 0.07 X10^3/uL; Basophil% 0.4 % (0-1); Eosinophil# 0.14 X10^3/uL; Eosinophils% 0.7 % (0-5); Hematocrit 42.6 % (40-54); Hemoglobin 13.2 g/dL (13.0-16.5); Lymphocyte # 1.77 X10^3/ul (0.83-4.51); Lymphocyte % 9.1 % (19-41); Mean Corpuscular Hgb 29.3 pg (27.0-32.0); Mean Corpuscular Volume 94.7 fL (80-94); Mean Platelet Vol. 10.4 fl (6.2-12.0); Monocyte# 1.28 X10^3/uL; Monocyte% 6.5 % (0-10); NRBC Flagged by Analyzer 0 % (0-5); Neutrophil # 16.13 X10^3/uL (2.7-7.7); Neutrophil % 82.5 % (47-70); Platelet Count 295 K/mm3 (150-450); RBC Distribution Width CV 12.7 % (11.6-14.6); RBC Distribution Width SD 44.4 fl (35.1-43.9); White Blood Count 19.6 K/mm3 (4.4-11.0)
[2022-07-26 05:14] VITALS: BP 131/63; PULSE 95; RESP 18; TEMP 37.1; O2SAT 95
[2022-07-26 05:27] LABS: Anion Gap 5 (5-15); BUN 18 mg/dL (7-18); BUN/Creat Ratio 23.6 RATIO (10-20); Calcium,Total 8.2 mg/dL (8.5-10.1); Chloride 110 mmol/L (98-107); Creatinine, Serum 0.76 mg/dL (0.70-1.30); EST Glomerular Filtration Rate 110 mL/min (>60); Est Glom Filt Rate - Afr Amer 133 mL/min (>60); Glucose 99 mg/dL (74-106); Potassium 3.6 mmol/L (3.5-5.1); Sodium Level 138 mmol/L (136-145)
[2022-07-26] MEDS: 0.9% Saline Lock 10 ML Syringe IV (05:31)
[2022-07-26 07:20] LABS: Bedside Glucose 118 mg/dL (74-106)
[2022-07-26 07:46] VITALS: O2SAT 96
[2022-07-26 09:26] LABS: Anion Gap 4 (5-15); BUN 16 mg/dL (7-18); BUN/Creat Ratio 25.8 RATIO (10-20); Calcium,Total 7.7 mg/dL (8.5-10.1); Chloride 109 mmol/L (98-107); Creatinine, Serum 0.62 mg/dL (0.70-1.30); EST Glomerular Filtration Rate 139 mL/min (>60); Est Glom Filt Rate - Afr Amer 169 mL/min (>60); Estimated Creatinine Clearance 119.52 ml/min; Glucose 118 mg/dL (74-106); Potassium 3.9 mmol/L (3.5-5.1); Sodium Level 136 mmol/L (136-145)
[2022-07-26 11:00] VITALS: BP 114/49; PULSE 86; RESP 16; TEMP 37.4; O2SAT 95
[2022-07-26] MEDS: Aspirin 81 MG TAB.CHEW PO (11:00)
[2022-07-26] MEDS: Enoxaparin 40 MG/0.4 ML Syringe SC (11:01)
[2022-07-26] MEDS: amLODIPine 5 MG Tablet PO (11:02)
[2022-07-26] MEDS: Lisinopril 20 MG Tablet PO (11:02)
[2022-07-26] MEDS: Senna/Docusate Sodium 1 Tablet 2 TABLET PO ×2 (11:02→20:17)
[2022-07-26 11:45] LABS: Bedside Glucose 104 mg/dL (74-106)
[2022-07-26 13:09] LABS: Anion Gap 6 (5-15); BUN 14 mg/dL (7-18); BUN/Creat Ratio 21.2 RATIO (10-20); Chloride 106 mmol/L (98-107); Creatinine, Serum 0.66 mg/dL (0.70-1.30); EST Glomerular Filtration Rate 130 mL/min (>60); Est Glom Filt Rate - Afr Amer 157 mL/min (>60); Estimated Creatinine Clearance 112.27 ml/min; Glucose 127 mg/dL (74-106); Potassium 3.9 mmol/L (3.5-5.1); Sodium Level 134 mmol/L (136-145)
--- NOTE | 2022-07-26 14:01 | PN.HOSP_ITS ---
Reason for Visit Reason for Visit: Diagnoses Type 2 diabetes mellitus without complications (07/25/22) Other specified metabolic disorders (07/25/22) Constipation, unspecified (07/25/22) Urinary tract infection, site not specified (07/25/22) Subjective Subjective Seen and examined today, he was admitted last night with concerns of ketoacidosis-in review of the chart, I do not see any evidence of diabetic ketoacidosis-and he was also admitted due to a urinary tract infection. Patient's serum acetone level this morning is small. Patient has no complaints of shortness of breath or fever. Objective Data Objective Data Vital Signs: Vital Signs Temp Pulse Resp BP Pulse Ox O2 Del Method 99.4 F H 86 16 114/49 L 95 Room Air 07/26/22 11:00 07/26/22 11:00 07/26/22 11:00 07/26/22 11:00 07/26/22 11:00 07/26/22 11:00 Oxygen Delivery Method Room Air Weight: 74.1 kg Body Mass Index (BMI) 24.8 Intake & Output: Intake and Output for Last 24 Hours 07/24/22 07/25/22 07/26/22 23:59 23:59 23:59 Intake Total 1180 / 1180 Output Total 550 / 550 Balance 630 / 630 Medical Nutrition Assessment Dietitian: Malnutrition Criteria Met Start: 07/26/22 14:00 Freq: Status: Active Protocol: Document 07/26/22 14:01 (Rec: 07/26/22 14:01 [id number]) Nutrition Malnutrition Evidence of Malnutrition Exists Yes Malnutrition (severe): Acute Illness/Injury Evidenced By Suboptimal Energy Intake ( Severe),Weight Loss (Severe) Clinical Problem Acute Disease or Injury Related Malnutrition Etiology severe, acute malnutrition related to inadequate energy intake Signs/Symptoms as evidenced by unintentional 10.5#/6% wt loss < 1 month; estimated PO intake meeting < 50% of estimated energy needs > 5 days Status Active Problem Recommendation Dietitian Recommendations/Changes continue cardiac, 2000 calorie controlled diet- texture/ consistency per DEPOSIT REFUND CLERK; will monitor PO intake and liberalize diet as needed. Will continue to offer Glucerna TID. Will add magic cups w/ meals for additional nutrition if consumed. Lab / Micro Data Result Diagrams: 07/26/22 04:53 07/26/22 12:35 Labs: Laboratory Results - last 24 hr 07/26/22 01:06: Sodium 139, Potassium 3.6, Chloride 110 H, Carbon Dioxide 24.0, Anion Gap 5, BUN 19 H, Creatinine 0.73, Estim Creat Clear Calc 101.51, Est GFR (MDRD) Af Amer 139, Est GFR (MDRD) Non-Af 115, BUN/Creatinine Ratio 25.9 H, Glucose 97, Calcium 8.0 L 07/26/22 02:06: POC Glucose 88 07/26/22 04:53: Sodium 138, Potassium 3.6, Chloride 110 H, Carbon Dioxide 23.0, Anion Gap 5, BUN 18, Creatinine 0.76, Estim Creat Clear Calc 97.50, Est GFR (M DRD) Af Amer 133, Est GFR (MDRD) Non-Af 110, BUN/Creatinine Ratio 23.6 H, Glu cose 99, Calcium 8.2 L 07/26/22 04:53: WBC 19.6 H, RBC 4.50 L, Hgb 13.2, Hct 42.6, MCV 94.7 H, MCH 29.3, MCHC 31.0 L, RDW Std Deviation 44.4 H, RDW Coeff of Machelle 12.7, Plt Count 295, MPV 10.4, Immature Gran % (Auto) 0.800, Neut % (Auto) 82.5 H, Lymph % (Auto) 9.1 L, Walton % (Auto) 6.5, Eos % (Auto) 0.7, Baso % (Auto) 0.4, Absolute Neuts (auto) 16.1 H, Absolute Lymphs (auto) 1.77, Nucleated RBC % 0 07/26/22 06:25: POC Glucose 118 H 07/26/22 08:48: Sodium 136, Potassium 3.9, Chloride 109 H, Carbon Dioxide 23.0, Anion Gap 4 L, BUN 16, Creatinine 0.62 L, Estim Creat Clear Calc 119.52, Est GFR (MDRD) Af Amer 169, Est GFR (MDRD) Non-Af 139, BUN/Creatinine Ratio 25.8 H, Glucose 118 H, Calcium 7.7 L 07/26/22 08:48: Acetone Level SMALL H 07/26/22 11:10: POC Glucose 104 07/26/22 12:35: Sodium 134 L, Potassium 3.9, Chloride 106, Carbon Dioxide 22.0, Anion Gap 6, BUN 14, Creatinine 0.66 L, Estim Creat Clear Calc 112.27, Est GFR (MDRD) Af Amer 157, Est GFR (MDRD) Non-Af 130, BUN/Creatinine Ratio 21.2 H, Glucose 127 H, Calcium 8.0 L Micro: Microbiology 07/26/22 Unknown Nasal Secretion SARS-CoV-2 & FLU Antigen (Rapid) - Final ABG Data ABG results: ABG 07/26/22 02:11 Specimen Type ART Sample Site R Radial pH 7.41 Bicarbonate Actual 23.2 Total CO2 24 Base Excess -2 O2 Saturation 96 ABG pCO2 36.7 ABG pO2 82 Kofi Test Positive O2 Delivery Device Room Air Physical Exam Const alert, oriented x3 and no apparent distress Constitutional Narrative: Patient appears older than his stated age General Appearance: cooperative, well kempt and well developed Orientation / Consciousness: awake, oriented to person and oriented to place HEENT normocephalic, head/scalp atraumatic and moist oral mucous membranes Eyes PERRL, EOMs intact bilaterally and conjunctivae normal Neck supple, no JVD, thyroid normal and no carotid bruits General: trachea midline Resp normal respiratory effort, no retractions, no use of accessory muscles and clear to auscultation bilaterally Auscultation: Negative for rales, rhonchi or wheezes Cardio regular rate, regular rhythm, S1 normal heart sound, S2 normal heart sound, no murmurs, no rub and no gallops GI normal to inspection, nondistended, normoactive bowel sounds, soft to palpation, non-tender and non-distended Extremity no clubbing, cyanosis or edema Skin no rashes or lesions noted General Skin Exam: no breakdown Neuro CN's II-XII intact bilaterally Neuro Narrative: Patient exhibits left hemiplegia Sensorium / Orientation: awake, alert, oriented to person and oriented to place Speech: speech normal Psych affect normal Assessment & Plan Assessment/Plan (1) Ketosis: PLAN: Plan 1. Acute cystitis continue Zosyn, await urine culture #2 ketosis-probably from poor oral intake, continue to administer D5 and potassium chloride, monitor labs #3 acute CVA-patient will continue to be seen by PT and OT, we will have to get preapproval for the patient return to the rehab unit. Patient will remain on aspirin. I have decided to add Plavix to the patient's medications. #4 type 2 diabetes-continue to monitor blood sugars, sliding scale insulin will be given per protocol #5 essential hypertension-patient will remain on Zestril #6 left-sided hemiparesis-patient has very little movement on his left side at the time my examination, patient will need to return to the rehab unit or to a group home facility when discharged from the hospital. Clinical time spent by myself addressing the patient's medical issues, reviewing all the data, and collaborating with patient's care team: 35 minutes Charges/Coding Visit Charges Inpatient E&M: 54034 Subs Hosp L2
--- NOTE | 2022-07-26 15:55 | CHAPLAIN ---
Type of Pastoral Visit _x__ Initial Visit ___ Follow-up Visit ___ On-call Visit ___ General Patient Visit ___ Spiritual Assessment ___ Family Conference ___ Bereavement ___ Rapid Response ___ Code Blue ___ Other (describe below) Pastoral Care Referral From _x__ Patient ___ Family ___ Nurse ___ Physician ___ Insole Buffer ___ Screen Cleaner ___ Other (describe below) Sacrament/Intervention _x__ Active listening ___ Anointing ___ Anabaptism ___ Bereavement ___ Communion ___ Cristiana exploration ___ _x__ Life review _x_ Prayer ___ Reconciliation ___ Sacrament of Sick _x__ Supportive presence ___ Wedding ___ Other (describe below) Pastoral Comments patient is welcoming; pt tells of his stroke; pt is having hiccups during visit that he said have gone on for many hours; pt is looking very tired; [place] limited family/support in this area; pt does welcome the visit and prayers for his support
--- NOTE | 2022-07-26 16:06 | CASEMGMT ---
Patient is from [facility] 4th floor Rehab Unit. SW will check with patient and patient's to make sure plan is to return. Lisa BOGGS
[2022-07-26 16:25] VITALS: BP 141/60; PULSE 81; RESP 18; TEMP 37.1; O2SAT 97
[2022-07-26] MEDS: Insulin Lispro 100 UNIT/ML INSULN.PEN SC ×2 (16:33→20:14)
[2022-07-26 17:00] LABS: Bedside Glucose 161 mg/dL (74-106)
[2022-07-26] MEDS: Clopidogrel Bisulfate 75 MG Tablet PO (18:05)
[2022-07-26 18:11] LABS: Anion Gap 6 (5-15); BUN 12 mg/dL (7-18); BUN/Creat Ratio 17.1 RATIO (10-20); Calcium,Total 8.2 mg/dL (8.5-10.1); Chloride 105 mmol/L (98-107); EST Glomerular Filtration Rate 121 mL/min (>60); Est Glom Filt Rate - Afr Amer 146 mL/min (>60); Estimated Creatinine Clearance 105.86 ml/min; Glucose 177 mg/dL (74-106); Potassium 3.9 mmol/L (3.5-5.1); Sodium Level 135 mmol/L (136-145)
[2022-07-26] MEDS: ChlorproMAZINE 25 MG Tablet 12.5 MG PO (18:50)
[2022-07-26 20:09] VITALS: BP 134/55; PULSE 84; RESP 18; TEMP 36.8; O2SAT 94
[2022-07-26] MEDS: Insulin Glargine-YFGN 100 UNIT/ML Pen 10 UNIT SC (20:15)
[2022-07-26] MEDS: Atorvastatin Calcium 80 MG Tablet PO (20:16)
[2022-07-26 21:14] LABS: Anion Gap 7 (5-15); BUN 12 mg/dL (7-18); BUN/Creat Ratio 14.7 RATIO (10-20); Calcium,Total 8.4 mg/dL (8.5-10.1); Chloride 105 mmol/L (98-107); Creatinine, Serum 0.82 mg/dL (0.70-1.30); EST Glomerular Filtration Rate 102 mL/min (>60); Est Glom Filt Rate - Afr Amer 123 mL/min (>60); Estimated Creatinine Clearance 90.37 ml/min; Glucose 223 mg/dL (74-106); Potassium 3.9 mmol/L (3.5-5.1); Sodium Level 135 mmol/L (136-145)
[2022-07-26 22:25] VITALS: BP 134/55; PULSE 84; RESP 16; TEMP 36.8; O2SAT 94
[2022-07-27 02:09] VITALS: BP 130/60; PULSE 75; RESP 16; TEMP 36.6; O2SAT 96
[2022-07-27 04:25] VITALS: BP 133/60; PULSE 70; RESP 16; TEMP 36.8; O2SAT 96
[2022-07-27 04:45] LABS: Bedside Glucose 203 mg/dL (74-106)
[2022-07-27] MEDS: Insulin Lispro 100 UNIT/ML INSULN.PEN SC ×4 (06:13→20:54)
[2022-07-27 06:46] LABS: Bedside Glucose 174 mg/dL (74-106)
[2022-07-27 07:46] VITALS: O2SAT 97
[2022-07-27] MEDS: Enoxaparin 40 MG/0.4 ML Syringe SC (09:23)
[2022-07-27] MEDS: Senna/Docusate Sodium 1 Tablet 2 TABLET PO (09:23)
[2022-07-27] MEDS: Aspirin 81 MG TAB.CHEW PO (09:23)
[2022-07-27] MEDS: amLODIPine 5 MG Tablet PO (09:24)
[2022-07-27] MEDS: Lisinopril 20 MG Tablet PO (09:24)
[2022-07-27] MEDS: Clopidogrel Bisulfate 75 MG Tablet PO (09:27)
[2022-07-27] MEDS: Glucerna Shake 120 ML LIQUID PO ×2 (09:28→12:55)
[2022-07-27] MEDS: Insulin Glargine-YFGN 100 UNIT/ML Pen 10 UNIT SC ×2 (09:35→20:54)
[2022-07-27 09:55] LABS: Bedside Glucose 210 mg/dL (74-106)
[2022-07-27 10:25] VITALS: BP 143/58; PULSE 85; RESP 18; TEMP 36.6; O2SAT 95
--- NOTE | 2022-07-27 11:00 | CASEMGMT ---
SOM asked Fransisca in Rehab to start pre-cert for patient to return. Fransisca has left for the day and will initiate pre-cert in the am. Lisa Fulton MSW FLAKITA
[2022-07-27 12:56] LABS: Bedside Glucose 256 mg/dL (74-106)
[2022-07-27] MEDS: Phenazopyridine 95 MG Tablet 190 MG PO ×2 (13:25→20:49)
[2022-07-27 16:30] VITALS: BP 131/65; PULSE 87; RESP 18; TEMP 36.7; O2SAT 96
--- NOTE | 2022-07-27 16:52 | CASEMGMT ---
RN told SOM that patient's is upset and crying. SW went to see patient's Cristy and saw her in the hallway. Cristy was on the phone with insurance and said the pre-cert needs started as soon as possible so patient can get back to the inpatient rehab unit. SOM let her know it will be started tomorrow am. Lisa Fulton VISUAL EDUCATION DIRECTOR RODEO PERFORMER
[2022-07-27 17:00] LABS: Bedside Glucose 243 mg/dL (74-106)
[2022-07-27] MEDS: buPROPion (XL) 150 MG TABLET.XL PO (18:27)
[2022-07-27] MEDS: Pantoprazole Sodium 40 MG Tablet PO (18:27)
[2022-07-27] MEDS: Acetaminophen 500 MG Tablet 1000 MG PO (18:42)
--- NOTE | 2022-07-27 19:19 | PCM.PN.HOSP ---
Reason for Visit Reason for Visit: Diagnoses Type 2 diabetes mellitus without complications (07/26/22) Other specified metabolic disorders (07/26/22) Constipation, unspecified (07/26/22) Urinary tract infection, site not specified (07/26/22) Subjective Subjective Was seen and examined today, his urine culture grew out Pseudomonas, Klebsiella, and a gram-negative lactose interlocker. Patient is currently on Zosyn, I have elected to continue this antibiotic for now. Patient's states that he has some dysuria at this time, I have placed him on Pyridium. I also talked her briefly about the need for him to take a statin-she states that he is confused on statins, I told her that he would need to take statins no matter what because of his stroke. I told her that I could decrease the dosage of his statin for now. I also talked with today, it appears he was on an antidepressant at the rehab unit, I started them back up-he was taking Wellbutrin and Remeron. Patient was also on a PPI which I started today. Objective Data Objective Data Vital Signs: Vital Signs Temp Pulse Resp BP Pulse Ox O2 Del Method 98.0 F 87 18 131/65 H 96 Room Air 07/27/22 16:30 07/27/22 16:30 07/27/22 16:30 07/27/22 16:30 07/27/22 16:30 07/27/22 16:30 Oxygen Delivery Method Room Air Weight: 74.1 kg Body Mass Index (BMI) 24.8 Intake & Output: Intake and Output for Last 24 Hours 07/25/22 07/26/22 07/27/22 23:59 23:59 23:59 Intake Total 2360 / 2360 2170 / 2170 Output Total 1550 / 1550 3450 / 3450 Balance 810 / 810 -1280 / -1280 Medical Nutrition Assessment Dietitian: Malnutrition Criteria Met Start: 07/26/22 14:00 Freq: Status: Active Protocol: Document 07/26/22 14:01 (Rec: 07/26/22 14:01 [id number]) Nutrition Malnutrition Evidence of Malnutrition Exists Yes Malnutrition (severe): Acute Illness/Injury Evidenced By Suboptimal Energy Intake ( Severe),Weight Loss (Severe) Clinical Problem Acute Disease or Injury Related Malnutrition Etiology severe, acute malnutrition related to inadequate energy intake Signs/Symptoms as evidenced by unintentional 10.5#/6% wt loss < 1 month; estimated PO intake meeting < 50% of estimated energy needs > 5 days Status Active Problem Recommendation Dietitian Recommendations/Changes continue cardiac, 2000 calorie controlled diet- texture/ consistency per FIELD OPERATIONS COORDINATOR; will monitor PO intake and liberalize diet as needed. Will continue to offer Glucerna TID. Will add magic cups w/ meals for additional nutrition if consumed. Lab / Micro Data Result Diagrams: 07/26/22 04:53 07/26/22 20:40 Labs: Laboratory Results - last 24 hr 07/26/22 20:13: POC Glucose 203 H 07/26/22 20:40: Sodium 135 L, Potassium 3.9, Chloride 105, Carbon Dioxide 23.0, Anion Gap 7, BUN 12, Creatinine 0.82, Estim Creat Clear Calc 90.37, Est GFR (MDRD) Af Amer 123, Est GFR (MDRD) Non-Af 102, BUN/Creatinine Ratio 14.7, Glucose 223 H, Calcium 8.4 L 07/27/22 06:10: POC Glucose 174 H 07/27/22 09:34: POC Glucose 210 H 07/27/22 12:34: POC Glucose 256 H 07/27/22 16:05: POC Glucose 243 H Micro: Microbiology 07/26/22 Unknown Nasal Secretion SARS-CoV-2 & FLU Antigen (Rapid) - Final Physical Exam Narrative alert, oriented x3 and no apparent distress Constitutional Narrative: Patient appears older than his stated age General Appearance: cooperative, well kempt and well developed Orientation / Consciousness: awake, oriented to person and oriented to place HEENT normocephalic, head/scalp atraumatic and moist oral mucous membranes Eyes PERRL, EOMs intact bilaterally and conjunctivae normal Neck supple, no JVD, thyroid normal and no carotid bruits General: trachea midline Resp normal respiratory effort, no retractions, no use of accessory muscles and clear to auscultation bilaterally Auscultation: Negative for rales, rhonchi or wheezes Cardio regular rate, regular rhythm, S1 normal heart sound, S2 normal heart sound, no murmurs, no rub and no gallops GI normal to inspection, nondistended, normoactive bowel sounds, soft to palpation, non-tender and non-distended Extremity no clubbing, cyanosis or edema Skin no rashes or lesions noted General Skin Exam: no breakdown Neuro CN's II-XII intact bilaterally Neuro Narrative: Patient exhibits left hemiplegia Sensorium / Orientation: awake, alert, oriented to person and oriented to place Speech: speech normal Psych affect normal Assessment & Plan Assessment/Plan (1) Ketosis: PLAN: Plan 1. Acute cystitis continue Zosyn, I will consider transitioning the patient over to oral antibiotics tomorrow #2 ketosis-probably from poor oral intake, continue to administer D5 and potassium chloride, monitor labs #3 acute CVA-patient will continue to be seen by PT and OT, we will have to get preapproval for the patient return to the rehab unit. Patient will remain on aspirin. I have decided to add Plavix to the patient's medications. #4 type 2 diabetes-continue to monitor blood sugars, sliding scale insulin will be given per protocol #5 essential hypertension-patient will remain on Zestril #6 left-sided hemiparesis-patient has very little movement on his left side at the time my examination, patient will need to return to the rehab unit or to a fdc facility when discharged from the hospital. #7 severe acute protein and caloric malnutrition related to inadequate energy intake as evidenced by unintentional 10.5 pound weight loss in less than a month and estimated p.o. intake meeting less than 50% of estimated energy needs for more than 5 days - 2000-calorie carb controlled cardiac diet will be continued, Glucerna will be offered 3 times daily, Magic cups with meals will be added for additional nutrition. Clinical time spent by myself addressing the patient's medical issues, reviewing all the data, and collaborating with patient's care team: 35 minutes Charges/Coding Visit Charges Inpatient E&M: 53208 Subs Hosp L2
[2022-07-27] MEDS: Atorvastatin Calcium 80 MG Tablet PO (20:50)
[2022-07-27] MEDS: Mirtazapine 30 MG Tablet PO (20:51)
[2022-07-27 21:59] VITALS: BP 131/74; PULSE 80; RESP 16; TEMP 36.8; O2SAT 95
[2022-07-28 01:31] LABS: Bedside Glucose 263 mg/dL (74-106)
[2022-07-28 03:50] VITALS: BP 133/67; PULSE 75; RESP 16; TEMP 36.6; O2SAT 95
[2022-07-28 06:00] LABS: Absolute Lymphocyte Count 1.33 X10^3/uL (0.83-4.51); Absolute Neutrophil Count 6.8 X10^3/uL (2.0-7.7); Basophil# 0.06 X10^3/uL; Basophil% 0.6 % (0-1); Eosinophil# 0.34 X10^3/uL; Eosinophils% 3.7 % (0-5); Hematocrit 43.8 % (40-54); Hemoglobin 14.1 g/dL (13.0-16.5); Lymphocyte # 1.33 X10^3/ul (0.83-4.51); Lymphocyte % 14.4 % (19-41); Mean Corp Hgb Conc 32.2 g/dL (32-36); Mean Corpuscular Hgb 29.6 pg (27.0-32.0); Mean Platelet Vol. 10.5 fl (6.2-12.0); Monocyte# 0.65 X10^3/uL; NRBC Flagged by Analyzer 0 % (0-5); Neutrophil # 6.83 X10^3/uL (2.7-7.7); Neutrophil % 73.9 % (47-70); Platelet Count 343 K/mm3 (150-450); RBC Distribution Width CV 12.4 % (11.6-14.6); RBC Distribution Width SD 42.5 fl (35.1-43.9); Red Blood Count 4.76 M/mm3 (4.6-6.2); White Blood Count 9.3 K/mm3 (4.4-11.0)
[2022-07-28] MEDS: Phenazopyridine 95 MG Tablet 190 MG PO (06:06)
[2022-07-28] MEDS: Insulin Lispro 100 UNIT/ML INSULN.PEN SC ×2 (06:35→12:23)
--- NOTE | 2022-07-28 07:53 | CASEMGMT ---
Pre-cert was started this am for inpatient rehab unit. Lisa BOGGS
[2022-07-28 08:00] VITALS: O2SAT 95
[2022-07-28 09:50] VITALS: BP 154/78; PULSE 94; RESP 18; TEMP 36.4; O2SAT 95
[2022-07-28] MEDS: amLODIPine 5 MG Tablet PO (10:28)
[2022-07-28] MEDS: Aspirin 81 MG TAB.CHEW PO (10:28)
[2022-07-28] MEDS: Clopidogrel Bisulfate 75 MG Tablet PO (10:28)
[2022-07-28] MEDS: Pantoprazole Sodium 40 MG Tablet PO (10:28)
[2022-07-28] MEDS: Lisinopril 20 MG Tablet PO (10:29)
[2022-07-28] MEDS: buPROPion (XL) 150 MG TABLET.XL PO (10:29)
[2022-07-28] MEDS: Insulin Glargine-YFGN 100 UNIT/ML Pen 10 UNIT SC (10:33)
[2022-07-28] MEDS: Enoxaparin 40 MG/0.4 ML Syringe SC (10:34)
--- NOTE | 2022-07-28 11:09 | PCM.DC ---
Discharge Instructions Diet Discharge Diet: 1800 Calorie Control Diet Activity Discharge Activity: - (Resume previous activity) Weight Bearing Status: - (Resume previous activity) Follow Up Care Test Results: Test results from this visit will be discussed in further detail at your follow-up appointment, if applicable. Discharge Plan Admission Admit Date/Time: 07/26/22 00:34 Primary Reason for Your Visit: acute cystitis Attending Provider: Ayaan Robin Consulting Providers: Heath Mcqueen Discharge Orders/Prescriptions Prescriptions: New acetaminophen 500 mg Tablet 1,000 mg PO Q8H PRN PRN (Reason: Pain 1-10 Or Fever) Qty: 0 0RF clopidogrel 75 mg Tablet 75 mg PO DAILY Qty: 0 0RF chlorpromazine 25 mg Tablet 12.5 mg PO TID PRN PRN (Reason: Hiccups) Qty: 0 0RF enoxaparin 40 mg/0.4 mL Syringe 40 mg subcut DAILY Qty: 0 0RF insulin lispro [Humalog KwikPen Insulin] 100 unit/mL Insulin Pen See Protocol subcut ACHS Qty: 0 0RF Protocol: 1. Sliding Scale Insulin Low Dosing Condition: 150-224 mg/dl = 1 unit Condition: 225-299 mg/dl = 2 units Condition: 300-374 mg/dl = 3 units Condition: 375-499 mg/dl = 4 units Condition: Greater than 449 call physician Protocol Text: - Use for Total Daily Dose of Insulin 15-27 units - Thin, elderly, renal patients LOW DOSING ALGORITHM bupropion HCl 150 mg Tablet Extended Release 24 Hr 150 mg PO DAILY Qty: 0 0RF Glucerna 1.2 Rudi 0.06-1.2 gram-kcal/mL Liquid 120 ml PO TIDCM Qty: 0 0RF sennosides-docusate sodium [Stool Softener-Stimulant Laxat] 8.6-50 mg Tablet 2 tab PO BID Qty: 0 0RF phenazopyridine [Azo Urinary Pain Relief] 95 mg Tablet 190 mg PO TID Qty: 0 0RF pantoprazole 40 mg Tablet,Delayed Release (Dr/Ec) 40 mg PO DAILY Qty: 0 0RF mirtazapine 30 mg Tablet 30 mg PO QHS Qty: 0 0RF levofloxacin 500 mg tablet 500 mg PO DAILY Qty: 7 0RF Rx Instructions: start 07/28/22 Continued aspirin 81 mg Tablet 81 mg PO DAILY lisinopril 40 mg Tablet 20 mg PO DAILY atorvastatin 80 mg tablet 80 mg PO QHS nicotine 21 mg/24 hr patch 24 hour transdermal DAILY insulin lispro [Humalog KwikPen Insulin] 100 unit/mL insulin pen See Protocol subcut [facility] Protocol: 3. Sliding Scale Insulin Med Dosing Condition: 150-189 mg/dl = 1 unit Condition: 190-229 mg/dl = 2 units Condition: 230-269 mg/dl = 3 units Condition: 270-309 mg/dl = 4 units Condition: 310-349 mg/dl = 5 units Condition: 350-399 mg/dl = 6 units Condition: 400-449 mg/dl = 7 units Condition: Greater than 449 call physician Protocol Text: - Use for Total Daily Dose of Insulin 37-55 units - Obsese, infected, or steroid patients MEDIUM DOSING ALGORITHIM insulin glargine-yfgn 100 unit/mL (3 mL) insulin pen 35 unit subcut BID amlodipine [Norvasc] 5 mg Tablet 5 mg PO DAILY Stelara 45 mg/0.5 mL syringe SUBCUT Disposition Disposition (needs filled in before D/C Order can be placed): Inpatient Rehab Unit/Facility
[2022-07-28 11:10] LABS: Bedside Glucose 230 mg/dL (74-106)
--- NOTE | 2022-07-28 11:18 | DS.PCM_ITS ---
Providers Date of Admission: 07/26/22 Date of Discharge: 07/28/22 Reason For Visit: KETOSIS, UTI Diagnosis Discharge Diagnosis (1) Ketosis: Status: Acute Code(s): E88.89 - Other specified metabolic disorders Plan 1. Acute cystitis continue Zosyn, I will consider transitioning the patient over to oral antibiotics tomorrow #2 ketosis-probably from poor oral intake, continue to administer D5 and potassium chloride, monitor labs #3 acute CVA-patient will continue to be seen by PT and OT, we will have to get preapproval for the patient return to the rehab unit. Patient will remain on aspirin. I have decided to add Plavix to the patient's medications. #4 type 2 diabetes-continue to monitor blood sugars, sliding scale insulin will be given per protocol #5 essential hypertension-patient will remain on Zestril #6 left-sided hemiparesis-patient has very little movement on his left side at the time my examination, patient will need to return to the rehab unit or to a chcf facility when discharged from the hospital. #7 severe acute protein and caloric malnutrition related to inadequate energy intake as evidenced by unintentional 10.5 pound weight loss in less than a month and estimated p.o. intake meeting less than 50% of estimated energy needs for more than 5 days - 2000-calorie carb controlled cardiac diet will be continued, Glucerna will be offered 3 times daily, Magic cups with meals will be added for additional nutrition. Clinical time spent by myself addressing the patient's medical issues, reviewing all the data, and collaborating with patient's care team: 35 minutes Medications at Discharge Home Medications aspirin 81 mg tablet 81 mg PO DAILY heart health 07/09/22 lisinopril 40 mg tablet 20 mg PO DAILY blood pressure 07/09/22 insulin glargine-yfgn 100 unit/mL (3 mL) subcutaneous pen 10 unit subcut BID DM 07/12/22 amlodipine 5 mg tablet (Norvasc) 5 mg PO DAILY blood pressure 07/26/22 acetaminophen 500 mg tablet 1,000 mg PO Q8H PRN PRN Pain 1-10 Or Fever #0 tabs 07/28/22 bupropion HCl 150 mg 24 hr tablet, extended release 150 mg PO DAILY mood 07/28/22 chlorpromazine 25 mg tablet 12.5 mg PO TID PRN PRN Hiccups #0 tabs 07/28/22 clopidogrel 75 mg tablet 75 mg PO DAILY blood thinner 07/28/22 enoxaparin 40 mg/0.4 mL subcutaneous syringe 40 mg subcut DAILY@0600 blood thinner 07/28/22 levofloxacin 500 mg tablet 500 mg PO DAILY atb 07/28/22 mirtazapine 30 mg tablet 30 mg PO QHS sleep 07/28/22 nutrition tx glu intol,lac-free,soy-fiber 0.06 gram-1.2 kcal/mL liquid (Glucerna 1.2 Rudi) 120 ml PO TIDCM supp 07/28/22 pantoprazole 40 mg tablet,delayed release 40 mg PO DAILY stomach acid 07/28/22 phenazopyridine 95 mg tablet (Azo Urinary Pain Relief) 190 mg PO TID urine 07/28/22 sennosides 8.6 mg-docusate sodium 50 mg tablet (Stool Softener-Stimulant Laxative) 1 tab PO BID stool softener 07/28/22 Hospital Course Operations None Procedures None Summary of Care Provided Minutes Spent on Discharge: 32 Hospital Course: This 62-year-old white male was directly admitted to PCU from the rehab unit at [facility] after it was felt he could have DKA, work-up on the patient revealed a possible urinary tract infection with elevated white blood cell count, there was no evidence of DKA but the patient did have ketosis secondary to poor oral intake. Patient was admitted to PCU, he received IV antibiotics and was seen by PT and OT, he improved during his hospital stay, we received permission for the patient to go back to the rehab unit at [facility] for further inpatient rehab services. On 07/28/2022, patient was seen and examined:alert, oriented x3 and no apparent distress Constitutional Narrative: Patient appears older than his stated age General Appearance: cooperative, well kempt and well developed Orientation / Consciousness: awake, oriented to person and oriented to place HEENT normocephalic, head/scalp atraumatic and moist oral mucous membranes Eyes PERRL, EOMs intact bilaterally and conjunctivae normal Neck supple, no JVD, thyroid normal and no carotid bruits General: trachea midline Resp normal respiratory effort, no retractions, no use of accessory muscles and clear to auscultation bilaterally Auscultation: Negative for rales, rhonchi or wheezes Cardio regular rate, regular rhythm, S1 normal heart sound, S2 normal heart sound, no murmurs, no rub and no gallops GI normal to inspection, nondistended, normoactive bowel sounds, soft to palpation, non-tender and non-distended Extremity no clubbing, cyanosis or edema Skin no rashes or lesions noted General Skin Exam: no breakdown Neuro CN's II-XII intact bilaterally Neuro Narrative: Patient exhibits left hemiplegia Sensorium / Orientation: awake, alert, oriented to person and oriented to place Speech: speech normal Psych affect normal Patient appears to be stable for discharge back to the rehab unit at [facility] on 07/28/2022 Medical Records Data Medical Nutrition Assessment Dietitian: Malnutrition Criteria Met Start: 07/26/22 14:00 Freq: Status: Active Protocol: Document 07/26/22 14:01 (Rec: 07/26/22 14:01 [id number]) Nutrition Malnutrition Evidence of Malnutrition Exists Yes Malnutrition (severe): Acute Illness/Injury Evidenced By Suboptimal Energy Intake ( Severe),Weight Loss (Severe) Clinical Problem Acute Disease or Injury Related Malnutrition Etiology severe, acute malnutrition related to inadequate energy intake Signs/Symptoms as evidenced by unintentional 10.5#/6% wt loss < 1 month; estimated PO intake meeting < 50% of estimated energy needs > 5 days Status Active Problem Recommendation Dietitian Recommendations/Changes continue cardiac, 2000 calorie controlled diet- texture/ consistency per BLEND PLANT OPERATOR; will monitor PO intake and liberalize diet as needed. Will continue to offer Glucerna TID. Will add magic cups w/ meals for additional nutrition if consumed. Weight / BMI Weight Weight: 74.1 kg Body Mass Index (BMI) 24.8 ABG / Lab / Microbiology Data Result Diagrams: 07/28/22 04:59 07/26/22 20:40 Laboratory: Laboratory Results - last 24 hr 07/27/22 12:34: POC Glucose 256 H 07/27/22 16:05: POC Glucose 243 H 07/27/22 20:53: POC Glucose 263 H 07/28/22 04:59: WBC 9.3, RBC 4.76, Hgb 14.1, Hct 43.8, MCV 92.0, MCH 29.6, MCHC 32.2, RDW Std Deviation 42.5, RDW Coeff of Machelle 12.4, Plt Count 343, MPV 10.5, Immature Gran % (Auto) 0.400, Neut % (Auto) 73.9 H, Lymph % (Auto) 14.4 L, [place] % (Auto) 7.0, Eos % (Auto) 3.7, Baso % (Auto) 0.6, Absolute Neuts (auto) 6.8, Absolute Lymphs (auto) 1.33, Nucleated RBC % 0 07/28/22 06:34: POC Glucose 230 H Microbiology: Microbiology 07/26/22 Unknown Nasal Secretion SARS-CoV-2 & FLU Antigen (Rapid) - Final D/C Instructions Discharge Diet: 1800 Calorie Control Diet Weight Bearing Status: - (Resume previous activity) Meaningful Use Info Meaningful Use Diagnoses (Choose all that apply): None applicable Discharge Plan Admission Admit Date/Time: 07/26/22 00:34 Primary Reason for Your Visit: acute cystitis Attending Provider: Ayaan Robin Consulting Providers: Heath Mcqueen Discharge Orders/Prescriptions Prescriptions: New acetaminophen 500 mg Tablet 1,000 mg PO Q8H PRN PRN (Reason: Pain 1-10 Or Fever) Qty: 0 0RF chlorpromazine 25 mg Tablet 12.5 mg PO TID PRN PRN (Reason: Hiccups) Qty: 0 0RF Continued aspirin 81 mg Tablet 81 mg PO DAILY lisinopril 40 mg Tablet 20 mg PO DAILY insulin glargine-yfgn 100 unit/mL (3 mL) insulin pen 10 unit subcut BID amlodipine [Norvasc] 5 mg Tablet 5 mg PO DAILY No Action sennosides-docusate sodium [Stool Softener-Stimulant Laxat] 8.6-50 mg tablet 1 tab PO BID clopidogrel 75 mg tablet 75 mg PO DAILY phenazopyridine [Azo Urinary Pain Relief] 95 mg tablet 190 mg PO TID pantoprazole 40 mg tablet,delayed release (DR/EC) 40 mg PO DAILY mirtazapine 30 mg tablet 30 mg PO QHS levofloxacin 500 mg tablet 500 mg PO DAILY enoxaparin 40 mg/0.4 mL syringe 40 mg subcut DAILY@0600 bupropion HCl 150 mg tablet extended release 24 hr 150 mg PO DAILY Glucerna 1.2 Rudi 0.06-1.2 gram-kcal/mL liquid 120 ml PO TIDCM Disposition Disposition (needs filled in before D/C Order can be placed): Inpatient Rehab Unit/Facility Charges/Coding Visit Charges Inpatient E&M: 18904 Disch Hosp >30min
--- NOTE | 2022-07-28 11:32 | CASEMGMT ---
Patient was approved and will return to [facility] Inpatient Rehab Unit. SW notified patient, patient's , RN, and recharger. Plan: d/c back to [facility] Inpatient Rehab Unit. Lisa BOGGS
--- NOTE | 2022-07-28 11:51 | PHA.DC.MR ---
Pharmacy Service has performed discharge medication reconciliation for this patient upon transfer to inpatient rehab unit Home Medications aspirin 81 mg tablet 81 mg PO DAILY heart health 07/09/22 lisinopril 40 mg tablet 20 mg PO DAILY blood pressure 07/09/22 atorvastatin 80 mg tablet 80 mg PO QHS cholesterol 07/12/22 insulin glargine-yfgn 100 unit/mL (3 mL) subcutaneous pen 35 unit subcut BID DM 07/12/22 insulin lispro 100 unit/mL subcutaneous pen (Humalog KwikPen (U-100) Insulin) See Protocol subcut ACHS DM 07/12/22 nicotine 21 mg/24 hr daily transdermal patch mg transdermal DAILY quit smoking 07/12/22 amlodipine 5 mg tablet (Norvasc) 5 mg PO DAILY blood pressure 07/26/22 ustekinumab 45 mg/0.5 mL subcutaneous syringe (Stelara) mg subcut psoriasis 07/26/22 acetaminophen 500 mg tablet 1,000 mg PO Q8H PRN PRN Pain 1-10 Or Fever #0 tabs 07/28/22 bupropion HCl 150 mg 24 hr tablet, extended release 150 mg PO DAILY #0 tabs 07/28/22 chlorpromazine 25 mg tablet 12.5 mg PO TID PRN PRN Hiccups #0 tabs 07/28/22 clopidogrel 75 mg tablet 75 mg PO DAILY #0 tabs 07/28/22 enoxaparin 40 mg/0.4 mL subcutaneous syringe 40 mg (0.4 mL) subcut DAILY #0 mL 07/28/22 insulin lispro 100 unit/mL subcutaneous pen (Humalog KwikPen (U-100) Insulin) See Protocol subcut ACHS #0 mL 07/28/22 levofloxacin 500 mg tablet 500 mg PO DAILY #7 tabs 07/28/22 mirtazapine 30 mg tablet 30 mg PO QHS #0 tabs 07/28/22 nutrition tx glu intol,lac-free,soy-fiber 0.06 gram-1.2 kcal/mL liquid (Glucerna 1.2 Rudi) 120 ml PO TIDCM #0 mL 07/28/22 pantoprazole 40 mg tablet,delayed release 40 mg PO DAILY #0 tabs 07/28/22 phenazopyridine 95 mg tablet (Azo Urinary Pain Relief) 190 mg PO TID #0 tabs 07/28/22 sennosides 8.6 mg-docusate sodium 50 mg tablet (Stool Softener-Stimulant Laxative) 2 tab PO BID #0 tabs 07/28/22 The patient's discharge medication list was reviewed for discrepancies and discrepancies were resolved.
--- NOTE | 2022-07-28 12:10 | NURSING ---
Report called to nurse Esquivel for pt to be d/c to Rehab unit.
[2022-07-28 12:11] VITALS: BP 154/78; PULSE 94; RESP 18; TEMP 36.4; O2SAT 95
[2022-07-28 12:46] LABS: Bedside Glucose 270 mg/dL (74-106)
== END 2022-07-28 15:07 | DRG 642 ==
PROVIDERS: Admitting Provider Hospitalist; Visit Provider Internal Medicine
DX: E88.89 Other specified metabolic disorders (principal); E43 Unspecified severe protein-calorie malnutrition; G81.94 Hemiplegia, unspecified affecting left nondominant side; N30.00 Acute cystitis without hematuria; E11.9 Type 2 diabetes mellitus without complications; Z79.4 Long term (current) use of insulin; K59.00 Constipation, unspecified; I10 Essential (primary) hypertension; F17.220 Nicotine dependence, chewing tobacco, uncomplicated; N40.1 Benign prostatic hyperplasia with lower urinary tract symptoms; R33.8 Other retention of urine; Z68.24 Body mass index [BMI] 24.0-24.9, adult; Z20.822 Contact with and (suspected) exposure to COVID-19; Z79.82 Long term (current) use of aspirin; Z79.899 Other long term (current) drug therapy
CPT/HCPCS: 36415; 36600; 80048; 82009; 82803; 82962; 85025; 87428; 92610; 97110; 97112; 97163; 97166; 97530; 97535; 97802; A4216